=== PATIENT | female | born 1935 | race Caucasian/White ===

== ENCOUNTER 2017-02-08 11:48 | Emergency (ER) | payer OTHER ==
[~2017-02-08 11:48] MED LIST: ASCA500 PO; CLC150 PO; CMD/25 PO; LEVO100T48 PO; MAGNSUS5 PO; MAGNTAB4 PO; METO50TA16 PO; NTRGSL/4 SL; OXGN
[2017-02-08 11:56] VITALS: TEMP 36.5
[2017-02-08 13:44] LABS: BASO % 0.3 %; BASO ABS # 0.02 K/uL (0-0.2); COMPLETE YES; EOS % 3.2 %; HEMATOCRIT 39.8 % (37-47); IG% 0.4 %; LYMPH % 18.6 %; MEAN CELL VOLUME 96.6 fL (80-100); MEAN CORPUSCULAR HEMOGLOBIN 30.6 pg (25-34); MEAN CORPUSCULAR HGB CONC 31.7 g/dl (32-36); MEAN PLATELET VOLUME 9.5 fL (7.4-10.4); MONO % 10.7 %; NEUT % 66.8 %; PLATELET COUNT 237 K/uL (130-400); RED BLOOD COUNT 4.12 M/uL (4.2-5.4); WHITE BLOOD COUNT 6.98 K/uL (4.8-10.8)
[2017-02-08 13:54] LABS: INR 1.8 (0.9-1.1); PARTIAL THROMBOPLASTIN RATIO 1.2; PROTHROMBIN TIME (PATIENT) 20.1 SECONDS (9.0-12.0)
[2017-02-08 14:09] LABS: ALT/SGPT 29 U/L (12-78); AST/SGOT 36 U/L (15-37); BLOOD UREA NITROGEN 16 mg/dl (7-18); BUN/CREATININE RATIO 16.3 (10-20); CARBON DIOXIDE 33 mmol/L (21-32); CHLORIDE 105 mmol/L (98-107); GLUCOSE 157 mg/dl (70-99); POTASSIUM 4.5 mmol/L (3.5-5.1); SODIUM 142 mmol/L (136-145)
[2017-02-08 14:12] LABS: ALB/GLOB RATIO 0.8 (0.9-2); ALKALINE PHOSPHATASE 246 U/L (45-117)
--- NOTE | 2017-02-08 14:30 | EMERGENCY ROOM VISIT NOTE ---
History Report prepared by Ibis: Ncikolas Tomlin Under the Supervision of: Dr. Alma Moctezuma D.O. First contact with patient: 14:04 Chief Complaint: OTHER COMPLAINT Stated Complaint: INFECTION History of Present Illness The patient is an 81 year old female who presents to the Emergency Room with complaints of a persistent infection that was detected this morning. The patient states that she has not felt well and has been extremely tired for a while now and her doctors are aware of this. Around 3 weeks ago, she started having a severe headache around her left eyeball. Even when touching her left eyebrow, she has terrible pain. However, the severe headache went away around a week and a half ago, although her left eyeball has been persistently sensitive. After the headache subsided, she started getting a very bad sore throat, and she says that she felt like she was swallowing razor blades. Her sore throat subsided, but then she got bad diarrhea. However, currently she has been constipated. The patient's family also notes that the patient has been more short of breath on exertion than normal. She is on oxygen at home all the time. The patient saw Dr. Nugent of cardiovascular disease a few days ago, and was told to have a CT scan head because the patient has been on Coumadin for a long time and she is prone to a blood clot. The patient had the CT scan yesterday, and was then called this morning and told that she should come here to have some IV antibiotics because she had severe inflammation in her sinuses. The CT scan report revealed severe sinus disease, and there is concern that part of the posterior aspect of the sinus dehisced, so they want the patient to have a contrast head CT and orbital CT. The patient denies any abdominal pain, nausea , vomiting, fevers, or chills. She notes that she has a yeast infection under her right breast, and was being treated for this with medications, but she has not been taking the medications ever since she has not been feeling well. Her doctor agreed with holding off on the medication for now. Her last Coumadin was 1.7. She has a pacemaker, is diabetic, and has 3 stents placed. She says her sugars have been low a few mornings recently. The patient did take her insulin this morning, but did not eat anything this morning due to doctor's recommendation. Source of History: patient, family Onset: Detected this morning Position: other (global - infection) Timing: other (persistent) Associated Symptoms: + SOB (worsening), + diarrhea (but is now constipated) , + fatigue, + headache (has subsided), + sorethroat (has subsided), No abdominal pain, No chills, No fevers, No nausea, No vomiting Note: Associated symptoms: Persistent sensitivity around left eyeball. Review of Systems See HPI for pertinent positives & negatives. A total of 10 systems reviewed and were otherwise negative. 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 (14) Venous insufficiency Surgical Problems: (1) History of cholecystectomy (2) History of hysterectomy (3) S/P coronary artery stent placement (4) S/p dual chamber pacemaker insertion Family History Diabetes mellitus MOTHER FH: CHF (congestive heart failure) MOTHER FH: Crohn's disease DAUGHTER Hypertension SON Pacemaker BROTHER Social History Smoking Status: Never Smoker Alcohol Use: none Drug Use: none Marital Status: Housing Status: lives with family Occupation Status: retired Current/Historical Medications Scheduled Ascorbic Acid (Ascorbic Acid), 500 MG PO DAILY Aspirin (Aspirin Ec), 81 MG PO DAILY Atorvastatin (Lipitor), 10 MG PO DAILY Calcium Carbonate-Vitamin D (Calcium 600 + D), 2 TABLETS PO DAILY Cholecalciferol (Vitamin D3), 1 TAB PO DAILY Clindamycin Hcl (Cleocin), 300 MG PO TID Coenzyme Q10 (Ubidecarenone) (Co Q 10), 100 MG PO DAILY Fluticasone Propionate (Nasal) (Flonase Allergy Relief), 2 SPRAYS INTNAS BID Furosemide (Lasix), 20 MG PO DAILY Insulin Isophan/Regular (Novolin 70/30), 25 UNITS SC QAM Insulin Isophan/Regular (Novolin 70/30), 15 UNITS SC QPM Isosorbide Mononitrate Ext Rel (Imdur Ext Rel), 60 MG PO DAILY Levothyroxine Sodium (Levothyroxine Sodium), 1 TAB PO DAILY Magnesium Chloride (Slow-Mag Tab), 64 MG PO DAILY Metoprolol Tartrate (Lopressor) (Lopressor), 25 MG PO BID Multivitamin (Multivitamin), 1 TAB PO DAILY Nitroglycerin (Nitrostat), 0.4 MG UT PRN Oxygen (Oxygen), 2 LITERS NA HS Pantoprazole (Protonix), 40 MG PO Q2D Probiotic Product (Probiotic), 1 CAP PO DAILY Warfarin Sod (Coumadin), 1 TAB PO DAILY Scheduled PRN Acetaminophen (Tylenol), 500-1,000 MG PO TID PRN Lorazepam (Ativan), 0.25-0.5 MG PO BID PRN for Anxiety/Agitation Magnesium Hydroxide (Milk of Magnesia), 30 ML PO for Constipation Miscellaneous Medications Clindamycin Hcl (Clindamycin Hcl), 4 CAP PO Allergies Coded Allergies: MERRY Inhibitors (Verified Allergy, Unknown, Unknown, 02/08/17) Adhesives (Verified Allergy, Unknown, "TAPE", 02/08/17) Albuterol (Verified Allergy, Unknown, INTOLERANT OF ALBUTEROL, 02/08/17) Amiodarone (Verified Allergy, Unknown, 02/08/17) Amoxicillin (Verified Allergy, Unknown, ., 02/08/17) Ampicillin (Verified Allergy, Unknown, Unknown, 02/08/17) Bacitracin (Verified Allergy, Unknown, 02/08/17) Replaces BACITRACIN/PO Cephalosporins (Verified Allergy, Unknown, KEFLEX, 02/08/17) Morphine (Verified Allergy, Unknown, 02/08/17) Penicillins (Verified Allergy, Unknown, AMPICILLIN, 02/08/17) Polymyxin B (Verified Allergy, Unknown, 02/08/17) Replaces BACITRACIN/PO Physical Exam Vital Signs Date Time Temp Pulse Resp B/P Pulse Ox O2 Delivery O2 Flow Rate FiO2 02/08/17 19:04 75 19 146/75 94 Room Air 02/08/17 18:15 72 20 151/90 93 Nasal Cannula 2.0 02/08/17 15:10 88 20 129/90 97 Room Air 02/08/17 11:56 36.5 91 20 101/53 97 Room Air Physical Exam GENERAL: alert, well appearing, well nourished, no distress, non-toxic EYE EXAM: normal conjunctiva, PERRL and EOM's grossly intact OROPHARYNX: no exudate, no erythema, lips, buccal mucosa, and tongue normal and mucous membranes are moist. poor dentition. no periorbital edema, no sinus tenderness to percussion. No facial swelling NECK: supple, no nuchal rigidity, no adenopathy, non-tender LUNGS: Clear to auscultation. Normal chest wall mechanics HEART: no murmurs, S1 normal and S2 normal ABDOMEN: abdomen very obese, soft, non-tender, normo-active bowel sounds, no masses, no rebound or guarding. BACK: Back is symmetrical on inspection and there is no deformity, no midline tenderness, no CVA tenderness. SKIN: no rashes and no bruising UPPER EXTREMITIES: upper extremities are grossly normal. LOWER EXTREMITIES: chronic lymphedema bilaterally to lower extremities, chronic venous stasis changes bilaterally to lower extremities. NEURO EXAM: Normal sensorium, cranial nerves II-XII grossly intact, normal speech, no gross weakness of arms, no gross weakness of legs. No drift. Finger to nose intact. Gross sensation intact. Medical Decision & Procedures ER Provider Diagnostic Interpretation: Xray results per the radiologist and my interpretation. Other results have been interpreted by the radiologist and reviewed by me. CHEST 2 VIEWS ROUTINE CLINICAL HISTORY: Shortness of breath. COMPARISON STUDY: Chest radiograph December 18, 2015. FINDINGS: A dual the left subclavian pacemaker remains in place. Moderate cardiomegaly is unchanged. There is no pneumothorax or pleural effusion. There is no evidence of pulmonary edema. Right lung linear opacities suggest atelectasis or scarring. Elevation/eventration of the right hemidiaphragm is unchanged. IMPRESSION: 1. No acute findings. 2. Stable cardiomegaly without evidence of pulmonary edema. 3. Linear right lung opacities which suggest atelectasis or scarring. Electronically signed by: Ulises Hendrickson M.D. 02/08/2017 5:20 PM Dictated Date/Time: 02/08/2017 5:[address] ORBITS/SELLA/TEMP COMBO CT DOSE: CLINICAL HISTORY: Sinus disease. Possible abscess. TECHNIQUE: The patient was scanned following administration of 93 cc of Optiray 320. COMPARISON STUDY: None. FINDINGS: There is a small amount of debris within the inferior aspect of the right mastoid. Middle ear cavities appear symmetrically aerated. The sphenoid sinus appears clear. There is opacification of several right-sided ethmoid air cells with erosion of the right lamina papyracea. There is no evidence for intraconal or subperiosteal abscess. There is also erosion of the medial wall of the right ethmoid sinus near the level of the olfactory groove. There is opacification of the frontal sinus. There is erosion of the posterior wall the right frontal sinus. There is no evidence of intracranial abscess. The left ostiomeatal unit is patent. The infundibular portions the right ostiomeatal unit is occluded by soft tissue. IMPRESSION: 1. Inflammatory changes within the right ethmoid and frontal sinuses, with evidence for bony erosive change involving the right lamina papyracea, the medial wall the right ethmoid sinus, and the posterior wall the right frontal sinus. There is no CT evidence of intracranial abscess or intraorbital abscess. Electronically signed by: Jc Lacy M.D. 02/08/2017 5:04 PM Dictated Date/Time: 02/08/2017 4:[address] HEAD WITH CONTRAST (CT) CT DOSE: 2633.04 mGy.cm CLINICAL HISTORY: Infection. Abnormal outpatient noncontrast CT. Sinus disease. TECHNIQUE: Axial images of the head were obtained following intravenous injection of 93 cc of Optiray 320 IV. COMPARISON STUDY: None. FINDINGS: The sensitivity for detection of acute hemorrhage is diminished on this contrast enhanced exam but none is identified. Ventricular system is unremarkable. Basilar cisterns are patent. White matter hypodensity suggests small vessel disease. There are no findings to suggest acute dural sinus thrombosis or acute territorial infarct. There is trace fluid within the right mastoid air cells. The right frontal sinus and anterior right ethmoid sinuses are opacified. There is better depicted on the orbits CT. There is no intracranial mass. IMPRESSION: 1. No acute intracranial findings. 2. Opacified right frontal sinus and right anterior ethmoid air cells with bony erosion of the wall of the right orbit, medial wall the right ethmoid sinus and posterior wall the right frontal sinus. Differentiation between marked bony thinning and complete erosion through the bone is difficult by CT. No intracranial abscess identified. These findings are better depicted on the orbits CT. Please see that report for further description. Electronically signed by: Ulises Hendrickson M.D. 02/08/2017 5:09 PM Dictated Date/Time: 02/08/2017 4:49 PM Laboratory Results 02/08/17 13:30 Red Blood Count 4.12, Mean Corpuscular Volume 96.6, Mean Corpuscular Hemoglobin 30.6, Mean Corpuscular Hemoglobin Concent 31.7, Mean Platelet Volume 9.5, Neutrophils (%) (Auto) 66.8, Lymphocytes (%) (Auto) 18.6, Monocytes (%) (Auto) 10.7, Eosinophils (%) (Auto) 3.2, Basophils (%) (Auto) 0.3, Neutrophils # (Auto ) 4.66, Lymphocytes # (Auto) 1.30, Monocytes # (Auto) 0.75, Eosinophils # (Auto ) 0.22, Basophils # (Auto) 0.02 02/08/17 13:30 Test 02/08/17 13:30 02/08/17 16:20 White Blood Count 6.98 K/uL (4.8-10.8) Red Blood Count 4.12 M/uL (4.2-5.4) Hemoglobin 12.6 g/dL (12.0-16.0) Hematocrit 39.8 % (37-47) Mean Corpuscular Volume 96.6 fL (80-100) Mean Corpuscular Hemoglobin 30.6 pg (25-34) Mean Corpuscular Hemoglobin Concent 31.7 g/dl (32-36) Platelet Count 237 K/uL (130-400) Mean Platelet Volume 9.5 fL (7.4-10.4) Neutrophils (%) (Auto) 66.8 % Lymphocytes (%) (Auto) 18.6 % Monocytes (%) (Auto) 10.7 % Eosinophils (%) (Auto) 3.2 % Basophils (%) (Auto) 0.3 % Neutrophils # (Auto) 4.66 K/uL (1.4-6.5) Lymphocytes # (Auto) 1.30 K/uL (1.2-3.4) Monocytes # (Auto) 0.75 K/uL (0.11-0.59) Eosinophils # (Auto) 0.22 K/uL (0-0.5) Basophils # (Auto) 0.02 K/uL (0-0.2) RDW Standard Deviation 52.5 fL (36.4-46.3) RDW Coefficient of Variation 14.8 % (11.5-14.5) Immature Granulocyte % (Auto) 0.4 % Immature Granulocyte # (Auto) 0.03 K/uL (0.00-0.02) Prothrombin Time 20.1 SECONDS (9.0-12.0) Prothromb Time International Ratio 1.8 (0.9-1.1) Activated Partial Thromboplast Time 31.2 SECONDS (21.0-31.0) Partial Thromboplastin Ratio 1.2 Anion Gap 4.0 mmol/L (3-11) Estimated GFR () 60.3 Estimated GFR (Non- 52.1 BUN/Creatinine Ratio 16.3 (10-20) Calcium Level 9.0 mg/dl (8.5-10.1) Total Bilirubin 1.0 mg/dl (0.2-1) Aspartate Amino Transf (AST/SGOT) 36 U/L (15-37) Alanine Aminotransferase (ALT/SGPT) 29 U/L (12-78) Alkaline Phosphatase 246 U/L (45-117) Troponin I 0.029 ng/ml (0-0.045) Pro-B-Type Natriuretic Peptide 1280 pg/ml (0-1800) Total Protein 6.9 gm/dl (6.4-8.2) Albumin 3.1 gm/dl (3.4-5.0) Globulin 3.8 gm/dl (2.5-4.0) Albumin/Globulin Ratio 0.8 (0.9-2) Urine Color YELLOW Urine Appearance CLEAR (CLEAR) Urine pH 8.0 (4.5-7.5) Urine Specific [place] 1.011 (1.000-1.030) Urine Protein NEG (NEG) Urine Glucose (UA) NEG (NEG) Urine Ketones NEG (NEG) Urine Occult Blood NEG (NEG) Urine Nitrite NEG (NEG) Urine Bilirubin NEG (NEG) Urine Urobilinogen NEG (NEG) Urine Leukocyte Esterase SMALL (NEG) Urine WBC (Auto) 5-10 /hpf (0-5) Urine RBC (Auto) 0-4 /hpf (0-4) Urine Hyaline Casts (Auto) 0 /lpf (0-5) Urine Epithelial Cells (Auto) >30 /lpf (0-5) Urine Bacteria (Auto) 1+ (NEG) Laboratory results per my review. Medications Administered Medications (Trade) Dose Ordered Sig/Yesenia Route Start Time Stop Time Status Last Admin Dose Admin Lorazepam (Ativan Tab) 0.25 mg NOW STAT SL 02/08/17 15:05 02/08/17 15:06 DC 02/08/17 15:20 0.25 MG Clindamycin HCl (Cleocin Cap) 300 mg ONE ONCE PO 02/08/17 18:30 02/08/17 18:31 DC 02/08/17 18:31 300 MG ECG Indication: SOB/dyspnea Rate (beats per minute): 66 Rhythm: other (paced rhythm) Findings: no acute ischemic change, left axis deviation, prolonged QT ( consistent with pacing), other (prolonged QRS consistent with pacing) ED Course 1413: The patient was evaluated in room B5. A complete history and physical exam was performed. 1505: Ordered Ativan Tab 0.25 mg SL. 174: I reevaluated the patient and updated her about her CT scans. 1811: I discussed the patient with Dr. Sagar Wolfe ENT - he recommends to give the patient Clindamycin 300 TID for 10 days, nasal steroids, salt water , and he can see the patient on Saturday. 1820: Upon reevaluation, the patient is feeling better. I discussed the findings and the treatment plan with the patient. She verbalizes agreement and understanding. She will be discharged home. 1829: Ordered Cleocin Cap 300 mg PO. 1835: Ordered Flonase Nasal [place] 2 sprays NA. Medical Decision ddx - sinusitis, intracranial abscess, CVA, intercerebral hemorrhage, parable cellulitis, orbital cellulitis, atypical headache/migraine, mucormycosis Patient well-appearing here and per her report symptoms improved compared to a week ago. Patient here due to atypical renal outpatient noncontrast head CT and palpation doctor concern patient required additional imaging. Patient's labs reassuring despite multiple chronic medical conditions. Imaging with extensive sinus disease noted, and so discussed with ENT. No exam findings to suggest mucormycosis. Patient with no facial edema or periorbital edema, no proptosis. Patient was reported normal vision and no recurrent headaches. No sinus tenderness to percussion. Patient's only risk factor for more significant sinus disease as her diabetes, she is not otherwise immunocompromised. After discussion with ENT started on clindamycin and additional intranasal treatments. Patient advised close follow-up. Discussed at length with patient and family at bedside symptoms watch return for, use of continue medications, need for close follow-up they verbalized understanding were agreeable with plan. Patient with no other symptoms at this time including chest pain, shortness of breath, fevers or chills, no vomiting here. Patient appears in her usual state of health. Consults Time Called: 1800 Consulting Physician: Dr. Sagar Wolfe ENT Returned Call: 1811 I discussed the patient with Dr. Sagar Wolfe ENT - he recommends to give the patient Clindamycin 300 TID for 10 days, nasal steroids, salt water, and he can see the patient on Saturday. Impression Primary Impression: Sinusitis Additional Impression: Headache Scribe Attestation The scribe's documentation has been prepared under my direction and personally reviewed by me in its entirety. I confirm that the note above accurately reflects all work, treatment, procedures, and medical decision making performed by me. Departure Information Dispostion Home / Self-Care Prescriptions Fluticasone Propionate (Nasal) (Flonase Allergy Relief) 50 Mcg/Act Spr 2 SPRAYS INTNAS BID, #1 UNIT Prov: Alma Moctezuma, 02/08/17 Clindamycin Hcl (CLEOCIN) 150 Mg Cap 300 MG PO TID for 10 Days, #60 CAP Prov: Alma Moctezuma, 02/08/17 Referrals No Doctor, Assigned (PCP) Patient Instructions My [facility] Additional Instructions Please call and follow-up as directed by the ear nose and throat doctor. He may see Dr. Keith in the office on Saturday, or if you prefer urinary nose and throat doctor the use before. Please use a saline or saltwater rinses of the nose. Please use the nasal steroid as prescribed, take the antibiotics as prescribed daily. Please begin using an [id number] probiotic and eat yogurt daily to help prevent against any GI side effects of taking the antibiotic. Afrin may be used [id number], however please be cautious in taking this given her history of high blood pressure. Please continue your other medications as prescribed and checked her blood sugar daily. Problem Qualifiers Primary Impression: Sinusitis Sinusitis location: unspecified location Chronicity: acute Recurrence: non -recurrent Qualified Codes: J01.90 - Acute sinusitis, unspecified Additional Impression: Headache Headache type: unspecified Headache chronicity pattern: episodic headache Intractability: not intractable Qualified Codes: R51 - Headache
[2017-02-08] MEDS ORDERED: LORAZEPAM 0.5 MG TAB SL STA (15:05)
[2017-02-08] MEDS ORDERED: OPTIRAY 320 IV PRN (17:00)
--- NOTE | 2017-02-08 17:05 | DIAGNOSTIC IMAGING REPORT ---
CT ORBITS/SELLA/TEMP COMBO CT DOSE: CLINICAL HISTORY: Sinus disease. Possible abscess. TECHNIQUE: The patient was scanned following administration of 93 cc of Optiray 320. COMPARISON STUDY: None. FINDINGS: There is a small amount of debris within the inferior aspect of the right mastoid. Middle ear cavities appear symmetrically aerated. The sphenoid sinus appears clear. There is opacification of several right-sided ethmoid air cells with erosion of the right lamina papyracea. There is no evidence for intraconal or subperiosteal abscess. There is also erosion of the medial wall of the right ethmoid sinus near the level of the olfactory groove. There is opacification of the frontal sinus. There is erosion of the posterior wall the right frontal sinus. There is no evidence of intracranial abscess. The left ostiomeatal unit is patent. The infundibular portions the right ostiomeatal unit is occluded by soft tissue. IMPRESSION: 1. Inflammatory changes within the right ethmoid and frontal sinuses, with evidence for bony erosive change involving the right lamina papyracea, the medial wall the right ethmoid sinus, and the posterior wall the right frontal sinus. There is no CT evidence of intracranial abscess or intraorbital abscess. Electronically signed by: Jc Lacy M.D. 02/08/2017 5:04 PM Dictated Date/Time: 02/08/2017 4:59 PM
--- NOTE | 2017-02-08 17:10 | DIAGNOSTIC IMAGING REPORT ---
CT HEAD WITH CONTRAST (CT) CT DOSE: 2633.04 mGy.cm CLINICAL HISTORY: Infection. Abnormal outpatient noncontrast CT. Sinus disease. TECHNIQUE: Axial images of the head were obtained following intravenous injection of 93 cc of Optiray 320 IV. COMPARISON STUDY: None. FINDINGS: The sensitivity for detection of acute hemorrhage is diminished on this contrast enhanced exam but none is identified. Ventricular system is unremarkable. Basilar cisterns are patent. White matter hypodensity suggests small vessel disease. There are no findings to suggest acute dural sinus thrombosis or acute territorial infarct. There is trace fluid within the right mastoid air cells. The right frontal sinus and anterior right ethmoid sinuses are opacified. There is better depicted on the orbits CT. There is no intracranial mass. IMPRESSION: 1. No acute intracranial findings. 2. Opacified right frontal sinus and right anterior ethmoid air cells with bony erosion of the wall of the right orbit, medial wall the right ethmoid sinus and posterior wall the right frontal sinus. Differentiation between marked bony thinning and complete erosion through the bone is difficult by CT. No intracranial abscess identified. These findings are better depicted on the orbits CT. Please see that report for further description. Electronically signed by: Ulises Hendrickson M.D. 02/08/2017 5:09 PM Dictated Date/Time: 02/08/2017 4:49 PM
[2017-02-08 17:18] LABS: URINE APPEARANCE CLEAR (CLEAR); URINE BILIRUBIN NEG (NEG); URINE COLOR YELLOW; URINE EPITHELIAL CELL AUTO >30 /lpf (0-5); URINE NITRITE NEG (NEG); URINE SPECIFIC GRAVITY 1.011 (1.000-1.030); UROBILINOGEN NEG (NEG); ZZUR CULT IF INDIC CLEAN CATCH YES
[2017-02-08 17:22] LABS: MANUAL MICROSCOPIC REQUIRED? NO; REVIEW REQ? NO
--- NOTE | 2017-02-08 17:22 | DIAGNOSTIC IMAGING REPORT ---
CHEST 2 VIEWS ROUTINE CLINICAL HISTORY: Shortness of breath. COMPARISON STUDY: Chest radiograph December 18, 2015. FINDINGS: A dual the left subclavian pacemaker remains in place. Moderate cardiomegaly is unchanged. There is no pneumothorax or pleural effusion. There is no evidence of pulmonary edema. Right lung linear opacities suggest atelectasis or scarring. Elevation/eventration of the right hemidiaphragm is unchanged. IMPRESSION: 1. No acute findings. 2. Stable cardiomegaly without evidence of pulmonary edema. 3. Linear right lung opacities which suggest atelectasis or scarring. Electronically signed by: Ulises Hendrickson M.D. 02/08/2017 5:20 PM Dictated Date/Time: 02/08/2017 5:19 PM
[2017-02-08] MEDS ORDERED: CLINDAMYCIN HCL 150 MG CAP PO ONE (18:30)
[2017-02-08] MEDS ORDERED: FLUTICASONE PROPIONATE NA SPR 16 GM BTL STA (18:36)
[2017-02-08] MEDS ORDERED: FLUT0.15 INTNAS (18:41)
[2017-02-08] MEDS ORDERED: CLIN150C PO (18:41)
[2017-02-08 19:04] VITALS: BP 146/75; PULSE 75; O2SAT 94
[2017-03-10] MEDS ORDERED: INSU70IN2 SC ×2 (04:30→04:32)
[2017-03-10] MEDS ORDERED: ISOS60TA25 PO (04:31)
[2017-03-10] MEDS ORDERED: TYLOTC500 PO (04:33)
[2017-03-10] MEDS ORDERED: MULT-506 PO (04:33)
[2017-03-10] MEDS ORDERED: CALC-20 PO (04:36)
[2017-03-10] MEDS ORDERED: ATOR-22 PO (04:37)
[2017-03-10] MEDS ORDERED: COEN1CAP17 PO (04:54)
[2017-03-10] MEDS ORDERED: MISCCAP80 PO (13:42)
[2017-03-10] MEDS ORDERED: CHOL1000 PO (13:42)
[2017-03-10] MEDS ORDERED: LORA-741 PO (13:42)
[2017-03-10] MEDS ORDERED: ASPI81TA28 PO (13:42)
[2017-03-10] MEDS ORDERED: SLWMEC PO (15:58)
[2017-03-10] MEDS ORDERED: CLIN150C15 PO (15:58)
[2017-03-10] MEDS ORDERED: ASCO500T16 PO (15:58)
[2017-03-10] MEDS ORDERED: LEVO100T7 PO (15:58)
[2017-03-10] MEDS ORDERED: NTRGSL/4 UT (15:58)
[2017-03-10] MEDS ORDERED: FURO-85 PO (15:58)
[2017-03-10] MEDS ORDERED: MOMLX PO (15:58)
== END 2017-02-08 19:23 | disposition home or self-care (01) ==
LOC: C.EDB 11:49
DX: J01.90 Acute sinusitis, unspecified (principal); R51 Headache; R19.7 Diarrhea, unspecified; I12.9 Hypertensive chronic kidney disease with stage 1 through stage 4 chronic kidney disease, or unspecified chronic kidney disease; E78.5 Hyperlipidemia, unspecified; E03.9 Hypothyroidism, unspecified; E11.22 Type 2 diabetes mellitus with diabetic chronic kidney disease; N18.3 Chronic kidney disease, stage 3 (moderate); E11.40 Type 2 diabetes mellitus with diabetic neuropathy, unspecified; Z95.0 Presence of cardiac pacemaker; Z85.828 Personal history of other malignant neoplasm of skin; Z98.61 Coronary angioplasty status; Z90.710 Acquired absence of both cervix and uterus; Z90.49 Acquired absence of other specified parts of digestive tract; Z79.01 Long term (current) use of anticoagulants; Z79.4 Long term (current) use of insulin; Z79.82 Long term (current) use of aspirin; Z79.899 Other long term (current) drug therapy

== ENCOUNTER 2017-03-10 20:08 | Inpatient (IN) | payer OTHER ==
[~2017-03-10] VITALS: Ht 167.6 cm; Wt 133.6 kg
[~2017-03-10 20:08] MED LIST changes: -ASCA500 PO; +ASCO500T16 PO; +ASPI81TA28 PO; +ATOR-22 PO; +CALC-20 PO; +CHOL1000 PO; -CLC150 PO; +CLIN150C15 PO; +COEN1CAP17 PO; +FLUT0.15 INTNAS; +FURO-85 PO; +INSU70IN2 SC; +ISOS60TA25 PO; -LEVO100T48 PO; +LEVO100T7 PO; +LORA-741 PO; -MAGNSUS5 PO; -MAGNTAB4 PO; +MISCCAP80 PO; +MOMLX PO; +MULT-506 PO; -NTRGSL/4 SL; +NTRGSL/4 UT; +SLWMEC PO; +TYLOTC500 PO
[2017-03-10] MEDS ORDERED: LEVALBUTEROL 1.25MG/3ML NEB INH STA (20:18)
[2017-03-10 20:30] LABS: BASO % 0.2 %; BASO ABS # 0.01 K/uL (0-0.2); COMPLETE YES; EOS % 1.4 %; HEMATOCRIT 44.1 % (37-47); IG% 0.2 %; LYMPH % 22.7 %; LYMPH ABS # 1.28 K/uL (1.2-3.4); MEAN CELL VOLUME 97.8 fL (80-100); MEAN CORPUSCULAR HGB CONC 31.7 g/dl (32-36); MEAN PLATELET VOLUME 9.9 fL (7.4-10.4); MONO % 17.6 %; NEUT % 57.9 %; PLATELET COUNT 197 K/uL (130-400); RED BLOOD COUNT 4.51 M/uL (4.2-5.4); WHITE BLOOD COUNT 5.64 K/uL (4.8-10.8)
[2017-03-10] MEDS ORDERED: LORAZEPAM 2 MG/ML 1 ML VIAL IV STA (20:35)
[2017-03-10] MEDS ORDERED: LEVO1TAB33 PO (20:38)
[2017-03-10] MEDS ORDERED: METO50TA16 PO (20:38)
[2017-03-10 20:39] LABS: INR 2.3 (0.9-1.1); PROTHROMBIN TIME (PATIENT) 25.1 SECONDS (9.0-12.0)
--- NOTE | 2017-03-10 20:45 | EMERGENCY ROOM VISIT NOTE ---
History Report prepared by Ibis: Jolene Greene Under the Supervision of: Dr. Steven Vargas M.D. First contact with patient: 20:10 Stated Complaint: BREATHING DIFFICULTY History of Present Illness The patient is an 81 year old female who presents to the Emergency Room with complaints of worsening shortness of breath starting a few days ago. She reports that she also hasn't been feeling all that well altogether the past few days. She states that she has been experiencing chills, intermittent diaphoresis , and fever. Per EMS, she her stats were in the mid-80s on 2 L O2. She states she does not want to be given Albuterol or Duoneb because they speed up her heart rate. She denies any chest pain or ever being a smoker. She notes she is on Coumadin. Source of History: patient, EMS Onset: few days ago Position: other (global) Quality: other (global) Timing: worsening Associated Symptoms: + chills, + diaphoresis, + fevers, No chest pain Review of Systems See HPI for pertinent positives & negatives. A total of 10 systems reviewed and were otherwise negative. 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 (14) Venous insufficiency Surgical Problems: (1) History of cholecystectomy (2) History of hysterectomy (3) S/P coronary artery stent placement (4) S/p dual chamber pacemaker insertion Family History Diabetes mellitus MOTHER FH: CHF (congestive heart failure) MOTHER FH: Crohn's disease DAUGHTER Hypertension SON Pacemaker BROTHER Social History Smoking Status: Never Smoker Alcohol Use: none Drug Use: none Marital Status: Housing Status: lives with family Occupation Status: retired Current/Historical Medications Scheduled Ascorbic Acid (Ascorbic Acid), 500 MG PO DAILY Aspirin (Aspirin Ec), 81 MG PO DAILY Atorvastatin (Lipitor), 10 MG PO DAILY Calcium Carbonate-Vitamin D (Calcium 600 + D), 2 TABLETS PO DAILY Cholecalciferol (Vitamin D3), 1 TAB PO DAILY Coenzyme Q10 (Ubidecarenone) (Co Q 10), 100 MG PO DAILY Furosemide (Lasix), 20 MG PO DAILY Insulin Isophan/Regular (Novolin 70/30), 25 UNITS SC QAM Insulin Isophan/Regular (Novolin 70/30), 15 UNITS SC QPM Isosorbide Mononitrate Ext Rel (Imdur Ext Rel), 60 MG PO DAILY Levofloxacin (Levaquin), 500 MG PO DAILY Levothyroxine Sodium (Levothyroxine Sodium), 1 TAB PO DAILY Magnesium Chloride (Slow-Mag Tab), 64 MG PO DAILY Metoprolol Tartrate (Lopressor) (Lopressor), 25 MG PO DAILY Multivitamin (Multivitamin), 1 TAB PO DAILY Nitroglycerin (Nitrostat), 0.4 MG UT PRN Pantoprazole (Protonix), 40 MG PO Q2D Probiotic Product (Probiotic), 1 CAP PO DAILY Warfarin Sod (Coumadin), 2.5-5 MG PO DAILY UD Scheduled PRN Acetaminophen (Tylenol), 500-1,000 MG PO TID PRN Lorazepam (Ativan), 0.25-0.5 MG PO BID PRN for Anxiety/Agitation Magnesium Hydroxide (Milk of Magnesia), 30 ML PO for Constipation Miscellaneous Medications Clindamycin Hcl (Clindamycin Hcl), 4 CAP PO Allergies Coded Allergies: MERRY Inhibitors (Verified Allergy, Unknown, Unknown, 02/08/17) Adhesives (Verified Allergy, Unknown, "TAPE", 02/08/17) Albuterol (Verified Allergy, Unknown, INTOLERANT OF ALBUTEROL, 02/08/17) Amiodarone (Verified Allergy, Unknown, 02/08/17) Amoxicillin (Verified Allergy, Unknown, ., 02/08/17) Ampicillin (Verified Allergy, Unknown, Unknown, 02/08/17) Bacitracin (Verified Allergy, Unknown, 02/08/17) Replaces BACITRACIN/PO Cephalosporins (Verified Allergy, Unknown, KEFLEX, 02/08/17) Epinephrine (Verified Allergy, Unknown, UNKNOWN, 03/10/17) INFO FROM [facility] Morphine (Verified Allergy, Unknown, 02/08/17) Penicillins (Verified Allergy, Unknown, AMPICILLIN, 02/08/17) Polymyxin B (Verified Allergy, Unknown, 02/08/17) Replaces BACITRACIN/PO Physical Exam Vital Signs Date Time Temp Pulse Resp B/P Pulse Ox O2 Delivery O2 Flow Rate FiO2 03/10/17 23:20 83 28 122/68 93 Nasal Cannula 3.0 03/10/17 21:22 92 26 134/71 93 Nasal Cannula 4.0 03/10/17 20:49 88 24 95 Nasal Cannula 3.0 03/10/17 20:42 90 03/10/17 20:23 94 Nasal Cannula 6.0 03/10/17 20:23 93 Nasal Cannula 6.0 03/10/17 20:17 86 Room Air 03/10/17 20:17 36.7 86 30 158/94 86 Room Air Physical Exam GENERAL: Patient is a healthy-appearing well-nourished HEAD: Normocephalic atraumatic EYES: Ocular movements intact pupils equal and react to light OROPHARYNX mucous membranes are moist no exudates present no erythema or edema present NECK: Supple no nuchal rigidity CHEST: Good equal expansion LUNGS: Clear and equal to auscultation. Acute short of breath, wheezing throughout lung donaldson. CARDIAC: Normal S1 and S2 ABDOMEN: Soft nontender no guarding BACK: No CVA tenderness EXTREMITIES: No pain upon palpation normal muscle strength in all groups no clubbing cyanosis or edema NEURO: Patient is following commands is answering questions appropriately. Alert and oriented x3 Cranial Nerves 2-12 grossly intact Medical Decision & Procedures ER Provider Diagnostic Interpretation: Radiology results as stated below per my review and radiologist interpretation: CHEST ONE VIEW PORTABLE HISTORY: Short of breath. COMPARISON: Chest 02/08/2017. FINDINGS: The heart remains mildly enlarged. Left-sided dual-chamber pacemaker. No pleural effusions. No pneumothorax. Mild central pulmonary vascular congestion without overt edema. Stable linear densities within the right mid to lower lung zone. This may represent scarring or atelectasis. IMPRESSION: 1. Stable mild cardiomegaly. 2. Mild pulmonary vascular congestion without overt edema. 3. Stable linear scarlike densities within the right lung. Electronically signed by: Killian Perez M.D. 03/10/2017 9:06 PM Dictated Date/Time: 03/10/2017 9:05 PM Laboratory Results Test 03/10/17 19:50 03/10/17 21:20 Total Bilirubin 0.6 mg/dl (0.2-1) Aspartate Amino Transf (AST/SGOT) 30 U/L (15-37) Alanine Aminotransferase (ALT/SGPT) 20 U/L (12-78) Alkaline Phosphatase 173 U/L (45-117) Total Creatine Kinase 60 U/L (26-192) Creatine Kinase MB 1.8 ng/ml (0.5-3.6) Creatine Kinase MB Ratio 3.0 (0-3.0) Troponin I 0.025 ng/ml (0-0.045) Total Protein 7.1 gm/dl (6.4-8.2) Albumin 3.1 gm/dl (3.4-5.0) Globulin 4.0 gm/dl (2.5-4.0) Albumin/Globulin Ratio 0.8 (0.9-2) Influenza Type A (RT-PCR) Neg for Influ A (NEG) Influenza Type A Antigen Neg for Influ A (NEG) Influenza Type B Antigen Neg for Influ B (NEG) Influenza Type B (RT-PCR) Neg for Influ B (NEG) Labs reviewed by ED physician. Medications Administered Medications (Trade) Dose Ordered Sig/Yesenia Route Start Time Stop Time Status Last Admin Dose Admin Levalbuterol (Xopenex 1.25MG/ 3ML Neb) 1.25 mg NOW STAT INH 03/10/17 20:18 03/10/17 20:21 DC 03/10/17 20:18 1.25 MG Lorazepam (Ativan Inj) 0.5 mg NOW STAT IV 03/10/17 20:35 03/10/17 20:36 DC 03/10/17 20:40 0.5 MG Methylprednisolone Sodium Succinate (Solu-Medrol IV) 125 mg NOW STAT IV 03/10/17 21:24 03/10/17 21:25 DC 03/10/17 21:38 125 MG ECG Indication: SOB/dyspnea Rate (beats per minute): 99 Rhythm: atrial fibrillation Findings: PVC (potential), ST depression (Lateral), other (inferior infarct) Comparison ECG Date: Change: paced rhythm ED Course 2013: Past medical records reviewed. The patient was evaluated in room B5. A complete history and physical examination was performed. 2017: Ordered Levalbuterol 1.25 mg INH. 2034: Ordered Ativan Inj 0.5 mg IV. 2123: Ordered Solu-Medrol IV 125 mg IV. 2132: I discussed the patient's case with Dr. White, he has agreed to evaluate the patient for further management and care. 2140: I reevaluated the patient and she is doing much better. Medical Decision Medication Reconciliation: I attest that I have personally reviewed the patient' s current medication list Blood Pressure Screening: Patient was found to have an elevated blood pressure and was referred to their primary care doctor for recheck and further treatment Differential diagnosis: Etiologies such as infections, reactive airway disease, pneumonia, pneumothorax , COPD, CHF, cardiac ischemia, pulmonary embolism, musculoskeletal, gastrointestinal, as well as others were entertained. This is an 81-year-old female who presents emergency department hypoxic and short of breath. The patient was given Xopenex breathing treatments here in the emergency department. In addition she was started on Solu-Medrol area I did discuss the case with the hospitalist service who agreed to admit the patient. Patient family were in agreement with treatment plan. Consults Time Called: 2126 Consulting Physician: Dr. Jason Wolfe Returned Call: 2132 I discussed the patient's case with Dr. White, he has agreed to evaluate the patient for further management and care. Impression Primary Impression: Hypoxia Additional Impression: COPD exacerbation Critical Care I have personally spent greater than 30 minutes of critical care time in the direct management of this patient. This includes bedside care, interpretation of diagnostic studies, and testing, discussion with consultants, patient, and family members, and other required patient management activities. This 30 minutes is in excess of all separately billable procedures. Scribe Attestation The scribe's documentation has been prepared under my direction and personally reviewed by me in its entirety. I confirm that the note above accurately reflects all work, treatment, procedures, and medical decision making performed by me. Departure Information Dispostion Being Evaluated By Hospitalist Referrals Jose Antonio Donnelly D.O. (PCP) Problem Qualifiers
[2017-03-10 20:48] LABS: BUN/CREATININE RATIO 13.1 (10-20); CALCIUM 8.5 mg/dl (8.5-10.1); CREATININE 0.99 mg/dl (0.60-1.20); POTASSIUM 4.1 mmol/L (3.5-5.1)
[2017-03-10 20:49] VITALS: PULSE 88; O2SAT 95
[2017-03-10 20:53] LABS: ALB/GLOB RATIO 0.8 (0.9-2)
--- NOTE | 2017-03-10 21:08 | DIAGNOSTIC IMAGING REPORT ---
CHEST ONE VIEW PORTABLE HISTORY: Short of breath. COMPARISON: Chest 02/08/2017. FINDINGS: The heart remains mildly enlarged. Left-sided dual-chamber pacemaker. No pleural effusions. No pneumothorax. Mild central pulmonary vascular congestion without overt edema. Stable linear densities within the right mid to lower lung zone. This may represent scarring or atelectasis. IMPRESSION: 1. Stable mild cardiomegaly. 2. Mild pulmonary vascular congestion without overt edema. 3. Stable linear scarlike densities within the right lung. Electronically signed by: Killian Perez M.D. 03/10/2017 9:06 PM Dictated Date/Time: 03/10/2017 9:05 PM
[2017-03-10] MEDS ORDERED: PANT40TA PO (21:17)
[2017-03-10] MEDS ORDERED: METHYLPREDNISOLONE 125 MG VIAL IV STA (21:24)
[2017-03-10] MEDS ORDERED: ACETAMINOPHEN 325 MG TAB PO PRN (23:30)
[2017-03-10] MEDS ORDERED: ONDANSETRON INJ 2 MG/ML 2 ML VIAL IV PRN (23:30)
[2017-03-11] VITALS (12 sets, daily range): BP systolic 111–164; BP diastolic 53–86; PULSE 66–100; TEMP 36.3–36.8; O2SAT 90–95; BMI 48.8
[2017-03-11] MEDS ORDERED: LEVALBUTEROL/IPRATROPIUM NEB INH SCH
[2017-03-11 00:11] LABS: INFLUENZA A PCR Neg for Influ A (NEG); INFLUENZA B PCR Neg for Influ B (NEG)
[2017-03-11 00:12] LABS: ARTERIAL BLD GAS O2 SATURATION 92.6 % (90-95); ARTERIAL BLOOD GAS BASE EXCESS 5.7 mEq/L (-9-1.8); ARTERIAL BLOOD GAS HCO3 31 mmol/L (19-24); ARTERIAL BLOOD GAS PO2 65 mm/Hg (80-95); ARTERIAL BLOOD GAS pH 7.44 (7.35-7.45)
[2017-03-11 00:13] LABS: ALLEN TEST POS (POS); O2 ADMINISTRATION 3 L
[2017-03-11] MEDS ORDERED: DEXTROSE 50% 50 ML SYR IV PRN (00:15)
[2017-03-11] MEDS ORDERED: GLUCOSE 10 TABS/TUBE PO PRN (00:15)
[2017-03-11] MEDS ORDERED: GLUCOSE 40% GEL 15 GM TUBE PO PRN (00:15)
[2017-03-11] MEDS ORDERED: GLUCAGON FOR INJ 1 MG VIAL SQ PRN (00:15)
[2017-03-11] MEDS ORDERED: PHARMACY GLYCEMIC MGMT CONSULT PRN (00:48)
[2017-03-11] MEDS ORDERED: INSULIN GLARGINE SOLOSTAR 100 UNITS/ML 3 ML PEN SC SCH ×2 (01:00→09:00)
[2017-03-11] MEDS ORDERED: LEVOFLOXACIN CONSULT ACTIVE PRN (01:12)
[2017-03-11] MEDS: LORAZEPAM 0.5 MG TAB PO PRN ×2 (01:44→20:35)
[2017-03-11] MEDS: INSULIN ASPART 100 UNITS/ML 3 ML PEN SC SCH ×6 (02:09→23:44)
[2017-03-11] MEDS: LEVALBUTEROL 1.25MG/0.5ML NEB INH SCH ×4 (02:22→19:05)
[2017-03-11] MEDS: IPRATROPIUM BROMIDE NEB SOLN 0.02% 2.5 ML VIAL INH SCH ×4 (02:22→19:05)
[2017-03-11] MEDS: LEVOTHYROXINE 100 MCG TAB PO SCH (05:24)
[2017-03-11] MEDS: METHYLPREDNISOLONE IV 40 MG in SYRINGE 0 ML IV SCH ×3 (05:24→20:35)
[2017-03-11 05:38] LABS: URINE APPEARANCE CLOUDY (CLEAR); URINE BILIRUBIN NEG (NEG); URINE COLOR YELLOW; URINE EPITHELIAL CELL AUTO >30 /lpf (0-5); URINE NITRITE NEG (NEG); URINE SPECIFIC GRAVITY 1.014 (1.000-1.030); UROBILINOGEN NEG (NEG)
[2017-03-11 05:49] LABS: MANUAL MICROSCOPIC REQUIRED? NO; REVIEW REQ? NO
[2017-03-11 06:47] LABS: BASO % 0.8 %; BASO ABS # 0.03 K/uL (0-0.2); COMPLETE YES; IG% 0.5 %; LYMPH % 12.8 %; LYMPH ABS # 0.51 K/uL (1.2-3.4); MEAN CELL VOLUME 95.6 fL (80-100); MEAN CORPUSCULAR HEMOGLOBIN 30.4 pg (25-34); MEAN CORPUSCULAR HGB CONC 31.7 g/dl (32-36); MEAN PLATELET VOLUME 9.5 fL (7.4-10.4); NEUT % 83.9 %; PLATELET COUNT 183 K/uL (130-400); RED BLOOD COUNT 4.81 M/uL (4.2-5.4); WHITE BLOOD COUNT 3.99 K/uL (4.8-10.8)
[2017-03-11 06:54] LABS: PROTHROMBIN TIME (PATIENT) 22.4 SECONDS (9.0-12.0)
[2017-03-11 07:27] LABS: CALCIUM 8.8 mg/dl (8.5-10.1); CREATININE 1.1 mg/dl (0.60-1.20); POTASSIUM 4.8 mmol/L (3.5-5.1)
--- NOTE | 2017-03-11 07:30 | History and Physical ---
History & Physical Date & Time of Service: March 11, 2017 at 07:30 Chief Complaint: Hypoxia Primary Care Physician: Jose Antonio Donnelly D.O. History of Present Illness Source: patient, family, clinic records, hospital records delayed entry date of service 03/10/17 81 year old female with history of CAD, A fib on coumadin, s/p Pacemaker, BERTO, Morbid Obesity, DM, CKD 3 presenting with shortness of breath and fevers. Patient was doing fine until about 1 week ago when she started to have shortness of breath, fevers and flu like symptoms. PCP prescribed Levaquin which patient has taken for 1 day, but symptoms worsened. Patient then brought to the ED. O sats 86%. CXR no pneumonia. On exam, patient states she feels somewhat improved after having nebs. No chest pain, dyspnea, palpitations, dizziness, on my exam. Past Medical/Surgical History Medical Problems: (1) Benign hypertension Status: Chronic (2) CAD (coronary artery disease) Permanent Comment: s/p anterior apical [place] 1995, PCI LAD Repeat cath 03/2013- multivessel disease, BMS to LAD and left circumflex, chronic occlusion RCA Followed by Dr. Nugent. Status: Chronic (3) Chronic atrial fibrillation Status: Chronic (4) Chronic kidney disease stage 3 Permanent Comment: Followed by Dr. Forbes. 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 Permanent Comment: status post dual-chamber pacemaker insertion Status: Chronic (14) Venous insufficiency Status: Chronic Surgical Problems: (1) History of cholecystectomy Status: Chronic (2) History of hysterectomy Status: Chronic (3) S/P coronary artery stent placement Status: Chronic (4) S/p dual chamber pacemaker insertion Permanent Comment: s/p generator change 02/13/2011 Status: Chronic Family History Diabetes mellitus MOTHER FH: CHF (congestive heart failure) MOTHER FH: Crohn's disease DAUGHTER Hypertension SON Pacemaker BROTHER Social History Smoking Status: Never Smoker Drug Use: none Marital Status: Housing status: lives with significant other Occupational Status: retired Immunizations History of Influenza Vaccine: Yes Influenza Vaccine Date: March 12, 2012 History of Tetanus Vaccine?: Yes History of Pneumococcal: Yes Pneumococcal Date: Sep 08, 2004 History of Hepatitis B Vaccine: No Multi-Drug Resistant Organisms History of MDRO: No Allergies Coded Allergies: MERRY Inhibitors (Verified Allergy, Unknown, Unknown, 02/08/17) Adhesives (Verified Allergy, Unknown, "TAPE", 02/08/17) Albuterol (Verified Allergy, Unknown, INTOLERANT OF ALBUTEROL, 02/08/17) Amiodarone (Verified Allergy, Unknown, 02/08/17) Amoxicillin (Verified Allergy, Unknown, ., 02/08/17) Ampicillin (Verified Allergy, Unknown, Unknown, 02/08/17) Bacitracin (Verified Allergy, Unknown, 02/08/17) Replaces BACITRACIN/PO Cephalosporins (Verified Allergy, Unknown, KEFLEX, 02/08/17) Epinephrine (Verified Allergy, Unknown, UNKNOWN, 03/10/17) INFO FROM [facility] Morphine (Verified Allergy, Unknown, 02/08/17) Penicillins (Verified Allergy, Unknown, AMPICILLIN, 02/08/17) Polymyxin B (Verified Allergy, Unknown, 02/08/17) Replaces BACITRACIN/PO Home Medications Scheduled Ascorbic Acid (Ascorbic Acid), 500 MG PO DAILY Aspirin (Aspirin Ec), 81 MG PO DAILY Atorvastatin (Lipitor), 10 MG PO DAILY Calcium Carbonate-Vitamin D (Calcium 600 + D), 2 TABLETS PO DAILY Cholecalciferol (Vitamin D3), 1 TAB PO DAILY Coenzyme Q10 (Ubidecarenone) (Co Q 10), 100 MG PO DAILY Furosemide (Lasix), 20 MG PO DAILY Insulin Isophan/Regular (Novolin 70/30), 25 UNITS SC QAM Insulin Isophan/Regular (Novolin 70/30), 15 UNITS SC QPM Isosorbide Mononitrate Ext Rel (Imdur Ext Rel), 60 MG PO DAILY Levofloxacin (Levaquin), 500 MG PO DAILY Levothyroxine Sodium (Levothyroxine Sodium), 1 TAB PO DAILY Magnesium Chloride (Slow-Mag Tab), 64 MG PO DAILY Metoprolol Tartrate (Lopressor) (Lopressor), 25 MG PO DAILY Multivitamin (Multivitamin), 1 TAB PO DAILY Nitroglycerin (Nitrostat), 0.4 MG UT PRN Pantoprazole (Protonix), 40 MG PO Q2D Probiotic Product (Probiotic), 1 CAP PO DAILY Warfarin Sod (Coumadin), 2.5-5 MG PO DAILY UD Scheduled PRN Acetaminophen (Tylenol), 500-1,000 MG PO TID PRN Lorazepam (Ativan), 0.25-0.5 MG PO BID PRN for Anxiety/Agitation Magnesium Hydroxide (Milk of Magnesia), 30 ML PO for Constipation Miscellaneous Medications Clindamycin Hcl (Clindamycin Hcl), 4 CAP PO Review of Systems Constitutional- no fever; no weight loss Eyes- no acute visual changes ENT- (+) as noted above Pulmonary- (+) as noted above Cardiac- no chest pain, no palpitations, no orthopnea, no dependent edema GI- no nausea, no vomiting, no diarrhea, no melena, no hematochezia - no dysuria, no hematuria Musculoskeletal- no arthralgias, no myalgias Derm- no rashes, no new skin lesions, no changing skin lesions Hematologic- no unusual bruising, no unusual bleeding Lymphatics- no adenopathy Endocrine- no polyuria or polydipsia; no heat or cold intolerance Neuro- no headaches, no focal neurologic symptoms Psych- no anxiety, no depression Physical Exam Vital Signs Date Time Temp Pulse Resp B/P Pulse Ox O2 Delivery O2 Flow Rate FiO2 03/11/17 04:18 36.8 93 20 164/84 94 3.0 03/11/17 04:00 Nasal Cannula 3.0 03/11/17 02:23 66 18 95 Nasal Cannula 4.0 03/11/17 00:54 36.7 100 30 145/81 92 Nasal Cannula 3.5 03/11/17 00:23 83 28 122/68 93 03/10/17 23:20 83 28 122/68 93 Nasal Cannula 3.0 03/10/17 21:22 92 26 134/71 93 Nasal Cannula 4.0 03/10/17 20:49 88 24 95 Nasal Cannula 3.0 03/10/17 20:42 90 03/10/17 20:23 94 Nasal Cannula 6.0 03/10/17 20:23 93 Nasal Cannula 6.0 03/10/17 20:17 86 Room Air 03/10/17 20:17 36.7 86 30 158/94 86 Room Air General Appearance: WD/WN, no apparent distress Head: normocephalic, atraumatic Eyes: normal inspection, EOMI, sclerae normal ENT: normal ENT inspection, hearing grossly normal, pharynx normal Neck: supple, no adenopathy, thyroid normal, no JVD, trachea midline Respiratory/Chest: no respiratory distress, no accessory muscle use, + pertinent finding ((+) bilateral mild expiratory wheezing, no rales) Cardiovascular: regular rate, rhythm, no JVD, no murmur, + pertinent finding ( bilateral lower leg edema- chronic as per patient) Abdomen/GI: normal bowel sounds, non tender, soft Back: normal inspection, no CVA tenderness Extremities/Musculoskelatal: + pertinent finding (bilateral lower leg edema- chronic as per patient) Neurologic/Psych: warehouse lead II-XII nml as tested, no motor/sensory deficits, alert, normal reflexes, oriented x 3 Skin: normal color, warm/dry, no rash Lymphatic: no adenopathy Diagnostics Laboratory Results Results Past 24 Hours Test 03/10/17 19:50 03/10/17 21:20 03/10/17 23:48 03/11/17 01:17 Range/Units White Blood Count 5.64 4.8-10.8 K/uL Red Blood Count 4.51 4.2-5.4 M/uL Hemoglobin 14.0 12.0-16.0 g/dL Hematocrit 44.1 37-47 % Mean Corpuscular Volume 97.8 80-100 fL Mean Corpuscular Hemoglobin 31.0 25-34 pg Mean Corpuscular Hemoglobin Concent 31.7 32-36 g/dl Platelet Count 197 130-400 K/uL Mean Platelet Volume 9.9 7.4-10.4 fL Neutrophils (%) (Auto) 57.9 % Lymphocytes (%) (Auto) 22.7 % Monocytes (%) (Auto) 17.6 % Eosinophils (%) (Auto) 1.4 % Basophils (%) (Auto) 0.2 % Neutrophils # (Auto) 3.27 1.4-6.5 K/uL Lymphocytes # (Auto) 1.28 1.2-3.4 K/uL Monocytes # (Auto) 0.99 0.11-0.59 K/uL Eosinophils # (Auto) 0.08 0-0.5 K/uL Basophils # (Auto) 0.01 0-0.2 K/uL RDW Standard Deviation 50.9 36.4-46.3 fL RDW Coefficient of Variation 14.2 11.5-14.5 % Immature Granulocyte % (Auto) 0.2 % Immature Granulocyte # (Auto) 0.01 0.00-0.02 K/uL Prothrombin Time 25.1 9.0-12.0 SECONDS Prothromb Time International Ratio 2.3 0.9-1.1 Sodium Level 140 136-145 mmol/L Potassium Level 4.1 3.5-5.1 mmol/L Chloride Level 100 98-107 mmol/L Carbon Dioxide Level 37 21-32 mmol/L Anion Gap 3.0 3-11 mmol/L Blood Urea Nitrogen 13 7-18 mg/dl Creatinine 0.99 0.60-1.20 mg/dl Est Creatinine Clear Calc Drug Dose 63.7 ml/min Estimated GFR () 61.1 Estimated GFR (Non- 52.7 BUN/Creatinine Ratio 13.1 10-20 Random Glucose 179 70-99 mg/dl Calcium Level 8.5 8.5-10.1 mg/dl Total Bilirubin 0.6 0.2-1 mg/dl Aspartate Amino Transf (AST/SGOT) 30 15-37 U/L Alanine Aminotransferase (ALT/SGPT) 20 12-78 U/L Alkaline Phosphatase 173 45-117 U/L Total Creatine Kinase 60 26-192 U/L Creatine Kinase MB 1.8 0.5-3.6 ng/ml Creatine Kinase MB Ratio 3.0 0-3.0 Troponin I 0.025 0-0.045 ng/ml Total Protein 7.1 6.4-8.2 gm/dl Albumin 3.1 3.4-5.0 gm/dl Globulin 4.0 2.5-4.0 gm/dl Albumin/Globulin Ratio 0.8 0.9-2 Influenza Type A (RT-PCR) Neg for Influ A NEG Influenza Type A Antigen Neg for Influ A NEG Influenza Type B Antigen Neg for Influ B NEG Influenza Type B (RT-PCR) Neg for Influ B NEG Arterial Blood pH 7.44 7.35-7.45 Arterial Blood Partial Pressure CO2 47 35-46 mmHg Arterial Blood Partial Pressure O2 65 80-95 mm/Hg Arterial Blood HCO3 31 19-24 mmol/L Arterial Blood Oxygen Saturation 92.6 90-95 % Arterial Blood Base Excess 5.7 -9-1.8 mEq/L Arterial Blood Gas Delivery 3 L Freddy Test POS POS Bedside Glucose 250 70-90 mg/dl Test 03/11/17 02:00 03/11/17 06:22 03/11/17 06:33 Range/Units Urine Color YELLOW Urine Appearance CLOUDY CLEAR Urine pH 5.0 4.5-7.5 Urine Specific [place] 1.014 1.000-1.030 Urine Protein NEG NEG Urine Glucose (UA) 3+ NEG Urine Ketones TRACE NEG Urine Occult Blood 1+ NEG Urine Nitrite NEG NEG Urine Bilirubin NEG NEG Urine Urobilinogen NEG NEG Urine Leukocyte Esterase MODERATE NEG Urine WBC (Auto) >30 0-5 /hpf Urine RBC (Auto) 0-4 0-4 /hpf Urine Hyaline Casts (Auto) 1-5 0-5 /lpf Urine Epithelial Cells (Auto) >30 0-5 /lpf Urine Bacteria (Auto) 2+ NEG White Blood Count 3.99 4.8-10.8 K/uL Red Blood Count 4.81 4.2-5.4 M/uL Hemoglobin 14.6 12.0-16.0 g/dL Hematocrit 46.0 37-47 % Mean Corpuscular Volume 95.6 80-100 fL Mean Corpuscular Hemoglobin 30.4 25-34 pg Mean Corpuscular Hemoglobin Concent 31.7 32-36 g/dl Platelet Count 183 130-400 K/uL Mean Platelet Volume 9.5 7.4-10.4 fL Neutrophils (%) (Auto) 83.9 % Lymphocytes (%) (Auto) 12.8 % Monocytes (%) (Auto) 2.0 % Eosinophils (%) (Auto) 0.0 % Basophils (%) (Auto) 0.8 % Neutrophils # (Auto) 3.35 1.4-6.5 K/uL Lymphocytes # (Auto) 0.51 1.2-3.4 K/uL Monocytes # (Auto) 0.08 0.11-0.59 K/uL Eosinophils # (Auto) 0.00 0-0.5 K/uL Basophils # (Auto) 0.03 0-0.2 K/uL RDW Standard Deviation 49.8 36.4-46.3 fL RDW Coefficient of Variation 14.0 11.5-14.5 % Immature Granulocyte % (Auto) 0.5 % Immature Granulocyte # (Auto) 0.02 0.00-0.02 K/uL Prothrombin Time 22.4 9.0-12.0 SECONDS Prothromb Time International Ratio 2.0 0.9-1.1 Sodium Level 139 136-145 mmol/L Potassium Level 4.8 3.5-5.1 mmol/L Chloride Level 100 98-107 mmol/L Carbon Dioxide Level 30 21-32 mmol/L Anion Gap 9.0 3-11 mmol/L Blood Urea Nitrogen 14 7-18 mg/dl Creatinine 1.10 0.60-1.20 mg/dl Est Creatinine Clear Calc Drug Dose 55.1 ml/min Estimated GFR () 53.8 Estimated GFR (Non- 46.4 BUN/Creatinine Ratio 13.0 10-20 Random Glucose 318 70-99 mg/dl Calcium Level 8.8 8.5-10.1 mg/dl Bedside Glucose 320 70-90 mg/dl Microbiology Results 03/11/17 Gram Stain, Received Pending 03/11/17 Sputum Culture, Received Pending 03/11/17 Urine Culture, Received Pending Diagnostic Radiology [~ rep ct add3]] CHEST ONE VIEW PORTABLE HISTORY: Short of breath. COMPARISON: Chest 02/08/2017. FINDINGS: The heart remains mildly enlarged. Left-sided dual-chamber pacemaker. No pleural effusions. No pneumothorax. Mild central pulmonary vascular congestion without overt edema. Stable linear densities within the right mid to lower lung zone. This may represent scarring or atelectasis. IMPRESSION: 1. Stable mild cardiomegaly. 2. Mild pulmonary vascular congestion without overt edema. 3. Stable linear scarlike densities within the right lung. EKG HR 99, a fib Impression Assessment and Plan 81 year old female with history of CAD, A fib on coumadin, s/p Pacemaker, BERTO, Morbid Obesity, DM, CKD 3 presenting with shortness of breath and fevers. POSSIBLE ACUTE BRONCHITIS - (+) wheezing, hypoxia - sputum culture - Levaquin Solumedrol Nebs CAD/CABG stable continue Aspirin, Atorvastatin, Imdur, Lasix A FIB ON COUMADIN INR therapeutic continue coumadin BERTO MORBID OBESITY on nocturnal oxygen DM continue Novolin 70/30 ISS Pharmacy consulted CKD 3 stable DVT prophylaxis on coumadin Full Code per patient Dispo lives at home with family Advanced Directives Existing Living Will: No Existing Power of Wet Wash Assembler: No VTE Prophylaxis VTE Risk Assessment Done? Y/N: Yes Risk Level: Moderate Given or contraindicated: Warfarin (Coumadin)
[2017-03-11 07:52] LABS: ESTIMATED AVERAGE GLUCOSE 194 mg/dl; HA1C FLAG Normal (Normal)
[2017-03-11 07:54] LABS: BETA-HYDROXYBUTYRATE 6.94 mg/dL (0.2-2.81)
[2017-03-11] MEDS: FUROSEMIDE 20 MG TAB PO SCH (08:36)
[2017-03-11] MEDS: MULTIVITAMIN TAB PO SCH (08:37)
[2017-03-11] MEDS: ISOSORBIDE MONONITRATE 60 MG TABCR PO SCH (08:37)
[2017-03-11] MEDS: LACTOBACILLUS ACIDOPHILUS (FLORANEX) TAB PO SCH (08:37)
[2017-03-11] MEDS: METOPROLOL TARTRATE 25 MG TAB PO SCH (08:37)
[2017-03-11] MEDS ORDERED: ASPIRIN 81 MG ECTAB PO SCH (09:00)
[2017-03-11] MEDS ORDERED: PANTOprazole SOD 40 MG TAB PO SCH (09:00)
[2017-03-11] MEDS ORDERED: MAGNESIUM CHLORIDE 64MG DELAYED REL TAB PO SCH (09:00)
[2017-03-11] MEDS ORDERED: NON-FORMULARY MEDICATION (Coenzyme Q10 (Ubidecarenone) (Co Q 10) 100 MG) PO SCH (09:00)
[2017-03-11] MEDS ORDERED: INSULIN HUMAN 70% NPH/30% REGULAR SC SCH ×2 (09:00→21:00)
[2017-03-11] MEDS ORDERED: ATORVASTATIN 10 MG TAB PO SCH (09:00)
[2017-03-11] MEDS ORDERED: NURSING VERBAL MED ORDER ONE (10:30)
[2017-03-11] MEDS ORDERED: COUGH DROP (SUGAR FREE) LOZ 24 LOZ/1 BOX ONE (11:41)
[2017-03-11] MEDS: LEVOFLOXACIN 750 MG TAB PO SCH (11:47)
[2017-03-11] MEDS ORDERED: INSULIN GLARGINE SOLOSTAR 100 UNITS/ML 3 ML PEN SC ONE (12:30)
--- NOTE | 2017-03-11 12:31 | Pharmacy Progress Note ---
Glycemic Control Intl Consult Date of Service March 11, 2017. Scope Glycemic Pharmacist consulted by Dr White on 03/11/17 for glycemic control and to write orders per [facility] inpatient glycemic control protocol Objective Weight (Kilograms): 136.200 Accuchecks BSG (last 24hrs): Test 03/10/17 19:50 03/11/17 01:17 03/11/17 06:22 03/11/17 06:33 Random Glucose 179 mg/dl (70-99) 318 mg/dl (70-99) Bedside Glucose 250 mg/dl (70-90) 320 mg/dl (70-90) Test 03/11/17 11:00 Bedside Glucose 346 mg/dl (70-90) Laboratory Data (last 24hrs) HbA1c Test 03/11/17 06:22 Hemoglobin A1c 8.4 % (4.5-5.6) H Recent Pertinent Medications Outpatient Anti-diabetic Regimen: * Novolin 70/30 Premixed insulin 25 units in AM + 15 units in PM * This consists of: * Basal insulin 17.5 units in AM + 10.5 units in PM * Prandial insulin 7.5 units in AM + 4.5 units in PM The patient is currently receiving: * Basal insulin: Lantus 20 units every 12 hours * Correctional Insulin: Novolog Correction per scale ACHS Goal Range: Low 140 mg/dL - High 180 mg/dL Correction Factor: 20 mg/dL/unit * Prandial insulin: Per carb ratio of 1 unit per 7 grams CHO consumed Risk Factors for Insulin Resistance: * Steroids: SoluMedrol 125mg IV x 1 then 40mg IV Q8hrs * Infection: Bronchitis * Diet Assessment & Plan ASSESSMENT: * Outpatient regimen is premixed basal/prandial insulin of Novolin 70/30 mix insulin. * Pre-mixed insulin is difficult to titrate since it is already in a fixed distribution of basal:prandial insulin. Continuing pre-mixed insulin for admission typically lead to hypoglycemia d/t changing PO status but rapid acting insulin is unable to be held. * Pt with adequate control per age/comorbidities on current outpatient regimen per A1c * Home regimen will be held for admission per pharmacy consult. Will utilize recommended regimen of SQ basal bolus insulin regimen with Lantus + NovoLog (CF+ CR) * Will stress outpatient dosing for steroid induced hyperglycemia and titrate doses based on BSG trends. * ADA & AACE recommend a goal blood sugar range 140-180 mg/dl for the majority of critically ill & non-critically ill patients. However, more stringent targets may be selected in individual cases. PLAN FOR INPATIENT GLYCEMIC CONTROL: Outpatient total daily dose is 40 units, expecting that patient will require at least double this for the first 24hrs of admission secondary to large solumedrol dose given in ED and scheduled RTC dosing of steroids. Will start with weight based regimen and stress of ~ 2.5 and titrate based on BSG trends. Will decrease regimen with each step down in steroid dosing. * Hold Novolin 70/30 * Basal insulin * Lantus 30 units SQ BID * Bolus insulin * NovoLog per scale ACHS or Q6hrs while NPO. Additional checks + coverage at 0000 & 0400 for sustained severe hyperglycemia * Goal Range: Low 140 mg/dL - High 180 mg/dL * Correction Factor: 15 mg/dL/unit * Nutritional / Prandial insulin per carb ratio of 1 unit per 6 grams CHO consumed * Add A1c to discharge instructions to be communicated to PCP. Most likely, no changes to outpatient regimen needed * Please note that the plan above was derived based on current level of insulin resistance and hospital stress. These recommendations are appropriate for inpatient admission only. Plan of care upon discharge will need to be reassessed to avoid potential outpatient hypo/hyperglycemia. Thank you.
[2017-03-11] MEDS: WARFARIN SOD 2.5 MG TAB PO SCH (17:21)
--- NOTE | 2017-03-11 19:42 | Progress Note ---
Internal Med Progress Note Date of Service: March 11, 2017. Provider Documentation: SUBJECTIVE: sitting on the chair comfortably daughter in the room sob and cough improving says she can walk to bathroom and asks to remove bedside commode afebrile eating ok OBJECTIVE: Vital Signs-as noted below Exam: General-alert and awake and oriented x 3. ENT-normal hearing Neck-no neck masses Lungs-cta b/l mild b/l rhonchi no crackles Heart-s1 and s2 heard regular rate and rhythm no murmurs Abdomen-soft bowel sounds present non tender no distension Extremities- b/l pedal edema present no erythema Neuro-alert and awake oriented moves extremities Lab data as noted below. ASSESSMENT & PLAN: 81 year old female with history of CAD, A fib on Coumadin, s/p Pacemaker, BEROT, Morbid Obesity, DM, CKD 3 presenting with shortness of breath and fevers.Treating for acute bronchitis with iv steroids, Levaquin and nebs. improving POSSIBLE ACUTE BRONCHITIS presented with wheezing and hypoxia will f/u sputum culture on Levaquin and Solumedrol and Nebs improving continue same for now CAD/CABG stable on Aspirin, Atorvastatin, Imdur, Lasix A FIB ON COUMADIN INR therapeutic 2.0 continue Coumadin BERTO MORBID OBESITY on nocturnal oxygen DM continue Novolin 70/30 ISS hba1c 8.4 close monitor while on steroids Pharmacy consulted CKD 3 cr 1.1 stable DVT prophylaxis on Coumadin Full Code per h and p DISPOSITION to b determined pt/ot social service for d/c planning Vital Signs: Date Time Temp Pulse Resp B/P Pulse Ox O2 Delivery O2 Flow Rate FiO2 03/11/17 20:00 Nasal Cannula 3.0 03/11/17 19:09 75 16 92 Nasal Cannula 2.0 03/11/17 19:07 36.8 77 21 128/76 92 Nasal Cannula 2.0 03/11/17 16:00 Nasal Cannula 3.0 03/11/17 15:54 36.3 84 18 116/68 90 Room Air 03/11/17 14:15 76 16 92 Nasal Cannula 3.0 03/11/17 12:00 Nasal Cannula 3.0 03/11/17 12:00 36.5 73 18 111/59 94 Nasal Cannula 3.0 03/11/17 08:13 98 18 93 Nasal Cannula 3.0 03/11/17 08:00 Nasal Cannula 3.0 03/11/17 07:34 36.5 85 18 111/53 92 Nasal Cannula 3.0 03/11/17 04:18 36.8 93 20 164/84 94 3.0 03/11/17 04:00 Nasal Cannula 3.0 03/11/17 02:23 66 18 95 Nasal Cannula 4.0 03/11/17 00:54 36.7 100 30 145/81 92 Nasal Cannula 3.5 03/11/17 00:23 83 28 122/68 93 03/10/17 23:20 83 28 122/68 93 Nasal Cannula 3.0 03/10/17 21:22 92 26 134/71 93 Nasal Cannula 4.0 Lab Results: Results Past 24 Hours Test 03/10/17 21:20 03/10/17 23:48 03/11/17 01:17 03/11/17 02:00 Range/Units Influenza Type A (RT-PCR) Neg for Influ A NEG Influenza Type A Antigen Neg for Influ A NEG Influenza Type B Antigen Neg for Influ B NEG Influenza Type B (RT-PCR) Neg for Influ B NEG Arterial Blood pH 7.44 7.35-7.45 Arterial Blood Partial Pressure CO2 47 35-46 mmHg Arterial Blood Partial Pressure O2 65 80-95 mm/Hg Arterial Blood HCO3 31 19-24 mmol/L Arterial Blood Oxygen Saturation 92.6 90-95 % Arterial Blood Base Excess 5.7 -9-1.8 mEq/L Arterial Blood Gas Delivery 3 L Freddy Test POS POS Bedside Glucose 250 70-90 mg/dl Urine Color YELLOW Urine Appearance CLOUDY CLEAR Urine pH 5.0 4.5-7.5 Urine Specific [place] 1.014 1.000-1.030 Urine Protein NEG NEG Urine Glucose (UA) 3+ NEG Urine Ketones TRACE NEG Urine Occult Blood 1+ NEG Urine Nitrite NEG NEG Urine Bilirubin NEG NEG Urine Urobilinogen NEG NEG Urine Leukocyte Esterase MODERATE NEG Urine WBC (Auto) >30 0-5 /hpf Urine RBC (Auto) 0-4 0-4 /hpf Urine Hyaline Casts (Auto) 1-5 0-5 /lpf Urine Epithelial Cells (Auto) >30 0-5 /lpf Urine Bacteria (Auto) 2+ NEG Test 03/11/17 06:22 03/11/17 06:33 03/11/17 11:00 03/11/17 16:37 Range/Units White Blood Count 3.99 4.8-10.8 K/uL Red Blood Count 4.81 4.2-5.4 M/uL Hemoglobin 14.6 12.0-16.0 g/dL Hematocrit 46.0 37-47 % Mean Corpuscular Volume 95.6 80-100 fL Mean Corpuscular Hemoglobin 30.4 25-34 pg Mean Corpuscular Hemoglobin Concent 31.7 32-36 g/dl Platelet Count 183 130-400 K/uL Mean Platelet Volume 9.5 7.4-10.4 fL Neutrophils (%) (Auto) 83.9 % Lymphocytes (%) (Auto) 12.8 % Monocytes (%) (Auto) 2.0 % Eosinophils (%) (Auto) 0.0 % Basophils (%) (Auto) 0.8 % Neutrophils # (Auto) 3.35 1.4-6.5 K/uL Lymphocytes # (Auto) 0.51 1.2-3.4 K/uL Monocytes # (Auto) 0.08 0.11-0.59 K/uL Eosinophils # (Auto) 0.00 0-0.5 K/uL Basophils # (Auto) 0.03 0-0.2 K/uL RDW Standard Deviation 49.8 36.4-46.3 fL RDW Coefficient of Variation 14.0 11.5-14.5 % Immature Granulocyte % (Auto) 0.5 % Immature Granulocyte # (Auto) 0.02 0.00-0.02 K/uL Prothrombin Time 22.4 9.0-12.0 SECONDS Prothromb Time International Ratio 2.0 0.9-1.1 Sodium Level 139 136-145 mmol/L Potassium Level 4.8 3.5-5.1 mmol/L Chloride Level 100 98-107 mmol/L Carbon Dioxide Level 30 21-32 mmol/L Anion Gap 9.0 3-11 mmol/L Blood Urea Nitrogen 14 7-18 mg/dl Creatinine 1.10 0.60-1.20 mg/dl Est Creatinine Clear Calc Drug Dose 55.1 ml/min Estimated GFR () 53.8 Estimated GFR (Non- 46.4 BUN/Creatinine Ratio 13.0 10-20 Random Glucose 318 70-99 mg/dl Estimated Average Glucose 194 mg/dl Hemoglobin A1c 8.4 4.5-5.6 % Calcium Level 8.8 8.5-10.1 mg/dl Beta-Hydroxybutyric Acid 6.94 0.2-2.81 mg/dL Bedside Glucose 320 346 260 70-90 mg/dl Test 03/11/17 20:16 Range/Units Bedside Glucose 273 70-90 mg/dl Microbiology Results 03/11/17 Gram Stain - Final, Resulted 03/11/17 Sputum Culture, Resulted Pending 03/11/17 Urine Culture, Received Pending
[2017-03-11] MEDS: ATORVASTATIN 10 MG TAB PO SCH (20:36)
[2017-03-11] MEDS: MAGNESIUM CHLORIDE 64MG DELAYED REL TAB PO SCH (20:36)
[2017-03-11] MEDS: PANTOprazole SOD 40 MG TAB PO SCH (20:36)
[2017-03-11] MEDS: INSULIN GLARGINE SOLOSTAR 100 UNITS/ML 3 ML PEN SC SCH (20:47)
[2017-03-11] MEDS ORDERED: FUROSEMIDE INJ 20 MG in SYRINGE 0 ML IV SCH (21:15)
[2017-03-12] VITALS (11 sets, daily range): BP systolic 102–137; BP diastolic 63–78; PULSE 55–99; TEMP 36.4–36.8; O2SAT 91–95; Ht 167.6 cm; Wt 133.6 kg
[2017-03-12] MEDS: IPRATROPIUM BROMIDE NEB SOLN 0.02% 2.5 ML VIAL INH SCH ×2 (02:34→07:40)
[2017-03-12] MEDS: LEVALBUTEROL 1.25MG/0.5ML NEB INH SCH ×2 (02:34→07:40)
[2017-03-12] MEDS: METHYLPREDNISOLONE IV 40 MG in SYRINGE 0 ML IV SCH ×2 (03:57→12:11)
[2017-03-12] MEDS: INSULIN ASPART 100 UNITS/ML 3 ML PEN SC SCH ×6 (04:00→23:56)
[2017-03-12] MEDS: LEVOTHYROXINE 100 MCG TAB PO SCH (05:20)
[2017-03-12] MEDS ORDERED: LORAZEPAM 0.5 MG TAB PO STA (05:51)
[2017-03-12] MEDS: LORAZEPAM 0.5 MG TAB PO PRN (05:56)
[2017-03-12] MEDS ORDERED: NURSING VERBAL MED ORDER ONE (06:00)
[2017-03-12 07:59] LABS: INR 2.2 (0.9-1.1); PROTHROMBIN TIME (PATIENT) 24.9 SECONDS (9.0-12.0)
[2017-03-12 08:09] LABS: BASO % 0.1 %; BASO ABS # 0.01 K/uL (0-0.2); COMPLETE YES; HEMATOCRIT 44.8 % (37-47); IG% 0.2 %; LYMPH % 9.5 %; LYMPH ABS # 0.93 K/uL (1.2-3.4); MEAN CELL VOLUME 93.9 fL (80-100); MEAN CORPUSCULAR HEMOGLOBIN 30.6 pg (25-34); MEAN CORPUSCULAR HGB CONC 32.6 g/dl (32-36); NEUT % 84.2 %; PLATELET COUNT 208 K/uL (130-400); RED BLOOD COUNT 4.77 M/uL (4.2-5.4); WHITE BLOOD COUNT 9.79 K/uL (4.8-10.8)
[2017-03-12 08:20] LABS: BUN/CREATININE RATIO 18.2 (10-20); CREATININE 1.3 mg/dl (0.60-1.20); POTASSIUM 4.1 mmol/L (3.5-5.1)
[2017-03-12 08:29] LABS: BETA-HYDROXYBUTYRATE 2.47 mg/dL (0.2-2.81)
[2017-03-12] MEDS: LACTOBACILLUS ACIDOPHILUS (FLORANEX) TAB PO SCH (08:34)
[2017-03-12] MEDS: METOPROLOL TARTRATE 25 MG TAB PO SCH (08:35)
[2017-03-12] MEDS: ISOSORBIDE MONONITRATE 60 MG TABCR PO SCH (08:35)
[2017-03-12] MEDS: MULTIVITAMIN TAB PO SCH (08:35)
[2017-03-12] MEDS: FUROSEMIDE 20 MG TAB PO SCH (08:35)
[2017-03-12] MEDS: INSULIN GLARGINE SOLOSTAR 100 UNITS/ML 3 ML PEN SC SCH (08:39)
[2017-03-12] MEDS ORDERED: NURSING DECISION MEDICATION ORDER SCH (11:15)
[2017-03-12] MEDS ORDERED: MICONAZOLE NITRATE POWDER 43 GM EXT PRN (11:30)
[2017-03-12] MEDS: LEVOFLOXACIN 750 MG TAB PO SCH (12:10)
[2017-03-12] MEDS ORDERED: INSULIN ASPART 100 UNITS/ML 3 ML PEN SC ONE (14:30)
[2017-03-12] MEDS ORDERED: LEVALBUTEROL 0.63MG/3 ML NEB INH PRN (14:45)
--- NOTE | 2017-03-12 15:06 | Pharmacy Progress Note ---
Glycemic Control: Progress Nt Date of Service March 12, 2017. Scope Glycemic Pharmacist consulted by Dr White on 03/11/17 for glycemic control and to write orders per [facility] inpatient glycemic control protocol. Objective Accuchecks BSG (last 24hrs): Test 03/11/17 16:37 03/11/17 20:16 03/11/17 23:39 03/12/17 03:56 Bedside Glucose 260 mg/dl (70-90) 273 mg/dl (70-90) 244 mg/dl (70-90) 231 mg/dl (70-90) Test 03/12/17 05:42 03/12/17 06:35 03/12/17 07:15 03/12/17 11:42 Bedside Glucose 256 mg/dl (70-90) 270 mg/dl (70-90) 326 mg/dl (70-90) Random Glucose 304 mg/dl (70-99) Laboratory Data (last 24hrs) Test 03/12/17 07:15 Anion Gap 9.0 mmol/L BUN/Creatinine Ratio 18.2 Blood Urea Nitrogen 24 mg/dl Creatinine 1.30 mg/dl Potassium Level 4.1 mmol/L Sodium Level 140 mmol/L White Blood Count 9.79 K/uL Red Blood Count 4.77 M/uL Hemoglobin 14.6 g/dL Hematocrit 44.8 % Mean Corpuscular Volume 93.9 fL Mean Corpuscular Hemoglobin 30.6 pg Mean Corpuscular Hemoglobin Concent 32.6 g/dl Platelet Count 208 K/uL Mean Platelet Volume 10.0 fL Neutrophils (%) (Auto) 84.2 % Lymphocytes (%) (Auto) 9.5 % Monocytes (%) (Auto) 6.0 % Eosinophils (%) (Auto) 0.0 % Basophils (%) (Auto) 0.1 % Neutrophils # (Auto) 8.24 K/uL Lymphocytes # (Auto) 0.93 K/uL Monocytes # (Auto) 0.59 K/uL Eosinophils # (Auto) 0.00 K/uL Basophils # (Auto) 0.01 K/uL HbA1c: Test 03/11/17 06:22 Hemoglobin A1c 8.4 % (4.5-5.6) H Recent Pertinent Medications Outpatient Anti-diabetic Regimen: * Novolin 70/30 Premixed insulin 25 units in AM + 15 units in PM * This consists of: * Basal insulin 17.5 units in AM + 10.5 units in PM * Prandial insulin 7.5 units in AM + 4.5 units in PM The patient is currently receiving: * Basal insulin: Lantus 30 units every 12 hours * Correctional Insulin: Novolog Correction per scale ACHS Goal Range: Low 140 mg/dL - High 180 mg/dL Correction Factor: 15 mg/dL/unit * Prandial insulin: Per carb ratio of 1 unit per 6 grams CHO consumed Risk Factors for Insulin Resistance: * Steroids: SoluMedrol 40mg IV Q8hrs -> will be decreased to 20 mg x 1 tonight for a total of 100 mg today, then prednisone 40 mg daily starting tomorrow * Infection: Bronchitis * Diet: type 2 diabetes - ave of 25 gm CHO w/ each meal Assessment & Plan ASSESSMENT: From 03/11/17 note: * Outpatient regimen is premixed basal/prandial insulin of Novolin 70/30 mix insulin. * Pre-mixed insulin is difficult to titrate since it is already in a fixed distribution of basal:prandial insulin. Continuing pre-mixed insulin for admission typically lead to hypoglycemia d/t changing PO status but rapid acting insulin is unable to be held. * Pt with adequate control per age/comorbidities on current outpatient regimen per A1c * Home regimen will be held for admission per pharmacy consult. Will utilize recommended regimen of SQ basal bolus insulin regimen with Lantus + NovoLog (CF+ CR) * Will stress outpatient dosing for steroid induced hyperglycemia and titrate doses based on BSG trends. * ADA & AACE recommend a goal blood sugar range 140-180 mg/dl for the majority of critically ill & non-critically ill patients. However, more stringent targets may be selected in individual cases. 03/12/17 * Ms. Galan received 120 units of insulin yesterday w/ BSGs ranging from 244- 326 in the past 24 hours * She seems to have a very profound effect from the steroids, which will be reduced drastically starting tomorrow * To control BSGs now: * Will plan to tighten CF/CR further (this was tightened prior to lunch but AM CR used so will give additional one time dose for elevated BSG) * Will add overnight accuchecks * Will increase basal for later today only * Changes will then be made for tomorrow AM as steroids will be decreased. This will hopefully prevent hypoglycemia as the steroids are being weaned. PLAN FOR INPATIENT GLYCEMIC CONTROL: * Today: * Increase Lantus to 38 units w/ dinner today * Tighten goal 110-150 * Tighten CF 10 * Tighten CR 4 * Add overnight accuchecks at 00 at 04 * Give additional 6 units of Novolog now for a total of 21 units w/ lunch rather than 15 that she rec'd * Tomorrow: * Decrease Lantus back to 30 units BID - this will most likely need decreased further but will see what BSGs look like first * Loosen CF back to 15 * Loosen CR back to 6 * Please note that the plan above was derived based on current level of insulin resistance and hospital stress. These recommendations are appropriate for inpatient admission only. Plan of care upon discharge will need to be reassessed to avoid potential outpatient hypo/hyperglycemia. Thank you.
[2017-03-12] MEDS ORDERED: FUROSEMIDE INJ 40 MG in SYRINGE 0 ML IV ONE (16:00)
[2017-03-12] MEDS: WARFARIN SOD 2.5 MG TAB PO SCH (16:38)
[2017-03-12] MEDS ORDERED: INSULIN GLARGINE SOLOSTAR 100 UNITS/ML 3 ML PEN SC SCH (17:00)
[2017-03-12] MEDS ORDERED: METHYLPREDNISOLONE IV 20 MG in SYRINGE 0 ML IV ONE (21:00)
--- NOTE | 2017-03-12 21:06 | Progress Note ---
Medicine Progress Note Date & Time of Visit: March 12, 2017 at 14:00 . Subjective Episode of SOB and anxiety this morning around 5 a.m. Patient states that she woke up feeling SOB. Receiving lorazepam with improvement. No chest pain. Cough and wheezing improved. No nausea or vomiting. No BM today. Voiding without difficultly. Daughter visiting. . Objective Last 8 Hrs Date Time Temp Pulse Resp B/P Pulse Ox O2 Delivery O2 Flow Rate FiO2 03/12/17 19:41 36.4 82 22 123/69 93 Nasal Cannula 2.0 03/12/17 15:20 Nasal Cannula 2.0 03/12/17 15:17 36.6 77 20 120/71 93 Nasal Cannula 2.0 Physical Exam: General- sitting in chair, no distress Neck- + JVD Lungs- diffuse mild wheezing Heart- irregular, no gallop appreciated Abdomen- + BS, soft, nontender Extremities- 1-2+ pretibial edema; no calf tenderness Neuro- alert . Laboratory Results: Last 24 Hours Test 03/11/17 23:39 03/12/17 03:56 03/12/17 05:42 03/12/17 06:35 Bedside Glucose 244 mg/dl 231 mg/dl 256 mg/dl 270 mg/dl Test 03/12/17 07:15 03/12/17 11:42 03/12/17 16:51 03/12/17 20:06 White Blood Count 9.79 K/uL Red Blood Count 4.77 M/uL Hemoglobin 14.6 g/dL Hematocrit 44.8 % Mean Corpuscular Volume 93.9 fL Mean Corpuscular Hemoglobin 30.6 pg Mean Corpuscular Hemoglobin Concent 32.6 g/dl Platelet Count 208 K/uL Mean Platelet Volume 10.0 fL Neutrophils (%) (Auto) 84.2 % Lymphocytes (%) (Auto) 9.5 % Monocytes (%) (Auto) 6.0 % Eosinophils (%) (Auto) 0.0 % Basophils (%) (Auto) 0.1 % Neutrophils # (Auto) 8.24 K/uL Lymphocytes # (Auto) 0.93 K/uL Monocytes # (Auto) 0.59 K/uL Eosinophils # (Auto) 0.00 K/uL Basophils # (Auto) 0.01 K/uL RDW Standard Deviation 49.0 fL RDW Coefficient of Variation 14.2 % Immature Granulocyte % (Auto) 0.2 % Immature Granulocyte # (Auto) 0.02 K/uL Prothrombin Time 24.9 SECONDS Prothromb Time International Ratio 2.2 Sodium Level 140 mmol/L Potassium Level 4.1 mmol/L Chloride Level 99 mmol/L Carbon Dioxide Level 32 mmol/L Anion Gap 9.0 mmol/L Blood Urea Nitrogen 24 mg/dl Creatinine 1.30 mg/dl Est Creatinine Clear Calc Drug Dose 46.3 ml/min Estimated GFR () 43.9 Estimated GFR (Non- 37.9 BUN/Creatinine Ratio 18.2 Random Glucose 304 mg/dl Calcium Level 9.0 mg/dl Beta-Hydroxybutyric Acid 2.47 mg/dL Bedside Glucose 326 mg/dl 124 mg/dl 120 mg/dl Assessment & Plan BRONCHITIS Presented with cough, wheezing, shortness of breath. No infiltrates on chest x-ray. Received levofloxacin, IV methylprednisolone, nebulizer treatments. Symptoms improved. Transition to oral steroid therapy with prednisone. Continue levofloxacin. Change nebs to PRN. CORONARY ARTERY DISEASE No anginal symptoms. Continue aspirin, metoprolol, nitrates, atorvastatin. CHRONIC ATRIAL FIBRILLATION Rate controlled on metoprolol. INR today = 2.2. Continue warfarin. CHF Admission chest x-ray demonstrated cardiomegaly, pulmonary mass or congestion. Last echocardiogram this facility was performed on 12/18/15 and demonstrated LVEF of 55-60% with evidence of diastolic dysfunction. Probable acute on chronic left ventricular diastolic heart failure. Titrate diuretics. SLEEP APNEA Continue nocturnal O2. CKD 3 Serum creatinine 1.0 on admission. Creatinine today = 1.3. Follow. DIABETES MELLITUS TYPE 2 Fairly well controlled. Hemoglobin A1c 8.4. Pharmacy consulted for glycemic management. Receiving Lantus and NovoLog per protocol. VTE PROPHYLAXIS On warfarin with therapeutic INR. Ambulate. DISPOSITION Expected discharge to home. Internal Medicine follow-up with Dr. Donnelly. . Current Inpatient Medications: Current Inpatient Medications Medications (Trade) Dose Ordered Sig/Yesenia Route Start Time Stop Time Status Last Admin Dose Admin Levofloxacin (Consult) 1 ea UD PRN N/A 03/11/17 01:12 04/10/17 01:11 Furosemide (Lasix Tab) 20 mg DAILY PO 03/11/17 09:00 04/10/17 08:59 03/12/17 08:35 20 MG Isosorbide Mononitrate (Imdur Ext Rel Tab) 60 mg DAILY PO 03/11/17 09:00 04/10/17 08:59 03/12/17 08:35 60 MG Levothyroxine Sodium (Synthroid Tab) 100 mcg DAILYBB PO 03/11/17 06:00 04/10/17 05:59 03/12/17 05:20 100 MCG Metoprolol Tartrate (Lopressor Tab) 25 mg DAILY PO 03/11/17 09:00 04/10/17 08:59 03/12/17 08:35 25 MG Multivitamins (Multivitamin Tab) 1 tab DAILY PO 03/11/17 09:00 04/10/17 08:59 03/12/17 08:35 1 TAB Warfarin Sodium (Coumadin Tab) 2.5 mg SuMoTuWeThSa@1600 PO 03/11/17 16:00 04/10/17 15:59 03/12/17 16:38 2.5 MG Lactobacillus Acidophilus (Floranex Tab) 4 tab DAILY PO 03/11/17 09:00 04/10/17 08:59 03/12/17 08:34 4 TAB Acetaminophen (Tylenol Tab) 650 mg Q4H PRN PO 03/10/17 23:30 04/09/17 23:29 Ondansetron HCl (Zofran Inj) 4 mg Q6H PRN IV 03/10/17 23:30 04/09/17 23:29 Insulin Aspart (novoLOG ASPART) SLIDING SCALE If C... ACHS SC 03/11/17 01:00 03/12/17 23:59 03/12/17 17:32 8 UNITS Glucose (Glucose 40% Gel) 15-30 GRAMS 15 GRAMS... UD PRN PO 03/11/17 00:15 04/10/17 00:14 Glucose (Glucose Chew Tab) 4-8 Tablets 4 Tabl... UD PRN PO 03/11/17 00:15 04/10/17 00:14 Dextrose (Dextrose 50% 50ML Syringe) 25-50ML OF 50% DW IV FOR... UD PRN IV 03/11/17 00:15 04/10/17 00:14 Glucagon (Glucagon Inj) 1 mg UD PRN SQ 03/11/17 00:15 04/10/17 00:14 Miscellaneous Information (Consult Glycemic Management Pharmacy) 1 ea UD PRN N/A 03/11/17 00:48 04/10/17 00:47 Levofloxacin (Levaquin Tab) 750 mg DAILY@11 PO 03/11/17 11:00 03/18/17 10:59 03/12/17 12:10 750 MG Warfarin Sodium (Coumadin Tab) 5 mg Fr@1600 PO 03/15/17 16:00 04/14/17 15:59 Lorazepam (Ativan Tab) 0.5 mg Q12H PRN PO 03/11/17 01:30 04/10/17 01:29 03/12/17 05:56 0.5 MG Aspirin (Ecotrin Tab) 81 mg MoWeFr@0900 PO 03/13/17 09:00 04/12/17 08:59 Atorvastatin Calcium (Lipitor Tab) 10 mg HS PO 03/11/17 21:00 04/10/17 20:59 03/11/17 20:36 10 MG Magnesium Chloride (Slow-Mag Tab) 64 mg HS PO 03/11/17 21:00 04/10/17 20:59 03/11/17 20:36 64 MG Pantoprazole Sodium (Protonix Tab) 40 mg HS PO 03/11/17 21:00 04/10/17 20:59 03/11/17 20:36 40 MG Miconazole Nitrate (Desenex Powder) 1 appln BID PRN EXT 03/12/17 11:30 04/11/17 11:29 Insulin Aspart (novoLOG ASPART) SLIDING SCALE If C... 0000,0400 SC 03/13/17 00:00 03/13/17 04:01 Levalbuterol 0.63 mg 0.63 mg Q6R PRN INH 03/12/17 14:45 04/11/17 14:44 Methylprednisolone Sodium Succinate/ Syringe (Solu-Medrol IV/ Syringe) 0.32 ml @ 1.5 mls/min TODAY@2100 ONCE IV 03/12/17 21:00 03/12/17 21:01 Prednisone (PredniSONE TAB) 40 mg DAILY PO 03/13/17 09:00 04/12/17 08:59 Insulin Glargine (Lantus Solostar Pen) 30 unit BID SC 03/13/17 09:00 04/12/17 08:59 Insulin Aspart (novoLOG ASPART) SLIDING SCALE If C... DREW [place] 03/13/17 07:00 04/12/17 06:59
[2017-03-12] MEDS: MAGNESIUM CHLORIDE 64MG DELAYED REL TAB PO SCH (21:51)
[2017-03-12] MEDS: PANTOprazole SOD 40 MG TAB PO SCH (21:51)
[2017-03-12] MEDS: ATORVASTATIN 10 MG TAB PO SCH (21:51)
[2017-03-13] VITALS (10 sets, daily range): BP systolic 104–143; BP diastolic 61–91; PULSE 74–91; TEMP 36.5–37; O2SAT 93–99
[2017-03-13] MEDS: INSULIN ASPART 100 UNITS/ML 3 ML PEN SC SCH ×5 (04:00→20:26)
[2017-03-13] MEDS: LEVOTHYROXINE 100 MCG TAB PO SCH (05:47)
[2017-03-13 06:16] LABS: BASO % 0.2 %; BASO ABS # 0.02 K/uL (0-0.2); COMPLETE YES; HEMATOCRIT 45.3 % (37-47); IG% 0.3 %; LYMPH % 10.9 %; LYMPH ABS # 1.39 K/uL (1.2-3.4); MEAN CELL VOLUME 93.8 fL (80-100); MEAN CORPUSCULAR HEMOGLOBIN 30.4 pg (25-34); MEAN CORPUSCULAR HGB CONC 32.5 g/dl (32-36); MEAN PLATELET VOLUME 9.5 fL (7.4-10.4); MONO % 7.4 %; NEUT % 81.2 %; PLATELET COUNT 213 K/uL (130-400); RED BLOOD COUNT 4.83 M/uL (4.2-5.4); WHITE BLOOD COUNT 12.77 K/uL (4.8-10.8)
[2017-03-13 06:26] LABS: INR 3.1 (0.9-1.1); PROTHROMBIN TIME (PATIENT) 34.4 SECONDS (9.0-12.0)
[2017-03-13 06:43] LABS: BUN/CREATININE RATIO 25.1 (10-20); CALCIUM 8.8 mg/dl (8.5-10.1); CREATININE 1.1 mg/dl (0.60-1.20); POTASSIUM 4.1 mmol/L (3.5-5.1)
[2017-03-13] MEDS: LORAZEPAM 0.5 MG TAB PO PRN (07:42)
[2017-03-13] MEDS: MULTIVITAMIN TAB PO SCH (07:43)
[2017-03-13] MEDS: LACTOBACILLUS ACIDOPHILUS (FLORANEX) TAB PO SCH (07:43)
[2017-03-13] MEDS: METOPROLOL TARTRATE 25 MG TAB PO SCH (07:43)
[2017-03-13] MEDS: FUROSEMIDE 20 MG TAB PO SCH (07:44)
[2017-03-13] MEDS: ASPIRIN 81 MG ECTAB PO SCH (07:44)
[2017-03-13] MEDS: ISOSORBIDE MONONITRATE 60 MG TABCR PO SCH (07:44)
--- NOTE | 2017-03-13 07:48 | DIAGNOSTIC IMAGING REPORT ---
CHEST ONE VIEW PORTABLE CLINICAL HISTORY: Follow-up congestive heart failure. COMPARISON STUDY: Chest radiograph March 10, 2017. FINDINGS: A left subclavian pacemaker is in place. This exam is compromised by motion artifact. Moderate cardiomegaly is unchanged. No lobar consolidation is identified. No pneumothorax identified. There is suspected pleural vascular congestion. Right infrahilar opacity is unchanged. IMPRESSION: 1. Study compromised by motion artifact. 2. No significant change since prior exam of March 10, 2017. Pulmonary vascular congestion without overt pulmonary edema. Electronically signed by: Ulises Hendrickson M.D. 03/13/2017 7:47 AM Dictated Date/Time: 03/13/2017 7:46 AM
--- NOTE | 2017-03-13 08:53 | Pharmacy Progress Note ---
Glycemic Control: Progress Nt Date of Service March 13, 2017. Scope Glycemic Pharmacist consulted by Dr White on 03/13/17 for glycemic control and to write orders per [facility] inpatient glycemic control protocol. Objective Accuchecks BSG (last 24hrs): Test 03/12/17 11:42 03/12/17 16:51 03/12/17 20:06 03/12/17 23:35 Bedside Glucose 326 mg/dl (70-90) 124 mg/dl (70-90) 120 mg/dl (70-90) 147 mg/dl (70-90) Test 03/13/17 04:10 03/13/17 05:50 03/13/17 06:56 Bedside Glucose 127 mg/dl (70-90) 140 mg/dl (70-90) Random Glucose 165 mg/dl (70-99) Laboratory Data (last 24hrs) Test 03/13/17 05:50 Anion Gap 4.0 mmol/L BUN/Creatinine Ratio 25.1 Blood Urea Nitrogen 28 mg/dl Creatinine 1.10 mg/dl Potassium Level 4.1 mmol/L Sodium Level 142 mmol/L White Blood Count 12.77 K/uL Red Blood Count 4.83 M/uL Hemoglobin 14.7 g/dL Hematocrit 45.3 % Mean Corpuscular Volume 93.8 fL Mean Corpuscular Hemoglobin 30.4 pg Mean Corpuscular Hemoglobin Concent 32.5 g/dl Platelet Count 213 K/uL Mean Platelet Volume 9.5 fL Neutrophils (%) (Auto) 81.2 % Lymphocytes (%) (Auto) 10.9 % Monocytes (%) (Auto) 7.4 % Eosinophils (%) (Auto) 0.0 % Basophils (%) (Auto) 0.2 % Neutrophils # (Auto) 10.38 K/uL Lymphocytes # (Auto) 1.39 K/uL Monocytes # (Auto) 0.94 K/uL Eosinophils # (Auto) 0.00 K/uL Basophils # (Auto) 0.02 K/uL HbA1c: Test 03/11/17 06:22 Hemoglobin A1c 8.4 % (4.5-5.6) H Recent Pertinent Medications Outpatient Anti-diabetic Regimen: * Novolin 70/30 Premixed insulin 25 units in AM + 15 units in PM * This consists of: * Basal insulin 17.5 units in AM + 10.5 units in PM * Prandial insulin 7.5 units in AM + 4.5 units in PM The patient is currently receiving: * Basal insulin: Lantus 30 units every 12 hours (38 units given pm) * Correctional Insulin: Novolog Correction per scale ACHS Goal Range: Low 110 mg/dL - High 150 mg/dL Correction Factor: 10 mg/dL/unit * Prandial insulin: Per carb ratio of 1 unit per 4 grams CHO consumed Risk Factors for Insulin Resistance: * Steroids: SoluMedrol 40mg IV Q8hrs -> decreased to 20 mg x 1 03/12 for a total of 100 mg today, then prednisone 40 mg daily starting 03/13 * Infection: Bronchitis * Diet: type 2 diabetes Assessment & Plan ASSESSMENT: Initial: * Outpatient regimen is premixed basal/prandial insulin of Novolin 70/30 mix insulin. * Pre-mixed insulin is difficult to titrate since it is already in a fixed distribution of basal:prandial insulin. Continuing pre-mixed insulin for admission typically lead to hypoglycemia d/t changing PO status but rapid acting insulin is unable to be held. * Pt with adequate control per age/comorbidities on current outpatient regimen per A1c * Home regimen will be held for admission per pharmacy consult. Will utilize recommended regimen of SQ basal bolus insulin regimen with Lantus + NovoLog (CF+ CR) * Will stress outpatient dosing for steroid induced hyperglycemia and titrate doses based on BSG trends. * ADA & AACE recommend a goal blood sugar range 140-180 mg/dl for the majority of critically ill & non-critically ill patients. However, more stringent targets may be selected in individual cases. 03/13/17 * Dramatic improvement in BSGs since tightening coverage yesterday due to steroid induced hyperglycemia * BSGs have been within goal range since dinnertime on 03/12 * Patient required 110 units of insulin yesterday. I anticipate needs to decrease today due to transition from ATC IV steroids to Prednisone 40 mg daily. * Will empirically decrease regimen by ~20% * Anticipate 80-90 units over the next 24 hours. Will split 50% bolus and 50% basal. * This regimen is equivalent to stressing patient's home dose of 40 units with a stress of 3 * Will continue overnight checks incase empiric decrease is too aggressive PLAN FOR INPATIENT GLYCEMIC CONTROL: * Decrease basal insulin * Lantus 20 units SQ BID - starting 03/13 pm * Continue bolus insulin with Novolog per scale ACHS * Continue goal range: 110 - 150 mg/dL * Loosen CF to 20 * Loosen CR to 7 * Continue overnight checks with coverage at 00 and 04 * Please note that the plan above was derived based on current level of insulin resistance and hospital stress. These recommendations are appropriate for inpatient admission only. Plan of care upon discharge will need to be reassessed to avoid potential outpatient hypo/hyperglycemia. Thank you. RECOMMENDATIONS FOR DISCHARGE: * awaited
[2017-03-13] MEDS ORDERED: INSULIN GLARGINE SOLOSTAR 100 UNITS/ML 3 ML PEN SC SCH (09:00)
[2017-03-13] MEDS: LEVOFLOXACIN 750 MG TAB PO SCH (11:02)
[2017-03-13] MEDS ORDERED: LORAZEPAM 0.5 MG TAB PO PRN (15:00)
[2017-03-13] MEDS: LORAZEPAM 0.5 MG TAB PO SCH (19:43)
[2017-03-13] MEDS: PANTOprazole SOD 40 MG TAB PO SCH (19:45)
[2017-03-13] MEDS: MAGNESIUM CHLORIDE 64MG DELAYED REL TAB PO SCH (19:45)
[2017-03-13] MEDS: ATORVASTATIN 10 MG TAB PO SCH (19:45)
[2017-03-13] MEDS: INSULIN GLARGINE SOLOSTAR 100 UNITS/ML 3 ML PEN SC SCH (20:26)
--- NOTE | 2017-03-13 21:13 | Progress Note ---
Medicine Progress Note Date & Time of Visit: March 13, 2017 at 15:10 . Subjective No fever. Less short of breath. Occasional cough. No chest pain. No nausea or vomiting. No bowel movement since admission. . Objective Last 8 Hrs Date Time Temp Pulse Resp B/P Pulse Ox O2 Delivery O2 Flow Rate FiO2 03/13/17 20:00 Nasal Cannula 2.0 03/13/17 19:56 36.8 84 18 143/91 94 Nasal Cannula 2.0 03/13/17 16:00 Nasal Cannula 2.0 03/13/17 15:45 36.7 77 18 112/79 99 Physical Exam: General- sitting in chair, no distress Neck- + JVD Lungs- mild wheezing Heart- irregular Abdomen- + BS, soft, nontender Extremities- 2+ pretibial edema; no calf tenderness Neuro- alert . Laboratory Results: Last 24 Hours Test 03/12/17 23:35 03/13/17 04:10 03/13/17 05:50 03/13/17 06:56 Bedside Glucose 147 mg/dl 127 mg/dl 140 mg/dl White Blood Count 12.77 K/uL Red Blood Count 4.83 M/uL Hemoglobin 14.7 g/dL Hematocrit 45.3 % Mean Corpuscular Volume 93.8 fL Mean Corpuscular Hemoglobin 30.4 pg Mean Corpuscular Hemoglobin Concent 32.5 g/dl Platelet Count 213 K/uL Mean Platelet Volume 9.5 fL Neutrophils (%) (Auto) 81.2 % Lymphocytes (%) (Auto) 10.9 % Monocytes (%) (Auto) 7.4 % Eosinophils (%) (Auto) 0.0 % Basophils (%) (Auto) 0.2 % Neutrophils # (Auto) 10.38 K/uL Lymphocytes # (Auto) 1.39 K/uL Monocytes # (Auto) 0.94 K/uL Eosinophils # (Auto) 0.00 K/uL Basophils # (Auto) 0.02 K/uL RDW Standard Deviation 48.6 fL RDW Coefficient of Variation 14.3 % Immature Granulocyte % (Auto) 0.3 % Immature Granulocyte # (Auto) 0.04 K/uL Prothrombin Time 34.4 SECONDS Prothromb Time International Ratio 3.1 Sodium Level 142 mmol/L Potassium Level 4.1 mmol/L Chloride Level 101 mmol/L Carbon Dioxide Level 37 mmol/L Anion Gap 4.0 mmol/L Blood Urea Nitrogen 28 mg/dl Creatinine 1.10 mg/dl Est Creatinine Clear Calc Drug Dose 54.6 ml/min Estimated GFR () 53.8 Estimated GFR (Non- 46.4 BUN/Creatinine Ratio 25.1 Random Glucose 165 mg/dl Calcium Level 8.8 mg/dl Test 03/13/17 11:11 03/13/17 16:24 03/13/17 20:12 Bedside Glucose 195 mg/dl 125 mg/dl 229 mg/dl Assessment & Plan BRONCHITIS Presented with cough, wheezing, shortness of breath. No infiltrates on chest x-ray. Received levofloxacin, IV methylprednisolone, nebulizer treatments with improvement. Transitioned to oral steroid therapy with prednisone. Changed nebs to PRN. Continue levofloxacin. CORONARY ARTERY DISEASE No anginal symptoms. Continue aspirin, metoprolol, nitrates, atorvastatin. CHRONIC ATRIAL FIBRILLATION Rate controlled on metoprolol. INR today = 3.1. Hold warfarin today. Recheck INR tomorrow. CHF Admission chest x-ray demonstrated cardiomegaly, pulmonary mass or congestion. Last echocardiogram this facility was performed on 12/18/15 and demonstrated LVEF of 55-60% with evidence of diastolic dysfunction. Probable acute on chronic left ventricular diastolic heart failure. Received IV furosemide yesterday with good diuresis. SLEEP APNEA Continue nocturnal O2. CKD 3 Serum creatinine 1.0 on admission and jo as high as 1.3. Creatinine today = 1.1. Follow. DIABETES MELLITUS TYPE 2 Fairly well controlled. Hemoglobin A1c 8.4. Pharmacy consulted for glycemic management. Receiving Lantus and NovoLog per protocol. VTE PROPHYLAXIS On warfarin with therapeutic INR. Ambulate. DISPOSITION Expected discharge to home. Internal Medicine follow-up with Dr. Donnelly. Daughter and visiting and given update. ADDENDUM: Patient experienced rectal bleeding with fresh blood on sitting on the toilet and straining to have a bowel movement this evening. As noted above, INR earlier today was 3.1. Hematochezia most likely secondary to hemorrhoids or rectal fissure. Has not had a colonoscopy for several years, but reluctant to pursue given patient's multiple medical comorbidities. Best not to reverse warfarin unless absolutely necessary. Patient advised not to strain to move her bowels. Check repeat H&H and INR in the morning. . Current Inpatient Medications: Current Inpatient Medications Medications (Trade) Dose Ordered Sig/Yesenia Route Start Time Stop Time Status Last Admin Dose Admin Levofloxacin (Consult) 1 ea UD PRN N/A 03/11/17 01:12 04/10/17 01:11 Furosemide (Lasix Tab) 20 mg DAILY PO 03/11/17 09:00 04/10/17 08:59 03/13/17 07:44 20 MG Isosorbide Mononitrate (Imdur Ext Rel Tab) 60 mg DAILY PO 03/11/17 09:00 04/10/17 08:59 03/13/17 07:44 60 MG Levothyroxine Sodium (Synthroid Tab) 100 mcg DAILYBB PO 03/11/17 06:00 04/10/17 05:59 03/13/17 05:47 100 MCG Metoprolol Tartrate (Lopressor Tab) 25 mg DAILY PO 03/11/17 09:00 04/10/17 08:59 03/13/17 07:43 25 MG Multivitamins (Multivitamin Tab) 1 tab DAILY PO 03/11/17 09:00 04/10/17 08:59 03/13/17 07:43 1 TAB Warfarin Sodium (Coumadin Tab) 2.5 mg SuMoTuWeThSa@1600 PO 03/11/17 16:00 04/10/17 15:59 Future Hold 03/12/17 16:38 2.5 MG Lactobacillus Acidophilus (Floranex Tab) 4 tab DAILY PO 03/11/17 09:00 04/10/17 08:59 03/13/17 07:43 4 TAB Acetaminophen (Tylenol Tab) 650 mg Q4H PRN PO 03/10/17 23:30 04/09/17 23:29 Ondansetron HCl (Zofran Inj) 4 mg Q6H PRN IV 03/10/17 23:30 04/09/17 23:29 Glucose (Glucose 40% Gel) 15-30 GRAMS 15 GRAMS... UD PRN PO 03/11/17 00:15 04/10/17 00:14 Glucose (Glucose Chew Tab) 4-8 Tablets 4 Tabl... UD PRN PO 03/11/17 00:15 04/10/17 00:14 Dextrose (Dextrose 50% 50ML Syringe) 25-50ML OF 50% DW IV FOR... UD PRN IV 03/11/17 00:15 04/10/17 00:14 Glucagon (Glucagon Inj) 1 mg UD PRN SQ 03/11/17 00:15 04/10/17 00:14 Miscellaneous Information (Consult Glycemic Management Pharmacy) 1 ea UD PRN N/A 03/11/17 00:48 04/10/17 00:47 Levofloxacin (Levaquin Tab) 750 mg DAILY@11 PO 03/11/17 11:00 03/18/17 10:59 03/13/17 11:02 750 MG Warfarin Sodium (Coumadin Tab) 5 mg Fr@1600 PO 03/15/17 16:00 04/14/17 15:59 Aspirin (Ecotrin Tab) 81 mg MoWeFr@0900 PO 03/13/17 09:00 04/12/17 08:59 03/13/17 07:44 81 MG Atorvastatin Calcium (Lipitor Tab) 10 mg HS PO 03/11/17 21:00 04/10/17 20:59 03/13/17 19:45 10 MG Magnesium Chloride (Slow-Mag Tab) 64 mg HS PO 03/11/17 21:00 04/10/17 20:59 03/13/17 19:45 64 MG Pantoprazole Sodium (Protonix Tab) 40 mg HS PO 03/11/17 21:00 04/10/17 20:59 03/13/17 19:45 40 MG Miconazole Nitrate (Desenex Powder) 1 appln BID PRN EXT 03/12/17 11:30 04/11/17 11:29 Levalbuterol (Xopenex 0.63 Mg/ 3 Ml Neb) 0.63 mg Q6R PRN INH 03/12/17 14:45 04/11/17 14:44 Prednisone (PredniSONE TAB) 40 mg DAILY PO 03/13/17 09:00 04/12/17 08:59 03/13/17 07:43 40 MG Insulin Aspart (novoLOG ASPART) SLIDING SCALE If C... ACHS SC 03/13/17 07:00 04/12/17 06:59 03/13/17 20:26 4 UNITS Insulin Glargine (Lantus Solostar Pen) 20 unit BID SC 03/13/17 21:00 04/12/17 20:59 03/13/17 20:26 20 UNIT Lorazepam (Ativan Tab) 0.25 mg HS PO 03/13/17 21:00 04/12/17 20:59 03/13/17 19:43 0.25 MG Lorazepam (Ativan Tab) 0.25 mg Q6H PRN PO 03/13/17 15:00 04/12/17 14:59 Insulin Aspart (novoLOG ASPART) SLIDING SCALE If C... 0200 SC 03/14/17 02:00 03/14/17 14:00
[2017-03-14] VITALS (10 sets, daily range): BP systolic 105–156; BP diastolic 47–85; PULSE 80–93; TEMP 36.4–36.9; O2SAT 93–97
[2017-03-14] MEDS ORDERED: INSULIN ASPART 100 UNITS/ML 3 ML PEN SC SCH (02:00)
[2017-03-14] MEDS: LEVOTHYROXINE 100 MCG TAB PO SCH (05:35)
[2017-03-14 05:45] LABS: BASO % 0.2 %; BASO ABS # 0.02 K/uL (0-0.2); COMPLETE YES; HEMATOCRIT 45.3 % (37-47); IG% 0.4 %; LYMPH % 16.8 %; MEAN CELL VOLUME 93.8 fL (80-100); MEAN CORPUSCULAR HEMOGLOBIN 30.8 pg (25-34); MEAN CORPUSCULAR HGB CONC 32.9 g/dl (32-36); MEAN PLATELET VOLUME 9.5 fL (7.4-10.4); MONO % 12.8 %; NEUT % 69.8 %; PLATELET COUNT 232 K/uL (130-400); RED BLOOD COUNT 4.83 M/uL (4.2-5.4); WHITE BLOOD COUNT 11.92 K/uL (4.8-10.8)
[2017-03-14 05:57] LABS: INR 3.1 (0.9-1.1)
[2017-03-14 06:20] LABS: CALCIUM 8.7 mg/dl (8.5-10.1); CREATININE 1.2 mg/dl (0.60-1.20); POTASSIUM 3.8 mmol/L (3.5-5.1)
[2017-03-14] MEDS: INSULIN ASPART 100 UNITS/ML 3 ML PEN SC SCH ×4 (07:00→21:41)
[2017-03-14] MEDS: ISOSORBIDE MONONITRATE 60 MG TABCR PO SCH (07:37)
[2017-03-14] MEDS: METOPROLOL TARTRATE 25 MG TAB PO SCH (07:37)
[2017-03-14] MEDS: FUROSEMIDE 20 MG TAB PO SCH (07:38)
[2017-03-14] MEDS: LACTOBACILLUS ACIDOPHILUS (FLORANEX) TAB PO SCH (07:38)
[2017-03-14] MEDS: MULTIVITAMIN TAB PO SCH (07:38)
[2017-03-14] MEDS: INSULIN GLARGINE SOLOSTAR 100 UNITS/ML 3 ML PEN SC SCH ×2 (07:42→21:42)
[2017-03-14] MEDS: LORAZEPAM 0.5 MG TAB PO SCH ×2 (10:02→21:59)
--- NOTE | 2017-03-14 10:41 | Pharmacy Progress Note ---
Glycemic Control: Progress Nt Date of Service Mar 14, 2017. Scope Glycemic Pharmacist consulted by Dr White on 03/11/17 for glycemic control and to write orders per [facility] inpatient glycemic control protocol. Objective Accuchecks BSG (last 24hrs): Test 03/13/17 11:11 03/13/17 16:24 03/13/17 20:12 03/14/17 02:08 Bedside Glucose 195 mg/dl (70-90) 125 mg/dl (70-90) 229 mg/dl (70-90) 121 mg/dl (70-90) Test 03/14/17 05:25 Random Glucose 87 mg/dl (70-99) Laboratory Data (last 24hrs) Test 03/14/17 05:25 Anion Gap 5.0 mmol/L BUN/Creatinine Ratio 27.0 Blood Urea Nitrogen 32 mg/dl Creatinine 1.20 mg/dl Potassium Level 3.8 mmol/L Sodium Level 144 mmol/L White Blood Count 11.92 K/uL Red Blood Count 4.83 M/uL Hemoglobin 14.9 g/dL Hematocrit 45.3 % Mean Corpuscular Volume 93.8 fL Mean Corpuscular Hemoglobin 30.8 pg Mean Corpuscular Hemoglobin Concent 32.9 g/dl Platelet Count 232 K/uL Mean Platelet Volume 9.5 fL Neutrophils (%) (Auto) 69.8 % Lymphocytes (%) (Auto) 16.8 % Monocytes (%) (Auto) 12.8 % Eosinophils (%) (Auto) 0.0 % Basophils (%) (Auto) 0.2 % Neutrophils # (Auto) 8.32 K/uL Lymphocytes # (Auto) 2.00 K/uL Monocytes # (Auto) 1.53 K/uL Eosinophils # (Auto) 0.00 K/uL Basophils # (Auto) 0.02 K/uL HbA1c: Test 03/11/17 06:22 Hemoglobin A1c 8.4 % (4.5-5.6) H Recent Pertinent Medications Outpatient Anti-diabetic Regimen: * Novolin 70/30 Premixed insulin 25 units in AM + 15 units in PM Risk Factors for Insulin Resistance: * Steroids * Infection * Diet Assessment & Plan ASSESSMENT: * Patient is currently receiving an average of 74 units of insulin per day * 50 units of basal insulin * 24 units of prandial/correctional insulin * BSGs ranging 125 -229 over the past 24hrs * Risk factors for insulin resistance are decreasing over the past 24hrs * Steroid dosing tapering (currently PO prednisone 40 mg po daily) * Infection is being adequately treated/Pt status improving * Anticipating insulin regimen will need decreased for the next 24hrs d/t: * AM Fasting BSG = 78; regimen seems basal heavy * I estimate total needs to be around home regimen now that steroids are tapered to PO * If using total daily dose ~50 units/day, redistributing insulin 50/50 would make Lantus around 12 units BID * I plan to start with basal decrease today and continue current CF/CR; may loosen tomorrow PLAN FOR INPATIENT GLYCEMIC CONTROL: * Decrease Basal insulin with LANTUS 12 units SQ BID * Correctional Insulin with NOVOLOG per scale ACHS or Q6hrs while NPO * Goal Range: Low 110 mg/dL - High 150 mg/dL * Correction Factor: 20 mg/dL/unit * Nutritional / Prandial insulin per carb ratio of 1 unit per 7 grams CHO consumed RECOMMENDATIONS FOR DISCHARGE: * awaited * Please note that the plan above was derived based on current level of insulin resistance and hospital stress. These recommendations are appropriate for inpatient admission only. Plan of care upon discharge will need to be reassessed to avoid potential outpatient hypo/hyperglycemia. Thank you.
[2017-03-14] MEDS ORDERED: MAGNESIUM HYDROXIDE SUSP 30 ML UDC PO PRN (10:45)
[2017-03-14] MEDS: LEVOFLOXACIN 750 MG TAB PO SCH (11:42)
[2017-03-14] MEDS: ATORVASTATIN 10 MG TAB PO SCH (21:38)
[2017-03-14] MEDS: PANTOprazole SOD 40 MG TAB PO SCH (21:39)
[2017-03-14] MEDS: MAGNESIUM CHLORIDE 64MG DELAYED REL TAB PO SCH (21:39)
--- NOTE | 2017-03-14 21:43 | Progress Note ---
Medicine Progress Note Date & Time of Visit: Mar 14, 2017 at 10:30 . Subjective Episode of hematochezia last night when trying to move her bowels; none since. No fever or chills. Cough improved. Less short of breath. No chest pain. Dependent edema at baseline. No nausea or vomiting. Still hasn't had a bowel movement. . Objective Last 8 Hrs Date Time Temp Pulse Resp B/P (MAP) Pulse Ox O2 Delivery O2 Flow Rate FiO2 03/14/17 19:28 36.7 93 20 139/84 (102) 94 Nasal Cannula 2.0 03/14/17 16:00 95 Nasal Cannula 2.0 03/14/17 15:21 36.5 84 20 156/85 (108) 94 Nasal Cannula 2.0 Physical Exam: General- sitting in chair, no distress Neck- + JVD Lungs- diffuse minimal wheezing Heart- irregular; no gallop appreciated Abdomen- + BS, soft, nontender Extremities- 2+ pretibial edema; no calf tenderness Neuro- alert . Laboratory Results: Last 24 Hours Test 03/14/17 02:08 03/14/17 05:25 03/14/17 06:58 03/14/17 11:36 Bedside Glucose 121 mg/dl 78 mg/dl 139 mg/dl White Blood Count 11.92 K/uL Red Blood Count 4.83 M/uL Hemoglobin 14.9 g/dL Hematocrit 45.3 % Mean Corpuscular Volume 93.8 fL Mean Corpuscular Hemoglobin 30.8 pg Mean Corpuscular Hemoglobin Concent 32.9 g/dl Platelet Count 232 K/uL Mean Platelet Volume 9.5 fL Neutrophils (%) (Auto) 69.8 % Lymphocytes (%) (Auto) 16.8 % Monocytes (%) (Auto) 12.8 % Eosinophils (%) (Auto) 0.0 % Basophils (%) (Auto) 0.2 % Neutrophils # (Auto) 8.32 K/uL Lymphocytes # (Auto) 2.00 K/uL Monocytes # (Auto) 1.53 K/uL Eosinophils # (Auto) 0.00 K/uL Basophils # (Auto) 0.02 K/uL RDW Standard Deviation 48.4 fL RDW Coefficient of Variation 14.0 % Immature Granulocyte % (Auto) 0.4 % Immature Granulocyte # (Auto) 0.05 K/uL Prothrombin Time 35.0 SECONDS Prothromb Time International Ratio 3.1 Sodium Level 144 mmol/L Potassium Level 3.8 mmol/L Chloride Level 102 mmol/L Carbon Dioxide Level 37 mmol/L Anion Gap 5.0 mmol/L Blood Urea Nitrogen 32 mg/dl Creatinine 1.20 mg/dl Est Creatinine Clear Calc Drug Dose 50.0 ml/min Estimated GFR () 48.4 Estimated GFR (Non- 41.8 BUN/Creatinine Ratio 27.0 Random Glucose 87 mg/dl Calcium Level 8.7 mg/dl Test 03/14/17 16:35 03/14/17 20:18 Bedside Glucose 201 mg/dl 198 mg/dl Assessment & Plan BRONCHITIS Presented with cough, wheezing, shortness of breath. No infiltrates on chest x-ray. Received levofloxacin, IV methylprednisolone, nebulizer treatments with improvement. Transitioned to oral steroid therapy with prednisone. Changed nebs to PRN. Continue levofloxacin. CORONARY ARTERY DISEASE No anginal symptoms. Continue aspirin, metoprolol, nitrates, atorvastatin. CHRONIC ATRIAL FIBRILLATION Rate controlled on metoprolol. INR today = 3.1. Hold warfarin again today. Recheck INR tomorrow. CHF Admission chest x-ray demonstrated cardiomegaly, pulmonary mass or congestion. Last echocardiogram this facility was performed on 12/18/15 and demonstrated LVEF of 55-60% with evidence of diastolic dysfunction. Probable acute on chronic left ventricular diastolic heart failure. Received IV furosemide with good diuresis. SLEEP APNEA Continue nocturnal O2. CKD 3 Serum creatinine 1.0 on admission and jo as high as 1.3. Creatinine today = 1.2. Follow. DIABETES MELLITUS TYPE 2 Fairly well controlled. Hemoglobin A1c 8.4. Pharmacy consulted for glycemic management. Receiving Lantus and NovoLog per protocol. Fasting blood sugar this morning = 78. HEMATOCHEZIA One episode of rectal bleeding which occurred while straining to move her bowels. H/H stable. Hematochezia most likely secondary to hemorrhoids or anal fissure. Colonoscopy should be considered, but may be difficult given patient's cardiopulmonary status. VTE PROPHYLAXIS On warfarin with therapeutic INR. Ambulate. DISPOSITION Expected discharge to home. Internal Medicine follow-up with Dr. Donnelly. . Current Inpatient Medications: Current Inpatient Medications Medications (Trade) Dose Ordered Sig/Yesenia Route Start Time Stop Time Status Last Admin Dose Admin Levofloxacin (Consult) 1 ea UD PRN N/A 03/11/17 01:12 04/10/17 01:11 Furosemide (Lasix Tab) 20 mg DAILY PO 03/11/17 09:00 04/10/17 08:59 03/14/17 07:38 20 MG Isosorbide Mononitrate (Imdur Ext Rel Tab) 60 mg DAILY PO 03/11/17 09:00 04/10/17 08:59 03/14/17 07:37 60 MG Levothyroxine Sodium (Synthroid Tab) 100 mcg DAILYBB PO 03/11/17 06:00 04/10/17 05:59 03/14/17 05:35 100 MCG Metoprolol Tartrate (Lopressor Tab) 25 mg DAILY PO 03/11/17 09:00 04/10/17 08:59 03/14/17 07:37 25 MG Multivitamins (Multivitamin Tab) 1 tab DAILY PO 03/11/17 09:00 04/10/17 08:59 03/14/17 07:38 1 TAB Warfarin Sodium (Coumadin Tab) 2.5 mg SuMoTuWeThSa@1600 PO 03/11/17 16:00 04/10/17 15:59 Future Hold 03/12/17 16:38 2.5 MG Lactobacillus Acidophilus (Floranex Tab) 4 tab DAILY PO 03/11/17 09:00 04/10/17 08:59 03/14/17 07:38 4 TAB Acetaminophen (Tylenol Tab) 650 mg Q4H PRN PO 03/10/17 23:30 04/09/17 23:29 Ondansetron HCl (Zofran Inj) 4 mg Q6H PRN IV 03/10/17 23:30 04/09/17 23:29 Glucose (Glucose 40% Gel) 15-30 GRAMS 15 GRAMS... UD PRN PO 03/11/17 00:15 04/10/17 00:14 Glucose (Glucose Chew Tab) 4-8 Tablets 4 Tabl... UD PRN PO 03/11/17 00:15 04/10/17 00:14 Dextrose (Dextrose 50% 50ML Syringe) 25-50ML OF 50% DW IV FOR... UD PRN IV 03/11/17 00:15 04/10/17 00:14 Glucagon (Glucagon Inj) 1 mg UD PRN SQ 03/11/17 00:15 04/10/17 00:14 Miscellaneous Information (Consult Glycemic Management Pharmacy) 1 ea UD PRN N/A 03/11/17 00:48 04/10/17 00:47 Levofloxacin (Levaquin Tab) 750 mg DAILY@11 PO 03/11/17 11:00 03/18/17 10:59 03/14/17 11:42 750 MG Warfarin Sodium (Coumadin Tab) 5 mg Fr@1600 PO 03/15/17 16:00 04/14/17 15:59 Aspirin (Ecotrin Tab) 81 mg MoWeFr@0900 PO 03/13/17 09:00 04/12/17 08:59 03/13/17 07:44 81 MG Atorvastatin Calcium (Lipitor Tab) 10 mg HS PO 03/11/17 21:00 04/10/17 20:59 03/13/17 19:45 10 MG Magnesium Chloride (Slow-Mag Tab) 64 mg HS PO 03/11/17 21:00 04/10/17 20:59 03/13/17 19:45 64 MG Pantoprazole Sodium (Protonix Tab) 40 mg HS PO 03/11/17 21:00 04/10/17 20:59 03/13/17 19:45 40 MG Miconazole Nitrate (Desenex Powder) 1 appln BID PRN EXT 03/12/17 11:30 04/11/17 11:29 Levalbuterol (Xopenex 0.63 Mg/ 3 Ml Neb) 0.63 mg Q6R PRN INH 03/12/17 14:45 04/11/17 14:44 Prednisone (PredniSONE TAB) 40 mg DAILY PO 03/13/17 09:00 04/12/17 08:59 03/14/17 07:37 40 MG Insulin Aspart (novoLOG ASPART) SLIDING SCALE If C... ACHS SC 03/13/17 07:00 04/12/17 06:59 03/14/17 16:48 9 UNITS Lorazepam (Ativan Tab) 0.25 mg HS PO 03/13/17 21:00 04/12/17 20:59 03/14/17 10:02 0.25 MG Lorazepam (Ativan Tab) 0.25 mg Q6H PRN PO 03/13/17 15:00 04/12/17 14:59 Insulin Glargine (Lantus Solostar Pen) 12 unit BID SC 03/14/17 21:00 04/13/17 20:59 Magnesium Hydroxide (Milk Of Magnesia Susp) 30 ml DAILY PRN PO 03/14/17 10:45 04/13/17 10:44
[2017-03-15] VITALS (9 sets, daily range): BP systolic 104–146; BP diastolic 64–91; PULSE 75–83; TEMP 36.5–36.6; O2SAT 90–97
[2017-03-15] MEDS: LEVOTHYROXINE 100 MCG TAB PO SCH (05:35)
[2017-03-15 05:55] LABS: BASO % 0.1 %; BASO ABS # 0.01 K/uL (0-0.2); COMPLETE YES; EOS % 0.1 %; HEMATOCRIT 44.6 % (37-47); IG% 0.4 %; LYMPH % 18.1 %; LYMPH ABS # 1.83 K/uL (1.2-3.4); MEAN CELL VOLUME 94.9 fL (80-100); MEAN CORPUSCULAR HEMOGLOBIN 29.8 pg (25-34); MEAN CORPUSCULAR HGB CONC 31.4 g/dl (32-36); MEAN PLATELET VOLUME 9.5 fL (7.4-10.4); MONO % 14.9 %; NEUT % 66.4 %; PLATELET COUNT 221 K/uL (130-400); WHITE BLOOD COUNT 10.09 K/uL (4.8-10.8)
[2017-03-15 06:06] LABS: INR 2.5 (0.9-1.1); PROTHROMBIN TIME (PATIENT) 27.3 SECONDS (9.0-12.0)
[2017-03-15 06:29] LABS: BUN/CREATININE RATIO 28.5 (10-20); CALCIUM 8.5 mg/dl (8.5-10.1); CREATININE 1.1 mg/dl (0.60-1.20); POTASSIUM 3.8 mmol/L (3.5-5.1)
[2017-03-15] MEDS: LACTOBACILLUS ACIDOPHILUS (FLORANEX) TAB PO SCH (07:58)
[2017-03-15] MEDS: ISOSORBIDE MONONITRATE 60 MG TABCR PO SCH (07:58)
[2017-03-15] MEDS: MULTIVITAMIN TAB PO SCH (07:58)
[2017-03-15] MEDS: METOPROLOL TARTRATE 25 MG TAB PO SCH (07:59)
[2017-03-15] MEDS: ASPIRIN 81 MG ECTAB PO SCH (07:59)
[2017-03-15] MEDS: FUROSEMIDE 20 MG TAB PO SCH (07:59)
[2017-03-15] MEDS: INSULIN ASPART 100 UNITS/ML 3 ML PEN SC SCH ×2 (08:01→17:13)
[2017-03-15] MEDS: INSULIN GLARGINE SOLOSTAR 100 UNITS/ML 3 ML PEN SC SCH (08:02)
--- NOTE | 2017-03-15 09:41 | Pharmacy Progress Note ---
Glycemic Control: Progress Nt Date of Service Mar 15, 2017. Scope Glycemic Pharmacist consulted by Dr White on 03/11/17 for glycemic control and to write orders per [facility] inpatient glycemic control protocol. Objective Accuchecks BSG (last 24hrs): Test 03/14/17 11:36 03/14/17 16:35 03/14/17 20:18 03/15/17 02:46 Bedside Glucose 139 mg/dl (70-90) 201 mg/dl (70-90) 198 mg/dl (70-90) 79 mg/dl (70-90) Test 03/15/17 05:20 03/15/17 06:51 Random Glucose 94 mg/dl (70-99) Bedside Glucose 75 mg/dl (70-90) Laboratory Data (last 24hrs) Test 03/15/17 05:20 Anion Gap 4.0 mmol/L BUN/Creatinine Ratio 28.5 Blood Urea Nitrogen 31 mg/dl Creatinine 1.10 mg/dl Potassium Level 3.8 mmol/L Sodium Level 144 mmol/L White Blood Count 10.09 K/uL Red Blood Count 4.70 M/uL Hemoglobin 14.0 g/dL Hematocrit 44.6 % Mean Corpuscular Volume 94.9 fL Mean Corpuscular Hemoglobin 29.8 pg Mean Corpuscular Hemoglobin Concent 31.4 g/dl Platelet Count 221 K/uL Mean Platelet Volume 9.5 fL Neutrophils (%) (Auto) 66.4 % Lymphocytes (%) (Auto) 18.1 % Monocytes (%) (Auto) 14.9 % Eosinophils (%) (Auto) 0.1 % Basophils (%) (Auto) 0.1 % Neutrophils # (Auto) 6.70 K/uL Lymphocytes # (Auto) 1.83 K/uL Monocytes # (Auto) 1.50 K/uL Eosinophils # (Auto) 0.01 K/uL Basophils # (Auto) 0.01 K/uL HbA1c: Test 03/11/17 06:22 Hemoglobin A1c 8.4 % (4.5-5.6) H Recent Pertinent Medications Outpatient Anti-diabetic Regimen: * Novolin 70/30 Premixed insulin 25 units in AM + 15 units in PM Risk Factors for Insulin Resistance: * Steroids * Infection * Diet Assessment & Plan ASSESSMENT: * Due to fasting BSG <100 yesterday morning, I started to decrease Lantus with last night's dose * Total basal yesterday = 32 units and moving forward today will be 18 units at the most * If BSG <140 tonight, HOLD Lantus * Lunch BSG <100, loosen Novolog and change goal range to 140-180 mg/dL; reassess in the AM PLAN FOR INPATIENT GLYCEMIC CONTROL: * Lantus 12 units given this AM * Continue to reduce basal insulin with Lantus 6 units tonight ONLY if BSG >140 * Correctional Insulin with NOVOLOG per scale ACHS or Q6hrs while NPO * Goal Range: Low 140 mg/dL - High 180 mg/dL * Correction Factor: 25 mg/dL/unit * Nutritional / Prandial insulin per carb ratio of 1 unit per 9 grams CHO consumed RECOMMENDATIONS FOR DISCHARGE: * awaited * Please note that the plan above was derived based on current level of insulin resistance and hospital stress. These recommendations are appropriate for inpatient admission only. Plan of care upon discharge will need to be reassessed to avoid potential outpatient hypo/hyperglycemia. Thank you.
[2017-03-15] MEDS ORDERED: WARFARIN SOD 2.5 MG TAB PO SCH (16:00)
[2017-03-15] MEDS ORDERED: WARFARIN SOD 5 MG TAB PO SCH (16:00)
--- NOTE | 2017-03-15 17:07 | Progress Note ---
Medicine Progress Note Date & Time of Visit: Mar 15, 2017 at 17:06 . Subjective Doing well. No fever. Ambulated in hallways on RA- O2 sats never fell below 89%. Patient states that she ambulated more comfortably, further with less SOB, than she does at home. Occasional cough. No chest pain. No nausea or vomiting. Had 2 bowel movements after several cups of prune juice. . Objective Last 8 Hrs Date Time Temp Pulse Resp B/P (MAP) Pulse Ox O2 Delivery O2 Flow Rate FiO2 03/15/17 16:00 Nasal Cannula 2.0 03/15/17 14:57 36.6 83 20 126/66 (86) 90 Room Air 03/15/17 12:00 95 Nasal Cannula 2.0 03/15/17 11:41 36.6 76 20 146/91 (109) 95 Room Air Physical Exam: General- sitting in chair, no distress Neck- + JVD Lungs- diffuse minimal wheezing Heart- irregular; no gallop appreciated Abdomen- + BS, soft, nontender Extremities- 2+ pretibial edema; no calf tenderness Neuro- alert . Laboratory Results: Last 24 Hours Test 03/14/17 20:18 03/15/17 02:46 03/15/17 05:20 03/15/17 06:51 Bedside Glucose 198 mg/dl 79 mg/dl 75 mg/dl White Blood Count 10.09 K/uL Red Blood Count 4.70 M/uL Hemoglobin 14.0 g/dL Hematocrit 44.6 % Mean Corpuscular Volume 94.9 fL Mean Corpuscular Hemoglobin 29.8 pg Mean Corpuscular Hemoglobin Concent 31.4 g/dl Platelet Count 221 K/uL Mean Platelet Volume 9.5 fL Neutrophils (%) (Auto) 66.4 % Lymphocytes (%) (Auto) 18.1 % Monocytes (%) (Auto) 14.9 % Eosinophils (%) (Auto) 0.1 % Basophils (%) (Auto) 0.1 % Neutrophils # (Auto) 6.70 K/uL Lymphocytes # (Auto) 1.83 K/uL Monocytes # (Auto) 1.50 K/uL Eosinophils # (Auto) 0.01 K/uL Basophils # (Auto) 0.01 K/uL RDW Standard Deviation 49.1 fL RDW Coefficient of Variation 14.1 % Immature Granulocyte % (Auto) 0.4 % Immature Granulocyte # (Auto) 0.04 K/uL Prothrombin Time 27.3 SECONDS Prothromb Time International Ratio 2.5 Sodium Level 144 mmol/L Potassium Level 3.8 mmol/L Chloride Level 103 mmol/L Carbon Dioxide Level 37 mmol/L Anion Gap 4.0 mmol/L Blood Urea Nitrogen 31 mg/dl Creatinine 1.10 mg/dl Est Creatinine Clear Calc Drug Dose 54.4 ml/min Estimated GFR () 53.8 Estimated GFR (Non- 46.4 BUN/Creatinine Ratio 28.5 Random Glucose 94 mg/dl Calcium Level 8.5 mg/dl Test 03/15/17 10:45 03/15/17 16:24 Bedside Glucose 75 mg/dl 194 mg/dl Assessment & Plan BRONCHITIS Presented with cough, wheezing, shortness of breath. No infiltrates on chest x-ray. Received levofloxacin, IV methylprednisolone, nebulizer treatments with improvement. Transitioned to oral steroid therapy with prednisone. Changed nebs to PRN. Continue levofloxacin to complete 7 day course. CORONARY ARTERY DISEASE No anginal symptoms. Continue aspirin, metoprolol, nitrates, atorvastatin. CHRONIC ATRIAL FIBRILLATION Rate controlled on metoprolol. INR as high as 3.1- probably due to antibiotic therapy. Warfarin held 2 days. INR today = 2.5. Resume warfarin at 2.5 mg daily. Follow-up with [facility] next week. CHF Admission chest x-ray demonstrated cardiomegaly, pulmonary mass or congestion. Last echocardiogram this facility was performed on 12/18/15 and demonstrated LVEF of 55-60% with evidence of diastolic dysfunction. Probable acute on chronic left ventricular diastolic heart failure as well as right-sided heart failure. Received IV furosemide with good diuresis. Sound like patient does not take furosemide regularly at home. Encourage to take 20 mg daily on regular basis. SLEEP APNEA Continue nocturnal O2. CKD 3 Serum creatinine 1.0 on admission and jo as high as 1.3. Creatinine today = 1.1. Follow. DIABETES MELLITUS TYPE 2 Fairly well controlled. Hemoglobin A1c 8.4. Pharmacy consulted for glycemic management. Receiving Lantus and NovoLog per protocol. Fasting blood sugar this morning = 75. Discharge on usual regimen. HEMATOCHEZIA One episode of rectal bleeding which occurred while straining to move her bowels. H/H stable. Hematochezia most likely secondary to hemorrhoids or anal fissure. Colonoscopy should ideally be considered, but would be relatively high risk given patient's cardiopulmonary status. VTE PROPHYLAXIS On warfarin with therapeutic INR. Ambulating. DISPOSITION Discharge to home. Internal Medicine follow-up with Dr. Donnelly. Cardiology follow-up with Dr. Nugent. . Current Inpatient Medications: Current Inpatient Medications Medications (Trade) Dose Ordered Sig/Yesenia Route Start Time Stop Time Status Last Admin Dose Admin Levofloxacin (Consult) 1 ea UD PRN N/A 03/11/17 01:12 04/10/17 01:11 Furosemide (Lasix Tab) 20 mg DAILY PO 03/11/17 09:00 04/10/17 08:59 03/15/17 07:59 20 MG Isosorbide Mononitrate (Imdur Ext Rel Tab) 60 mg DAILY PO 03/11/17 09:00 04/10/17 08:59 03/15/17 07:58 60 MG Levothyroxine Sodium (Synthroid Tab) 100 mcg DAILYBB PO 03/11/17 06:00 04/10/17 05:59 03/15/17 05:35 100 MCG Metoprolol Tartrate (Lopressor Tab) 25 mg DAILY PO 03/11/17 09:00 04/10/17 08:59 03/15/17 07:59 25 MG Multivitamins (Multivitamin Tab) 1 tab DAILY PO 03/11/17 09:00 04/10/17 08:59 03/15/17 07:58 1 TAB Lactobacillus Acidophilus (Floranex Tab) 4 tab DAILY PO 03/11/17 09:00 04/10/17 08:59 03/15/17 07:58 4 TAB Acetaminophen (Tylenol Tab) 650 mg Q4H PRN PO 03/10/17 23:30 04/09/17 23:29 Ondansetron HCl (Zofran Inj) 4 mg Q6H PRN IV 03/10/17 23:30 04/09/17 23:29 Glucose (Glucose 40% Gel) 15-30 GRAMS 15 GRAMS... UD PRN PO 03/11/17 00:15 04/10/17 00:14 Glucose (Glucose Chew Tab) 4-8 Tablets 4 Tabl... UD PRN PO 03/11/17 00:15 04/10/17 00:14 Dextrose (Dextrose 50% 50ML Syringe) 25-50ML OF 50% DW IV FOR... UD PRN IV 03/11/17 00:15 04/10/17 00:14 Glucagon (Glucagon Inj) 1 mg UD PRN SQ 03/11/17 00:15 04/10/17 00:14 Miscellaneous Information (Consult Glycemic Management Pharmacy) 1 ea UD PRN N/A 03/11/17 00:48 04/10/17 00:47 Levofloxacin (Levaquin Tab) 750 mg DAILY@11 PO 03/11/17 11:00 03/18/17 10:59 03/14/17 11:42 750 MG Aspirin (Ecotrin Tab) 81 mg MoWeFr@0900 PO 03/13/17 09:00 04/12/17 08:59 03/15/17 07:59 81 MG Atorvastatin Calcium (Lipitor Tab) 10 mg HS PO 03/11/17 21:00 04/10/17 20:59 03/14/17 21:38 10 MG Magnesium Chloride (Slow-Mag Tab) 64 mg HS PO 03/11/17 21:00 04/10/17 20:59 03/14/17 21:39 64 MG Pantoprazole Sodium (Protonix Tab) 40 mg HS PO 03/11/17 21:00 04/10/17 20:59 03/14/17 21:39 40 MG Miconazole Nitrate (Desenex Powder) 1 appln BID PRN EXT 03/12/17 11:30 04/11/17 11:29 Levalbuterol (Xopenex 0.63 Mg/ 3 Ml Neb) 0.63 mg Q6R PRN INH 03/12/17 14:45 04/11/17 14:44 Prednisone (PredniSONE TAB) 40 mg DAILY PO 03/13/17 09:00 04/12/17 08:59 03/15/17 07:59 40 MG Insulin Aspart (novoLOG ASPART) SLIDING SCALE If C... ACHS SC 03/13/17 07:00 04/12/17 06:59 03/15/17 08:01 4 UNITS Lorazepam (Ativan Tab) 0.25 mg HS PO 03/13/17 21:00 04/12/17 20:59 03/14/17 21:59 0.25 MG Lorazepam (Ativan Tab) 0.25 mg Q6H PRN PO 03/13/17 15:00 04/12/17 14:59 03/15/17 15:56 0.25 MG Magnesium Hydroxide (Milk Of Magnesia Susp) 30 ml DAILY PRN PO 03/14/17 10:45 04/13/17 10:44 Insulin Glargine (Lantus Solostar Pen) SEE PROTOCOL TEXT BID SC 03/15/17 21:00 04/14/17 20:59 Warfarin Sodium (Coumadin Tab) 2.5 mg DAILY@16 PO 03/15/17 16:00 04/14/17 15:59
--- NOTE | 2017-03-15 17:16 | Discharge Instructions ---
Discharge Instructions Date of Service Mar 15, 2017. Admission Reason for Admission: bronchitis . Discharge Discharge Diagnosis / Problem: bronchitis Discharge Goals Goal(s): Improve function, Increase independence, Improve disease control Activity Recommendations Activity Limitations: resume your previous activity . Instructions / Follow-Up Instructions / Follow-Up APPOINTMENTS: INTERNAL MEDICINE 03/19/2017 1:00 PM Roland Contreras MD WARFARIN MANAGEMENT [facility] next week. CARDIOLOGY Dr. Nugent. EAR / NOSE / THROAT Dr. Vega. INSTRUCTIONS: medication changes- Take levofloxacin (Levaquin) for 1 more dose on 03/16/17, then stop. Take furosemide (Lasix) 20 mg every morning. Continue oxygen 2 liters / minute during the night. Seek medical attention if you have: * temperature above 101 * chest pain or trouble breathing * abdominal pain, nausea, vomiting * diarrhea, dark stools or bloody stools * any unanswered questions or concerns Call 911 if symptoms are severe. Call if you have any questions or problems. My cell # is [phone]. You can also reach a [facility] hospitalist on duty at [facility] 24 hours a day by calling [phone]. Please take good care of yourself. Leoncio Horton . Current Hospital Diet Patient's current hospital diet: Diabetes Type 2 Diet, AHA Diet (Heart Healthy) Discharge Diet Recommended Diet: AHA Diet (Heart Healthy), Diabetes Type 2 Diet Pending Studies Studies pending at discharge: no Laboratory Results Hemoglobin A1c Test 03/11/17 06:22 Range/Units Estimated Average Glucose 194 mg/dl Hemoglobin A1c 8.4 H 4.5-5.6 % Medical Emergencies . Who to Call and When: Medical Emergencies: If at any time you feel your situation is an emergency, please call 911 immediately. . Non-Emergent Contact Non-Emergency issues call your: Primary Care Provider, Dietary Supervisor, Hospital Doctor . . "Provider Documentation" section prepared by Leoncio Horton. . VTE Core Measure Inpt VTE Proph given/why not?: Warfarin (Coumadin)
[2017-03-15] MEDS ORDERED: INSULIN GLARGINE SOLOSTAR 100 UNITS/ML 3 ML PEN SC SCH (21:00)
--- NOTE | 2017-03-16 20:31 | Discharge Summary ---
Discharge Summary Date of Service Mar 16, 2017. Discharge Summary Admission Date: March 10, 2017 at 23:22 Discharge Date: Mar 15, 2017 Discharge Disposition: Home Principal Diagnosis: hypoxia bronchitis . Secondary Diagnoses/Problems: Chronic and Resolved Medical Problems: (1) Benign hypertension Status: Chronic (2) CAD (coronary artery disease) Permanent Comment: s/p anterior apical MA 1995, PCI LAD Repeat cath 03/2013- multivessel disease, BMS to LAD and left circumflex, chronic occlusion RCA Followed by Dr. Nugent. Status: Chronic (3) Chronic atrial fibrillation Status: Chronic (4) Chronic kidney disease stage 3 Permanent Comment: Followed by Dr. Forbes. 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 Procedures: cardiac monitoring IV meds . Medication Reconciliation Continued Medications: Acetaminophen (Tylenol) 500 Mg Tab 500-1000 MG PO TID PRN, TAB PRN PAIN Ascorbic Acid (Ascorbic Acid) 500 Mg Tab 500 MG PO DAILY, TAB Aspirin (Aspirin Ec) 81 Mg Tab 81 MG PO DAILY 3X A WEEK Atorvastatin (Lipitor) 20 Mg Tab 10 MG PO DAILY, TAB TAKE 1/2 TABLET DAILY. Calcium Carbonate-Vitamin D (Calcium 600 + D) 1 Tab Tab 2 TABLETS PO DAILY CALCIUM 600-200 Cholecalciferol (Vitamin D3) 1,000 Unit Tab 1 TAB PO DAILY for 90 Days, #90 TAB 3 Refills Clindamycin Hcl (Clindamycin Hcl) 150 Mg Cap 4 CAP PO PRIOR TO DENTAL PROCEDURE Coenzyme Q10 (Ubidecarenone) (Co Q 10) 100 Mg Cap 100 MG PO DAILY Furosemide (Lasix) 20 Mg Tab 20 MG PO DAILY, TAB Change to 20 mg daily every day. Insulin Isophan/Regular (Novolin 70/30) Susp 25 UNITS SC QAM, BTL Insulin Isophan/Regular (Novolin 70/30) Susp 15 UNITS SC QPM, BTL Isosorbide Mononitrate Ext Rel (Imdur Ext Rel) 60 Mg Ertab 60 MG PO DAILY, TAB Levofloxacin (Levaquin) 500 Mg Tab 500 MG PO DAILY Take 1 more dose on 03/16/17, then stop. Levothyroxine Sodium (Levothyroxine Sodium) 100 Mcg Tab 1 TAB PO DAILY, TAB Lorazepam (Ativan) 0.5 Mg Tab 0.25-0.5 MG PO BID PRN for Anxiety/Agitation, TAB MAY TAKE 1/2 OR 1 TABLET. Magnesium Chloride (Slow-Mag Tab) 64 Mg Tabcr 64 MG PO DAILY, TAB Magnesium Hydroxide (Milk of Magnesia) 30 Ml Susp 30 ML PO PRN for Constipation Metoprolol Tartrate (Lopressor) (Lopressor) 50 Mg Tab 25 MG PO DAILY, TAB Multivitamin (Multivitamin) Tab 1 TAB PO DAILY, TAB Nitroglycerin (Nitrostat) 0.4 Mg Tab 0.4 MG UT PRN, BTL Pantoprazole (Protonix) 40 Mg Tab 40 MG PO Q2D, 0 Refills Probiotic Product (Probiotic) 1 Cap Cap 1 CAP PO DAILY Warfarin Sod (Coumadin) 2.5 Mg Tab 0 PO UD, TAB PER ANTI-COAGULATION CLINIC Admission Information HPI (per Admitting provider): 81 year old female with history of CAD, A fib on coumadin, s/p Pacemaker, BERTO, Morbid Obesity, DM, CKD 3 presenting with shortness of breath and fevers. Patient was doing fine until about 1 week ago when she started to have shortness of breath, fevers and flu like symptoms. PCP prescribed Levaquin which patient has taken for 1 day, but symptoms worsened. Patient then brought to the ED. O sats 86%. CXR no pneumonia. On exam, patient states she feels somewhat improved after having nebs. No chest pain, dyspnea, palpitations, dizziness, on my exam. . Physical Exam (per Admitting): General Appearance: WD/WN, no apparent distress Head: normocephalic, atraumatic Eyes: normal inspection, EOMI, sclerae normal ENT: normal ENT inspection, hearing grossly normal, pharynx normal Neck: supple, no adenopathy, thyroid normal, no JVD, trachea midline Respiratory/Chest: no respiratory distress, no accessory muscle use, + pertinent finding ((+) bilateral mild expiratory wheezing, no rales) Cardiovascular: regular rate, rhythm, no JVD, no murmur, + pertinent finding (bilateral lower leg edema- chronic as per patient) Abdomen/GI: normal bowel sounds, non tender, soft Back: normal inspection, no CVA tenderness Extremities/Musculoskelatal: + pertinent finding (bilateral lower leg edema - chronic as per patient) Neurologic/Psych: 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 No infiltrates on chest x-ray. Received levofloxacin, IV methylprednisolone, nebulizer treatments with improvement. Transitioned to oral steroid therapy with prednisone. Changed nebs to PRN. Continue levofloxacin to complete 7 day course. HYPOXIA / ACUTE HYPOXIC RESPIRATORY FAILURE Appeared to be acutely dyspneic in ED. RR was 30. O2 sats as low as 86% in ED. Acute hypoxic respiratory failure due to bronchitis. Received supplemental O2. O2 sat 91 % on RA by DC. CORONARY ARTERY DISEASE No anginal symptoms. Continue aspirin, metoprolol, nitrates, atorvastatin. CHRONIC ATRIAL FIBRILLATION Rate controlled on metoprolol. INR as high as 3.1- probably due to antibiotic therapy. Warfarin held 2 days. INR day of discharge = 2.5. Resume warfarin at 2.5 mg daily. Follow-up with [facility] next week. CHF Admission chest x-ray demonstrated cardiomegaly, pulmonary mass or congestion. Last echocardiogram this facility was performed on 12/18/15 and demonstrated LVEF of 55-60% with evidence of diastolic dysfunction. Probable acute on chronic left ventricular diastolic heart failure as well as right-sided heart failure. Received IV furosemide with good diuresis. Sound like patient does not take furosemide regularly at home. Encourage to take 20 mg daily on regular basis. SLEEP APNEA Continue nocturnal O2. CKD 3 Serum creatinine 1.0 on admission and jo as high as 1.3. Creatinine day of discharge = 1.1. Follow. DIABETES MELLITUS TYPE 2 Fairly well controlled. Hemoglobin A1c 8.4. Pharmacy consulted for glycemic management. Receiving Lantus and NovoLog per protocol. Fasting blood sugar day of discharge = 75. Discharge on usual regimen. HEMATOCHEZIA One episode of rectal bleeding which occurred while straining to move her bowels. H/H stable. Hematochezia most likely secondary to hemorrhoids or anal fissure. Colonoscopy should ideally be considered, but would be relatively high risk given patient's cardiopulmonary status. VTE PROPHYLAXIS On warfarin with therapeutic INR. Ambulating. DISPOSITION Discharge to home. Internal Medicine follow-up with Dr. Donnelly. Cardiology follow-up with Dr. Nugent. . Total time spent on discharge = 40 min. This includes examination of the patient, discharge planning, medication reconciliation, and communication with other providers. . Discharge Instructions Date of Service Mar 15, 2017. Admission Reason for Admission: bronchitis . Discharge Discharge Diagnosis / Problem: bronchitis Discharge Goals Goal(s): Improve function, Increase independence, Improve disease control Activity Recommendations Activity Limitations: resume your previous activity . Instructions / Follow-Up Instructions / Follow-Up APPOINTMENTS: INTERNAL MEDICINE 03/19/2017 1:00 PM Roland Contreras MD WARFARIN MANAGEMENT [facility] next week. CARDIOLOGY Dr. Nugent. EAR / NOSE / THROAT Dr. Vega. INSTRUCTIONS: medication changes- Take levofloxacin (Levaquin) for 1 more dose on 03/16/17, then stop. Take furosemide (Lasix) 20 mg every morning. Continue oxygen 2 liters / minute during the night. Seek medical attention if you have: * temperature above 101 * chest pain or trouble breathing * abdominal pain, nausea, vomiting * diarrhea, dark stools or bloody stools * any unanswered questions or concerns Call 911 if symptoms are severe. Call if you have any questions or problems. My cell # is [phone]. You can also reach a [facility] hospitalist on duty at [facility] 24 hours a day by calling [phone]. Please take good care of yourself. Leoncio Horton . Current Hospital Diet Patient's current hospital diet: Diabetes Type 2 Diet, AHA Diet (Heart Healthy) Discharge Diet Recommended Diet: AHA Diet (Heart Healthy), Diabetes Type 2 Diet Pending Studies Studies pending at discharge: no Laboratory Results Hemoglobin A1c Test 03/11/17 06:22 Range/Units Estimated Average Glucose 194 mg/dl Hemoglobin A1c 8.4 H 4.5-5.6 % Medical Emergencies . Who to Call and When: Medical Emergencies: If at any time you feel your situation is an emergency, please call 911 immediately. . Non-Emergent Contact Non-Emergency issues call your: Primary Care Provider, Entry Specialists, Hospital Doctor . . "Provider Documentation" section prepared by Leoncio Horton. . VTE Core Measure Inpt VTE Proph given/why not?: Warfarin (Coumadin) . Additional Copies To Shar Nugent M.D.; Jose Antonio Donnelly D.O.
== END 2017-03-15 18:25 | disposition home health service (06) | DRG 202 ==
LOC: ENRESERVDT → ENRESERVTM → EDBD 20:08 → C.EDB 20:08 → C.2T 23:22
PROVIDERS: ADMIT Internal Medicine; ATTEND Hospitalist
DX: J40 Bronchitis, not specified as acute or chronic (principal); I50.33 Acute on chronic diastolic (congestive) heart failure; J96.01 Acute respiratory failure with hypoxia; Z68.42 Body mass index [BMI] 45.0-49.9, adult; I13.0 Hypertensive heart and chronic kidney disease with heart failure and stage 1 through stage 4 chronic kidney disease, or unspecified chronic kidney disease; K92.1 Melena; I25.10 Atherosclerotic heart disease of native coronary artery without angina pectoris; N18.3 Chronic kidney disease, stage 3 (moderate); F32.9 Major depressive disorder, single episode, unspecified; E78.5 Hyperlipidemia, unspecified; E03.9 Hypothyroidism, unspecified; G47.33 Obstructive sleep apnea (adult) (pediatric); E66.01 Morbid (severe) obesity due to excess calories; I25.2 Old myocardial infarction; I48.2 Chronic atrial fibrillation; E11.22 Type 2 diabetes mellitus with diabetic chronic kidney disease; E11.42 Type 2 diabetes mellitus with diabetic polyneuropathy; N28.9 Disorder of kidney and ureter, unspecified; K64.9 Unspecified hemorrhoids; K60.2 Anal fissure, unspecified; Z79.82 Long term (current) use of aspirin; Z95.0 Presence of cardiac pacemaker; Z79.4 Long term (current) use of insulin; Z95.1 Presence of aortocoronary bypass graft; Z95.5 Presence of coronary angioplasty implant and graft; Z91.19 Patient's noncompliance with other medical treatment and regimen; Z79.899 Other long term (current) drug therapy; Z79.01 Long term (current) use of anticoagulants

== ENCOUNTER 2018-01-18 16:11 | Inpatient (IN) | payer OTHER ==
[~2018-01-18] VITALS: Ht 167.6 cm; Wt 144.9 kg
[~2018-01-18 16:11] MED LIST changes: -FLUT0.15 INTNAS; +LEVO1TAB33 PO; -OXGN; +PANT40TA PO
--- NOTE | 2018-01-18 16:52 | EMERGENCY ROOM VISIT NOTE ---
History Report prepared by Ibis: Burton Beatty Under the Supervision of: Dr. Alistair Harley M.D. First contact with patient: 16:17 Chief Complaint: RESPIRATORY PROBLEMS Stated Complaint: HEART FAILURE History of Present Illness The patient is a 82 year old female who presents to the Emergency Room with complaints of worsening shortness of breath that began a week ago. The patient states that she has a history of CHF, which she normally experiences shortness of breath for. She states that she takes a water pill and uses 2 L of oxygen at night for her shortness of breath, but states that her symptoms worsened in the last week. The patient states that she was experiencing a productive cough last week as well. She reports that her cough resolved, but states that her shortness of breath worsened three days ago. The patient states that she also has been experiencing generalized chest pain upon exertion. She reports she went to [facility] today where she had an X-ray done. The patient states the x -ray showed that there was fluid in her lungs, which caused the physician to send her here. She denies a current cough, congestion, nebulizer use due to palpitations, and lower extremity edema. The patient reports a history of atrial fibrillation, which she uses Coumadin for, a pacemaker, and three stents in her heart. Source of History: patient Onset: a week ago Position: other (global) Timing: worsening Associated Symptoms: + cough (resolved), + chest pain Note: Denies current cough, congestion, lower extremity edema. Review of Systems See HPI for pertinent positives and negatives. A total of ten systems were reviewed and were otherwise negative. 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 (14) Venous insufficiency Surgical Problems: (1) History of cholecystectomy (2) History of hysterectomy (3) S/P coronary artery stent placement (4) S/p dual chamber pacemaker insertion Family History Diabetes mellitus MOTHER FH: CHF (congestive heart failure) MOTHER FH: Crohn's disease DAUGHTER Hypertension SON Pacemaker BROTHER Social History Smoking Status: Never Smoker Alcohol Use: none Drug Use: none Marital Status: Housing Status: lives with family Occupation Status: retired Current/Historical Medications Scheduled Ascorbic Acid (Ascorbic Acid), 500 MG PO DAILY Aspirin (Aspirin Ec), 81 MG PO DAILY Atorvastatin (Lipitor), 10 MG PO DAILY Calcium Carbonate-Vitamin D (Calcium 600 + D), 2 TABLETS PO DAILY Cholecalciferol (Vitamin D3), 1 TAB PO DAILY Coenzyme Q10 (Ubidecarenone) (Co Q 10), 100 MG PO DAILY Furosemide (Furosemide), 20 MG PO DAILY Insulin Isophan/Regular (Novolin 70/30), 23 UNITS SC QAM Insulin Isophan/Regular (Novolin 70/30), 9 UNITS SC QPM Isosorbide Mononitrate Ext Rel (Imdur Ext Rel), 60 MG PO DAILY Levothyroxine Sodium (Levothyroxine Sodium), 100 MCG PO DAILY Magnesium Chloride (Slow-Mag Tab), 64 MG PO DAILY Metoprolol Tartrate (Lopressor) (Lopressor), 25 MG PO DAILY Multivitamin (Multivitamin), 1 TAB PO DAILY Nitroglycerin (Nitrostat), 0.4 MG UT PRN Pantoprazole (Protonix), 40 MG PO Q2D Probiotic Product (Probiotic), 1 CAP PO DAILY Warfarin Sod (Coumadin), 0 PO UD Scheduled PRN Acetaminophen (Tylenol), 500-1,000 MG PO TID PRN Magnesium Hydroxide (Milk of Magnesia), 30 ML PO for Constipation Miscellaneous Medications Clindamycin Hcl (Clindamycin Hcl), 4 CAP PO Allergies Coded Allergies: MERRY Inhibitors (Verified Allergy, Unknown, Unknown, 01/18/18) Adhesives (Verified Allergy, Unknown, "TAPE", 01/18/18) Albuterol (Verified Allergy, Unknown, INTOLERANT OF ALBUTEROL, 01/18/18) Amiodarone (Verified Allergy, Unknown, 01/18/18) Amoxicillin (Verified Allergy, Unknown, ., 01/18/18) Ampicillin (Verified Allergy, Unknown, Unknown, 01/18/18) Bacitracin (Verified Allergy, Unknown, 01/18/18) Replaces BACITRACIN/PO Cephalosporins (Verified Allergy, Unknown, KEFLEX, 01/18/18) Epinephrine (Verified Allergy, Unknown, UNKNOWN, 01/18/18) INFO FROM [facility] – [place], [place] Morphine (Verified Allergy, Unknown, 01/18/18) Penicillins (Verified Allergy, Unknown, AMPICILLIN, 01/18/18) Polymyxin B (Verified Allergy, Unknown, 01/18/18) Replaces BACITRACIN/PO Physical Exam Vital Signs Date Time Temp Pulse Resp B/P (MAP) Pulse Ox O2 Delivery O2 Flow Rate FiO2 01/18/18 22:27 74 01/18/18 21:02 67 20 153/73 93 Nasal Cannula 3.0 01/18/18 19:26 70 20 127/80 93 Nasal Cannula 3.0 01/18/18 17:45 71 21 134/78 93 Nasal Cannula 3.0 Humidified Oxygen 01/18/18 16:54 94 Nasal Cannula 3.0 01/18/18 16:45 93 Nasal Cannula 3.0 01/18/18 16:43 70 20 141/69 93 Nasal Cannula 3.0 01/18/18 16:13 36.3 86 22 161/88 90 Nasal Cannula 3.0 Physical Exam GENERAL: Fatigued, uncomfortable appearing, in no distress HENT: Normocephalic, atraumatic. Dry mucous membranes. EYES: Normal conjunctiva. Sclera non-icteric. NECK: Supple. No nuchal rigidity. FROM. Mild JVD. RESPIRATORY: Diminished breath sounds throughout with scan intermittent wheeze. CARDIAC: Regular rate, normal rhythm. Extremities warm and well perfused. Pulses equal. ABDOMEN: Soft, non-distended. No tenderness to palpation. No rebound or guarding. No masses. RECTAL: Deferred. MUSCULOSKELETAL: Chest examination reveals no tenderness. The back is symmetrical on inspection without obvious abnormality. There is no CVA tenderness to palpation. No joint edema. LOWER EXTREMITIES: Calves are equal size bilaterally and non-tender. 3+ edema. No discoloration. NEURO: Normal sensorium. No sensory or motor deficits noted. SKIN: No rash or jaundice noted. Medical Decision & Procedures ER Provider Diagnostic Interpretation: X-ray: Per my interpretation, radiologist review. CHEST ONE VIEW PORTABLE CLINICAL HISTORY: 82 years-old Female presenting with CHEST PAIN. TECHNIQUE: Portable upright AP view of the chest was obtained. COMPARISON: 03/13/2017. FINDINGS: The patient is YOUNG rotated. Left subclavian pacer with leads to the right atrium and right ventricular apex. An additional lead is coiled in the region of the pacer. Atherosclerosis of aortic arch. Cardiac silhouette moderately enlarged, unchanged. Pulmonary vascular prominence suggested. Reticular opacities along the paramediastinal right lung. Interval development of basilar opacities greater on the right. Small to moderate right pleural effusion. Small pleural effusion on the left cannot be excluded. No large pneumothorax. Osseous structures normal. Upper abdomen normal. IMPRESSION: 1. Cardiomegaly with suggestion of volume overload. 2. Right greater than left pleural effusions. 3. Bibasilar atelectasis suspected. No rafael pulmonary edema. 4. Paramediastinal reticular opacities may be artifactual related to patient rotation or indicate underlying chronic lung disease. Electronically signed by: Matthias Biggs M.D. 01/18/2018 5:40 PM Dictated Date/Time: 01/18/2018 5:38 PM Laboratory Results Test 01/18/18 16:57 01/18/18 17:25 Immature Granulocyte % (Auto) 0.2 % White Blood Count 6.50 K/uL (4.8-10.8) Red Blood Count 3.57 M/uL (4.2-5.4) Hemoglobin 11.1 g/dL (12.0-16.0) Hematocrit 35.6 % (37-47) Mean Corpuscular Volume 99.7 fL (80-100) Mean Corpuscular Hemoglobin 31.1 pg (25-34) Mean Corpuscular Hemoglobin Concent 31.2 g/dl (32-36) Platelet Count 209 K/uL (130-400) Mean Platelet Volume 9.9 fL (7.4-10.4) Neutrophils (%) (Auto) 63.3 % Lymphocytes (%) (Auto) 15.5 % Monocytes (%) (Auto) 12.5 % Eosinophils (%) (Auto) 8.0 % Basophils (%) (Auto) 0.5 % Neutrophils # (Auto) 4.12 K/uL (1.4-6.5) Lymphocytes # (Auto) 1.01 K/uL (1.2-3.4) Monocytes # (Auto) 0.81 K/uL (0.11-0.59) Eosinophils # (Auto) 0.52 K/uL (0-0.5) Basophils # (Auto) 0.03 K/uL (0-0.2) Immature Granulocyte # (Auto) 0.01 K/uL (0.00-0.02) Venous Blood pH 7.35 (7.36-7.41) Venous Blood Partial Pressure CO2 66 mmHg (38.0-50.0) Venous Blood Partial Pressure O2 36 mmHg Venous Blood HCO3 36 mmol/L Venous Blood Oxygen Saturation 61.1 % Venous Blood Base Excess 8.7 mEq/L Total Bilirubin 1.3 mg/dl (0.2-1) Direct Bilirubin 0.4 mg/dl (0-0.2) Aspartate Amino Transf (AST/SGOT) 43 U/L (15-37) Alanine Aminotransferase (ALT/SGPT) 29 U/L (12-78) Alkaline Phosphatase 263 U/L (45-117) Pro-B-Type Natriuretic Peptide 2289 pg/ml (0-1800) Total Protein 7.2 gm/dl (6.4-8.2) Albumin 3.1 gm/dl (3.4-5.0) Lipase 112 U/L (73-393) Influenza Type A (RT-PCR) Neg for Influ A (NEG) Influenza Type B (RT-PCR) Neg for Influ B (NEG) Laboratory results reviewed by me Medications Administered Medications (Trade) Dose Ordered Sig/Yesenia Route Start Time Stop Time Status Last Admin Dose Admin Furosemide (Lasix Inj) 20 mg NOW STAT IV 01/18/18 16:53 01/18/18 16:56 DC 01/18/18 17:22 20 MG Methylprednisolone Sodium Succinate (Solu-Medrol IV) 125 mg NOW STAT IV 01/18/18 18:24 01/18/18 18:25 DC 01/18/18 18:41 125 MG Insulin Human Isoph/Insulin Regular (novoLIN 70/30 REGULAR) 9 units QDD SC 01/18/18 21:00 02/17/18 20:59 01/19/18 01:35 9 UNITS Pantoprazole Sodium (Protonix Tab) 40 mg Q2D PO 01/18/18 21:00 02/17/18 20:59 01/19/18 01:32 40 MG Lorazepam (Ativan Tab) 0.5 mg BID PRN PO 01/18/18 21:00 02/17/18 20:59 01/18/18 22:56 0.5 MG ECG Per My Interpretation Indication: SOB/dyspnea Rate (beats per minute): 72 Rhythm: atrial fibrillation Findings: PVC (frequent), no acute ischemic change, left axis deviation ED Course 1643: The patient was evaluated in room C03. A complete history and physical exam was performed. 1825: I reevaluated the patient and updated her on her results. I discussed the treatment plan, which she agrees to. I will call the hospitalist. 1924: I discussed the patients case with Aiden Childers. He understands the patients condition and agrees to accept the patient. The patient will be further evaluated. Medical Decision I reviewed the patient's past medical history, medications, and the nursing notes as described above. The patient's presentation and history were concerning for etiologies such as infections, reactive airway disease, pneumonia, pneumothorax, COPD, CHF, cardiac ischemia, pulmonary embolism, musculoskeletal, gastrointestinal, as well as others were entertained. The patient is a 82 y/o woman with a pmhx of CHF on 2L home O2, afib on coumadin who presents to the emergency department with worsening SOB per HPI. On arrival the patient appears dyspneic and uncomfortable but in NAD. on 3L NC. AFVSS. On exam appears overloaded with mild JVD and 3+BLE edema. EKG shows afib without acute ischemia. CXR c/w volume overload. BNP 2000s up from 1000s on last admission. Patient given IV lasix on arrival with good effect although patient still dyspneic from baseline. VBG demonstrates mild hypercapnia with CO2 60s. Patient ordered for steroids. Ordered for Xopenex however the patient reports that she has palpitations/arrythmias when she uses this and so she refused. Case d/w Aiden Childers hospitalist, who will admit the patient for further management. Medication Reconcilliation Current Medication List: was personally reviewed by me Blood Pressure Screening Patient's blood pressure: Elevated blood pressure Referred to Hospitalist Consults Time Called: 1829 Consulting Physician: Aiden Childers Returned Call: [phone] I discussed the patients case with Aiden Childers. He understands the patients condition and agrees to accept the patient. The patient will be further evaluated. Impression Primary Impression: CHF exacerbation Scribe Attestation The scribe's documentation has been prepared under my direction and personally reviewed by me in its entirety. I confirm that the note above accurately reflects all work, treatment, procedures, and medical decision making performed by me. Departure Information Dispostion Being Evaluated By Hospitalist Referrals Jose Antonio Donnelly D.O. (PCP) Patient Instructions [facility]
[2018-01-18] MEDS ORDERED: FUROSEMIDE 40 MG/4 ML VIAL IV STA (16:53)
[2018-01-18 17:10] LABS: BASO % 0.5 %; BASO ABS # 0.03 K/uL (0-0.2); EOS ABS # 0.52 K/uL (0-0.5); HEMATOCRIT 35.6 % (37-47); HEMOGLOBIN 11.1 g/dL (12.0-16.0); IG# 0.01 K/uL (0.00-0.02); LYMPH % 15.5 %; LYMPH ABS # 1.01 K/uL (1.2-3.4); MEAN CELL VOLUME 99.7 fL (80-100); MEAN CORPUSCULAR HEMOGLOBIN 31.1 pg (25-34); MEAN CORPUSCULAR HGB CONC 31.2 g/dl (32-36); MEAN PLATELET VOLUME 9.9 fL (7.4-10.4); MONO % 12.5 %; MONO ABS # 0.81 K/uL (0.11-0.59); NEUT % 63.3 %; NEUT ABS # 4.12 K/uL (1.4-6.5); PLATELET COUNT 209 K/uL (130-400); RED CELL DISTRIBUTION WIDTH SD 58.4 fL (36.4-46.3)
[2018-01-18 17:18] LABS: INR 3.3 (0.9-1.1)
[2018-01-18 17:32] LABS: ALBUMIN 3.1 gm/dl (3.4-5.0); CALCIUM 9.2 mg/dl (8.5-10.1); CREATININE 1.25 mg/dl (0.60-1.20); POTASSIUM 4.1 mmol/L (3.5-5.1)
[2018-01-18] MEDS ORDERED: LSX20 PO (17:33)
[2018-01-18 17:37] LABS: TOTAL PROTEIN 7.2 gm/dl (6.4-8.2)
--- NOTE | 2018-01-18 17:42 | DIAGNOSTIC IMAGING REPORT ---
CHEST ONE VIEW PORTABLE CLINICAL HISTORY: 82 years-old Female presenting with CHEST PAIN. TECHNIQUE: Portable upright AP view of the chest was obtained. COMPARISON: 03/13/2017. FINDINGS: The patient is YOUNG rotated. Left subclavian pacer with leads to the right atrium and right ventricular apex. An additional lead is coiled in the region of the pacer. Atherosclerosis of aortic arch. Cardiac silhouette moderately enlarged, unchanged. Pulmonary vascular prominence suggested. Reticular opacities along the paramediastinal right lung. Interval development of basilar opacities greater on the right. Small to moderate right pleural effusion. Small pleural effusion on the left cannot be excluded. No large pneumothorax. Osseous structures normal. Upper abdomen normal. IMPRESSION: 1. Cardiomegaly with suggestion of volume overload. 2. Right greater than left pleural effusions. 3. Bibasilar atelectasis suspected. No rafael pulmonary edema. 4. Paramediastinal reticular opacities may be artifactual related to patient rotation or indicate underlying chronic lung disease. Electronically signed by: Matthias Biggs M.D. 01/18/2018 5:40 PM Dictated Date/Time: 01/18/2018 5:38 PM
[2018-01-18 18:19] LABS: INFLUENZA A PCR Neg for Influ A (NEG); INFLUENZA B PCR Neg for Influ B (NEG)
[2018-01-18] MEDS ORDERED: LEVALBUTEROL 0.63MG/3 ML NEB INH STA (18:24)
[2018-01-18] MEDS ORDERED: METHYLPREDNISOLONE 125 MG VIAL IV STA (18:24)
[2018-01-18] MEDS ORDERED: NITROGLYCERIN 0.4 MG SL PER TAB CHARGE UT SCH (20:45)
[2018-01-18] MEDS ORDERED: MAGNESIUM HYDROXIDE SUSP 30 ML UDC PO PRN (20:45)
[2018-01-18] MEDS ORDERED: INSULIN HUMAN 70% NPH/30% REGULAR SC SCH (21:00)
[2018-01-18] MEDS ORDERED: LORAZEPAM 0.5 MG TAB PO PRN (21:00)
[2018-01-18] MEDS ORDERED: ONDANSETRON INJ 2 MG/ML 2 ML VIAL IV PRN (23:00)
[2018-01-18] MEDS ORDERED: GLUCOSE 40% GEL 15 GM TUBE PO PRN (23:45)
[2018-01-18] MEDS ORDERED: GLUCAGON FOR INJ 1 MG VIAL SQ PRN (23:45)
[2018-01-18] MEDS ORDERED: DEXTROSE 50% 50 ML SYR IV PRN (23:45)
[2018-01-18] MEDS ORDERED: GLUCOSE 10 TABS/TUBE PO PRN (23:45)
[2018-01-19] VITALS (10 sets, daily range): BP systolic 89–153; BP diastolic 53–84; PULSE 67–79; TEMP 36.4–36.6; O2SAT 92–96; Ht 167.6 cm; Wt 144.9 kg
[2018-01-19] MEDS: PANTOprazole SOD 40 MG TAB PO SCH (01:32)
[2018-01-19 03:13] LABS: HEMATOCRIT 37.7 % (37-47); HEMOGLOBIN 11.5 g/dL (12.0-16.0); MEAN CORPUSCULAR HEMOGLOBIN 30.5 pg (25-34); MEAN CORPUSCULAR HGB CONC 30.5 g/dl (32-36); MEAN PLATELET VOLUME 10.2 fL (7.4-10.4); PLATELET COUNT 170 K/uL (130-400); WHITE BLOOD COUNT 6.33 K/uL (4.8-10.8)
[2018-01-19 03:20] LABS: INR 3.5 (0.9-1.1)
[2018-01-19 03:31] LABS: CALCIUM 8.9 mg/dl (8.5-10.1); CREATININE 1.22 mg/dl (0.60-1.20); POTASSIUM 4.6 mmol/L (3.5-5.1)
[2018-01-19] MEDS: LEVOTHYROXINE 100 MCG TAB PO SCH (06:38)
--- NOTE | 2018-01-19 07:32 | HISTORY & PHYSICAL EXAMINATION ---
DATE OF ADMISSION: 01/18/2018 PRIMARY CARE PHYSICIAN: Dr. Donnelly. CHIEF COMPLAINT: Increasing shortness of breath since Saturday last. HISTORY OF PRESENT COMPLAINT: She is an 82-year-old obese female with significant complicated past medical history including atrial fibrillation, CAD, status post pacemaker, chronic kidney disease stage III, diabetes and also diastolic heart failure, apparently has been complaining of more shortness of breath since Saturday last. She ambulates with the help of walker and/or a wheelchair at home. She could hardly walk without any of the devices. She can go a few steps before she gets short of breath and that has been getting worse recently with occasional wheezing. She denies history of any gain in weight. She denies history of any increasing swelling of the legs. In the ER, she required more oxygen and her investigations showed she has fluid overloaded with CHF. X-ray confirmed that and also with bilateral pleural effusion and BNP was more than 2000. From that point, she got intravenous Lasix 40 mg and was advised for admission. PAST MEDICAL HISTORY: Significant for atrial fibrillation, on long-term anticoagulation, status post pacemaker, CAD, chronic kidney disease stage III, diabetes with diabetic neuropathy, diastolic heart failure, hypertension, hyperlipidemia, hypothyroidism, sleep apnea and also history of moderate aortic valve stenosis. PAST SURGICAL HISTORY: Significant for balloon angioplasty in 1995, percutaneous angioplasty again in 2012, gallbladder surgery 1951, hysterectomy 1962 and removal of tubes. FAMILY HISTORY: Brother has heart disorder, status post pacemaker. Mother had CHF and diabetes. SOCIAL HISTORY: She is . She has 5 children. She does not smoke and does not drink, and her activities of daily living limited due to CHF and overweight. She uses walker and/or wheelchair to move around. ALLERGIES: SHE IS ALLERGIC TO MERRY INHIBITOR, ADHESIVES, ALBUTEROL, AMIODARONE, AMOXICILLIN, BACITRACIN, CEPHALOSPORIN, EPINEPHRINE, MORPHINE AND POLYMYXIN B. MEDICATIONS: As an outpatient, she has been taking Tylenol as directed, ascorbic acid 500 mg daily, aspirin 81 mg daily, Lipitor 20 mg daily, vitamin D3 1000 units daily, clindamycin as directed, furosemide 20 mg daily, insulin 9 units subcu q.p.m., insulin 70/30 23 units in the morning, Imdur 60 mg daily, Levoxyl 100 mcg daily, magnesium chloride 64 mg daily, milk of magnesia as directed, Lopressor 25 mg daily, multivitamin 1 tablet daily, nitroglycerin 0.4 mg as directed, Protonix 40 mg every 2 days, warfarin sodium 2.5 mg as directed, calcium carbonate, vitamin D 2 tablets daily, coenzyme Q10 100 mg daily, probiotic 1 capsule daily. REVIEW OF SYSTEMS: Other systemic review unremarkable except those mentioned in history of present complaint. PHYSICAL EXAMINATION: GENERAL: On examination in the Emergency Room, she was having minimal shortness of breath at rest. VITAL SIGNS: Temperature 36.3, pulse of 70, blood pressure 127/80, saturation 93% on 3 liters nasal cannula. HEENT: Unremarkable. NECK: Supple, no JVD, no bruit. CHEST: Decreased breath sounds both sides with scattered rhonchi, minimal bibasilar atelectasis, decreased breath sounds. HEART: S1, S2 regular, no murmur appreciated. ABDOMEN: Soft and benign. Difficult to feel organs. Distended. Bowel sounds present. EXTREMITIES: 1+ edema bilaterally, more on the left than the right. CENTRAL NERVOUS SYSTEM: She was alert, awake, oriented x3. LABORATORY DATA: Noted today white count was 6.50, H&H 11.1/35.6, platelet was 209. Venous blood gas: pH 7.35, pCO2 of 66 and pO2 of 36. Chemistry: Sodium 141, potassium 2.1, carbon dioxide 35, chloride 103, BUN 29, creatinine 1.25, random glucose 185. Total bilirubin 1.3, AST 43, ALT 29, alkaline phosphatase 263. BNP was 2289. INR was 3.3. Influenza A and B negative. Chest x-ray reported as cardiomegaly with suggestion of volume overload, right greater than left pleural effusion, bibasilar atelectasis suspected, no rafael pulmonary edema, paramediastinal and reticular opacities, maybe artifactual related to the patient's rotation or indicate underlying chronic disease. EKG was in atrial fibrillation with frequent ventricular paced complexes, left axis deviation, significance of ST-T wave changes cannot be determined. ASSESSMENT AND PLAN: 1. Acute diastolic heart failure. The patient has a history of diastolic heart failure. She will be admitted to telemetry unit. Her chest x-ray did show congestive heart failure with bilateral pleural effusion, more on the right than the left. She was started with intravenous Lasix. Continue with 40 mg Lasix daily and monitor intake and output. She will have an echocardiogram to evaluate the cardiac function. Cardiology consultation may be undertaken. 2. Diabetes, on insulin. Continue with her current dose of insulin and we will put her on sliding scale coverage while in the hospital. 3. Atrial fibrillation, status post pacemaker. Rate seems to be controlled at this time. Again, we will continue with her Coumadin and maintain INR 2-3. Continue beta leonardo. 4. Coronary artery disease with history of old myocardial infarction. At this time, she is free of any acute symptoms. We will cycle troponins while in the hospital and continue with her medications. 5. Hyperlipidemia. Continue with statins. 6. Hypothyroidism. Continue replacement. 7. Gastrointestinal prophylaxis with Protonix. 8. Deep venous thrombosis prophylaxis, on Coumadin. 9. Chronic kidney disease stage III. We will monitor her kidney function while in the hospital, especially while she is on Lasix. Code status: She will be full code. In my clinical assessment, the beneficiary meets criteria as per CMS for 2-midnight stay in the hospital. MERYL
[2018-01-19] MEDS ORDERED: INSULIN HUMAN 70% NPH/30% REGULAR SC SCH (08:00)
[2018-01-19] MEDS: FUROSEMIDE INJ 40 MG in SYRINGE 0 ML IV SCH (08:15)
[2018-01-19] MEDS ORDERED: NURSING VERBAL MED ORDER ONE ×2 (08:45→11:15)
[2018-01-19] MEDS ORDERED: GLUCAGON FOR INJ 1 MG VIAL SQ PRN (09:00)
[2018-01-19] MEDS ORDERED: GLUCOSE 10 TABS/TUBE PO PRN (09:00)
[2018-01-19] MEDS ORDERED: GLUCOSE 40% GEL 15 GM TUBE PO PRN (09:00)
[2018-01-19] MEDS ORDERED: DEXTROSE 50% 50 ML SYR IV PRN (09:00)
[2018-01-19] MEDS ORDERED: LANTUS PER UNIT CHARGE SQ ONE (09:00)
[2018-01-19] MEDS ORDERED: ISOSORBIDE MONONITRATE 60 MG TABCR PO SCH (09:00)
[2018-01-19] MEDS ORDERED: PHARMACY GLYCEMIC MGMT CONSULT PRN (09:08)
[2018-01-19] MEDS: ATORVASTATIN 20 MG TAB PO SCH (10:00)
[2018-01-19] MEDS: MULTIVITAMIN TAB PO SCH (10:00)
[2018-01-19] MEDS: ASCORBIC ACID 500 MG TAB PO SCH (10:00)
[2018-01-19] MEDS: MAGNESIUM CHLORIDE 64MG DELAYED REL TAB PO SCH (10:01)
[2018-01-19] MEDS: CHOLECALCIFEROL 1000 INTER.UNIT TAB PO SCH (10:01)
[2018-01-19] MEDS: ASPIRIN 81 MG ECTAB PO SCH (10:02)
[2018-01-19] MEDS: METOPROLOL TARTRATE 25 MG TAB PO SCH (10:02)
[2018-01-19] MEDS: LACTOBACILLUS ACIDOPHILUS (FLORANEX) TAB PO SCH (10:02)
[2018-01-19] MEDS: INSULIN ASPART 100 UNITS/ML 3 ML PEN SC SCH ×4 (10:09→21:00)
--- NOTE | 2018-01-19 10:23 | Progress Note ---
Internal Med Progress Note Date of Service: Jan 19, 2018. Provider Documentation: SUBJECTIVE: Shortness of breath has improved markedly Denies of any orthopnea Blood pressure borderline low systolic 90s Patient denies of any dizziness spell, no lightheadedness No complaint of shortness of breath, no chest pain, no cough No fever chills OBJECTIVE: Vital Signs-as noted below Exam: General-elderly female, no apparent distress Eyes- sclera nonicteric ENT-moist oral mucosa Neck-no JVD Lungs-positive rales at base Heart-irregular Abdomen-soft nontender Extremities-no lower extremity edema Neuro- alert awake oriented 3, no focal neurological deficit Lab data as noted below. ASSESSMENT & PLAN: ACUTE CHF WITH DIASTOLIC DYSFUNCTION Presented with volume overload, shortness of breath, dyspnea on exertion Chest x-ray shows bilateral pulmonary congestion Elevated proBNP Symptom improved after IV diuresis Patient will be continued with IV Lasix 40 mg twice daily Lynn catheter placed acute measurement of intake and output Cardiology consulted-appreciate input ACUTE ON CHRONIC HYPOXEMIC RESPIRATORY FAILURE Due to acute diastolic CHF with volume overload At baseline patient is on 2 L oxygen via nasal cannula continuous Continue supplemental oxygen IV diuretics to improve pulmonary congestion CHRONIC A. FIB ON ANTICOAGULATION Continue beta-leonardo On Coumadin: INR 2-3 HISTORY OF CORONARY ARTERY DISEASE No anginal symptoms Continue outpatient cardiac meds-aspirin/ beta leonardo/statin Imdur TYPE 2 DIABETES ON INSULIN: Well-controlled Hemoglobin A1c 7.2 on 10/2017 Patient is resumed her outpatient regimen of NPH 70/30 Repeat A1c ordered ACUTE RENAL FAILURE ON CKD stage III: Possible due to decompensated congestive heart failure leading to poor perfusion continue to monitor renal function as patient is being diuresed with IV Lasix 40 twice daily Avoid nephrotoxins HYPERTENSION: Blood pressure borderline low Patient is asymptomatic Possibility secondary to Lasix/diuresis Continue outpatient antihypertensives with holding parameter for systolic blood pressure less than 100 CODE STATUS: Full code DVT PROPHYLAXIS On Coumadin INR therapeutic DISPOSITION Patient lives at home with her elderly Has significantly chronic ambulatory dysfunction Uses a wheelchair at baseline, is able to do transfer prior to admission PT OT evaluation requested expected to be discharged home when medically stable Will benefit from home health visiting nurse social service consulted for discharge planning Medicine follow-up with Dr. Jose Antonio Donnelly Plan of care updated to daughters present at bedside Vital Signs: Date Time Temp Pulse Resp B/P (MAP) Pulse Ox O2 Delivery O2 Flow Rate FiO2 01/20/18 11:21 36.6 63 20 111/65 (80) 97 2.0 01/20/18 08:00 97 Nasal Cannula 2.0 01/20/18 07:51 98 3.0 01/20/18 07:24 36.4 67 19 105/57 (73) 91 Nasal Cannula 3.0 01/20/18 04:26 36.4 71 18 109/61 (77) 93 Nasal Cannula 3.0 01/20/18 04:00 Nasal Cannula 3.0 01/20/18 00:22 36.5 73 19 113/68 (83) 96 Nasal Cannula 3.0 01/20/18 00:10 Nasal Cannula 3.0 01/19/18 20:10 Nasal Cannula 3.0 01/19/18 17:56 36.4 76 19 153/84 (107) 94 Nasal Cannula 2.0 01/19/18 16:00 Nasal Cannula 2.0 01/19/18 15:59 36.4 73 20 89/57 (68) 96 89/53 (65) 01/19/18 15:37 67 90/56 (67) Lab Results: Results Past 24 Hours Test 01/19/18 16:34 01/19/18 19:58 01/20/18 02:37 01/20/18 05:17 Range/Units Bedside Glucose 157 150 118 70-90 mg/dl White Blood Count 7.43 4.8-10.8 K/uL Red Blood Count 3.42 4.2-5.4 M/uL Hemoglobin 10.7 12.0-16.0 g/dL Hematocrit 34.1 37-47 % Mean Corpuscular Volume 99.7 80-100 fL Mean Corpuscular Hemoglobin 31.3 25-34 pg Mean Corpuscular Hemoglobin Concent 31.4 32-36 g/dl RDW Standard Deviation 57.9 36.4-46.3 fL RDW Coefficient of Variation 16.2 11.5-14.5 % Platelet Count 176 130-400 K/uL Mean Platelet Volume 9.8 7.4-10.4 fL Prothrombin Time 27.5 9.0-12.0 SECONDS Prothromb Time International Ratio 2.7 0.9-1.1 Sodium Level 142 136-145 mmol/L Potassium Level 4.1 3.5-5.1 mmol/L Chloride Level 102 98-107 mmol/L Carbon Dioxide Level 37 21-32 mmol/L Anion Gap 3.0 3-11 mmol/L Blood Urea Nitrogen 36 7-18 mg/dl Creatinine 1.35 0.60-1.20 mg/dl Est Creatinine Clear Calc Drug Dose 45.8 ml/min Estimated GFR () 41.7 Estimated GFR (Non- 36.0 BUN/Creatinine Ratio 26.4 10-20 Random Glucose 113 70-99 mg/dl Calcium Level 9.0 8.5-10.1 mg/dl Magnesium Level 2.1 1.8-2.4 mg/dl Test 01/20/18 07:27 01/20/18 11:32 Range/Units Bedside Glucose 126 179 70-90 mg/dl
[2018-01-19] MEDS ORDERED: INSULIN HUMAN NPH SC ONE (10:30)
[2018-01-19] MEDS ORDERED: INSULIN ASPART 100 UNITS/ML 3 ML PEN SC SCH (11:00)
--- NOTE | 2018-01-19 13:45 | Cardiology Consultation ---
Cardiology Consultation Date of Service Jan 19, 2018. Cardiology Consultation Indication: Consultation for heart failure History: This is an 82-year-old morbidly obese diabetic female with a history of chronic atrial fibrillation, ischemic heart disease and permanent pacemaker who presents with progressive shortness of breath due to diastolic heart failure. She has been admitted and given IV diuretics. She now feels she is doing better. She has no complaints of chest pain. She denies dizziness or lightheadedness. Allergies: The patient has numerous allergies and never for you to the medical record Reported Home Medications Medications Dose Route/Sig Max Daily Dose Days Date Category Dose Instructions Furosemide 20 Mg Tab 20 Mg PO DAILY 01/18/18 Reported Lopressor (Metoprolol Tartrate) 50 Mg Tab 25 Mg PO DAILY 03/10/17 Reported Milk of Magnesia (Magnesium Hydroxide) 30 Ml Susp 30 Ml PO PRN 02/08/17 Reported Clindamycin Hcl 150 Mg Cap 4 Cap PO 02/08/17 Reported PRIOR TO DENTAL PROCEDURE Levothyroxine Sodium 100 Mcg Tab 100 Mcg PO DAILY 02/08/17 Reported Nitrostat (Nitroglycerin) 0.4 Mg Tab 0.4 Mg UT PRN 02/08/17 Reported Slow-Mag Tab (Magnesium Chloride) 64 Mg Tabcr 64 Mg PO DAILY 02/08/17 Reported Ascorbic Acid 500 Mg Tab 500 Mg PO DAILY 02/08/17 Reported Vitamin D3 (Cholecalciferol) 1,000 Unit Tab 1 Tab PO DAILY 90 12/18/15 Reported Aspirin Ec (Aspirin) 81 Mg Tab 81 Mg PO DAILY 12/18/15 Reported Probiotic (Probiotic Product) 1 Cap Cap 1 Cap PO DAILY 12/18/15 Reported Calcium 600 + D (Calcium Carbonate-Vitamin D) 1 Tab Tab 2 Tablets PO DAILY 03/12/13 Reported CALCIUM 600-200 Coumadin (Warfarin Sod) 2.5 Mg Tab 0 PO UD 03/12/13 Reported PER ANTI-COAGULATION CLINIC Tylenol (Acetaminophen) 500 Mg Tab 500-1,000 Mg PO TID PRN 03/12/13 Reported PRN PAIN Multivitamin (Multivitamins) Tab 1 Tab PO DAILY 03/12/13 Reported Imdur Ext Rel (Isosorbide Mononitrate) 60 Mg Ertab 60 Mg PO DAILY 03/12/13 Reported Co Q 10 (Coenzyme Q10 (Ubidecarenone)) 100 Mg Cap 100 Mg PO DAILY 4/12/13 Reported Lipitor (Atorvastatin Calcium) 20 Mg Tab 10 Mg PO DAILY 01/23/13 Reported TAKE 1/2 TABLET DAILY. Novolin 70/30 (Insulin Human Isoph/Insulin Regular) Susp 9 Units SC QPM 01/23/13 Reported Novolin 70/30 (Insulin Human Isoph/Insulin Regular) Susp 23 Units SC QAM 01/23/13 Reported Protonix (Pantoprazole Sodium) 40 Mg Tab 40 Mg PO Q2D 12/25/09 Reported Past Medical and Surgical History: Atherosclerotic coronary disease with prior extensive anterior apical myocardial infarction in 1995 treated with acute coronary intervention to left anterior descending diagonal February 2013 NSTEMI. 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 Chronic Class II angina pectoris. 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 Aortic valve stenosis. Morbid obesity. Right heart failure Chronic venous insufficiency Type II diabetes mellitus with neuropathy ACEI intolerance. Stage III chronic kidney disease Obstructive sleep apnea. Intolerance of CPAP. Hypoxemia, prescribed supplemental oxygen therapy 06/05. Hypertension Dyslipidemia Hypothyroidism Severe epistaxis requiring surgical control January 2013. Basal cell carcinoma of the skin Depression Cholecystectomy Total hysterectomy Social history: Patient lives independently. She is a non-smoker Family medical history noncontributory General: The patient denies weight change, night sweats, fever, chills. Head: The patient denies headache and prior head trauma. Cardiovascular: The patient denies chest pain or chest discomfort, dyspnea on exertion, palpitations, PND, orthopnea, edema, spontaneous shortness of breath, syncope and near syncope. Pulmonary: The patient denies cough, wheeze, pleurisy, hemoptysis, sputum, and excessive snoring. Gastrointestinal: The patient denies nausea, vomiting, diarrhea, constipation, bloating, hematemesis, hematochezia, and abdominal pain. Skin: The patient denies diaphoresis and rash. Musculoskeletal: The patient denies joint pain, joint swelling, myalgia, back pain, neck pain and prior injuries. Neurological: The patient denies prior stroke and seizures Vital Signs Past 12 Hours Date Time Temp Pulse Resp B/P (MAP) Pulse Ox O2 Delivery O2 Flow Rate FiO2 01/19/18 12:00 Nasal Cannula 2.0 01/19/18 11:26 36.5 74 18 119/72 (88) 92 3.0 01/19/18 09:50 79 122/78 (93) 01/19/18 08:15 76 113/62 (79) 01/19/18 08:00 Nasal Cannula 2.0 01/19/18 07:14 36.5 75 18 117/66 (83) 96 2.0 01/19/18 04:24 36.6 79 18 111/66 (81) 95 01/19/18 04:05 93 Nasal Cannula 3.0 General Appearance: Alert and Oriented x3. NAD. Head: Normocephalic Atraumatic. Eyes: PERRLA, EOMI, conjunctiva and sclera clear Neck: Supple. No carotid bruits noted. No JVD. No HJD. Respiratory: Breath sounds clear to auscultation bilaterally. No w/r/r. Cardiovascular: Reg rate and rhythm. S1 and S2 noted. No murmurs, rubs, gallops. PMI non displace. Abdomen: Normal bowel sounds, soft nontender. no abdominal bruits. Extremities: No edema, no clubbing or cyanosis. distal pulses 2/4 bilaterally. Neuro: No focal deficits. Psychiatric: Normal affect. Last 24 Hours Test 01/18/18 16:57 01/18/18 17:25 01/18/18 21:27 01/19/18 01:30 White Blood Count 6.50 K/uL Red Blood Count 3.57 M/uL Hemoglobin 11.1 g/dL Hematocrit 35.6 % Mean Corpuscular Volume 99.7 fL Mean Corpuscular Hemoglobin 31.1 pg Mean Corpuscular Hemoglobin Concent 31.2 g/dl Platelet Count 209 K/uL Mean Platelet Volume 9.9 fL Neutrophils (%) (Auto) 63.3 % Lymphocytes (%) (Auto) 15.5 % Monocytes (%) (Auto) 12.5 % Eosinophils (%) (Auto) 8.0 % Basophils (%) (Auto) 0.5 % Neutrophils # (Auto) 4.12 K/uL Lymphocytes # (Auto) 1.01 K/uL Monocytes # (Auto) 0.81 K/uL Eosinophils # (Auto) 0.52 K/uL Basophils # (Auto) 0.03 K/uL RDW Standard Deviation 58.4 fL RDW Coefficient of Variation 16.0 % Immature Granulocyte % (Auto) 0.2 % Immature Granulocyte # (Auto) 0.01 K/uL Prothrombin Time 33.8 SECONDS Prothromb Time International Ratio 3.3 Venous Blood pH 7.35 Venous Blood Partial Pressure CO2 66 mmHg Venous Blood Partial Pressure O2 36 mmHg Venous Blood HCO3 36 mmol/L Venous Blood Oxygen Saturation 61.1 % Venous Blood Base Excess 8.7 mEq/L Sodium Level 141 mmol/L Potassium Level 4.1 mmol/L Chloride Level 103 mmol/L Carbon Dioxide Level 35 mmol/L Anion Gap 3.0 mmol/L Blood Urea Nitrogen 29 mg/dl Creatinine 1.25 mg/dl Est Creatinine Clear Calc Drug Dose 46.5 ml/min Estimated GFR () 45.7 Estimated GFR (Non- 39.5 BUN/Creatinine Ratio 23.4 Random Glucose 185 mg/dl Calcium Level 9.2 mg/dl Magnesium Level 2.1 mg/dl Total Bilirubin 1.3 mg/dl Direct Bilirubin 0.4 mg/dl Aspartate Amino Transf (AST/SGOT) 43 U/L Alanine Aminotransferase (ALT/SGPT) 29 U/L Alkaline Phosphatase 263 U/L Troponin I 0.016 ng/ml 0.018 ng/ml Pro-B-Type Natriuretic Peptide 2289 pg/ml Total Protein 7.2 gm/dl Albumin 3.1 gm/dl Lipase 112 U/L Influenza Type A (RT-PCR) Neg for Influ A Influenza Type B (RT-PCR) Neg for Influ B Bedside Glucose 210 mg/dl Test 01/19/18 02:49 01/19/18 04:08 01/19/18 07:18 01/19/18 08:50 White Blood Count 6.33 K/uL Red Blood Count 3.77 M/uL Hemoglobin 11.5 g/dL Hematocrit 37.7 % Mean Corpuscular Volume 100.0 fL Mean Corpuscular Hemoglobin 30.5 pg Mean Corpuscular Hemoglobin Concent 30.5 g/dl RDW Standard Deviation 58.0 fL RDW Coefficient of Variation 16.0 % Platelet Count 170 K/uL Mean Platelet Volume 10.2 fL Prothrombin Time 35.5 SECONDS Prothromb Time International Ratio 3.5 Sodium Level 139 mmol/L Potassium Level 4.6 mmol/L Chloride Level 102 mmol/L Carbon Dioxide Level 33 mmol/L Anion Gap 4.0 mmol/L Blood Urea Nitrogen 32 mg/dl Creatinine 1.22 mg/dl Est Creatinine Clear Calc Drug Dose 47.7 ml/min Estimated GFR () 47.1 Estimated GFR (Non- 40.6 BUN/Creatinine Ratio 26.3 Random Glucose 283 mg/dl Calcium Level 8.9 mg/dl Magnesium Level 2.0 mg/dl Troponin I 0.017 ng/ml 0.016 ng/ml Bedside Glucose 249 mg/dl 243 mg/dl Test 01/19/18 11:36 Bedside Glucose 288 mg/dl Impression: 1. Acute diastolic heart failure 2. Chronic atrial fibrillation 3. Ischemic heart disease with multiple prior coronary interventions 4. Permanent pacemaker 5. Morbid obesity 6. Sleep apnea 7. Diabetes Recommendations: The patient is currently clinically stable and I agree with the current management. She will need diuretics to improve her heart failure and management of her comorbidities.
--- NOTE | 2018-01-19 14:29 | Pharmacy Progress Note ---
Glycemic Control Intl Consult Date of Service Jan 19, 2018. Scope Glycemic Pharmacist consulted by Dr Richmond on 01/19/18 for glycemic control and to write orders per [facility] inpatient glycemic control protocol Objective Weight (Kilograms): 131.000 Accuchecks BSG (last 24hrs): Test 01/18/18 16:57 01/19/18 01:30 01/19/18 02:49 01/19/18 04:08 Random Glucose 185 mg/dl (70-99) 283 mg/dl (70-99) Bedside Glucose 210 mg/dl (70-90) 249 mg/dl (70-90) Test 01/19/18 07:18 01/19/18 11:36 Bedside Glucose 243 mg/dl (70-90) 288 mg/dl (70-90) Laboratory Data (last 24hrs) Test 01/18/18 16:57 01/19/18 02:49 Anion Gap 3.0 mmol/L 4.0 mmol/L BUN/Creatinine Ratio 23.4 26.3 Blood Urea Nitrogen 29 mg/dl 32 mg/dl Creatinine 1.25 mg/dl 1.22 mg/dl Potassium Level 4.1 mmol/L 4.6 mmol/L Sodium Level 141 mmol/L 139 mmol/L White Blood Count 6.50 K/uL 6.33 K/uL Red Blood Count 3.57 M/uL Hemoglobin 11.1 g/dL Hematocrit 35.6 % Mean Corpuscular Volume 99.7 fL Mean Corpuscular Hemoglobin 31.1 pg Mean Corpuscular Hemoglobin Concent 31.2 g/dl Platelet Count 209 K/uL Mean Platelet Volume 9.9 fL Neutrophils (%) (Auto) 63.3 % Lymphocytes (%) (Auto) 15.5 % Monocytes (%) (Auto) 12.5 % Eosinophils (%) (Auto) 8.0 % Basophils (%) (Auto) 0.5 % Neutrophils # (Auto) 4.12 K/uL Lymphocytes # (Auto) 1.01 K/uL Monocytes # (Auto) 0.81 K/uL Eosinophils # (Auto) 0.52 K/uL Basophils # (Auto) 0.03 K/uL HbA1c Test 01/19/18 02:49 Recent Pertinent Medications Outpatient Anti-diabetic Regimen: * Novolin 70/30 - 23 units in the AM and 9 units in the PM * A1c = 7.9 % Risk Factors for Insulin Resistance: * Steroids: Solu-Medrol 125 mg IV x 1 at 1800 * Diet: type 2 diabetic diet Assessment & Plan ASSESSMENT: * Ms Alesia Galan is an 82 y/o F with a PMH of CAD with pacer, Afib, CHF, CKD stage 3, and reasonably well controlled type 2 diabetes who presents with a CHF exacerbation. The patient is typically controlled on a mixed insulin at home. Her blood sugar on admission was 185 mg/dL. She received 9 units of 70/30 at 0135 and Solu-Medrol 125 mg IV x 1 at 1800. Patient's blood sugar at 0200 was 210 and fasting 243. Lunch blood sugar was 288 mg/dL (1.5 hours after Novolog given so not long enough after Novolog given to have a true effect). NPH was also given late. * During a previous hospitalization, the patient was maintained on Lantus (she was also on IV steroids). Since patient may leave soon, continued home NPH with Novolog. Give reduced doses of NPH (80% of home dose) for right now as patient' s diet may change. Use aggressive Novolog currently for Solu-Medrol dose. Plan to loosen Novolog tomorrow. PLAN FOR INPATIENT GLYCEMIC CONTROL: * Basal insulin with NPH 15 units this morning (12 units starting tomorrow) plus 4 units in the evening * Correctional Insulin with NOVOLOG / REGULAR per scale ACHS or Q6hrs while NPO * Goal Range: Low 110 mg/dL - High 140 mg/dL * Correction Factor: 15 mg/dL/unit * Nutritional / Prandial insulin per carb ratio of 1 unit per 5 grams CHO consumed * Please note that the plan above was derived based on current level of insulin resistance and hospital stress. These recommendations are appropriate for inpatient admission only. Plan of care upon discharge will need to be reassessed to avoid potential outpatient hypo/hyperglycemia. Thank you.
[2018-01-19] MEDS: LORAZEPAM 0.5 MG TAB PO PRN (14:54)
[2018-01-19] MEDS: INSULIN HUMAN NPH SC SCH (17:40)
[2018-01-19] MEDS: ACETAMINOPHEN 500 MG TAB PO PRN (22:58)
[2018-01-20] VITALS (9 sets, daily range): BP systolic 100–121; BP diastolic 57–68; PULSE 63–73; TEMP 36.3–36.6; O2SAT 91–98
[2018-01-20] MEDS ORDERED: KETOROLAC TROMETHAMINE 15 MG/ML VIAL IV ONE (00:48)
[2018-01-20] MEDS ORDERED: KETOROLAC TROMETHAMINE 15 MG/ML VIAL IV PRN (01:00)
[2018-01-20 05:46] LABS: HEMATOCRIT 34.1 % (37-47); HEMOGLOBIN 10.7 g/dL (12.0-16.0); MEAN CELL VOLUME 99.7 fL (80-100); MEAN CORPUSCULAR HEMOGLOBIN 31.3 pg (25-34); MEAN CORPUSCULAR HGB CONC 31.4 g/dl (32-36); MEAN PLATELET VOLUME 9.8 fL (7.4-10.4); PLATELET COUNT 176 K/uL (130-400); RED CELL DISTRIBUTION WIDTH CV 16.2 % (11.5-14.5); RED CELL DISTRIBUTION WIDTH SD 57.9 fL (36.4-46.3); WHITE BLOOD COUNT 7.43 K/uL (4.8-10.8)
[2018-01-20 06:04] LABS: INR 2.7 (0.9-1.1)
[2018-01-20 06:22] LABS: CREATININE 1.35 mg/dl (0.60-1.20); POTASSIUM 4.1 mmol/L (3.5-5.1)
[2018-01-20] MEDS: LEVOTHYROXINE 100 MCG TAB PO SCH (06:24)
--- NOTE | 2018-01-20 07:30 | DIAGNOSTIC IMAGING REPORT ---
CHEST ONE VIEW PORTABLE HISTORY: Short of breath. Congestive heart failure. COMPARISON: Chest 01/18/2018. FINDINGS: There are low lung volumes. Small to moderate right pleural effusion persists. The heart remains enlarged. Left-sided dual-chamber pacemaker. Mild interstitial pulmonary edema persists. Right basilar linear densities are nonspecific but favor subsegmental atelectasis. IMPRESSION: No change in the mild pulmonary edema and right pleural effusion. Electronically signed by: Killian Perez M.D. 01/20/2018 7:29 AM Dictated Date/Time: 01/20/2018 7:28 AM
[2018-01-20] MEDS: METOPROLOL TARTRATE 25 MG TAB PO SCH (07:53)
[2018-01-20] MEDS: LACTOBACILLUS ACIDOPHILUS (FLORANEX) TAB PO SCH (07:54)
[2018-01-20] MEDS: MULTIVITAMIN TAB PO SCH (07:54)
[2018-01-20] MEDS: ISOSORBIDE MONONITRATE 60 MG TABCR PO SCH (07:54)
[2018-01-20] MEDS: CHOLECALCIFEROL 1000 INTER.UNIT TAB PO SCH (07:54)
[2018-01-20] MEDS: MAGNESIUM CHLORIDE 64MG DELAYED REL TAB PO SCH (07:55)
[2018-01-20] MEDS: ASCORBIC ACID 500 MG TAB PO SCH (07:55)
[2018-01-20] MEDS: FUROSEMIDE INJ 40 MG in SYRINGE 0 ML IV SCH (07:56)
[2018-01-20] MEDS: ATORVASTATIN 20 MG TAB PO SCH (07:57)
[2018-01-20] MEDS: ASPIRIN 81 MG ECTAB PO SCH (07:57)
[2018-01-20] MEDS: INSULIN ASPART 100 UNITS/ML 3 ML PEN SC SCH ×4 (08:05→21:08)
[2018-01-20] MEDS: INSULIN HUMAN NPH SC SCH ×2 (08:06→17:14)
--- NOTE | 2018-01-20 13:01 | Cardiology Follow-Up ---
Subjective Subjective Date of Service: Jan 20, 2018. Pt evaluation today including: conversation w/ patient, conversation w/ family , physical exam, chart review, lab review, review of studies, review of inpatient medication list Additional Details: The patient had an uneventful night. She is anxious to return home. Her shortness of breath is markedly improved. Problem List Medical Problems: (1) Anxiety Status: Acute (2) CHF exacerbation Status: Acute (3) COPD exacerbation Status: Acute (4) Headache Status: Acute (5) Hypoxia Status: Acute (6) Precordial chest pain Status: Acute (7) Sinusitis Status: Acute Objective Vital Signs Last Vital Signs Documentation Date Time Temp Pulse Resp B/P (MAP) Pulse Ox O2 Delivery O2 Flow Rate FiO2 01/20/18 11:21 36.6 63 20 111/65 (80) 97 2.0 01/20/18 08:00 Nasal Cannula Physical Exam: General Appearance: no apparent distress ENT: normal ENT inspection Neck: thyroid normal, no JVD, no carotid bruits Respiratory/Chest: lungs clear, normal breath sounds Cardiovascular: no JVD, no murmur, + irregularly irregular Abdomen: normal bowel sounds, non tender, soft, no organomegaly Extremities: normal range of motion, + pedal edema (There is minimal lower extremity edema which is hard in nature most likely chronic) Neurologic/Psychiatric: no motor/sensory deficits, alert, oriented x 3 Skin: normal color, warm/dry, no rash Lymphatic: no adenopathy Assessment and Plan Impression: 1. Acute diastolic heart failure now resolving 2. Chronic atrial fibrillation 3. Permanent pacemaker 4. Obesity 5. Diabetes 6. Ischemic heart disease 7. Sleep apnea Recommendations: The patient has been in negative numbers for the past 24 hours. She has found improvement in her shortness of breath. I would recommend that we switch her to oral Lasix. I am going to discontinue her Lynn catheter as she is at risk for infection. Discharge planning should be started. Medications: Current Inpatient Medications Medications (Trade) Dose Ordered Sig/Yesenia Route Start Time Stop Time Status Last Admin Dose Admin Acetaminophen (Tylenol Tab) 1,000 mg TID PRN PO 01/18/18 20:45 02/17/18 20:44 01/19/18 22:58 1,000 MG Ascorbic Acid (Vitamin C Tab) 500 mg DAILY PO 01/19/18 09:00 02/18/18 08:59 4/9/18 07:55 500 MG Aspirin (Ecotrin Tab) 81 mg DAILY PO 01/19/18 09:00 02/18/18 08:59 01/20/18 07:57 81 MG Atorvastatin Calcium (Lipitor Tab) 10 mg DAILY PO 01/19/18 09:00 02/18/18 08:59 01/20/18 07:57 10 MG Cholecalciferol (Vitamin D Tab) 1,000 inter.unit DAILY PO 01/19/18 09:00 02/18/18 08:59 01/20/18 07:54 1,000 INTER.UNIT Levothyroxine Sodium (Synthroid Tab) 100 mcg DAILYBB PO 01/19/18 06:30 02/18/18 06:59 01/20/18 06:24 100 MCG Magnesium Chloride (Slow-Mag Tab) 64 mg DAILY PO 01/19/18 09:00 02/18/18 08:59 01/20/18 07:55 64 MG Magnesium Hydroxide (Milk Of Magnesia Susp) 30 ml DAILY PRN PO 01/18/18 20:45 02/17/18 20:44 Metoprolol Tartrate (Lopressor Tab) 25 mg DAILY PO 01/19/18 09:00 02/18/18 08:59 01/20/18 07:53 25 MG Multivitamins (Multivitamin Tab) 1 tab DAILY PO 01/19/18 09:00 02/18/18 08:59 01/20/18 07:54 1 TAB Nitroglycerin (Nitrostat Tab) 0.4 mg PRN UT 01/18/18 20:45 02/17/18 20:44 Pantoprazole Sodium (Protonix Tab) 40 mg Q2D PO 01/18/18 21:00 02/17/18 20:59 01/19/18 01:32 40 MG Warfarin Sodium (Coumadin Tab) 2.5 mg DAILY@1600 PO 01/19/18 16:00 02/18/18 15:59 Future hold Lactobacillus Acidophilus (Floranex Tab) 1 tab DAILY PO 01/19/18 09:00 02/18/18 08:59 01/20/18 07:54 1 TAB Ondansetron HCl (Zofran Inj) 4 mg Q6H PRN IV 01/18/18 23:00 02/17/18 22:59 Glucose (Glucose 40% Gel) 15-30 GRAMS 15 GRAMS... UD PRN PO 01/18/18 23:45 02/17/18 23:44 Glucose (Glucose Chew Tab) 4-8 Tablets 4 Tabl... UD PRN PO 01/18/18 23:45 02/17/18 23:44 Dextrose (Dextrose 50% 50ML Syringe) 25-50ML OF 50% DW IV FOR... UD PRN IV 01/18/18 23:45 02/17/18 23:44 Glucagon (Glucagon Inj) 1 mg UD PRN SQ 01/18/18 23:45 02/17/18 23:44 Miscellaneous Information (Consult Glycemic Management Pharmacy) 1 ea UD PRN N/A 01/19/18 09:08 02/18/18 09:07 Insulin Aspart (novoLOG ASPART) SLIDING SCALE ACHS SC 01/19/18 09:00 02/18/18 08:59 01/20/18 12:23 14 UNITS Lorazepam (Ativan Tab) 0.5 mg Q8 PRN PO 01/19/18 10:15 02/17/18 20:59 01/19/18 14:54 0.5 MG Insulin Human NPH (novoLIN-N NPH) 12 units QDB SC 01/20/18 08:00 02/19/18 07:59 01/20/18 08:06 12 UNITS Insulin Human NPH (novoLIN-N NPH) 4 units QDD SC 01/19/18 17:00 02/18/18 16:59 01/19/18 17:40 4 UNITS Isosorbide Mononitrate (Imdur Ext Rel Tab) 60 mg DAILY PO 01/20/18 09:00 02/18/18 08:59 01/20/18 07:54 60 MG Lab Results: Last 24 Hours Test 01/19/18 16:34 01/19/18 19:58 01/20/18 02:37 01/20/18 05:17 Bedside Glucose 157 mg/dl 150 mg/dl 118 mg/dl White Blood Count 7.43 K/uL Red Blood Count 3.42 M/uL Hemoglobin 10.7 g/dL Hematocrit 34.1 % Mean Corpuscular Volume 99.7 fL Mean Corpuscular Hemoglobin 31.3 pg Mean Corpuscular Hemoglobin Concent 31.4 g/dl RDW Standard Deviation 57.9 fL RDW Coefficient of Variation 16.2 % Platelet Count 176 K/uL Mean Platelet Volume 9.8 fL Prothrombin Time 27.5 SECONDS Prothromb Time International Ratio 2.7 Sodium Level 142 mmol/L Potassium Level 4.1 mmol/L Chloride Level 102 mmol/L Carbon Dioxide Level 37 mmol/L Anion Gap 3.0 mmol/L Blood Urea Nitrogen 36 mg/dl Creatinine 1.35 mg/dl Est Creatinine Clear Calc Drug Dose 45.8 ml/min Estimated GFR () 41.7 Estimated GFR (Non- 36.0 BUN/Creatinine Ratio 26.4 Random Glucose 113 mg/dl Calcium Level 9.0 mg/dl Magnesium Level 2.1 mg/dl Test 01/20/18 07:27 01/20/18 11:32 Bedside Glucose 126 mg/dl 179 mg/dl
[2018-01-20] MEDS: FUROSEMIDE 40 MG TAB PO SCH (16:59)
[2018-01-20] MEDS: WARFARIN SOD 2.5 MG TAB PO SCH (17:01)
--- NOTE | 2018-01-20 17:35 | ECHOCARDIOGRAM REPORT ---
*NOTICE TO RECEIVING DEMOCRAT AGENCY This information is strictly Confidential and protected under [place] law. [place] law prohibits you from making any further disclosure of this information unless further disclosure is expressly permitted by the written consent of the person to whom it pertains or is authorized by law. A general authorization for the release of medical or other information is not sufficient for this purpose. Hospital accepts no responsibility if the information is made available to any other person, INCLUDING THE PATIENT. Interpretation Summary * Name: CHUCKIE KING Study Date: 01/20/2018 08:49 AM BP: 109/61 mmHg * Patient Location: [facility]- HR: 71 * : 1935 (M/d/yyyy) Gender: Female Height: 66 in * Age: 82 yrs Ethnicity: [place] Weight: 288 lb * Ordering Physician: Malik Medina * Referring Physician: Self, Referred * Performed By: Francisca Romo RDCS * * Reason For Study: CHF * BSA: 2.3 m2 * The study was technically limited. * -- Conclusions -- * The study was technically limited. * The left ventricle is grossly normal size. * The left ventricular ejection fraction is grossly normal. * Ejection Fraction = 55-60%. * The right ventricular systolic function is normal. * The left atrium is mildly dilated. * The right atrium is mildly dilated. * Moderate valvular aortic stenosis. Procedure Details * A complete two-dimensional transthoracic echocardiogram was performed (2D, M-mode, Doppler and color flow Doppler). * The study was technically limited. * The study was technically difficult. * Patient refused utilization of Definity. Left Ventricle * The left ventricle is grossly normal size. * The left ventricular ejection fraction is grossly normal. * Ejection Fraction = 55-60%. Right Ventricle * The right ventricle is normal size. * There is a pacemaker lead in the right ventricle. * The right ventricular systolic function is normal. Atria * The left atrium is mildly dilated. * The right atrium is mildly dilated. Mitral Valve * The mitral valve is grossly normal. * Significant mitral regurgitation is absent. Tricuspid Valve * The tricuspid valve is not well visualized. * Significant tricuspid regurgitation is absent. Aortic Valve * Moderate valvular aortic stenosis. * There is no significant aortic regurgitation. Pulmonic Valve * The pulmonic valve is not well visualized. Great Vessels * The aortic root and proximal ascending aorta are normal sized. Pericardium/Pleural * There is no pericardial effusion. MMode 2D Measurements and Calculations IVSd 1.0 cm LVIDd 4.9 cm LVIDs 3.0 cm LVPWd 0.94 cm IVS/LVPW 1.1 FS 38.6 % EDV(Teich) 111.9 ml ESV(Teich) 34.9 ml EF(Teich) 68.8 % EDV(cubed) 116.4 ml ESV(cubed) 26.9 ml EF(cubed) 76.9 % LV mass(C)d 173.2 grams LV mass(C)dI 74.1 grams/m\S\2 SV(Teich) 77.0 ml SI(Teich) 33.0 ml/m\S\2 SV(cubed) 89.5 ml SI(cubed) 38.3 ml/m\S\2 Ao root diam 3.3 cm Ao root area 8.7 cm\S\2 ACS 1.7 cm LA dimension 4.0 cm asc Aorta Diam 3.1 cm LA/Ao 1.2 LVOT diam 2.1 cm LVOT area 3.5 cm\S\2 Doppler Measurements and Calculations MV E max krystal 114.3 cm/sec MV A max krystal 36.1 cm/sec MV E/A 3.2 MV dec time 0.19 sec Ao V2 max 178.5 cm/sec Ao max PG 12.7 mmHg Ao max PG (full) 11.6 mmHg MELISA(V,A) 1.1 cm\S\2 MELISA(V,D) 1.1 cm\S\2 LV V1 max PG 1.2 mmHg LV V1 max 54.1 cm/sec PA V2 max 62.1 cm/sec PA max PG 1.5 mmHg PA acc slope 487.1 cm/sec\S\2 PA acc time 0.10 sec PI max krystal 152.7 cm/sec PI max PG 9.3 mmHg PI dec slope 133.1 cm/sec\S\2 PI P1/2t 336.0 msec TR max krystal 268.6 cm/sec PA pr(Accel) 33.2 mmHg
--- NOTE | 2018-01-20 18:45 | Progress Note ---
Internal Med Progress Note Date of Service: Jan 20, 2018. Provider Documentation: SUBJECTIVE: Patient sitting up on chair Breathing much improved, denies of orthopnea, dyspnea on exertion 2 L oxygen via nasal cannula (baseline) Wants to keep her Lynn until tomorrow As she is still getting Lasix Hoping to be discharged home tomorrow OBJECTIVE: Vital Signs-as noted below Exam: General-elderly female, no apparent distress Eyes- sclera nonicteric ENT-moist oral mucosa Neck-no JVD Lungs-minimum rales Heart-irregular Abdomen-soft nontender Extremities-no lower extremity edema Neuro- alert awake oriented 3, no focal neurological deficit Lab data as noted below. ASSESSMENT & PLAN: ACUTE CHF WITH DIASTOLIC DYSFUNCTION Volume status improved after diuresis Presented with volume overload, shortness of breath, dyspnea on exertion Chest x-ray shows bilateral pulmonary congestion Elevated proBNP Symptom improved after IV diuresis Lasix 40 mg twice daily Change to 40 mg p.o. twice daily (was 20 mg daily) Remains in negative balance Improvement of respiratory status ECHO : * The left ventricle is grossly normal size. * The left ventricular ejection fraction is grossly normal. * Ejection Fraction = 55-60%. * The right ventricular systolic function is normal. * The left atrium is mildly dilated. * The right atrium is mildly dilated. * Moderate valvular aortic stenosis. Cardiology consulted-appreciate input ACUTE ON CHRONIC HYPOXEMIC RESPIRATORY FAILURE Respiratory status stable improved to baseline Presented with hypoxia due to acute diastolic CHF with volume overload CHRONIC A. FIB ON ANTICOAGULATION Continue beta-leonardo On Coumadin: INR 2-3 HISTORY OF CORONARY ARTERY DISEASE No anginal symptoms Continue outpatient cardiac meds-aspirin/ beta leonardo/statin Imdur TYPE 2 DIABETES ON INSULIN: Well-controlled Hemoglobin A1c 7.2 on 10/2017 Patient is resumed her outpatient regimen of NPH 70/30 ACUTE RENAL FAILURE ON CKD stage III: Possible due to decompensated congestive heart failure leading to poor perfusion continue to monitor renal function Repeat PRP in a.m. Avoid nephrotoxins/no NSAID HYPERTENSION: Blood pressure stable now Episode of hypertension possibility secondary to Lasix/diuresis Continue outpatient antihypertensives with holding parameter for systolic blood pressure less than 100 CODE STATUS: Full code DVT PROPHYLAXIS On Coumadin INR therapeutic DISPOSITION Patient lives at home with her elderly Has significantly chronic ambulatory dysfunction Uses a wheelchair at baseline, is able to do transfer prior to admission PT OT evaluation requested-recommend return home with family support Will benefit from home health visiting nurse social service consulted for discharge planning Possible discharge home tomorrow Lynn catheter needs to be discontinued prior to discharge Medicine follow-up with Dr. Jose Antonio Donnelly Vital Signs: Date Time Temp Pulse Resp B/P (MAP) Pulse Ox O2 Delivery O2 Flow Rate FiO2 01/20/18 20:00 Nasal Cannula 2.0 01/20/18 19:31 36.3 68 18 116/60 (78) 96 Nasal Cannula 2.0 01/20/18 16:00 Nasal Cannula 2.0 01/20/18 15:05 36.6 67 20 121/62 (81) 98 2.0 01/20/18 12:00 Nasal Cannula 2.0 01/20/18 11:21 36.6 63 20 111/65 (80) 97 2.0 01/20/18 08:00 97 Nasal Cannula 2.0 01/20/18 07:51 98 3.0 01/20/18 07:24 36.4 67 19 105/57 (73) 91 Nasal Cannula 3.0 01/20/18 04:26 36.4 71 18 109/61 (77) 93 Nasal Cannula 3.0 01/20/18 04:00 Nasal Cannula 3.0 01/20/18 00:22 36.5 73 19 113/68 (83) 96 Nasal Cannula 3.0 01/20/18 00:10 Nasal Cannula 3.0 Lab Results: Results Past 24 Hours Test 01/20/18 02:37 01/20/18 05:17 01/20/18 07:27 01/20/18 11:32 Range/Units Bedside Glucose 118 126 179 70-90 mg/dl White Blood Count 7.43 4.8-10.8 K/uL Red Blood Count 3.42 4.2-5.4 M/uL Hemoglobin 10.7 12.0-16.0 g/dL Hematocrit 34.1 37-47 % Mean Corpuscular Volume 99.7 80-100 fL Mean Corpuscular Hemoglobin 31.3 25-34 pg Mean Corpuscular Hemoglobin Concent 31.4 32-36 g/dl RDW Standard Deviation 57.9 36.4-46.3 fL RDW Coefficient of Variation 16.2 11.5-14.5 % Platelet Count 176 130-400 K/uL Mean Platelet Volume 9.8 7.4-10.4 fL Prothrombin Time 27.5 9.0-12.0 SECONDS Prothromb Time International Ratio 2.7 0.9-1.1 Sodium Level 142 136-145 mmol/L Potassium Level 4.1 3.5-5.1 mmol/L Chloride Level 102 98-107 mmol/L Carbon Dioxide Level 37 21-32 mmol/L Anion Gap 3.0 3-11 mmol/L Blood Urea Nitrogen 36 7-18 mg/dl Creatinine 1.35 0.60-1.20 mg/dl Est Creatinine Clear Calc Drug Dose 45.8 ml/min Estimated GFR () 41.7 Estimated GFR (Non- 36.0 BUN/Creatinine Ratio 26.4 10-20 Random Glucose 113 70-99 mg/dl Calcium Level 9.0 8.5-10.1 mg/dl Magnesium Level 2.1 1.8-2.4 mg/dl Test 01/20/18 16:01 01/20/18 20:01 Range/Units Bedside Glucose 169 173 70-90 mg/dl
[2018-01-20] MEDS ORDERED: LSX40 PO (19:01)
[2018-01-20] MEDS: LORAZEPAM 0.5 MG TAB PO PRN (21:06)
[2018-01-20] MEDS: ACETAMINOPHEN 500 MG TAB PO PRN (21:07)
[2018-01-20] MEDS: PANTOprazole SOD 40 MG TAB PO SCH (21:09)
[2018-01-20] MEDS ORDERED: KETOROLAC TROMETHAMINE 15 MG/ML VIAL ONE (23:58)
[2018-01-21] MEDS ORDERED: KETOROLAC TROMETHAMINE 15 MG/ML VIAL IV. PRN (00:15)
[2018-01-21] MEDS ORDERED: NURSING VERBAL MED ORDER ONE ×2 (02:15)
[2018-01-21] MEDS: LORAZEPAM 0.5 MG TAB PO PRN (02:19)
[2018-01-21] MEDS ORDERED: LORAZEPAM 0.5 MG TAB PO ONE (03:00)
[2018-01-21 04:41] VITALS: BP 100/66; PULSE 87; TEMP 36.5; O2SAT 95
[2018-01-21 05:54] LABS: HEMATOCRIT 34.1 % (37-47); HEMOGLOBIN 10.7 g/dL (12.0-16.0); MEAN CELL VOLUME 99.4 fL (80-100); MEAN CORPUSCULAR HEMOGLOBIN 31.2 pg (25-34); MEAN CORPUSCULAR HGB CONC 31.4 g/dl (32-36); MEAN PLATELET VOLUME 9.2 fL (7.4-10.4); PLATELET COUNT 168 K/uL (130-400); RED CELL DISTRIBUTION WIDTH CV 16.2 % (11.5-14.5); RED CELL DISTRIBUTION WIDTH SD 58.2 fL (36.4-46.3); WHITE BLOOD COUNT 6.07 K/uL (4.8-10.8)
[2018-01-21 06:04] LABS: INR 2.6 (0.9-1.1)
[2018-01-21] MEDS: LEVOTHYROXINE 100 MCG TAB PO SCH (06:25)
[2018-01-21 06:30] LABS: CALCIUM 8.8 mg/dl (8.5-10.1); CREATININE 1.39 mg/dl (0.60-1.20)
[2018-01-21 07:09] VITALS: BP 112/61; PULSE 67; TEMP 36.6; O2SAT 92
[2018-01-21 08:36] VITALS: BP 119/75; PULSE 80
[2018-01-21] MEDS: CHOLECALCIFEROL 1000 INTER.UNIT TAB PO SCH (08:37)
[2018-01-21] MEDS: ATORVASTATIN 20 MG TAB PO SCH (08:37)
[2018-01-21] MEDS: METOPROLOL TARTRATE 25 MG TAB PO SCH (08:37)
[2018-01-21] MEDS: LACTOBACILLUS ACIDOPHILUS (FLORANEX) TAB PO SCH (08:38)
[2018-01-21] MEDS: ISOSORBIDE MONONITRATE 60 MG TABCR PO SCH (08:38)
[2018-01-21] MEDS: MULTIVITAMIN TAB PO SCH (08:39)
[2018-01-21] MEDS: MAGNESIUM CHLORIDE 64MG DELAYED REL TAB PO SCH (08:39)
[2018-01-21] MEDS: ASCORBIC ACID 500 MG TAB PO SCH (08:39)
[2018-01-21] MEDS: FUROSEMIDE 40 MG TAB PO SCH ×2 (08:39→16:11)
[2018-01-21] MEDS: ASPIRIN 81 MG ECTAB PO SCH (08:40)
[2018-01-21] MEDS: INSULIN HUMAN NPH SC SCH (08:43)
[2018-01-21] MEDS: INSULIN ASPART 100 UNITS/ML 3 ML PEN SC SCH ×2 (08:43→12:25)
--- NOTE | 2018-01-21 12:55 | Pharmacy Progress Note ---
Glycemic: Assessment & Plan Date of Service Jan 21, 2018. Assessment & Plan Item Value Date Time Bedside Glucose 126 mg/dl H 01/20/18 0727 Bedside Glucose 179 mg/dl H 01/20/18 1132 Bedside Glucose 169 mg/dl H 01/20/18 1601 Bedside Glucose 173 mg/dl H 01/20/182000 Bedside Glucose 81 mg/dl 01/21/18 0424 Bedside Glucose 109 mg/dl H 01/21/18 0742 Bedside Glucose 132 mg/dl H 01/21/18 1150 The patient is currently receiving ~50 units of insulin per day. BSGs ranging 81 - 179 mg/dl over the past 24hrs. * Basal insulin: NPH 12 units in AM with breakfast + NPH 4 units in PM with dinner * Correctional Insulin: Novolog Correction per scale AC ONLY (no correctional coverage at HS) Goal Range: Low 120 mg/dL - High 160 mg/dL Correction Factor: 15 mg/dL/unit * Prandial insulin: Per carb ratio of 1 unit per 6 grams CHO consumed BSGs continue to improve, no changes needed to inpatient regimen at this time. Pharmacy will continue to monitor patient daily and write orders per [facility] inpatient glycemic control protocol. Thanks. * Please note that the plan above was derived based on current level of insulin resistance and hospital stress. These recommendations are appropriate for inpatient admission only. Plan of care upon discharge will need to be reassessed to avoid potential outpatient hypo/hyperglycemia.
[2018-01-21 12:58] VITALS: BP 91/61; PULSE 67
[2018-01-21 13:25] VITALS: TEMP 36.6
--- NOTE | 2018-01-21 15:00 | Progress Note ---
Medicine Progress Note Date & Time of Visit: Jan 21, 2018 at 14:36. Subjective Pt was seen and examined Sitting in bed with no distress Pt said that she feels much better She said that her breathing feels better Denies any chest pain, palpitation, dizziness and fever Objective Last 8 Hrs Date Time Temp Pulse Resp B/P (MAP) Pulse Ox O2 Delivery O2 Flow Rate FiO2 01/21/18 13:25 36.6 67 16 92 Nasal Cannula 01/21/18 12:58 67 91/61 (71) 01/21/18 12:00 Nasal Cannula 2.0 01/21/18 08:36 80 119/75 (90) 01/21/18 08:00 Nasal Cannula 2.0 01/21/18 07:09 36.6 67 16 112/61 (78) 92 Nasal Cannula 2.0 Physical Exam: General- No acute distress Head- atraumatic Eyes- PERRL, EOMI ENT- oropharynx clear Neck- supple, no JVD Lungs- clear to auscultation Heart- regular rhythm Abdomen- normal bowel sounds, soft Extremities-no calf tenderness Neuro- alert, oriented x 3; PERRL, EOMI Skin- warm & dry Laboratory Results: Last 24 Hours Test 01/20/18 16:01 01/20/18 20:01 01/21/18 04:24 01/21/18 05:35 Bedside Glucose 169 mg/dl 173 mg/dl 81 mg/dl White Blood Count 6.07 K/uL Red Blood Count 3.43 M/uL Hemoglobin 10.7 g/dL Hematocrit 34.1 % Mean Corpuscular Volume 99.4 fL Mean Corpuscular Hemoglobin 31.2 pg Mean Corpuscular Hemoglobin Concent 31.4 g/dl RDW Standard Deviation 58.2 fL RDW Coefficient of Variation 16.2 % Platelet Count 168 K/uL Mean Platelet Volume 9.2 fL Prothrombin Time 26.4 SECONDS Prothromb Time International Ratio 2.6 Sodium Level 141 mmol/L Potassium Level 4.0 mmol/L Chloride Level 100 mmol/L Carbon Dioxide Level 37 mmol/L Anion Gap 4.0 mmol/L Blood Urea Nitrogen 41 mg/dl Creatinine 1.39 mg/dl Est Creatinine Clear Calc Drug Dose 44.5 ml/min Estimated GFR () 40.2 Estimated GFR (Non- 34.7 BUN/Creatinine Ratio 29.8 Random Glucose 118 mg/dl Calcium Level 8.8 mg/dl Magnesium Level 2.2 mg/dl Test 01/21/18 07:42 01/21/18 11:50 Bedside Glucose 109 mg/dl 132 mg/dl Assessment & Plan ACUTE CHF WITH DIASTOLIC DYSFUNCTION Presented with shortness of breath due to volume overload CXR showed cardiomegaly with suggestion of volume overload and right greater than left pleural effusions. Elevated proBNP on admission Received IV lasix 40mg BID Lasix was changed to 40 mg p.o. twice daily Cardiology on board case discussed with cardiology Dr. Tere Barbour from cardiac standpoint to discharge on Lasix 40mg BID Cardiology will arrange for follow up with the heart failure clinic within 1 week Monitor BMP I/O -2.3 L clinically improved ECHO * The left ventricle is grossly normal size. * The left ventricular ejection fraction is grossly normal. * Ejection Fraction = 55-60%. * The right ventricular systolic function is normal. * The left atrium is mildly dilated. * The right atrium is mildly dilated. * Moderate valvular aortic stenosis. ACUTE ON CHRONIC HYPOXEMIC RESPIRATORY FAILURE Presented with hypoxia due to acute diastolic CHF with volume overload Continue supplement oxygen Stable CHRONIC A. FIB ON ANTICOAGULATION Rate control Continue beta-leonardo On Coumadin INR 2.6 HISTORY OF CORONARY ARTERY DISEASE No anginal symptoms Continue aspirin/ beta leonardo/statin Imdur TYPE 2 DIABETES ON INSULIN: Hemoglobin A1c 7.2 on 10/2017 Patient is resumed her outpatient regimen of NPH 70/30 stable ACUTE RENAL FAILURE ON CKD stage III: Possible due to decompensated congestive heart failure leading to poor perfusion Creatine 1.3 Avoid nephrotoxins/no NSAID Check BMP HYPERTENSION BP in the low side Stable CODE STATUS: Full code DVT PROPHYLAXIS On Coumadin INR therapeutic DISPOSITION Will discharge home with home health services Medicine follow-up with Dr. Jose Antonio Donnelly Current Inpatient Medications: Current Inpatient Medications Medications (Trade) Dose Ordered Sig/[facility] Route Start Time Stop Time Status Last Admin Dose Admin Acetaminophen (Tylenol Tab) 1,000 mg TID PRN PO 01/18/18 20:45 02/17/18 20:44 01/20/18 21:07 1,000 MG Ascorbic Acid (Vitamin C Tab) 500 mg DAILY PO 01/19/18 09:00 02/18/18 08:59 01/21/18 08:39 500 MG Aspirin (Ecotrin Tab) 81 mg DAILY PO 01/19/18 09:00 02/18/18 08:59 01/21/18 08:40 81 MG Atorvastatin Calcium (Lipitor Tab) 10 mg DAILY PO 01/19/18 09:00 02/18/18 08:59 01/21/18 08:37 10 MG Cholecalciferol (Vitamin D Tab) 1,000 inter.unit DAILY PO 01/19/18 09:00 02/18/18 08:59 01/21/18 08:37 1,000 INTER.UNIT Levothyroxine Sodium (Synthroid Tab) 100 mcg DAILYBB PO 01/19/18 06:30 02/18/18 06:59 01/21/18 06:25 100 MCG Magnesium Chloride (Slow-Mag Tab) 64 mg DAILY PO 01/19/18 09:00 02/18/18 08:59 01/21/18 08:39 64 MG Magnesium Hydroxide (Milk Of Magnesia Susp) 30 ml DAILY PRN PO 01/18/18 20:45 02/17/18 20:44 01/20/18 18:54 30 ML Metoprolol Tartrate (Lopressor Tab) 25 mg DAILY PO 01/19/18 09:00 02/18/18 08:59 01/21/18 08:37 25 MG Multivitamins (Multivitamin Tab) 1 tab DAILY PO 01/19/18 09:00 02/18/18 08:59 01/21/18 08:39 1 TAB Nitroglycerin (Nitrostat Tab) 0.4 mg PRN UT 01/18/18 20:45 02/17/18 20:44 Pantoprazole Sodium (Protonix Tab) 40 mg Q2D PO 01/18/18 21:00 02/17/18 20:59 01/20/18 21:09 40 MG Warfarin Sodium (Coumadin Tab) 2.5 mg DAILY@1600 PO 01/19/18 16:00 02/18/18 15:59 Future hold 01/20/18 17:01 2.5 MG Lactobacillus Acidophilus (Floranex Tab) 1 tab DAILY PO 01/19/18 09:00 02/18/18 08:59 01/21/18 08:38 1 TAB Ondansetron HCl (Zofran Inj) 4 mg Q6H PRN IV 01/18/18 23:00 02/17/18 22:59 Glucose (Glucose 40% Gel) 15-30 GRAMS 15 GRAMS... UD PRN PO 01/18/18 23:45 02/17/18 23:44 Glucose (Glucose Chew Tab) 4-8 Tablets 4 Tabl... UD PRN PO 01/18/18 23:45 02/17/18 23:44 Dextrose (Dextrose 50% 50ML Syringe) 25-50ML OF 50% DW IV FOR... UD PRN IV 01/18/18 23:45 02/17/18 23:44 Glucagon (Glucagon Inj) 1 mg UD PRN SQ 01/18/18 23:45 02/17/18 23:44 Miscellaneous Information (Consult Glycemic Management Pharmacy) 1 ea UD PRN N/A 01/19/18 09:08 02/18/18 09:07 Lorazepam (Ativan Tab) 0.5 mg Q8 PRN PO 01/19/18 10:15 02/17/18 20:59 01/21/18 02:19 0.5 MG Insulin Human NPH (novoLIN-N NPH) 12 units QDB SC 01/20/18 08:00 02/19/18 07:59 01/21/18 08:43 12 UNITS Insulin Human NPH (novoLIN-N NPH) 4 units QDD SC 01/19/18 17:00 02/18/18 16:59 01/20/18 17:14 4 UNITS Isosorbide Mononitrate (Imdur Ext Rel Tab) 60 mg DAILY PO 01/20/18 09:00 02/18/18 08:59 01/21/18 08:38 60 MG Furosemide (Lasix Tab) 40 mg BID17 PO 01/20/18 17:00 02/19/18 16:59 01/21/18 08:39 40 MG Ketorolac Tromethamine (Toradol Inj) 15 mg Q6H PRN IV. 01/21/18 00:15 01/26/18 00:14 Insulin Aspart (novoLOG ASPART) SLIDING SCALE AC SC 01/21/18 16:30 02/20/18 16:29
--- NOTE | 2018-01-21 15:10 | Cardiology Follow-Up ---
Subjective Subjective Date of Service: Jan 21, 2018. Pt evaluation today including: conversation w/ patient, conversation w/ family , physical exam, chart review, lab review, review of studies, review of inpatient medication list Additional Details: The patient has had an uneventful night. She is anxious to be discharged home. I will arrange for follow-up as an outpatient. She should be maintained on diuretics after discharge. Problem List Medical Problems: (1) Anxiety Status: Acute (2) CHF exacerbation Status: Acute (3) COPD exacerbation Status: Acute (4) Headache Status: Acute (5) Hypoxia Status: Acute (6) Precordial chest pain Status: Acute (7) Sinusitis Status: Acute Objective Vital Signs Last Vital Signs Documentation Date Time Temp Pulse Resp B/P (MAP) Pulse Ox O2 Delivery O2 Flow Rate FiO2 01/21/18 13:25 36.6 67 16 92 Nasal Cannula 01/21/18 12:58 91/61 (71) 01/21/18 12:00 2.0 Physical Exam: General Appearance: no apparent distress ENT: normal ENT inspection Neck: thyroid normal, no JVD, no carotid bruits Respiratory/Chest: lungs clear, normal breath sounds Cardiovascular: no JVD, no murmur, + irregularly irregular Abdomen: normal bowel sounds, non tender, soft, no organomegaly Extremities: normal range of motion, + pedal edema (There is minimal lower extremity edema which is hard in nature most likely chronic) Neurologic/Psychiatric: no motor/sensory deficits, alert, oriented x 3 Skin: normal color, warm/dry, no rash Lymphatic: no adenopathy Assessment and Plan Impression: 1. Acute diastolic heart failure now resolving 2. Chronic atrial fibrillation 3. Permanent pacemaker 4. Obesity 5. Diabetes 6. Ischemic heart disease 7. Sleep apnea Recommendations: The patient should have a early follow-up and I will arrange that through our office. Medications: Current Inpatient Medications Medications (Trade) Dose Ordered Sig/[facility] Route Start Time Stop Time Status Last Admin Dose Admin Acetaminophen (Tylenol Tab) 1,000 mg TID PRN PO 01/18/18 20:45 02/17/18 20:44 01/20/18 21:07 1,000 MG Ascorbic Acid (Vitamin C Tab) 500 mg DAILY PO 01/19/18 09:00 02/18/18 08:59 01/21/18 08:39 500 MG Aspirin (Ecotrin Tab) 81 mg DAILY PO 01/19/18 09:00 02/18/18 08:59 01/21/18 08:40 81 MG Atorvastatin Calcium (Lipitor Tab) 10 mg DAILY PO 01/19/18 09:00 02/18/18 08:59 01/21/18 08:37 10 MG Cholecalciferol (Vitamin D Tab) 1,000 inter.unit DAILY PO 01/19/18 09:00 02/18/18 08:59 01/21/18 08:37 1,000 INTER.UNIT Levothyroxine Sodium (Synthroid Tab) 100 mcg DAILYBB PO 01/19/18 06:30 02/18/18 06:59 01/21/18 06:25 100 MCG Magnesium Chloride (Slow-Mag Tab) 64 mg DAILY PO 01/19/18 09:00 02/18/18 08:59 01/21/18 08:39 64 MG Magnesium Hydroxide (Milk Of Magnesia Susp) 30 ml DAILY PRN PO 01/18/18 20:45 02/17/18 20:44 01/20/18 18:54 30 ML Metoprolol Tartrate (Lopressor Tab) 25 mg DAILY PO 01/19/18 09:00 02/18/18 08:59 01/21/18 08:37 25 MG Multivitamins (Multivitamin Tab) 1 tab DAILY PO 01/19/18 09:00 02/18/18 08:59 01/21/18 08:39 1 TAB Nitroglycerin (Nitrostat Tab) 0.4 mg PRN UT 01/18/18 20:45 02/17/18 20:44 Pantoprazole Sodium (Protonix Tab) 40 mg Q2D PO 01/18/18 21:00 02/17/18 20:59 01/20/18 21:09 40 MG Warfarin Sodium (Coumadin Tab) 2.5 mg DAILY@1600 PO 01/19/18 16:00 02/18/18 15:59 Future hold 01/20/18 17:01 2.5 MG Lactobacillus Acidophilus (Floranex Tab) 1 tab DAILY PO 01/19/18 09:00 02/18/18 08:59 01/21/18 08:38 1 TAB Ondansetron HCl (Zofran Inj) 4 mg Q6H PRN IV 01/18/18 23:00 02/17/18 22:59 Glucose (Glucose 40% Gel) 15-30 GRAMS 15 GRAMS... UD PRN PO 01/18/18 23:45 02/17/18 23:44 Glucose (Glucose Chew Tab) 4-8 Tablets 4 Tabl... UD PRN PO 01/18/18 23:45 02/17/18 23:44 Dextrose (Dextrose 50% 50ML Syringe) 25-50ML OF 50% DW IV FOR... UD PRN IV 01/18/18 23:45 02/17/18 23:44 Glucagon (Glucagon Inj) 1 mg UD PRN SQ 01/18/18 23:45 02/17/18 23:44 Miscellaneous Information (Consult Glycemic Management Pharmacy) 1 ea UD PRN N/A 01/19/18 09:08 02/18/18 09:07 Lorazepam (Ativan Tab) 0.5 mg Q8 PRN PO 01/19/18 10:15 02/17/18 20:59 01/21/18 02:19 0.5 MG Insulin Human NPH (novoLIN-N NPH) 12 units QDB SC 01/20/18 08:00 02/19/18 07:59 01/21/18 08:43 12 UNITS Insulin Human NPH (novoLIN-N NPH) 4 units QDD SC 01/19/18 17:00 02/18/18 16:59 01/20/18 17:14 4 UNITS Isosorbide Mononitrate (Imdur Ext Rel Tab) 60 mg DAILY PO 01/20/18 09:00 02/18/18 08:59 01/21/18 08:38 60 MG Furosemide (Lasix Tab) 40 mg BID17 PO 01/20/18 17:00 02/19/18 16:59 01/21/18 08:39 40 MG Ketorolac Tromethamine (Toradol Inj) 15 mg Q6H PRN IV. 01/21/18 00:15 01/26/18 00:14 Insulin Aspart (novoLOG ASPART) SLIDING SCALE AC SC 01/21/18 16:30 02/20/18 16:29 Lab Results: Last 24 Hours Test 01/20/18 16:01 01/20/18 20:01 01/21/18 04:24 01/21/18 05:35 Bedside Glucose 169 mg/dl 173 mg/dl 81 mg/dl White Blood Count 6.07 K/uL Red Blood Count 3.43 M/uL Hemoglobin 10.7 g/dL Hematocrit 34.1 % Mean Corpuscular Volume 99.4 fL Mean Corpuscular Hemoglobin 31.2 pg Mean Corpuscular Hemoglobin Concent 31.4 g/dl RDW Standard Deviation 58.2 fL RDW Coefficient of Variation 16.2 % Platelet Count 168 K/uL Mean Platelet Volume 9.2 fL Prothrombin Time 26.4 SECONDS Prothromb Time International Ratio 2.6 Sodium Level 141 mmol/L Potassium Level 4.0 mmol/L Chloride Level 100 mmol/L Carbon Dioxide Level 37 mmol/L Anion Gap 4.0 mmol/L Blood Urea Nitrogen 41 mg/dl Creatinine 1.39 mg/dl Est Creatinine Clear Calc Drug Dose 44.5 ml/min Estimated GFR () 40.2 Estimated GFR (Non- 34.7 BUN/Creatinine Ratio 29.8 Random Glucose 118 mg/dl Calcium Level 8.8 mg/dl Magnesium Level 2.2 mg/dl Test 01/21/18 07:42 01/21/18 11:50 Bedside Glucose 109 mg/dl 132 mg/dl
[2018-01-21 15:33] VITALS: BP 139/79; PULSE 60; O2SAT 97
--- NOTE | 2018-01-21 15:34 | Discharge Instructions ---
Discharge Instructions Date of Service Jan 21, 2018. Admission Reason for Admission: Chf Exacerbation Discharge Discharge Diagnosis / Problem: ACUTE CHF WITH DIASTOLIC DYSFUNCTION Discharge Goals Goal(s): Decrease discomfort, Improve function, Improve disease control Activity Recommendations Activity Limitations: resume your previous activity (as tolerated) . Instructions / Follow-Up Instructions / Follow-Up Discharge home with health health services Follow up with your primary care provider Dr. Rai ( dr. Donnelly's patner) on 01/24 @ 12:45 PM Follow up with the heart failure clinic (cardiology office will call you for the appointment) Follow up with the coumadin clinic (INR 2.6 today) Follow up a low salt diet Check BMP in 3 days to monitor kidney function and electrolytes. Continue oxygen supplement Continue physical therapy Monitor blood sugar Fall precaution Call your Primary Care doctor if any of the following symptoms or problems start or get worse: * Shortness of breath or difficulty breathing * Wake up at night short of breath * Chest pain * Cough * Swelling of your hands, feet, or legs * More fatigued or tired with your normal activity * Palpitations - sudden fast heart beats WEIGHT * Weigh yourself every morning after using the bathroom. * Use the same scale. * Wear the same amount of clothing. * Write your weight down on a chart. * Call your Primary Care doctor if you gain more than 2-3 pounds in 1-2 days. MEDICATIONS * Use this discharge instruction sheet for medication instructions. * Take your medications at the time your doctor ordered. * Do not skip a dose of your medicines. * If you miss a dose of medicine, take it as soon as possible, but DO NOT DOUBLE A DOSE. * Read your medicine information when you get home. * Know all of the side effects of your medicine. If in doubt, ask your pharmacist * Call your Primary Care doctor's office if you have any side effects. * Be sure all of your doctors know what medicine and herbs you take (including cold, flu, and herbal medicine). Take the following with you to your follow-up doctor appointments: * Weight Chart * Medication List * List of questions Do not drink excessive alcohol, beer or wine. Current Hospital Diet Patient's current hospital diet: Low Sodium Diet (2gm Na), AHA Diet (Heart Healthy) Discharge Diet Recommended Diet: AHA Diet (Heart Healthy), Low Sodium Diet (2gm Na) Pending Studies Studies pending at discharge: no Laboratory Results Hemoglobin A1c Test 01/19/18 02:49 Range/Units Estimated Average Glucose 154 mg/dl Hemoglobin A1c 7.0 H 4.5-5.6 % Medical Emergencies . Who to Call and When: Call 911 or go to the Emergency Room if: * If at any time you feel your situation is an emergency * You have tightness or pain in your chest that does not go away with rest or Nitroglycerin * You are very short of breath even with rest . Non-Emergent Contact Non-Emergency issues call your: Primary Care Provider, Senior Systems Analyst Call Non-Emergent contact if: you have any medication questions . . "Provider Documentation" section prepared by Matt Santiago. .
[2018-01-21] MEDS: WARFARIN SOD 2.5 MG TAB PO SCH (16:14)
[2018-01-21] MEDS ORDERED: INSULIN ASPART 100 UNITS/ML 3 ML PEN SC SCH (16:30)
== END 2018-01-21 16:34 | disposition home health service (06) | DRG 291 ==
LOC: C.EDB 16:12 → C.MED 22:49 → ENRESERV 23:00 → C.MED 23:58
PROVIDERS: ADMIT Internal Medicine; ATTEND Internal Medicine
DX: I13.0 Hypertensive heart and chronic kidney disease with heart failure and stage 1 through stage 4 chronic kidney disease, or unspecified chronic kidney disease (principal); I50.33 Acute on chronic diastolic (congestive) heart failure; J96.21 Acute and chronic respiratory failure with hypoxia; N17.9 Acute kidney failure, unspecified; Z68.43 Body mass index [BMI] 50.0-59.9, adult; I25.10 Atherosclerotic heart disease of native coronary artery without angina pectoris; I48.2 Chronic atrial fibrillation; E11.22 Type 2 diabetes mellitus with diabetic chronic kidney disease; N18.3 Chronic kidney disease, stage 3 (moderate); F32.9 Major depressive disorder, single episode, unspecified; E11.40 Type 2 diabetes mellitus with diabetic neuropathy, unspecified; E78.5 Hyperlipidemia, unspecified; E03.9 Hypothyroidism, unspecified; I25.2 Old myocardial infarction; E66.01 Morbid (severe) obesity due to excess calories; G47.33 Obstructive sleep apnea (adult) (pediatric); Z83.3 Family history of diabetes mellitus; Z79.01 Long term (current) use of anticoagulants; Z79.4 Long term (current) use of insulin; Z79.82 Long term (current) use of aspirin; Z79.899 Other long term (current) drug therapy; Z88.0 Allergy status to penicillin; Z88.1 Allergy status to other antibiotic agents; Z88.8 Allergy status to other drugs, medicaments and biological substances; Z95.0 Presence of cardiac pacemaker; Z99.81 Dependence on supplemental oxygen

== ENCOUNTER → 2018-01-27 | Outpatient (CLI) | payer OTHER ==
[~2018-01-27] MED LIST changes: -FURO-85 PO; -LEVO1TAB33 PO; -LORA-741 PO; +LSX40 PO
[2018-01-27 15:59] LABS: BLOOD UREA NITROGEN 28 mg/dl (7-18); CALCIUM 9.2 mg/dl (8.5-10.1); CARBON DIOXIDE 40 mmol/L (21-32); CREATININE 1.22 mg/dl (0.60-1.20); GLUCOSE 145 mg/dl (70-99); POTASSIUM 4.2 mmol/L (3.5-5.1); SODIUM 143 mmol/L (136-145)
[2018-01-27 16:00] LABS: INR 2.2 (0.9-1.1)
== END | disposition home or self-care (01) ==
LOC: C.LABSPEC 15:29
PROVIDERS: ATTEND Internal Medicine
DX: E87.0 Hyperosmolality and hypernatremia (principal); N18.9 Chronic kidney disease, unspecified; Z79.01 Long term (current) use of anticoagulants

== ENCOUNTER 2018-02-10 14:11 | Inpatient (IN) | payer OTHER ==
[~2018-02-10] VITALS: Ht 167.6 cm; Wt 146.6 kg
[2018-02-10] MEDS ORDERED: LORAZEPAM 0.5 MG TAB SL STA (15:03)
[2018-02-10 15:18] LABS: BASO % 0.4 %; BASO ABS # 0.03 K/uL (0-0.2); EOS ABS # 0.47 K/uL (0-0.5); HEMATOCRIT 33.3 % (37-47); HEMOGLOBIN 10.6 g/dL (12.0-16.0); IG# 0.03 K/uL (0.00-0.02); LYMPH % 17.9 %; LYMPH ABS # 1.21 K/uL (1.2-3.4); MEAN CELL VOLUME 98.8 fL (80-100); MEAN CORPUSCULAR HEMOGLOBIN 31.5 pg (25-34); MEAN CORPUSCULAR HGB CONC 31.8 g/dl (32-36); MEAN PLATELET VOLUME 10.3 fL (7.4-10.4); MONO % 15.1 %; MONO ABS # 1.02 K/uL (0.11-0.59); NEUT % 59.2 %; PLATELET COUNT 203 K/uL (130-400); RED CELL DISTRIBUTION WIDTH CV 15.8 % (11.5-14.5); RED CELL DISTRIBUTION WIDTH SD 57.5 fL (36.4-46.3); WHITE BLOOD COUNT 6.76 K/uL (4.8-10.8)
--- NOTE | 2018-02-10 15:38 | DIAGNOSTIC IMAGING REPORT ---
SINGLE VIEW CHEST CLINICAL HISTORY: Weakness. Change in mental status. FINDINGS: An AP, portable, upright chest radiograph is compared to study dated 01/20/2018 and correlated with chest CT dated 12/25/2009. The examination is degraded by portable technique, apical lordotic positioning, large body habitus, and patient rotation. A 2-lead cardiac pacemaker is unchanged in position. The heart is enlarged and there is atherosclerotic calcification of the thoracic aorta. There is pulmonary vascular congestion with mild interstitial edema. There is chronic elevation of right hemidiaphragm. A right pleural effusion is observed. No large pleural effusion is seen on the left. No pneumothorax is seen. The skeletal structures are osteopenic. The bony thorax is grossly intact. IMPRESSION: 1. Cardiomegaly and cardiac pacemaker with evidence of congestive failure and mild interstitial edema. 2. There is a small right pleural effusion. Electronically signed by: Irving Abdi M.D. 02/10/2018 3:37 PM Dictated Date/Time: 02/10/2018 3:35 PM
--- NOTE | 2018-02-10 15:47 | DIAGNOSTIC IMAGING REPORT ---
R HUMERUS MIN 2 VIEWS ROUTINE CLINICAL HISTORY: 82 years-old Female presenting with fall. TECHNIQUE: Frontal and lateral views of the right humerus were obtained. COMPARISON: Chest x-ray from 01/20/2018. FINDINGS: Cystic change at the greater tuberosity could suggest chronic impingement or degenerative change. No acute fracture or malalignment. Hypertrophic degenerative changes of the acromioclavicular joint. No radiographic soft tissue abnormality. IMPRESSION: No acute osseous injury. Electronically signed by: Matthias Biggs M.D. 02/10/2018 3:45 PM Dictated Date/Time: 02/10/2018 3:44 PM
[2018-02-10 16:15] LABS: INR 2.3 (0.9-1.1); PTT PATIENT 30.7 SECONDS (21.0-31.0)
[2018-02-10 16:16] LABS: CALCIUM 9.1 mg/dl (8.5-10.1); CREATININE 1.15 mg/dl (0.60-1.20); POTASSIUM 5.5 mmol/L (3.5-5.1)
[2018-02-10 16:21] LABS: CKMB 1.9 ng/ml (0.5-3.6)
[2018-02-10] MEDS ORDERED: ACETAMINOPHEN 500 MG TAB PO STA (17:18)
--- NOTE | 2018-02-10 17:22 | DIAGNOSTIC IMAGING REPORT ---
CT SCAN OF THE CERVICAL SPINE CLINICAL HISTORY: Fall. Neck pain. COMPARISON STUDY: No priors. TECHNIQUE: CT scan of the cervical spine is performed from the skull base to the upper thoracic spine. Images are reviewed in the axial, sagittal, and coronal planes. IV contrast was not administered for this examination. A dose lowering technique was utilized adhering to the principles of ALARA. FINDINGS: Skeletal structures: The skeletal structures are osteopenic. There is no evidence of fracture or subluxation involving the cervical spine. Vertebral body height is maintained. There is minimal anterolisthesis at C3-C4 and C4-C5. Alignment is otherwise preserved. The odontoid process and lateral masses are intact. The atlantoaxial articulation is preserved noting advanced productive degenerative change. The spinous processes appear intact. There is moderate multilevel cervical spondylosis. Uncovertebral and facet arthropathy contribute to neural foraminal stenosis at several levels. Intervertebral discs: The disc spaces appear maintained. Central canal: A small posterior discussed by complex at C5-C6 may contribute to minimal acquired compromise of the central canal. Soft tissues: The prevertebral and paraspinous soft tissues are within normal limits. There is atherosclerotic calcification of the carotid bulbs. Right periorbital soft tissue contusion is partially visualized. The thyroid gland appears atrophic. Calvarium: The visualized calvarium at the skull base appears intact. Brain parenchyma: Partially visualized brain parenchyma the skull base is within normal limits noting age-related involutional change. Sinuses and mastoids: Trace mucosal thickening is seen within the right maxillary antrum. The remaining visualized paranasal sinuses are clear. There are trace mastoid effusions. Lung apices: Pleural effusion is seen tracking to the right apex. Pacemaker leads are noted in the left axilla. IMPRESSION: 1. There is no evidence of fracture or subluxation involving the cervical spine. 2. Osteopenia and spondylotic change as above. 3. A pleural effusion is seen tracking to the right lung apex. Electronically signed by: Irving Abdi M.D. 02/10/2018 5:21 PM Dictated Date/Time: 02/10/2018 5:17 PM
--- NOTE | 2018-02-10 17:27 | DIAGNOSTIC IMAGING REPORT ---
CT SCAN OF THE BRAIN WITHOUT IV CONTRAST CLINICAL HISTORY: Change in mental status. Weakness. COMPARISON STUDY: CT of the brain dated 02/08/2017. TECHNIQUE: Unenhanced axial CT scan of the brain is performed from the vertex to the skull base. A dose lowering technique was utilized adhering to the principles of ALARA. CT DOSE: 1216.95 mGy.cm FINDINGS: Brain parenchyma: There are age-related involutional changes noting mild subcortical and periventricular microangiopathic change. There is no hemorrhage, mass effect, or evidence of acute territorial ischemia by CT criteria. Rodriguez-white matter is preserved. No extra-axial fluid collection is seen. Ventricles, sulci, cisterns: Prominent secondary to involutional change. Intracranial vasculature: There is atherosclerotic calcification of the cavernous carotid and vertebral arteries. Calvarium: The skeletal structures are osteopenic. No depressed calvarial fracture is seen. Soft tissues: There is right periorbital and supraorbital scalp contusion. Sinuses and mastoids: Mild mucosal thickening seen within the frontal sinuses. The remaining visualized paranasal sinuses are clear. The mastoid air cells are well pneumatized. Orbits: The bony orbits are grossly intact. There are bilateral ocular lens implants. IMPRESSION: 1. There is no hemorrhage, mass effect, or evidence of acute territorial ischemia by CT criteria. 2. There is right periorbital and supraorbital scalp contusion. 3. No depressed calvarial fracture is identified. Electronically signed by: Irving Abdi M.D. 02/10/2018 5:26 PM Dictated Date/Time: 02/10/2018 5:13 PM
--- NOTE | 2018-02-10 17:39 | DIAGNOSTIC IMAGING REPORT ---
ADDENDUM ADDENDUM: In addition to the above findings, there is questionable cortical irregularity involving the region of the right femoral neck. This is not well assessed due to streak artifact and a subtle impacted fracture would be impossible to exclude. Radiographic correlation is recommended. If pain localizes to the right hip a short-term CT follow-up could be considered. Alternatively, MRI or nuclear bone scan would also be sensitive for acute fracture. Electronically signed by: Irving Abdi M.D. 02/10/2018 5:48 PM Dictated Date/Time: 02/10/2018 5:[address] SCAN OF THE RIGHT THIGH WITHOUT IV CONTRAST CLINICAL HISTORY: Right thigh hematoma. Fall. COMPARISON STUDY: No priors. TECHNIQUE: CT scan of the right thigh is performed from the bony pelvis to below the knee. Images are reviewed in the axial, sagittal, and coronal planes. IV contrast was not administered for this examination. A dose lowering technique was utilized adhering to the principles of ALARA. CT DOSE: 1195.55 mGy.cm FINDINGS: The skeletal structures are osteopenic. There is no evidence of right femoral fracture. A subtle tibial plateau fracture is suspected. Lipohemarthrosis is noted in the knee. The hip and knee joints appear maintained noting arthritic change. The visualized right hemipelvis appears intact. No lytic or blastic lesion is identified. There is generalized atrophy of the regional musculature. No intramuscular hematoma is identified. There is a large hyperdense collection identified within the medial aspect of the distal thigh at the level of the distal femoral metadiaphysis. This measures approximately 8 x 6.5 x 8 cm and is consistent with a hematoma. There is surrounding soft tissue edema. Advanced atherosclerotic calcification is noted in the right femoral artery. There is no right pelvic sidewall or inguinal lymphadenopathy. IMPRESSION: 1. There is a large hematoma identified within the soft tissues of the medial distal thigh as above. 2. There is no evidence of right femoral fracture. 3. A subtle tibial plateau fracture is suspected. There is associated lipohemarthrosis of the knee. Radiographic assessment of the knee is recommended. Electronically signed by: Irving Abdi M.D. 02/10/2018 5:38 PM Dictated Date/Time: 02/10/2018 5:26 PM
[2018-02-10] MEDS ORDERED: FENTANYL CITRATE INJ 50 MCG/1 ML 2 ML VIAL IV STA (17:59)
--- NOTE | 2018-02-10 18:36 | DIAGNOSTIC IMAGING REPORT ---
R KNEE 1 OR 2 VIEWS ROUTINE CLINICAL HISTORY: fall trauma COMPARISON: None. DISCUSSION: Considerable degenerative change all major joint compartments. Very small joint effusion. No fat fluid level. Soft tissue pretibial vascular calcifications. There is no evidence for soft tissue swelling. IMPRESSION: Considerable degenerative change. Small joint effusion. The above report was generated using voice recognition software. It may contain grammatical, syntax or spelling errors. Electronically signed by: River Rogel M.D. 02/10/2018 6:34 PM Dictated Date/Time: 02/10/2018 6:34 PM
--- NOTE | 2018-02-10 18:37 | DIAGNOSTIC IMAGING REPORT ---
R HIP UNILATERAL 2 VIEWS CLINICAL HISTORY: fall pain COMPARISON: CT same date DISCUSSION: Moderate degenerative narrowing right hip joint space. No evidence for acetabular protrusion. No evidence for fracture based on the routine film criteria. Cortical margins appear intact. There is no evidence for soft tissue swelling. IMPRESSION: Degenerative change. No fracture by routine image criteria. The above report was generated using voice recognition software. It may contain grammatical, syntax or spelling errors. Electronically signed by: River Rogel M.D. 02/10/2018 6:35 PM Dictated Date/Time: 02/10/2018 6:35 PM
--- NOTE | 2018-02-10 18:58 | EMERGENCY ROOM VISIT NOTE ---
History Report prepared by Ibis: Keven Locke Under the Supervision of: Dr. Steven Cordon D.O. First contact with patient: 14:24 Chief Complaint: FALL Stated Complaint: FALL History of Present Illness The patient is an 82 year old female who presents to the Emergency Room following a falling episode that occurred around 1200 today, about 3 hours ago. The patient states that she was standing on the edge of her bed, while leaning on her walker. The walked slipped out from under her and she fell to the floor. She did hit her head on the hardwood floor. She now complains of pain in the right side of her head, neck, her right arm, and right hip. The patient is on Coumadin. She notes that most of her pain is in her neck. She uses a walker and wheel chair to get around at baseline. Source of History: patient Onset: 3 hours ago Position: head, neck, arm (right), leg (right hip) Quality: other (traumatic injuries from fall) Timing: other (falling episode) Associated Symptoms: No LOC Review of Systems See HPI for pertinent positives & negatives. A total of 10 systems reviewed and were otherwise negative. 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 (14) Venous insufficiency Surgical Problems: (1) History of cholecystectomy (2) History of hysterectomy (3) S/P coronary artery stent placement (4) S/p dual chamber pacemaker insertion Family History Diabetes mellitus MOTHER FH: CHF (congestive heart failure) MOTHER FH: Crohn's disease DAUGHTER Hypertension SON Pacemaker BROTHER Social History Smoking Status: Never Smoker Alcohol Use: none Drug Use: none Marital Status: Housing Status: lives with family Occupation Status: retired Current/Historical Medications Scheduled Ascorbic Acid (Ascorbic Acid), 500 MG PO DAILY Aspirin (Aspirin Ec), 81 MG PO DAILY Atorvastatin (Lipitor), 10 MG PO DAILY Calcium Carbonate-Vitamin D (Calcium 600 + D), 2 TABLETS PO DAILY Cholecalciferol (Vitamin D3), 1 TAB PO DAILY Coenzyme Q10 (Ubidecarenone) (Co Q 10), 100 MG PO DAILY Furosemide (Furosemide), 40 MG PO BID17 Insulin Isophan/Regular (Novolin 70/30), 23 UNITS SC QAM Insulin Isophan/Regular (Novolin 70/30), 9 UNITS SC QPM Isosorbide Mononitrate Ext Rel (Imdur Ext Rel), 60 MG PO DAILY Levothyroxine Sodium (Levothyroxine Sodium), 100 MCG PO DAILY Magnesium Chloride (Slow-Mag Tab), 64 MG PO DAILY Metoprolol Tartrate (Lopressor) (Lopressor), 25 MG PO DAILY Multivitamin (Multivitamin), 1 TAB PO DAILY Nitroglycerin (Nitrostat), 0.4 MG UT PRN Pantoprazole (Protonix), 40 MG PO Q2D Probiotic Product (Probiotic), 1 CAP PO DAILY Warfarin Sod (Coumadin), 0 PO UD Scheduled PRN Acetaminophen (Tylenol), 500-1,000 MG PO TID PRN Magnesium Hydroxide (Milk of Magnesia), 30 ML PO for Constipation Miscellaneous Medications Clindamycin Hcl (Clindamycin Hcl), 4 CAP PO Allergies Coded Allergies: MERRY Inhibitors (Verified Allergy, Unknown, Unknown, 01/18/18) Adhesives (Verified Allergy, Unknown, "TAPE", 01/18/18) Albuterol (Verified Allergy, Unknown, INTOLERANT OF ALBUTEROL, 01/18/18) Amiodarone (Verified Allergy, Unknown, 01/18/18) Amoxicillin (Verified Allergy, Unknown, ., 01/18/18) Ampicillin (Verified Allergy, Unknown, Unknown, 01/18/18) Bacitracin (Verified Allergy, Unknown, 01/18/18) Replaces BACITRACIN/PO Cephalosporins (Verified Allergy, Unknown, KEFLEX, 01/18/18) Epinephrine (Verified Allergy, Unknown, UNKNOWN, 01/18/18) INFO FROM G Morphine (Verified Allergy, Unknown, 01/18/18) Penicillins (Verified Allergy, Unknown, AMPICILLIN, 01/18/18) Polymyxin B (Verified Allergy, Unknown, 01/18/18) Replaces BACITRACIN/PO Physical Exam Vital Signs Date Time Temp Pulse Resp B/P (MAP) Pulse Ox O2 Delivery O2 Flow Rate FiO2 02/10/18 18:41 79 02/10/18 17:25 74 24 121/60 94 Nasal Cannula 5.0 02/10/18 14:29 76 02/10/18 14:25 36.7 90 18 117/82 82 Room Air Physical Exam CONSTITUTIONAL/VITAL SIGNS: Reviewed / noted above. GENERAL: Non-toxic in appearance. INTEGUMENTARY: Warm, dry, and Joshua. HEAD: There is right sided facial ecchymosis, mainly in the right periorbital region. EYES: without scleral icterus or trauma. ENT/OROPHARYNX: clear and moist. LYMPHADENOPATHY/NECK: Is supple without lymphadenopathy or meningismus. RESPIRATORY: Lungs clear and equal. CARDIOVASCULAR: Regular rate and rhythm. GI/ABDOMEN: Soft and nontender. No organomegaly or pulsatile mass. No rebound or guarding. Normal bowel sounds. EXTREMITIES: Warm and well perfused. There is no discomfort with axial loading of the lower extremities. There is full range of motion of the upper extremities without significant discomfort. BACK: There is tenderness to palpation of the cervical spine. SKIN: There is a moderate hematoma to the right inner thigh. There is a skin tear in the right elbow area. NEUROLOGICAL: Intact without focal deficits. PSYCHIATRIC: normal affect. MUSCULOSKELETAL: Normally developed with good muscle tone. Medical Decision & Procedures ER Provider Diagnostic Interpretation: Radiology results as stated below per my review and radiologist interpretation: SINGLE VIEW CHEST CLINICAL HISTORY: Weakness. Change in mental status. FINDINGS: An AP, portable, upright chest radiograph is compared to study dated 01/20/2018 and correlated with chest CT dated 12/25/2009. The examination is degraded by portable technique, apical lordotic positioning, large body habitus, and patient rotation. A 2-lead cardiac pacemaker is unchanged in position. The heart is enlarged and there is atherosclerotic calcification of the thoracic aorta. There is pulmonary vascular congestion with mild interstitial edema. There is chronic elevation of right hemidiaphragm. A right pleural effusion is observed. No large pleural effusion is seen on the left. No pneumothorax is seen. The skeletal structures are osteopenic. The bony thorax is grossly intact. IMPRESSION: 1. Cardiomegaly and cardiac pacemaker with evidence of congestive failure and mild interstitial edema. 2. There is a small right pleural effusion. Electronically signed by: Irving Abdi M.D. 02/10/2018 3:37 PM Dictated Date/Time: 02/10/2018 3:35 PM R HUMERUS MIN 2 VIEWS ROUTINE CLINICAL HISTORY: 82 years-old Female presenting with fall. TECHNIQUE: Frontal and lateral views of the right humerus were obtained. COMPARISON: Chest x-ray from 01/20/2018. FINDINGS: Cystic change at the greater tuberosity could suggest chronic impingement or degenerative change. No acute fracture or malalignment. Hypertrophic degenerative changes of the acromioclavicular joint. No radiographic soft tissue abnormality. IMPRESSION: No acute osseous injury. Electronically signed by: Matthias Biggs M.D. 02/10/2018 3:45 PM Dictated Date/Time: 02/10/2018 3:44 PM Laboratory Results 02/10/18 14:25 Red Blood Count 3.37, Mean Corpuscular Volume 98.8, Mean Corpuscular Hemoglobin 31.5, Mean Corpuscular Hemoglobin Concent 31.8, Mean Platelet Volume 10.3, Neutrophils (%) (Auto) 59.2, Lymphocytes (%) (Auto) 17.9, Monocytes (%) (Auto) 15.1, Eosinophils (%) (Auto) 7.0, Basophils (%) (Auto) 0.4, Neutrophils # (Auto ) 4.00, Lymphocytes # (Auto) 1.21, Monocytes # (Auto) 1.02, Eosinophils # (Auto ) 0.47, Basophils # (Auto) 0.03 02/10/18 15:48 Test 02/10/18 14:25 02/10/18 15:48 White Blood Count 6.76 K/uL (4.8-10.8) Red Blood Count 3.37 M/uL (4.2-5.4) Hemoglobin 10.6 g/dL (12.0-16.0) Hematocrit 33.3 % (37-47) Mean Corpuscular Volume 98.8 fL (80-100) Mean Corpuscular Hemoglobin 31.5 pg (25-34) Mean Corpuscular Hemoglobin Concent 31.8 g/dl (32-36) Platelet Count 203 K/uL (130-400) Mean Platelet Volume 10.3 fL (7.4-10.4) Neutrophils (%) (Auto) 59.2 % Lymphocytes (%) (Auto) 17.9 % Monocytes (%) (Auto) 15.1 % Eosinophils (%) (Auto) 7.0 % Basophils (%) (Auto) 0.4 % Neutrophils # (Auto) 4.00 K/uL (1.4-6.5) Lymphocytes # (Auto) 1.21 K/uL (1.2-3.4) Monocytes # (Auto) 1.02 K/uL (0.11-0.59) Eosinophils # (Auto) 0.47 K/uL (0-0.5) Basophils # (Auto) 0.03 K/uL (0-0.2) RDW Standard Deviation 57.5 fL (36.4-46.3) RDW Coefficient of Variation 15.8 % (11.5-14.5) Immature Granulocyte % (Auto) 0.4 % Immature Granulocyte # (Auto) 0.03 K/uL (0.00-0.02) Prothrombin Time 23.7 SECONDS (9.0-12.0) Prothromb Time International Ratio 2.3 (0.9-1.1) Activated Partial Thromboplast Time 30.7 SECONDS (21.0-31.0) Partial Thromboplastin Ratio 1.2 Anion Gap 1.0 mmol/L (3-11) Est Creatinine Clear Calc Drug Dose 53.3 ml/min Estimated GFR () 50.6 Estimated GFR (Non- 43.7 BUN/Creatinine Ratio 24.3 (10-20) Calcium Level 9.1 mg/dl (8.5-10.1) Total Creatine Kinase 40 U/L (26-192) Creatine Kinase MB 1.9 ng/ml (0.5-3.6) Creatine Kinase MB Ratio 4.8 (0-3.0) Laboratory results as stated above per my review. Medications Administered Medications (Trade) Dose Ordered Sig/Yesenia Route Start Time Stop Time Status Last Admin Dose Admin Lorazepam (Ativan Tab) 0.25 mg NOW STAT SL 02/10/18 15:03 02/10/18 15:09 DC 02/10/18 15:21 0.25 MG Acetaminophen (Tylenol Tab) 500 mg NOW STAT PO 02/10/18 17:18 02/10/18 17:19 DC 02/10/18 17:18 500 MG Fentanyl Citrate (Fentanyl Inj) 50 mcg NOW STAT IV 02/10/18 17:59 02/10/18 18:00 DC 02/10/18 18:17 50 MCG ECG Per My Interpretation Indication: other (Trauma) Rate (beats per minute): 88 Rhythm: atrial fibrillation Findings: other (No MARIS, No PVCs) ED Course 1451: Previous medical records were reviewed. The patient was evaluated in room A11B. A complete history and physical examination was performed. 1503: Ordered Lorazepam 0.25 mg SL. 1718: Ordered Tylenol 500 mg PO. 175: Ordered Fentanyl 50 mcg IV. 1821: [facility] the [facility]. She would like me to discuss with orthopedics first, then admit if necessary. 1823: I discussed the case with Dr. Hardy - Orthopedics. He will see the patient in the hospital tomorrow. Medical Decision Differentials include: Close head injury, intracranial bleed, facial trauma, cervical spine trauma, chest and thoracic trauma, abdominal and intra-abdominal trauma, spine neurologic trauma, and extremity trauma. This is a 82-year-old female who presents to the ED with a chief complaint of a fall. The patient is chronically on Coumadin. She reportedly fell while getting out of bed. She fell onto her right side onto a wooden floor. She strike struck the right side of her head, right arm and right leg. She complains of some head pain. She also complains of some right inner thigh pain. Exam reveals a right periorbital hematoma or the globe and eye as well as gross vision was normal. No additional facial injuries. She does report some mild tenderness to palpation the right neck. The patient has range of motion of the upper extremities without discomfort. She does have some discomfort in the right elbow area where there is noted to be a skin tear. This was approximated and Steri-Stripped. There is a left upper extremity bruise from an IV attempt. The patient has a moderate sized right inner thigh hematoma. She has no pain with axial loading of the lower extremities. The patient CBC today is unremarkable with a hemoglobin of 10.6. INR is 2.3 on Coumadin. Potassium is 5.5, BUN is 28, glucose is 200. Chest x-ray reveals cardiomegaly with mild congestive heart failure findings. Clinically she is not in acute pulmonary edema. X-ray of the right humerus did not show any fractures. CT scan of the right lower extremity reveals a subtle tibial plateau fracture with lipohemarthrosis of the knee. There is also a large right thigh hematoma. There is a CT scan of the head and neck that were negative for acute traumatic injury. The patient was told the results. She was treated with lorazepam orally as well as Tylenol orally. She was also given IV fentanyl. She initially did not want anything too strong. Because of her symptoms and discomfort, she will be seen by the I spoke with the hospitalist, who will see the patient for admission/observation and further evaluation and consultation and orthopedics. I did speak with Dr. Hardy about the patient. At this time he does not feel the patient needs emergent surgery. I also spoke with the [facility] hospitalist. Medication Reconcilliation Current Medication List: was personally reviewed by me Blood Pressure Screening Patient's blood pressure: Normal blood pressure Consults Time Called: 1817 Consulting Physician: Mine Preciado PA-C Returned Call: 1821 I discussed the case with Mine Preciado PA-C. She would like me to discuss with orthopedics first, then admit if necessary. Additional Consults: Time Called: 1823 Consulted Physician: Dr. Antony [facility] Returned Call: 1823 Additional Comments: I discussed the case with Dr. Antony [facility]. He will see the patient in the hospital tomorrow. Impression Primary Impression: Fall Additional Impressions: Tibial plateau fracture Hemarthrosis of right thigh Scribe Attestation The scribe's documentation has been prepared under my direction and personally reviewed by me in its entirety. I confirm that the note above accurately reflects all work, treatment, procedures, and medical decision making performed by me. Departure Information Dispostion Being Evaluated By Hospitalist Referrals Jose Antonio Donnelly D.O. (PCP) Patient Instructions My [facility] Problem Qualifiers
[2018-02-10] MEDS ORDERED: FRS/40 PO ×2 (19:01→19:02)
[2018-02-10] MEDS ORDERED: LORA-741 PO (19:21)
[2018-02-10] MEDS ORDERED: NTRGSL/4 UT (19:23)
[2018-02-10] MEDS ORDERED: XPNINS125 INH (19:25)
[2018-02-10] MEDS ORDERED: DEXTROSE 50% 50 ML SYR IV PRN (19:45)
[2018-02-10] MEDS ORDERED: GLUCOSE 40% GEL 15 GM TUBE PO PRN (19:45)
[2018-02-10] MEDS ORDERED: GLUCAGON FOR INJ 1 MG VIAL SQ PRN (19:45)
[2018-02-10] MEDS ORDERED: GLUCOSE 10 TABS/TUBE PO PRN (19:45)
[2018-02-10] MEDS ORDERED: FUROSEMIDE 40 MG TAB PO ONE (19:59)
[2018-02-10] MEDS ORDERED: COEN10CA5 PO (19:59)
[2018-02-10] MEDS ORDERED: OXGN (19:59)
[2018-02-10] MEDS ORDERED: MAGNESIUM HYDROXIDE SUSP 30 ML UDC PO PRN (20:00)
[2018-02-10] MEDS ORDERED: NITROGLYCERIN 0.4 MG SL PER TAB CHARGE UT SCH (20:00)
[2018-02-10] MEDS ORDERED: LEVALBUTEROL 1.25MG/3ML NEB INH PRN (20:00)
--- NOTE | 2018-02-10 20:04 | History and Physical ---
History & Physical Date & Time of Service: Feb 10, 2018 at 20:04 Chief Complaint: FALL Primary Care Physician: Jose Antonio Donnelly D.O. History of Present Illness Source: patient, clinic records, hospital records Patient is an 82-year-old female with a PMH of chronic atrial fibrillation (on Coumadin), tachybradycardia syndrome (s/p pacemaker), CAD (s/p stents in 2012), DM I, chronic diastolic CHF, HTN, chronic hypoxic respiratory failure (2L home O2), ambulatory dysfunction and other medical problems listed below who presents after a fall today around noon. Patient was getting out of bed and leaned forward towards walker, losing her balance and falling onto her right side. Endorses hitting right side of head on hardwood floor. No LOC. Was unable to get up from floor but called for and EMS was called. States that she is experiencing pain on her right side of head, neck, right arm and right leg. Patient lives at home with 89-year-old . Is able to ambulate short distances with walker or wheelchair. Was recently admitted January 18 for CHF exacerbation and was discharged home with home health and outpatient PT. In the ED, CT head ruled out any acute bleeding but right periorbital and supraorbital scalp contusion present. Lower extremity CT with presence of large right thigh hematoma and subtle tibial plateau fracture. An addendum was added by radiologist that mentioned a questionable cortical irregularity involving the region of the right femoral neck. If pain localizes to the right hip a short -term CT follow-up could be considered. R humerus x-ray, R knee x-ray, R hip x- ray without acute fracture. Cervical spine CT without acute findings. Past Medical/Surgical History Medical Problems: (1) Anxiety (2) Benign hypertension (3) CAD (coronary artery disease) (4) CHF exacerbation (5) Chronic atrial fibrillation (6) Chronic kidney disease stage 3 (7) COPD exacerbation (8) Depression (9) Diabetes (10) Diabetic neuropathy (11) Dyslipidemia (12) Epistaxis (13) Headache (14) History of basal cell carcinoma (15) Hypothyroidism (16) Hypoxia (17) Obstructive sleep apnea syndrome (18) Precordial chest pain (19) Sinusitis (20) Tachy-bibi syndrome (21) Venous insufficiency Surgical Problems: (1) History of cholecystectomy (2) History of hysterectomy (3) S/P coronary artery stent placement (4) S/p dual chamber pacemaker insertion Family History Diabetes mellitus MOTHER FH: CHF (congestive heart failure) MOTHER FH: Crohn's disease DAUGHTER Hypertension SON Pacemaker BROTHER Social History Smoking Status: Never Smoker Drug Use: none Marital Status: Housing status: lives with significant other Occupational Status: retired Immunizations History of Influenza Vaccine: Yes Influenza Vaccine Date: March 12, 2012 History of Tetanus Vaccine?: Yes History of Pneumococcal: Yes Pneumococcal Date: Sep 08, 2004 History of Hepatitis B Vaccine: No Allergies Coded Allergies: MERRY Inhibitors (Verified Allergy, Unknown, Unknown, 01/18/18) Adhesives (Verified Allergy, Unknown, "TAPE", 01/18/18) Albuterol (Verified Allergy, Unknown, INTOLERANT OF ALBUTEROL, 01/18/18) Amiodarone (Verified Allergy, Unknown, 01/18/18) Amoxicillin (Verified Allergy, Unknown, ., 01/18/18) Ampicillin (Verified Allergy, Unknown, Unknown, 01/18/18) Bacitracin (Verified Allergy, Unknown, 01/18/18) Replaces BACITRACIN/PO Cephalosporins (Verified Allergy, Unknown, KEFLEX, 01/18/18) Epinephrine (Verified Allergy, Unknown, UNKNOWN, 01/18/18) INFO FROM [facility] Morphine (Verified Allergy, Unknown, 01/18/18) Penicillins (Verified Allergy, Unknown, AMPICILLIN, 01/18/18) Polymyxin B (Verified Allergy, Unknown, 01/18/18) Replaces BACITRACIN/PO Home Medications Scheduled Ascorbic Acid (Ascorbic Acid), 500 MG PO DAILY Aspirin (Aspirin Ec), 81 MG PO 3XWK Atorvastatin (Lipitor), 10 MG PO DAILY Calcium Carbonate-Vitamin D (Calcium 600 + D), 2 TABLETS PO DAILY Cholecalciferol (Vitamin D3), 1,000 UNITS PO DAILY Coenzyme Q10 (Ubidecarenone) (Co Q 10), 1 TAB PO DAILY Furosemide (Lasix), 40 MG PO DAILY Home O2 Therapy (Oxygen), 2 LITERS NA CONTINOUS Insulin Isophan/Regular (Novolin 70/30), 23 UNITS SC QAM Insulin Isophan/Regular (Novolin 70/30), 9 UNITS SC QPM Isosorbide Mononitrate Ext Rel (Imdur Ext Rel), 60 MG PO DAILY Levothyroxine Sodium (Levothyroxine Sodium), 100 MCG PO DAILY Magnesium Chloride (Slow-Mag Tab), 64 MG PO DAILY Metoprolol Tartrate (Lopressor) (Lopressor), 25 MG PO DAILY Multivitamin (Multivitamin), 1 TAB PO DAILY Nitroglycerin (Nitrostat), 0.4 MG UT PRN Probiotic Product (Probiotic), 1 CAP PO DAILY Warfarin Sod (Coumadin), 0.5 TAB PO DAILY Scheduled PRN Acetaminophen (Tylenol), 500-1,000 MG PO TID PRN for Pain Levalbuterol (Levalbuterol HCl), 3 ML INH Q8 PRN for Shortness of Breath Lorazepam (Ativan), 0.5-1 TAB PO BID PRN for Anxiety Magnesium Hydroxide (Milk of Magnesia), 30 ML PO for Constipation Miscellaneous Medications Clindamycin Hcl (Clindamycin Hcl), 4 CAP PO Review of Systems Constitutional: No fever, No chills, No weakness, No fatigue Eyes: No worsening of vision, No eye pain ENT: No nasal symptoms, No sore throat Respiratory: + dyspnea on exertion (chronic ), + dyspnea at rest (chronic ), No cough, No sputum, No wheezing Cardiovascular: No chest pain, No edema, No palpitations Abdomen: + constipation (chronic), No pain, No nausea, No vomiting, No diarrhea Musculoskeletal: + joint pain (R knee and R elbow ) Genitourinary - Female: No dysuria, No urinary frequency, No urinary incontinence Neurologic: No weakness, No numbness/tingling Hematologic / Lymphatic: + abnormal bleeding/bruising (R facial, hand, forearm , thigh with new bruising s/p fall ) Physical Exam Vital Signs Date Time Temp Pulse Resp B/P (MAP) Pulse Ox O2 Delivery O2 Flow Rate FiO2 02/10/18 19:24 80 02/10/18 18:41 79 02/10/18 17:25 74 24 121/60 94 Nasal Cannula 5.0 02/10/18 14:29 76 02/10/18 14:25 36.7 90 18 117/82 82 Room Air General Appearance: + mild distress, + obese (morbid) Head: normocephalic, + evidence of trama (Periorbital and supraorbital contusion, non-tender ) Eyes: normal inspection, PERRL, EOMI, sclerae normal ENT: normal ENT inspection, hearing grossly normal, pharynx normal Neck: supple, thyroid normal, trachea midline Respiratory/Chest: chest non-tender, no respiratory distress, no accessory muscle use, + crackles (bibasilar), + pertinent finding (Normal O2 saturation with 2L NC ) Cardiovascular: no murmur, normal peripheral pulses, + irregularly irregular, + pertinent finding (Trace BLE edema ) Abdomen/GI: non tender, soft, no organomegaly Back: normal inspection Extremities/Musculoskelatal: normal inspection, no calf tenderness, + pertinent finding (R knee and R thigh TTP. Large hematoma present on medial aspect of thigh. 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, no motor/sensory deficits (chronic ambulatory dysfunction ), alert, normal mood/affect, oriented x 3 Skin: warm/dry, + pertinent finding (R elbow with skin tear with steristrips, bilateral forearms with bruising) Diagnostics Laboratory Results Results Past 24 Hours Test 02/10/18 14:25 02/10/18 15:48 Range/Units White Blood Count 6.76 4.8-10.8 K/uL Red Blood Count 3.37 4.2-5.4 M/uL Hemoglobin 10.6 12.0-16.0 g/dL Hematocrit 33.3 37-47 % Mean Corpuscular Volume 98.8 80-100 fL Mean Corpuscular Hemoglobin 31.5 25-34 pg Mean Corpuscular Hemoglobin Concent 31.8 32-36 g/dl Platelet Count 203 130-400 K/uL Mean Platelet Volume 10.3 7.4-10.4 fL Neutrophils (%) (Auto) 59.2 % Lymphocytes (%) (Auto) 17.9 % Monocytes (%) (Auto) 15.1 % Eosinophils (%) (Auto) 7.0 % Basophils (%) (Auto) 0.4 % Neutrophils # (Auto) 4.00 1.4-6.5 K/uL Lymphocytes # (Auto) 1.21 1.2-3.4 K/uL Monocytes # (Auto) 1.02 0.11-0.59 K/uL Eosinophils # (Auto) 0.47 0-0.5 K/uL Basophils # (Auto) 0.03 0-0.2 K/uL RDW Standard Deviation 57.5 36.4-46.3 fL RDW Coefficient of Variation 15.8 11.5-14.5 % Immature Granulocyte % (Auto) 0.4 % Immature Granulocyte # (Auto) 0.03 0.00-0.02 K/uL Prothrombin Time 23.7 9.0-12.0 SECONDS Prothromb Time International Ratio 2.3 0.9-1.1 Activated Partial Thromboplast Time 30.7 21.0-31.0 SECONDS Partial Thromboplastin Ratio 1.2 Sodium Level 142 136-145 mmol/L Potassium Level 5.5 3.5-5.1 mmol/L Chloride Level 102 98-107 mmol/L Carbon Dioxide Level 40 21-32 mmol/L Anion Gap 1.0 3-11 mmol/L Blood Urea Nitrogen 28 7-18 mg/dl Creatinine 1.15 0.60-1.20 mg/dl Est Creatinine Clear Calc Drug Dose 53.3 ml/min Estimated GFR () 50.6 Estimated GFR (Non- 43.7 BUN/Creatinine Ratio 24.3 10-20 Random Glucose 200 70-99 mg/dl Calcium Level 9.1 8.5-10.1 mg/dl Total Creatine Kinase 40 26-192 U/L Creatine Kinase MB 1.9 0.5-3.6 ng/ml Creatine Kinase MB Ratio 4.8 0-3.[address]: IMPRESSION: 1. There is no hemorrhage, mass effect, or evidence of acute territorial ischemia by CT criteria. 2. There is right periorbital and supraorbital scalp contusion. 3. No depressed calvarial fracture is identified. Cervical spine CT: IMPRESSION: 1. There is no evidence of fracture or subluxation involving the cervical spine. 2. Osteopenia and spondylotic change as above. 3. A pleural effusion is seen tracking to the right lung apex. R humerus XR: IMPRESSION: No acute osseous injury. CXR: IMPRESSION: 1. Cardiomegaly and cardiac pacemaker with evidence of congestive failure and mild interstitial edema. 2. There is a small right pleural effusion. R hip XR: IMPRESSION: Degenerative change. No fracture by routine image criteria. R knee XR: IMPRESSION: Considerable degenerative change. Small joint effusion. Lower Ext CT: IMPRESSION: 1. There is a large hematoma identified within the soft tissues of the medial distal thigh as above. 2. There is no evidence of right femoral fracture. 3. A subtle tibial plateau fracture is suspected. There is associated lipohemarthrosis of the knee. Radiographic assessment of the knee is recommended. *Addendum* In addition to the above findings, there is questionable cortical irregularity involving the region of the right femoral neck. This is not well assessed due to streak artifact and a subtle impacted fracture would be impossible to exclude. Radiographic correlation is recommended. If pain localizes to the right hip a short-term CT follow-up could be considered. Alternatively, MRI or nuclear bone scan would also be sensitive for acute fracture. EKG Atrial fibrillation at 88 bpm. Low voltage QRS Anterolateral infarct , age undetermined. Marked ST abnormality, possible inferior subendocardial injury When compared with ECG of 18-JAN-2018 16:51, Electronic ventricular pacemaker no longer present Confirmed by GULSHAN XIONG ([id number]) on 02/10/2018 3:34:12 PM Impression Assessment and Plan Patient is an 82-year-old female with a PMH of chronic atrial fibrillation (on Coumadin), tachybradycardia syndrome (s/p pacemaker), CAD (s/p stents in 2012), DM I, chronic diastolic CHF, HTN, chronic hypoxic respiratory failure (2L home O2), ambulatory dysfunction and other medical problems listed below who presents after a fall today around noon. 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 Currently complaining of R knee pain only -Hold coumadin for now -Ortho consulted -Will evaluate tomorrow -No need to make NPO at midnight -Pain control -Eventual PT/OT Chronic diastolic CHF: -Compensated -Recent admission January 18 for exacerbation -Follows with Dr. Nugent in clinic -SOB, BLE edema has improved significantly -Gave today's PO lasix dose -Re-evaluate in AM but plan to continue home lasix dose -CXR with evidence of some congestive failure -Echo from 01/20/18 with EF of 55-60%, moderate AV stenosis -Cont imdur, beta leonardo Chronic hypoxic respiratory failure 2/2 CHF, BERTO: -O2 saturation at baseline of 2L NC -Continue supplemental use Chronic A Fib: -On coumadin -INR of 2.3 -Hold coumadin in setting of multiple contusions 2/2 fall -Cont beta leonardo CAD (s/p stents in 2012): -No chest pain -Continue metoprolol, imdur, statin -Aspirin held for now DM Type 1: -A1c of 7 earlier this month -Hold Novolin 70/30 while in-patient -Lantus, sliding scale novolog per protocol -BSG AC HS CKD III: -Cr ~1, GFR ~40 -At baseline -Monitor, avoid nephrotoxic agents when able Hypothyroidism: -Cont levothyroxine Anxiety: -Home dose ativan PRN DVT Ppx: Coumadin held currently 2/2 fall. SCDs Code status: FULL PCP: Andrzej Dispo: Observation med/surg. Discharge planning for possible rehab placement vs. home health. Patient seen in collaboration with Dr. Santiago. Please see addendum. Attending Addendum Pt was seen and examined. Agreed with Mine CASTRO exam, assessment and plan. 82- year-old female with a PMH of chronic atrial fibrillation (on Coumadin), tachybradycardia syndrome (s/p pacemaker), CAD (s/p stents in 2012), DM I, chronic diastolic CHF, HTN, chronic hypoxic respiratory failure (2L home O2), ambulatory dysfunction present after a mechanical fall. Pt said that she lost her balance and fell on her right side. she denies any loss of consciousness. she had a CT done showed a large hematoma identified within the soft tissues of the medial distal thigh and a subtle tibial plateau fracture is suspected. Currently pt is very anxious and complaint of pain. received fentanyl in the ER that helped. Pt said that she cannot take tramadol or morphine. Will give dilaudidx1, then change to oral percocet if able to tolerate. Will hold coumadin for the large hematoma. ortho consulted for eval of the subtle tibia plateau fracture and large hematoma. PT/OT and fall precaution. MD Pamela Resuscitation Status VTE Prophylaxis Will order VTE Prophylaxis: Yes
[2018-02-10] MEDS ORDERED: IV FLUIDS COMPLETED PRN (20:30)
[2018-02-10 20:45] VITALS: BP 102/47; PULSE 95; TEMP 36.6; O2SAT 94; O2SAT 95; BMI 50.9
[2018-02-10] MEDS ORDERED: INSULIN GLARGINE SOLOSTAR 100 UNITS/ML 3 ML PEN SC ONE (21:00)
[2018-02-10] MEDS: LORAZEPAM 0.5 MG TAB PO PRN (21:39)
[2018-02-10] MEDS: INSULIN ASPART 100 UNITS/ML 3 ML PEN SC SCH (22:38)
[2018-02-10] MEDS: ACETAMINOPHEN 500 MG TAB PO SCH (22:39)
[2018-02-10 23:00] VITALS: BP 96/58; PULSE 95; TEMP 36.7; O2SAT 97
[2018-02-10] MEDS ORDERED: HYDROmorphone INJ 0.5 MG/0.5 ML SYR IV PRN (23:30)
[2018-02-11] VITALS (7 sets, daily range): BP systolic 85–129; BP diastolic 51–86; PULSE 67–77; TEMP 36.5–36.8; O2SAT 94–96; Ht 167.6 cm; Wt 146.6 kg
[2018-02-11] MEDS ORDERED: INSULIN ASPART 100 UNITS/ML 3 ML PEN SC ONE (01:00)
[2018-02-11] MEDS ORDERED: TRAMADOL HCL 50 MG TAB PO PRN (01:45)
[2018-02-11] MEDS: LEVOTHYROXINE 100 MCG TAB PO SCH (05:44)
[2018-02-11] MEDS: ACETAMINOPHEN 500 MG TAB PO SCH ×3 (05:44→21:16)
[2018-02-11] MEDS: LORAZEPAM 0.5 MG TAB PO PRN (05:44)
[2018-02-11 06:46] LABS: HEMATOCRIT 27.3 % (37-47); HEMOGLOBIN 8.5 g/dL (12.0-16.0); MEAN CELL VOLUME 98.6 fL (80-100); MEAN CORPUSCULAR HEMOGLOBIN 30.7 pg (25-34); MEAN CORPUSCULAR HGB CONC 31.1 g/dl (32-36); MEAN PLATELET VOLUME 9.4 fL (7.4-10.4); NUCLEATED RED BLOOD CELL ABS 0.03 K/uL (0-0); PLATELET COUNT 173 K/uL (130-400); RED CELL DISTRIBUTION WIDTH CV 15.9 % (11.5-14.5); RED CELL DISTRIBUTION WIDTH SD 57.1 fL (36.4-46.3); WHITE BLOOD COUNT 5.88 K/uL (4.8-10.8)
[2018-02-11 06:51] LABS: INR 2.4 (0.9-1.1)
[2018-02-11 06:58] LABS: HEMOGLOBIN A1C 6.8 % (4.5-5.6)
[2018-02-11 07:31] LABS: CALCIUM 8.6 mg/dl (8.5-10.1); CREATININE 1.11 mg/dl (0.60-1.20); POTASSIUM 4.3 mmol/L (3.5-5.1)
[2018-02-11] MEDS: INSULIN ASPART 100 UNITS/ML 3 ML PEN SC SCH ×4 (08:55→21:09)
[2018-02-11] MEDS: INSULIN GLARGINE SOLOSTAR 100 UNITS/ML 3 ML PEN SC SCH ×2 (08:56→21:08)
[2018-02-11] MEDS: ASCORBIC ACID 500 MG TAB PO SCH (08:57)
[2018-02-11] MEDS: LACTOBACILLUS ACIDOPHILUS (FLORANEX) TAB PO SCH (08:57)
[2018-02-11] MEDS: ATORVASTATIN 10 MG TAB PO SCH (08:57)
[2018-02-11] MEDS: MAGNESIUM CHLORIDE 64MG DELAYED REL TAB PO SCH (08:58)
[2018-02-11] MEDS: CHOLECALCIFEROL 1000 INTER.UNIT TAB PO SCH (08:58)
[2018-02-11] MEDS ORDERED: METOPROLOL TARTRATE 25 MG TAB PO SCH (09:00)
[2018-02-11] MEDS ORDERED: FUROSEMIDE 40 MG TAB PO SCH (09:00)
[2018-02-11] MEDS: ISOSORBIDE MONONITRATE 60 MG TABCR PO SCH (09:03)
--- NOTE | 2018-02-11 10:18 | Orthopedic Consultation ---
Orthopedic Consultation Date of Consultation: February 11, 2018. Attending Physician: Savanna Preston, DO Reason for Consultation: RLE Hematoma. ? Subtle R Tibial Plateau Fx (Darryl Bray,P.A.) History of Present Illness 82-year-old white female with multiple comorbidities including morbid obesity, chronic atrial fibrillation on chronic Coumadin, tachybradycardia syndrome, status post pacemaker pacemaker, CAD status post stenting in 2012, diabetes mellitus type 1, chronic diastolic CHF, hypertension, chronic hypoxic respiratory failure on home O2, and ambulatory dysfunction. Pt was getting out of bed and reaching for her walker when she lost her balance and fell to the floor onto her right side. Denies LOC. She was unable to get up on her own and the ambulance was called. Brought to [facility]. Multiple radiologic studies were done and she was found to have a hematoma over the medial thigh and question of a subtle Tibial plateau fx. Pt was admitted for further care. We have been asked to see her for her hematom and question of subtle tibial fx. Currently the patient is sitting at the bedside. Nursing staff is wrapping a dressing on her right elbow. Pt was placed back into bed with the help of 3 people including myself. She complains of pain "all over" since the fall yesterday. Mostly on the right side around her face and in her thigh. She denies knee and hip pain on the RLE. She states that she has some discomfort in the LLE from a strap that was placed around her thigh (burkett strap?) which has since been removed. (Darryl Bray,P.A.) Past Medical/Surgical History Medical Problems: (1) Anxiety Status: Acute (2) CHF exacerbation Status: Acute (3) COPD exacerbation Status: Acute (4) Fall Status: Acute (5) Headache Status: Acute (6) Hemarthrosis of right thigh Status: Acute (7) Hypoxia Status: Acute (8) Precordial chest pain Status: Acute (9) Sinusitis Status: Acute (10) Tibial plateau fracture Status: Acute (Darryl Bray,P.A.) Family History Diabetes mellitus MOTHER FH: CHF (congestive heart failure) MOTHER FH: Crohn's disease DAUGHTER Hypertension SON Pacemaker BROTHER (Darryl Bray,P.A.) Diabetes mellitus MOTHER FH: CHF (congestive heart failure) MOTHER FH: Crohn's disease DAUGHTER Hypertension SON Pacemaker BROTHER (Win Lacy D.OAviva) Social History Smoking Status: Never Smoker Drug Use: none Marital Status: Housing Status: lives with family Occupation Status: retired (Darryl Bray,P.A.) Allergies Coded Allergies: MERRY Inhibitors (Verified Allergy, Unknown, Unknown, 01/18/18) Adhesives (Verified Allergy, Unknown, "TAPE", 01/18/18) Albuterol (Verified Allergy, Unknown, INTOLERANT OF ALBUTEROL, 01/18/18) Amiodarone (Verified Allergy, Unknown, 01/18/18) Amoxicillin (Verified Allergy, Unknown, ., 01/18/18) Ampicillin (Verified Allergy, Unknown, Unknown, 01/18/18) Bacitracin (Verified Allergy, Unknown, 01/18/18) Replaces BACITRACIN/PO Cephalosporins (Verified Allergy, Unknown, KEFLEX, 01/18/18) Epinephrine (Verified Allergy, Unknown, UNKNOWN, 01/18/18) INFO FROM [facility] Morphine (Verified Allergy, Unknown, hallucination, 02/11/18) Penicillins (Verified Allergy, Unknown, AMPICILLIN, 01/18/18) Polymyxin B (Verified Allergy, Unknown, 01/18/18) Replaces BACITRACIN/PO Home Medications Scheduled Ascorbic Acid (Ascorbic Acid), 500 MG PO DAILY Aspirin (Aspirin Ec), 81 MG PO 3XWK Atorvastatin (Lipitor), 10 MG PO DAILY Calcium Carbonate-Vitamin D (Calcium 600 + D), 2 TABLETS PO DAILY Cholecalciferol (Vitamin D3), 1,000 UNITS PO DAILY Coenzyme Q10 (Ubidecarenone) (Co Q 10), 1 TAB PO DAILY Furosemide (Lasix), 40 MG PO DAILY Home O2 Therapy (Oxygen), 2 LITERS NA CONTINOUS Insulin Isophan/Regular (Novolin 70/30), 23 UNITS SC QAM Insulin Isophan/Regular (Novolin 70/30), 9 UNITS SC QPM Isosorbide Mononitrate Ext Rel (Imdur Ext Rel), 60 MG PO DAILY Levothyroxine Sodium (Levothyroxine Sodium), 100 MCG PO DAILY Magnesium Chloride (Slow-Mag Tab), 64 MG PO DAILY Metoprolol Tartrate (Lopressor) (Lopressor), 25 MG PO DAILY Multivitamin (Multivitamin), 1 TAB PO DAILY Nitroglycerin (Nitrostat), 0.4 MG UT PRN Probiotic Product (Probiotic), 1 CAP PO DAILY Warfarin Sod (Coumadin), 0.5 TAB PO DAILY Scheduled PRN Acetaminophen (Tylenol), 500-1,000 MG PO TID PRN for Pain Levalbuterol (Levalbuterol HCl), 3 ML INH Q8 PRN for Shortness of Breath Lorazepam (Ativan), 0.5-1 TAB PO BID PRN for Anxiety Magnesium Hydroxide (Milk of Magnesia), 30 ML PO for Constipation Miscellaneous Medications Clindamycin Hcl (Clindamycin Hcl), 4 CAP PO Current Inpatient Medications Current Inpatient Medications Medications (Trade) Dose Ordered Sig/Yesenia Route Start Time Stop Time Status Last Admin Dose Admin Insulin Aspart (novoLOG ASPART) SLIDING SCALE If C... ACHS SC 02/10/18 21:00 03/12/18 20:59 02/11/18 08:55 3 UNITS Glucose (Glucose 40% Gel) 15-30 GRAMS 15 GRAMS... UD PRN PO 02/10/18 19:45 03/12/18 19:44 Glucose (Glucose Chew Tab) 4-8 Tablets 4 Tabl... UD PRN PO 02/10/18 19:45 03/12/18 19:44 Dextrose (Dextrose 50% 50ML Syringe) 25-50ML OF 50% DW IV FOR... UD PRN IV 02/10/18 19:45 03/12/18 19:44 Glucagon (Glucagon Inj) 1 mg UD PRN SQ 02/10/18 19:45 03/12/18 19:44 Insulin Glargine (Lantus Solostar Pen) 10 units Q12 SC 02/11/18 09:00 03/13/18 08:59 02/11/18 08:56 10 UNITS Acetaminophen (Tylenol Tab) 1,000 mg Q8 PO 02/10/18 22:00 03/12/18 21:59 02/11/18 05:44 1,000 MG Ascorbic Acid (Vitamin C Tab) 500 mg DAILY PO 02/11/18 09:00 03/13/18 08:59 02/11/18 08:57 500 MG Atorvastatin Calcium (Lipitor Tab) 10 mg DAILY PO 02/11/18 09:00 03/13/18 08:59 02/11/18 08:57 10 MG Cholecalciferol (Vitamin D Tab) 1,000 inter.unit DAILY PO 02/11/18 09:00 03/13/18 08:59 02/11/18 08:58 1,000 INTER.UNIT Furosemide (Lasix Tab) 40 mg DAILY PO 02/11/18 09:00 03/13/18 08:59 02/11/18 09:03 40 MG Isosorbide Mononitrate (Imdur Ext Rel Tab) 60 mg DAILY PO 02/11/18 09:00 03/13/18 08:59 02/11/18 09:03 60 MG Levalbuterol (Xopenex 1.25MG/ 3ML Neb) 1.25 mg Q8 PRN INH 02/10/18 20:00 03/12/18 19:59 Levothyroxine Sodium (Synthroid Tab) 100 mcg DAILYBB PO 02/11/18 06:00 03/13/18 06:59 02/11/18 05:44 100 MCG Lorazepam (Ativan Tab) 0.5 mg BID PRN PO 02/10/18 20:00 03/12/18 19:59 02/11/18 05:44 0.5 MG Magnesium Chloride (Slow-Mag Tab) 64 mg DAILY PO 02/11/18 09:00 03/13/18 08:59 02/11/18 08:58 64 MG Magnesium Hydroxide (Milk Of Magnesia Susp) 30 ml UD PRN PO 02/10/18 20:00 03/12/18 19:59 Metoprolol Tartrate (Lopressor Tab) 25 mg DAILY PO 02/11/18 09:00 03/13/18 08:59 02/11/18 09:11 25 MG Nitroglycerin (Nitrostat Tab) 0.4 mg PRN UT 02/10/18 20:00 03/12/18 19:59 Lactobacillus Acidophilus (Floranex Tab) 1 tab DAILY PO 02/11/18 09:00 03/13/18 08:59 02/11/18 08:57 1 TAB Miscellaneous (Iv Fluids Completed) 1 ea PRN PRN N/A 02/10/18 20:30 02/10/19 20:29 Tramadol HCl (Ultram Tab) 50 mg Q4H PRN PO 02/11/18 01:45 03/13/18 01:44 02/11/18 02:22 50 MG (Darryl Bray,P.A.) Review of Systems As per admitting H&P (Darryl Bray,P.A.) Physical Exam Date Time Temp Pulse Resp B/P (MAP) Pulse Ox O2 Delivery O2 Flow Rate FiO2 02/11/18 09:00 129/86 (100) 74 02/11/18 08:51 94 Nasal Cannula 3.0 Humidified Oxygen 02/11/18 07:44 36.8 72 19 109/68 (82) 95 Humidified Oxygen 5.0 02/10/18 23:30 Nasal Cannula 5.0 Humidified Oxygen 02/10/18 23:00 36.7 95 18 96/58 (71) 97 Nasal Cannula 5.0 Humidified Oxygen 02/10/18 20:45 94 Nasal Cannula 5.0 02/10/18 20:45 36.6 95 20 102/47 (65) 95 Nasal Cannula 5.0 02/10/18 20:36 36.7 80 24 121/60 94 02/10/18 19:24 80 02/10/18 18:41 79 02/10/18 17:25 74 24 121/60 94 Nasal Cannula 5.0 02/10/18 14:29 76 02/10/18 14:25 36.7 90 18 117/82 82 Room Air On examination of the patient, she is a morbidly obese white female who appears somewhat younger than her stated age. She is in a mild amount of distress due to pain in her right thigh and also pain in her left lower extremity from a Burkett strep that was placed last night which has now been removed. She complains of discomfort over the right periorbital area which has moderate ecchymosis and swelling. On examination of her right lower extremity, she has no pain in the right hip with internal and external rotation, or with flexion and extension. She has no pain in the right knee with gentle flexion and extension. No pain on palpation of the right knee at this time. Ligaments appear to be stable. She has a large area of ecchymosis over the medial aspect of her thigh above the knee that is somewhat tense on palpation and is tender on palpation. There are no open wounds anywhere that I can appreciate. She is able to actively flex the hip and also flex the knee on her own and is able to do a straight leg raise of the RLE on her own as well without discomfort. She has noted swelling of both lower extremities at the ankles and feet. She states that this is normal for her. She has some slight decrease in sensation in both feet which she has had over time but has not worsened. No obvious gross motor or sensory loss at this time. (Darryl BrayP.A.) Laboratory Results Last 24 Hours Test 02/10/18 14:25 02/10/18 15:48 02/10/18 18:48 02/10/18 20:54 White Blood Count 6.76 K/uL Red Blood Count 3.37 M/uL Hemoglobin 10.6 g/dL Hematocrit 33.3 % Mean Corpuscular Volume 98.8 fL Mean Corpuscular Hemoglobin 31.5 pg Mean Corpuscular Hemoglobin Concent 31.8 g/dl Platelet Count 203 K/uL Mean Platelet Volume 10.3 fL Neutrophils (%) (Auto) 59.2 % Lymphocytes (%) (Auto) 17.9 % Monocytes (%) (Auto) 15.1 % Eosinophils (%) (Auto) 7.0 % Basophils (%) (Auto) 0.4 % Neutrophils # (Auto) 4.00 K/uL Lymphocytes # (Auto) 1.21 K/uL Monocytes # (Auto) 1.02 K/uL Eosinophils # (Auto) 0.47 K/uL Basophils # (Auto) 0.03 K/uL RDW Standard Deviation 57.5 fL RDW Coefficient of Variation 15.8 % Immature Granulocyte % (Auto) 0.4 % Immature Granulocyte # (Auto) 0.03 K/uL Prothrombin Time 23.7 SECONDS Prothromb Time International Ratio 2.3 Activated Partial Thromboplast Time 30.7 SECONDS Partial Thromboplastin Ratio 1.2 Sodium Level 142 mmol/L Potassium Level 5.5 mmol/L Chloride Level 102 mmol/L Carbon Dioxide Level 40 mmol/L Anion Gap 1.0 mmol/L Blood Urea Nitrogen 28 mg/dl Creatinine 1.15 mg/dl Est Creatinine Clear Calc Drug Dose 53.3 ml/min Estimated GFR () 50.6 Estimated GFR (Non- 43.7 BUN/Creatinine Ratio 24.3 Random Glucose 200 mg/dl Calcium Level 9.1 mg/dl Total Creatine Kinase 40 U/L Creatine Kinase MB 1.9 ng/ml Creatine Kinase MB Ratio 4.8 Bedside Glucose 205 mg/dl 220 mg/dl Test 02/11/18 00:56 02/11/18 06:27 02/11/18 08:09 Bedside Glucose 227 mg/dl 194 mg/dl White Blood Count 5.88 K/uL Red Blood Count 2.77 M/uL Hemoglobin 8.5 g/dL Hematocrit 27.3 % Mean Corpuscular Volume 98.6 fL Mean Corpuscular Hemoglobin 30.7 pg Mean Corpuscular Hemoglobin Concent 31.1 g/dl RDW Standard Deviation 57.1 fL RDW Coefficient of Variation 15.9 % Platelet Count 173 K/uL Mean Platelet Volume 9.4 fL Nucleated RBC Absolute Count (auto) 0.03 K/uL Nucleated Red Blood Cells % 0.5 % Prothrombin Time 24.3 SECONDS Prothromb Time International Ratio 2.4 Sodium Level 140 mmol/L Potassium Level 4.3 mmol/L Chloride Level 100 mmol/L Carbon Dioxide Level 38 mmol/L Anion Gap 3.0 mmol/L Blood Urea Nitrogen 29 mg/dl Creatinine 1.11 mg/dl Est Creatinine Clear Calc Drug Dose 55.2 ml/min Estimated GFR () 52.8 Estimated GFR (Non- 45.6 BUN/Creatinine Ratio 26.2 Random Glucose 194 mg/dl Estimated Average Glucose 148 mg/dl Hemoglobin A1c 6.8 % Calcium Level 8.6 mg/dl (Darryl Bray,P.A.) Assessment & Plan 82-year-old white female on chronic Coumadin with an INR of 2.3 on admission with an 8 x 6 x 8 cm hematoma in the right medial thigh. Currently she does not have any pain in the area when she is doing straight leg raises and flexing the hip and knee but does have mild pain in the area of the hematoma. She has not been up on the extremity since the fall but is not sure if she is having pain with ambulation. Multiple radiologic studies been done including right humerus, right hip ,and right knee x-rays which showed no obvious fractures and a small right knee joint effusion; head CT showed right periorbital and so supraorbital scalp contusion right lower extremity; CT showed hematoma as noted above and question of a subtle tibial plateau fracture and addendum also states that that there may be an irregularity to the cortices involving the region the right femoral neck. Currently the patient does not examine his if she has a hip fracture. She also has minimal to no pain in the right knee during range of motion. Straight leg raise does not cause her any discomfort at this time. Plan to continue to hold Coumadin at this time. I will have Dr. Lacy examine her films and see her at the bedside to plan definitive care. Currently the hematoma is not causing her extreme pain. If this worsens or starts to give her moderate pain at rest or with ambulation, attempts to to remove the hematoma could be done through radiological needle guidance versus open evacuation of hematoma. (Darryl Bray,P.A.) Patient seen and examined, agree with assessment above. Monitor hematoma, ICE and elevate RLE, rec NWB RLE, tight control of INR, if decompression needed would rec IR aspiration. Thank you for the consultation. (Win Lacy, D.O.)
--- NOTE | 2018-02-11 11:19 | Progress Note ---
Medicine Progress Note Date & Time of Visit: February 11, 2018 at 10:52. Subjective 82-year-old female with chronic atrial fibrillation on Coumadin, status post pacemaker for sick sinus syndrome, presents with a mechanical fall at home and subsequent trauma. She hit her head, right arm, right leg after her walker buckled yesterday. She has a therapeutic INR between 2 and 3 that remains therapeutic this morning and has significant bruising around the right periorbital area and in her medial upper right thigh region. Her family at the bedside the hematoma on her thigh looks worse, however, this is not causing the patient significant pain. The patient reports most of her pain is in her tailbone and in her inability to find a comfortable position to lie in. She has not ambulated as she is unsure if she is allowed to do so. She denies any chest pain, shortness of breath, or recent weight gain. She was recently hospitalized for heart failure and appears to be compensated at this time. However, the patient is morbidly obese and this is somewhat difficult to determine as she is requiring max assistance to make transitions. Objective Last 8 Hrs Date Time Temp Pulse Resp B/P (MAP) Pulse Ox O2 Delivery O2 Flow Rate FiO2 02/11/18 09:00 129/86 (100) 74 02/11/18 08:51 94 Nasal Cannula 3.0 Humidified Oxygen 02/11/18 07:44 36.8 72 19 109/68 (82) 95 Humidified Oxygen 5.0 Physical Exam: GEN: Morbid obesity, in mild distress, alert and appropriate, lying on left side in bed. HEENT: Right periorbital ecchymosis, normal sclerae CARDIO: reg rate, irregular rhythm, no m/g/r LUNGS: Crackles at left base, right lung clear to auscultation, poor effort ABD: Very large pannus with multiple skin folds, soft, non-tender, non-distended , no rebound or guarding, bowel sounds were heard EXTREMITY: Right elbow dressed and wrapped with dressing that is clean dry and intact. Right upper medial thigh hematoma extending from inguinal fold to just proximal of right knee, purplish in color, 1+ pitting edema to distal right lower extremity. Extremities are warm and well perfused, no paresthesias, no pallor, pulses are 2+ bilaterally NEURO: CN 2-12 grossly intact, sensation intact throughout, no gross focal deficits MUSC: Generalized weakness, patient cannot roll in bed onto her side without maximum assistance SKIN: warm and dry and ecchymotic areas as above Laboratory Results: 02/11/18 06:27 02/11/18 06:27 Test 02/10/18 14:25 02/10/18 15:48 02/11/18 06:27 02/11/18 08:09 Immature Granulocyte % (Auto) 0.4 % White Blood Count 6.76 K/uL (4.8-10.8) Red Blood Count 3.37 M/uL (4.2-5.4) 2.77 M/uL (4.2-5.4) Hemoglobin 10.6 g/dL (12.0-16.0) Hematocrit 33.3 % (37-47) Mean Corpuscular Volume 98.8 fL (80-100) 98.6 fL (80-100) Mean Corpuscular Hemoglobin 31.5 pg (25-34) 30.7 pg (25-34) Mean Corpuscular Hemoglobin Concent 31.8 g/dl (32-36) 31.1 g/dl (32-36) Platelet Count 203 K/uL (130-400) Mean Platelet Volume 10.3 fL (7.4-10.4) 9.4 fL (7.4-10.4) Neutrophils (%) (Auto) 59.2 % Lymphocytes (%) (Auto) 17.9 % Monocytes (%) (Auto) 15.1 % Eosinophils (%) (Auto) 7.0 % Basophils (%) (Auto) 0.4 % Neutrophils # (Auto) 4.00 K/uL (1.4-6.5) Lymphocytes # (Auto) 1.21 K/uL (1.2-3.4) Monocytes # (Auto) 1.02 K/uL (0.11-0.59) Eosinophils # (Auto) 0.47 K/uL (0-0.5) Basophils # (Auto) 0.03 K/uL (0-0.2) Immature Granulocyte # (Auto) 0.03 K/uL (0.00-0.02) Activated Partial Thromboplast Time 30.7 SECONDS (21.0-31.0) Partial Thromboplastin Ratio 1.2 Total Creatine Kinase 40 U/L (26-192) Creatine Kinase MB 1.9 ng/ml (0.5-3.6) Creatine Kinase MB Ratio 4.8 (0-3.0) RDW Standard Deviation 57.1 fL (36.4-46.3) RDW Coefficient of Variation 15.9 % (11.5-14.5) Nucleated RBC Absolute Count (auto) 0.03 K/uL (0-0) Nucleated Red Blood Cells % 0.5 % Prothrombin Time 24.3 SECONDS (9.0-12.0) Prothromb Time International Ratio 2.4 (0.9-1.1) Anion Gap 3.0 mmol/L (3-11) Est Creatinine Clear Calc Drug Dose 55.2 ml/min Estimated GFR () 52.8 Estimated GFR (Non- 45.6 BUN/Creatinine Ratio 26.2 (10-20) Estimated Average Glucose 148 mg/dl Hemoglobin A1c 6.8 % (4.5-5.6) Calcium Level 8.6 mg/dl (8.5-10.1) Bedside Glucose 194 mg/dl (70-90) Last 24 Hours Test 02/10/18 14:25 02/10/18 15:48 02/10/18 18:48 02/10/18 20:54 White Blood Count 6.76 K/uL Red Blood Count 3.37 M/uL Hemoglobin 10.6 g/dL Hematocrit 33.3 % Mean Corpuscular Volume 98.8 fL Mean Corpuscular Hemoglobin 31.5 pg Mean Corpuscular Hemoglobin Concent 31.8 g/dl Platelet Count 203 K/uL Mean Platelet Volume 10.3 fL Neutrophils (%) (Auto) 59.2 % Lymphocytes (%) (Auto) 17.9 % Monocytes (%) (Auto) 15.1 % Eosinophils (%) (Auto) 7.0 % Basophils (%) (Auto) 0.4 % Neutrophils # (Auto) 4.00 K/uL Lymphocytes # (Auto) 1.21 K/uL Monocytes # (Auto) 1.02 K/uL Eosinophils # (Auto) 0.47 K/uL Basophils # (Auto) 0.03 K/uL RDW Standard Deviation 57.5 fL RDW Coefficient of Variation 15.8 % Immature Granulocyte % (Auto) 0.4 % Immature Granulocyte # (Auto) 0.03 K/uL Prothrombin Time 23.7 SECONDS Prothromb Time International Ratio 2.3 Activated Partial Thromboplast Time 30.7 SECONDS Partial Thromboplastin Ratio 1.2 Sodium Level 142 mmol/L Potassium Level 5.5 mmol/L Chloride Level 102 mmol/L Carbon Dioxide Level 40 mmol/L Anion Gap 1.0 mmol/L Blood Urea Nitrogen 28 mg/dl Creatinine 1.15 mg/dl Est Creatinine Clear Calc Drug Dose 53.3 ml/min Estimated GFR () 50.6 Estimated GFR (Non- 43.7 BUN/Creatinine Ratio 24.3 Random Glucose 200 mg/dl Calcium Level 9.1 mg/dl Total Creatine Kinase 40 U/L Creatine Kinase MB 1.9 ng/ml Creatine Kinase MB Ratio 4.8 Bedside Glucose 205 mg/dl 220 mg/dl Test 02/11/18 00:56 02/11/18 06:27 02/11/18 08:09 Bedside Glucose 227 mg/dl 194 mg/dl White Blood Count 5.88 K/uL Red Blood Count 2.77 M/uL Hemoglobin 8.5 g/dL Hematocrit 27.3 % Mean Corpuscular Volume 98.6 fL Mean Corpuscular Hemoglobin 30.7 pg Mean Corpuscular Hemoglobin Concent 31.1 g/dl RDW Standard Deviation 57.1 fL RDW Coefficient of Variation 15.9 % Platelet Count 173 K/uL Mean Platelet Volume 9.4 fL Nucleated RBC Absolute Count (auto) 0.03 K/uL Nucleated Red Blood Cells % 0.5 % Prothrombin Time 24.3 SECONDS Prothromb Time International Ratio 2.4 Sodium Level 140 mmol/L Potassium Level 4.3 mmol/L Chloride Level 100 mmol/L Carbon Dioxide Level 38 mmol/L Anion Gap 3.0 mmol/L Blood Urea Nitrogen 29 mg/dl Creatinine 1.11 mg/dl Est Creatinine Clear Calc Drug Dose 55.2 ml/min Estimated GFR () 52.8 Estimated GFR (Non- 45.6 BUN/Creatinine Ratio 26.2 Random Glucose 194 mg/dl Estimated Average Glucose 148 mg/dl Hemoglobin A1c 6.8 % Calcium Level 8.6 mg/dl Assessment & Plan 82-year-old female with chronic atrial fibrillation on Coumadin, status post pacemaker for sick sinus syndrome, presents with a mechanical fall at home and subsequent trauma. She hit her head, right arm, right leg after her walker buckled yesterday. She has a therapeutic INR between 2 and 3 that remains therapeutic this morning and has significant bruising around the right periorbital area and in her medial upper right thigh region. Her family at the bedside the hematoma on her thigh looks worse, however, this is not causing the patient significant pain. The patient reports most of her pain is in her tailbone and in her inability to find a comfortable position to lie in. She has not ambulated as she is unsure if she is allowed to do so. She denies any chest pain, shortness of breath, or recent weight gain. She was recently hospitalized for heart failure and appears to be compensated at this time. However, the patient is morbidly obese and this is somewhat difficult to determine as she is requiring max assistance to make transitions. 1. Status post mechanical fall-multiple areas of ecchymosis along with a right elbow abrasion which is wrapped and dressed. Right thigh hematoma as above. Will discuss the appropriateness of Coumadin reversal at this point with Dr. Davis. This would also depend on the desire of orthopedics to perform a surgical intervention. For now will continue to hold Coumadin. There is questionable right cortical irregularity on the humeral x-ray. No acute fracture is seen, will await orthopedics final assessment of this. There is a right tibial fracture plateau fracture that is present. Defer to orthopedics for the ability to weight-bear and assessment by PT and OT which have been ordered. Pain control was unsuccessful with tramadol. Will order oxycodone as needed and continue with scheduled Tylenol. The patient was made aware of constipation as a side effect of this medication and requested prune juice and milk of magnesia as needed. 2. Chronic diastolic heart failure-compensated, recent admission January 18 for heart failure exacerbation. Follows with Dr. Nugent and cardiology clinic. Reports that her Bluetooth scale since daily weights to her matcher and she has not gained weight recently since discharge. She denies any shortness of breath and reports lower extremity edema is stable from her baseline. Continue daily p.o. Lasix per home regimen. 3. Chronic hypoxic respiratory failure-patient is on 2 L nasal cannula at home. Currently saturating around baseline. Continue supplemental oxygen as needed. 4. Chronic atrial fibrillation-on Coumadin which has been held in setting of multiple areas of ecchymosis status post fall. Continue Lopressor daily. 5. CAD status post PCI in 2013-stable, no chest pain. Continue metoprolol, Imdur, Lipitor. Aspirin has been held in setting of ecchymosis. 6. Diabetes mellitus-A1c reflects outpatient control. Holding Novolin 70/30 while patient is in the hospital. Continue with Lantus and sliding scale NovoLog with carbohydrate coverage per protocol. 7. CKD stage III-at baseline. Avoid nephrotoxic agents when able and renally dose meds as appropriate. 8. Hypothyroidism-continue levothyroxine per home regimen 9. Anxiety-stable, continue home dose Ativan as needed 10. Anemia-secondary to hematoma with therapeutic INR. Plan as per #1 above. CBC in a.m. DVT prophylaxis-Coumadin currently held secondary to fall, SCDs CODE STATUS-full Disposition-we will changed to full admission. Will await PT/OT assessment however, with max assistance required will likely require some rehab placement versus home health. Savanna Preston DO [facility] hospitalist Current Inpatient Medications: Current Inpatient Medications Medications (Trade) Dose Ordered Sig/Yesenia Route Start Time Stop Time Status Last Admin Dose Admin Insulin Aspart (novoLOG ASPART) SLIDING SCALE If C... ACHS SC 02/10/18 21:00 03/12/18 20:59 02/11/18 08:55 3 UNITS Glucose (Glucose 40% Gel) 15-30 GRAMS 15 GRAMS... UD PRN PO 02/10/18 19:45 03/12/18 19:44 Glucose (Glucose Chew Tab) 4-8 Tablets 4 Tabl... UD PRN PO 02/10/18 19:45 03/12/18 19:44 Dextrose (Dextrose 50% 50ML Syringe) 25-50ML OF 50% DW IV FOR... UD PRN IV 02/10/18 19:45 03/12/18 19:44 Glucagon (Glucagon Inj) 1 mg UD PRN SQ 02/10/18 19:45 03/12/18 19:44 Insulin Glargine (Lantus Solostar Pen) 10 units Q12 SC 02/11/18 09:00 03/13/18 08:59 02/11/18 08:56 10 UNITS Acetaminophen (Tylenol Tab) 1,000 mg Q8 PO 02/10/18 22:00 03/12/18 21:59 02/11/18 05:44 1,000 MG Ascorbic Acid (Vitamin C Tab) 500 mg DAILY PO 02/11/18 09:00 03/13/18 08:59 02/11/18 08:57 500 MG Atorvastatin Calcium (Lipitor Tab) 10 mg DAILY PO 02/11/18 09:00 03/13/18 08:59 02/11/18 08:57 10 MG Cholecalciferol (Vitamin D Tab) 1,000 inter.unit DAILY PO 02/11/18 09:00 03/13/18 08:59 02/11/18 08:58 1,000 INTER.UNIT Furosemide (Lasix Tab) 40 mg DAILY PO 02/11/18 09:00 03/13/18 08:59 02/11/18 09:03 40 MG Isosorbide Mononitrate (Imdur Ext Rel Tab) 60 mg DAILY PO 02/11/18 09:00 03/13/18 08:59 02/11/18 09:03 60 MG Levalbuterol (Xopenex 1.25MG/ 3ML Neb) 1.25 mg Q8 PRN INH 02/10/18 20:00 03/12/18 19:59 Levothyroxine Sodium (Synthroid Tab) 100 mcg DAILYBB PO 02/11/18 06:00 03/13/18 06:59 02/11/18 05:44 100 MCG Lorazepam (Ativan Tab) 0.5 mg BID PRN PO 02/10/18 20:00 03/12/18 19:59 02/11/18 05:44 0.5 MG Magnesium Chloride (Slow-Mag Tab) 64 mg DAILY PO 02/11/18 09:00 03/13/18 08:59 02/11/18 08:58 64 MG Magnesium Hydroxide (Milk Of Magnesia Susp) 30 ml UD PRN PO 02/10/18 20:00 03/12/18 19:59 Metoprolol Tartrate (Lopressor Tab) 25 mg DAILY PO 02/11/18 09:00 03/13/18 08:59 02/11/18 09:11 25 MG Nitroglycerin (Nitrostat Tab) 0.4 mg PRN UT 02/10/18 20:00 03/12/18 19:59 Lactobacillus Acidophilus (Floranex Tab) 1 tab DAILY PO 02/11/18 09:00 03/13/18 08:59 02/11/18 08:57 1 TAB Miscellaneous (Iv Fluids Completed) 1 ea PRN PRN N/A 02/10/18 20:30 02/10/19 20:29 Tramadol HCl (Ultram Tab) 50 mg Q4H PRN PO 02/11/18 01:45 03/13/18 01:44 02/11/18 02:22 50 MG
[2018-02-11] MEDS ORDERED: PHYTONADIONE 5 MG TAB PO STA (11:30)
[2018-02-11] MEDS ORDERED: OXYCODONE HCL IR 5 MG TAB (IMMEDIATE RELEASE) ONE (12:30)
[2018-02-11 19:28] LABS: HEMATOCRIT 25.1 % (37-47)
[2018-02-11] MEDS ORDERED: SODIUM CHLORIDE 0.9% 500ML 500 ML IV SCH (19:30)
[2018-02-11 19:39] LABS: INR 2.1 (0.9-1.1)
[2018-02-11] MEDS: OXYCODONE HCL IR 5 MG TAB (IMMEDIATE RELEASE) PO PRN (19:47)
[2018-02-11] MEDS: LORAZEPAM 0.5 MG TAB PO SCH (21:07)
[2018-02-11 21:58] LABS: HEMATOCRIT 25.6 % (37-47)
[2018-02-12] VITALS (17 sets, daily range): BP systolic 87–130; BP diastolic 36–91; PULSE 71–83; TEMP 36.2–36.6; O2SAT 95–100
[2018-02-12] MEDS: OXYCODONE HCL IR 5 MG TAB (IMMEDIATE RELEASE) PO PRN ×5 (00:34→23:26)
[2018-02-12] MEDS: LEVOTHYROXINE 100 MCG TAB PO SCH (05:16)
[2018-02-12] MEDS: ACETAMINOPHEN 500 MG TAB PO SCH ×3 (05:17→20:26)
[2018-02-12] MEDS ORDERED: ALBUMIN HUMAN 25% 12.5 GM/50 ML VIAL IV ONE (05:30)
[2018-02-12 07:42] LABS: HEMATOCRIT 24.7 % (37-47); HEMOGLOBIN 7.7 g/dL (12.0-16.0); MEAN CORPUSCULAR HEMOGLOBIN 30.6 pg (25-34); MEAN CORPUSCULAR HGB CONC 31.2 g/dl (32-36); MEAN PLATELET VOLUME 9.7 fL (7.4-10.4); PLATELET COUNT 171 K/uL (130-400); RED CELL DISTRIBUTION WIDTH CV 15.8 % (11.5-14.5); RED CELL DISTRIBUTION WIDTH SD 56.8 fL (36.4-46.3); WHITE BLOOD COUNT 8.39 K/uL (4.8-10.8)
[2018-02-12 07:49] LABS: INR 1.9 (0.9-1.1)
[2018-02-12 08:16] LABS: CALCIUM 8.8 mg/dl (8.5-10.1); CREATININE 1.36 mg/dl (0.60-1.20); POTASSIUM 4.2 mmol/L (3.5-5.1)
[2018-02-12] MEDS: LACTOBACILLUS ACIDOPHILUS (FLORANEX) TAB PO SCH (08:35)
[2018-02-12] MEDS: CHOLECALCIFEROL 1000 INTER.UNIT TAB PO SCH (08:35)
[2018-02-12] MEDS: ATORVASTATIN 10 MG TAB PO SCH (08:35)
[2018-02-12] MEDS: ISOSORBIDE MONONITRATE 60 MG TABCR PO SCH (08:36)
[2018-02-12] MEDS: ASCORBIC ACID 500 MG TAB PO SCH (08:36)
[2018-02-12] MEDS: MAGNESIUM CHLORIDE 64MG DELAYED REL TAB PO SCH (08:36)
[2018-02-12] MEDS: INSULIN GLARGINE SOLOSTAR 100 UNITS/ML 3 ML PEN SC SCH ×2 (08:41→20:28)
[2018-02-12] MEDS: INSULIN ASPART 100 UNITS/ML 3 ML PEN SC SCH ×4 (08:43→20:28)
--- NOTE | 2018-02-12 10:56 | Clinical Documentation Query ---
Query 1 of [address] DUNAWAY, In your clinical opinion is this patient being managed for: ( ) Osteoporotic related R humeral right humerus in the setting of a fall ( ) Not Agree ( ) Other explanation of clinical findings (Please Explain. If no explanation given, this would be considered a no response.) ( x ) Unable to determine ( ) Need to Discuss (Please call CDS via extension or qliq. If no interaction occurs this is considered a no response.) The medical record reflects the following clinical findings, treatment, and risk factors. Clinical Indicators: Radiologic reports indicate osteopenic skeletal structures. Pt had a ground level fall Treatment:chronic calcium +D, vitamin D3 Risk Factors: age, postmenopausal female, chronic respiratory failure Query 2 of 2 In your clinical opinion is this patient being managed for: (x ) Acute blood loss anemia ( ) Not Agree ( ) Other explanation of clinical findings (Please Explain. If no explanation given, this would be considered a no response.) ( ) Unable to determine ( ) Need to Discuss (Please call CDS via extension or qliq. If no interaction occurs this is considered a no response.) The medical record reflects the following clinical findings, treatment, and risk factors. Clinical Indicators: 82 yo female who sustained a fall and subsequently developed a R thigh hematoma. Baseline Hgb 10.6/Hct 33.3 dropping to 7.7/24.7. Pt became hypotensive with BP dropping as low as 85/51 Treatment:IV fluids, IV albumin, monitor CBC, po vitamin K, O2 support Risk Factors: hematoma, chronic anticoagulation Please clarify and document your clinical opinion in the progress notes and discharge summary. Terms such as "probable", "suspected", "likely", "questionable", "possible", or "still to be ruled out" are acceptable. IF IN AGREEMENT, YOU MUST DOCUMENT ABOVE DIAGNOSTIC STATEMENT IN DAILY PROGRESS NOTES AND DISCHARGE SUMMARY. This document is not part of the patient's record. Thank You, Bridget Chan RN [phone]
[2018-02-12] MEDS: LORAZEPAM 0.5 MG TAB PO PRN (12:40)
[2018-02-12] MEDS ORDERED: FUROSEMIDE INJ 40 MG in SYRINGE 0 ML IV SCH (15:00)
[2018-02-12] MEDS ORDERED: ACETAMINOPHEN 325 MG TAB PO SCH (15:00)
--- NOTE | 2018-02-12 17:13 | Orthopedic Progress Note ---
Orthopedic Progress Note Date of Service February 12, 2018. Subjective Additional Notes: Pt sleeping presently. Family present and states that her "whole right side of her body hurts from the fall". Pt arouses some with movement of her RLE. Objective Pt examined with Dr. Lacy. Dr Lacy feels the hematoma is not significantly bigger than previously seen. The ecchymosis has obviously spread , not only on her leg but also on her face etc. Compartments are still soft. Gentle hip/knee flexion causes the patient to have some pain. Dorsiflexion of the right foot without any noticeable increase in pain. Small optifoam covering a skin blister. Date Time Temp Pulse Resp B/P (MAP) Pulse Ox O2 Delivery O2 Flow Rate FiO2 02/12/18 16:32 36.4 76 18 121/91 98 02/12/18 15:46 119/72 (88) 02/12/18 14:43 36.4 81 20 87/60 (69) 96 Nasal Cannula 2.0 02/12/18 13:50 78 16 93/54 (67) 96 Nasal Cannula 2.0 Humidified Oxygen 02/12/18 13:36 36.6 76 16 97 3.0 02/12/18 07:40 Nasal Cannula 3.0 Humidified Oxygen 02/12/18 06:58 36.6 76 16 94/61 (72) 97 Nasal Cannula 3.0 Humidified Oxygen 02/12/18 06:30 36.6 75 18 93/63 (73) 95 Nasal Cannula 3.0 02/12/18 00:48 Nasal Cannula 3.0 Humidified Oxygen 02/11/18 23:19 36.5 77 16 91/52 (65) 96 Nasal Cannula 3.0 Humidified Oxygen 02/11/18 21:25 94/63 (73) Laboratory Results 24 Hours: Test 02/11/18 19:18 02/11/18 21:49 02/12/18 07:30 Hematocrit 25.1 % 25.6 % 24.7 % Hemoglobin 8.0 g/dL 8.0 g/dL 7.7 g/dL Prothromb Time International Ratio 2.1 1.9 Prothrombin Time 22.1 SECONDS 19.4 SECONDS Assessment & Plan Assessment: Hematoma right medial thigh. Questionable Tibial plateau fracture on CT, not seen on XR images Plan: If this continues to enlarge, would plan for radiological guided aspiration if possible before surgical consideration. Continue to follow for now. Ice to medial thigh Discussed TTWB status with family. Pt may need to be bed to chair initially if she can't maintain WB status. In light of questionable tibial plateau fracture, can treat conservatively with NWB and repeat imaging when medically stable. Would consider MRI Right knee to r/o.
--- NOTE | 2018-02-12 18:44 | Progress Note ---
Medicine Progress Note Date & Time of Visit: February 12, 2018 at 11:21. Subjective 82-year-old female with chronic atrial fibrillation on Coumadin, status post pacemaker for sick sinus syndrome, presents with a mechanical fall at home and subsequent trauma. She hit her head, right arm, right leg after her walker buckled-there was no LOC reported. She remains very fatigued this morning and in pain. She reports specifically the pain worsening in her upper right thigh. Ecchymosis appears to have extended but is still soft to touch. She was encouraged to utilize her pain medications as needed. She is tolerating p.o. and per family ate 50% of her dinner last night and some breakfast. She continues to have low urine output. Lasix was held. She was consented for blood. She otherwise denies any shortness of breath from her baseline or chest pain. Objective Last 8 Hrs Date Time Temp Pulse Resp B/P (MAP) Pulse Ox O2 Delivery O2 Flow Rate FiO2 02/12/18 07:40 Nasal Cannula 3.0 Humidified Oxygen 02/12/18 06:58 36.6 76 16 94/61 (72) 97 Nasal Cannula 3.0 Humidified Oxygen 02/12/18 06:30 36.6 75 18 93/63 (73) 95 Nasal Cannula 3.0 Physical Exam: GEN: Morbid obesity, fatigued but responding appropriately to questions, lying supine in recliner at bedside. HEENT: Right periorbital ecchymosis-starting to notice drainage of this with increased bluish hue to inferior cheek area, normal sclerae CARDIO: reg rate, irregular rhythm, no m/g/r LUNGS: CTAB, good airflow bilaterally ABD: Very large pannus with multiple skin folds, soft, non-tender, non-distended , no rebound or guarding, bowel sounds were heard EXTREMITY: Right elbow dressed and wrapped with dressing that is clean dry and intact. Right upper medial thigh hematoma extending from inguinal fold to just proximal of right knee, purplish in color. No pitting edema noted in lower extremities. Extremities are warm and well perfused, no paresthesias, no pallor , pulses are 2+ bilaterally NEURO: CN 2-12 grossly intact, sensation intact throughout, no gross focal deficits MUSC: Generalized weakness, patient cannot roll in bed onto her side without maximum assistance SKIN: warm and dry and ecchymotic areas as above Laboratory Results: 02/12/18 07:30 02/12/18 07:30 Test 02/10/18 14:25 02/10/18 15:48 02/11/18 06:27 02/11/18 21:49 Immature Granulocyte % (Auto) 0.4 % White Blood Count 6.76 K/uL (4.8-10.8) Red Blood Count 3.37 M/uL (4.2-5.4) Hemoglobin 10.6 g/dL (12.0-16.0) Hematocrit 33.3 % (37-47) Mean Corpuscular Volume 98.8 fL (80-100) Mean Corpuscular Hemoglobin 31.5 pg (25-34) Mean Corpuscular Hemoglobin Concent 31.8 g/dl (32-36) Platelet Count 203 K/uL (130-400) Mean Platelet Volume 10.3 fL (7.4-10.4) Neutrophils (%) (Auto) 59.2 % Lymphocytes (%) (Auto) 17.9 % Monocytes (%) (Auto) 15.1 % Eosinophils (%) (Auto) 7.0 % Basophils (%) (Auto) 0.4 % Neutrophils # (Auto) 4.00 K/uL (1.4-6.5) Lymphocytes # (Auto) 1.21 K/uL (1.2-3.4) Monocytes # (Auto) 1.02 K/uL (0.11-0.59) Eosinophils # (Auto) 0.47 K/uL (0-0.5) Basophils # (Auto) 0.03 K/uL (0-0.2) Immature Granulocyte # (Auto) 0.03 K/uL (0.00-0.02) Activated Partial Thromboplast Time 30.7 SECONDS (21.0-31.0) Partial Thromboplastin Ratio 1.2 Total Creatine Kinase 40 U/L (26-192) Creatine Kinase MB 1.9 ng/ml (0.5-3.6) Creatine Kinase MB Ratio 4.8 (0-3.0) Nucleated RBC Absolute Count (auto) 0.03 K/uL (0-0) Nucleated Red Blood Cells % 0.5 % Estimated Average Glucose 148 mg/dl Hemoglobin A1c 6.8 % (4.5-5.6) Lactic Acid Level 1.8 mmol/L (0.4-2.0) Test 02/12/18 07:30 02/12/18 16:29 Red Blood Count 2.52 M/uL (4.2-5.4) Mean Corpuscular Volume 98.0 fL (80-100) Mean Corpuscular Hemoglobin 30.6 pg (25-34) Mean Corpuscular Hemoglobin Concent 31.2 g/dl (32-36) RDW Standard Deviation 56.8 fL (36.4-46.3) RDW Coefficient of Variation 15.8 % (11.5-14.5) Mean Platelet Volume 9.7 fL (7.4-10.4) Prothrombin Time 19.4 SECONDS (9.0-12.0) Prothromb Time International Ratio 1.9 (0.9-1.1) Anion Gap 3.0 mmol/L (3-11) Est Creatinine Clear Calc Drug Dose 45.1 ml/min Estimated GFR () 41.3 Estimated GFR (Non- 35.6 BUN/Creatinine Ratio 26.0 (10-20) Calcium Level 8.8 mg/dl (8.5-10.1) Bedside Glucose 242 mg/dl (70-90) Last 24 Hours Test 02/11/18 12:03 02/11/18 16:56 02/11/18 19:18 02/11/18 20:55 Bedside Glucose 212 mg/dl 202 mg/dl 238 mg/dl Hemoglobin 8.0 g/dL Hematocrit 25.1 % Prothrombin Time 22.1 SECONDS Prothromb Time International Ratio 2.1 Test 02/11/18 21:49 02/12/18 07:30 Hemoglobin 8.0 g/dL 7.7 g/dL Hematocrit 25.6 % 24.7 % Lactic Acid Level 1.8 mmol/L White Blood Count 8.39 K/uL Red Blood Count 2.52 M/uL Mean Corpuscular Volume 98.0 fL Mean Corpuscular Hemoglobin 30.6 pg Mean Corpuscular Hemoglobin Concent 31.2 g/dl RDW Standard Deviation 56.8 fL RDW Coefficient of Variation 15.8 % Platelet Count 171 K/uL Mean Platelet Volume 9.7 fL Prothrombin Time 19.4 SECONDS Prothromb Time International Ratio 1.9 Sodium Level 139 mmol/L Potassium Level 4.2 mmol/L Chloride Level 99 mmol/L Carbon Dioxide Level 37 mmol/L Anion Gap 3.0 mmol/L Blood Urea Nitrogen 35 mg/dl Creatinine 1.36 mg/dl Est Creatinine Clear Calc Drug Dose 45.1 ml/min Estimated GFR () 41.3 Estimated GFR (Non- 35.6 BUN/Creatinine Ratio 26.0 Random Glucose 164 mg/dl Calcium Level 8.8 mg/dl Assessment & Plan 82-year-old female with chronic atrial fibrillation on Coumadin, status post pacemaker for sick sinus syndrome, presents with a mechanical fall at home and subsequent trauma. She hit her head, right arm, right leg after her walker buckled-there was no LOC reported. She remains very fatigued this morning and in pain. She reports specifically the pain worsening in her upper right thigh. Ecchymosis appears to have extended but is still soft to touch. She was encouraged to utilize her pain medications as needed. She is tolerating p.o. and per family ate 50% of her dinner last night and some breakfast. She continues to have low urine output. Lasix was held. She was consented for blood. She otherwise denies any shortness of breath from her baseline or chest pain. 1. Status post mechanical fall-multiple areas of ecchymosis along with a right elbow abrasion which is wrapped and dressed. Right thigh hematoma with some extension. Orthopedics will evaluate for consideration of aspiration of hematoma. Will transfuse 2 units of blood for anemia secondary to bleeding. 2. Anemia secondary to acute blood loss-vitamin K was given as a reversal agent for Coumadin yesterday. INR remains 1.9 this morning. As blood is very agitating and the patient is starting to drain and heal she has increased amount of pain in her thigh. Will transfuse 2 units of blood with Lasix in between in setting of chronic heart failure. Of note lungs are clear to auscultation on exam prior to blood administration. Will trend CBC in a.m. 3. Chronic diastolic heart failure-compensated, recent admission January 18- for heart failure exacerbation. Follows with Dr. Nugent and cardiology clinic. 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 She denies any shortness of breath and reports lower extremity edema is stable from her baseline. Holding daily p.o. Lasix in setting of acute blood loss anemia and hypotension 4. Hypotension-possibly secondary to acute blood loss however do not suspect shock at this point. Heart rate has not increased. Will transfer to telemetry to monitor closer especially while giving blood. 5. Chronic hypoxic respiratory failure-patient is on 2 L nasal cannula at home. Currently saturating around baseline. Continue supplemental oxygen as needed. 6. Chronic atrial fibrillation-on Coumadin which has been held in setting of multiple areas of ecchymosis status post fall. Continue Lopressor daily. 7. CAD status post PCI in 2013-stable, no chest pain. Continue metoprolol, Imdur, Lipitor. Aspirin has been held in setting of ecchymosis. 8. Diabetes mellitus-A1c reflects outpatient control. Holding Novolin 70/30 while patient is in the hospital. Continue with Lantus and sliding scale NovoLog with carbohydrate coverage per protocol. 9. CKD stage III-at baseline. Avoid nephrotoxic agents when able and renally dose meds as appropriate. 10. Hypothyroidism-continue levothyroxine per home regimen 11. Anxiety-stable, continue home dose Ativan as needed DVT prophylaxis-Coumadin currently held secondary to fall, SCDs CODE STATUS-full Disposition-transfer to telemetry for closer monitoring. Uncertain dispo but will likely need rehab. Pt is NWB for next 2-3 weeks per Ortho. Savanna Preston DO [facility] hospitalist Consultants: [facility]-Dr. Win Rodgers. Current Inpatient Medications: Current Inpatient Medications Medications (Trade) Dose Ordered Sig/Yesenia Route Start Time Stop Time Status Last Admin Dose Admin Insulin Aspart (novoLOG ASPART) SLIDING SCALE If C... ACHS SC 02/10/18 21:00 03/12/18 20:59 02/12/18 08:43 3 UNITS Glucose (Glucose 40% Gel) 15-30 GRAMS 15 GRAMS... UD PRN PO 02/10/18 19:45 03/12/18 19:44 Glucose (Glucose Chew Tab) 4-8 Tablets 4 Tabl... UD PRN PO 02/10/18 19:45 03/12/18 19:44 Dextrose (Dextrose 50% 50ML Syringe) 25-50ML OF 50% DW IV FOR... UD PRN IV 02/10/18 19:45 03/12/18 19:44 Glucagon (Glucagon Inj) 1 mg UD PRN SQ 02/10/18 19:45 5/30/18 19:44 Insulin Glargine (Lantus Solostar Pen) 10 units Q12 SC 02/11/18 09:00 03/13/18 08:59 02/12/18 08:41 10 UNITS Acetaminophen (Tylenol Tab) 1,000 mg Q8 PO 02/10/18 22:00 03/12/18 21:59 02/12/18 05:17 1,000 MG Ascorbic Acid (Vitamin C Tab) 500 mg DAILY PO 02/11/18 09:00 03/13/18 08:59 02/12/18 08:36 500 MG Atorvastatin Calcium (Lipitor Tab) 10 mg DAILY PO 02/11/18 09:00 03/13/18 08:59 02/12/18 08:35 10 MG Cholecalciferol (Vitamin D Tab) 1,000 inter.unit DAILY PO 02/11/18 09:00 03/13/18 08:59 02/12/18 08:35 1,000 INTER.UNIT Furosemide (Lasix Tab) 40 mg DAILY PO 02/11/18 09:00 03/13/18 08:59 Future Hold 02/11/18 09:03 40 MG Isosorbide Mononitrate (Imdur Ext Rel Tab) 60 mg DAILY PO 02/11/18 09:00 03/13/18 08:59 02/11/18 09:03 60 MG Levalbuterol (Xopenex 1.25MG/ 3ML Neb) 1.25 mg Q8 PRN INH 02/10/18 20:00 03/12/18 19:59 Levothyroxine Sodium (Synthroid Tab) 100 mcg DAILYBB PO 02/11/18 06:00 03/13/18 06:59 02/12/18 05:16 100 MCG Magnesium Chloride (Slow-Mag Tab) 64 mg DAILY PO 02/11/18 09:00 03/13/18 08:59 02/12/18 08:36 64 MG Magnesium Hydroxide (Milk Of Magnesia Susp) 30 ml UD PRN PO 02/10/18 20:00 03/12/18 19:59 Metoprolol Tartrate (Lopressor Tab) 25 mg DAILY PO 02/11/18 09:00 03/13/18 08:59 Future Hold 02/11/18 09:11 25 MG Nitroglycerin (Nitrostat Tab) 0.4 mg PRN UT 02/10/18 20:00 03/12/18 19:59 Lactobacillus Acidophilus (Floranex Tab) 1 tab DAILY PO 02/11/18 09:00 03/13/18 08:59 02/12/18 08:35 1 TAB Miscellaneous (Iv Fluids Completed) 1 ea PRN PRN N/A 02/10/18 20:30 02/10/19 20:29 Oxycodone HCl (Roxicodone Immediate Rel Tab) 5 mg Q4H PRN PO 02/11/18 11:00 02/25/18 10:59 02/12/18 04:10 5 MG Lorazepam (Ativan Tab) 0.5 mg HS PO 02/11/18 21:00 03/13/18 20:59 02/11/18 21:07 0.5 MG Lorazepam (Ativan Tab) 0.5 mg DAILY PRN PO 02/11/18 19:00 03/13/18 18:59
[2018-02-12] MEDS: LORAZEPAM 0.5 MG TAB PO SCH (20:23)
[2018-02-13] VITALS (9 sets, daily range): BP systolic 88–124; BP diastolic 50–67; PULSE 70–116; TEMP 36.5–37; O2SAT 94–100
[2018-02-13] MEDS: OXYCODONE HCL IR 5 MG TAB (IMMEDIATE RELEASE) PO PRN ×5 (03:31→23:54)
[2018-02-13 06:19] LABS: HEMATOCRIT 29.8 % (37-47); HEMOGLOBIN 9.5 g/dL (12.0-16.0); MEAN CELL VOLUME 94.9 fL (80-100); MEAN CORPUSCULAR HEMOGLOBIN 30.3 pg (25-34); MEAN CORPUSCULAR HGB CONC 31.9 g/dl (32-36); MEAN PLATELET VOLUME 9.8 fL (7.4-10.4); NUCLEATED RED BLOOD CELL ABS 0.07 K/uL (0-0); PLATELET COUNT 159 K/uL (130-400); RED CELL DISTRIBUTION WIDTH CV 18.1 % (11.5-14.5); RED CELL DISTRIBUTION WIDTH SD 61.7 fL (36.4-46.3); WHITE BLOOD COUNT 8.59 K/uL (4.8-10.8)
[2018-02-13 06:26] LABS: INR 1.3 (0.9-1.1)
[2018-02-13] MEDS: LEVOTHYROXINE 100 MCG TAB PO SCH (06:27)
[2018-02-13] MEDS: ACETAMINOPHEN 500 MG TAB PO SCH ×3 (06:28→22:00)
[2018-02-13 06:49] LABS: CALCIUM 8.9 mg/dl (8.5-10.1); CREATININE 1.43 mg/dl (0.60-1.20); POTASSIUM 4.1 mmol/L (3.5-5.1)
[2018-02-13] MEDS: MAGNESIUM CHLORIDE 64MG DELAYED REL TAB PO SCH (07:24)
[2018-02-13] MEDS: CHOLECALCIFEROL 1000 INTER.UNIT TAB PO SCH (07:24)
[2018-02-13] MEDS: ATORVASTATIN 10 MG TAB PO SCH (07:24)
[2018-02-13] MEDS: ASCORBIC ACID 500 MG TAB PO SCH (07:24)
[2018-02-13] MEDS: ISOSORBIDE MONONITRATE 60 MG TABCR PO SCH (07:25)
[2018-02-13] MEDS: LACTOBACILLUS ACIDOPHILUS (FLORANEX) TAB PO SCH (07:25)
[2018-02-13] MEDS: INSULIN ASPART 100 UNITS/ML 3 ML PEN SC SCH ×4 (07:32→20:50)
[2018-02-13] MEDS: INSULIN GLARGINE SOLOSTAR 100 UNITS/ML 3 ML PEN SC SCH ×2 (07:33→20:52)
[2018-02-13] MEDS ORDERED: SODIUM CHLORIDE 0.9% 500ML 500 ML IV ONE (07:45)
[2018-02-13] MEDS: LORAZEPAM 0.5 MG TAB PO SCH (14:10)
--- NOTE | 2018-02-13 14:25 | Orthopedic Progress Note ---
Orthopedic Progress Note Date of Service February 13, 2018. Subjective Additional Notes: Pt more awake today. Family present. Continues with pain but does not seem to be worse. No new complaints. Objective Medial thigh hematoma feels about the same to me today. The one general area intially noted does not seem to have gotten bigger. She's had more ecchymosis down the leg which was noted yesterday. Her compartments feel soft still. Actively flexing/extending the ankle without difficulty. Calves NT. Date Time Temp Pulse Resp B/P (MAP) Pulse Ox O2 Delivery O2 Flow Rate FiO2 02/13/18 12:00 Nasal Cannula 2.0 Humidified Oxygen 02/13/18 10:34 36.5 72 20 120/58 (78) 98 Nasal Cannula 2.0 02/13/18 08:00 Nasal Cannula 2.0 Humidified Oxygen 02/13/18 07:04 36.7 75 18 107/55 (72) 97 Nasal Cannula 2.0 02/13/18 03:30 Nasal Cannula 2.0 02/13/18 03:30 36.5 70 15 114/67 (83) 99 Nasal Cannula 2.0 02/12/18 23:59 36.6 71 17 111/55 98 2.0 02/12/18 23:30 Nasal Cannula 2.0 02/12/18 23:00 36.5 83 16 117/70 98 2.0 02/12/18 21:59 36.5 71 16 96/67 100 2.0 02/12/18 21:15 36.5 75 20 130/64 98 2.0 02/12/18 20:45 36.3 80 19 129/36 96 2.0 02/12/18 20:00 Nasal Cannula 2.0 02/12/18 19:00 36.4 80 18 116/62 98 2.0 02/12/18 18:00 36.2 78 20 115/75 99 2.0 02/12/18 17:30 36.3 82 21 96/52 98 2.0 02/12/18 17:00 36.4 72 20 99 2.0 02/12/18 16:45 36.2 79 21 114/55 99 2.0 02/12/18 16:32 36.4 76 18 121/91 98 02/12/18 16:00 Nasal Cannula 2.0 02/12/18 15:46 119/72 (88) 02/12/18 14:43 36.4 81 20 87/60 (69) 96 Nasal Cannula 2.0 Laboratory Results 24 Hours: Test 02/13/18 05:30 Hematocrit 29.8 % Hemoglobin 9.5 g/dL Prothromb Time International Ratio 1.3 Prothrombin Time 14.0 SECONDS Assessment & Plan Assessment: Hematoma right medial thigh. Questionable Tibial plateau fracture on CT, not seen on XR images Plan: INR 1.3 If this continues to enlarge, would plan for radiological guided aspiration if possible before surgical consideration. Continue to follow for now. Ice to medial thigh In light of questionable tibial plateau fracture, can treat conservatively with NWB and repeat imaging when medically stable. Would consider MRI Right knee to r/o.
--- NOTE | 2018-02-13 18:24 | Progress Note ---
Medicine Progress Note Date & Time of Visit: February 13, 2018 at 0900 Subjective 82-year-old female with chronic atrial fibrillation on Coumadin, status post pacemaker for sick sinus syndrome, presents with a mechanical fall at home and subsequent trauma. She hit her head, right arm, right leg after her walker buckled-there was no LOC reported. She remains fatigued this morning and in pain. She reports no increase of pain in her right upper thigh because she has not moved overnight. She is utilizing pain medication with success. She is tolerating p.o. but with limited mobility is likely not taking in enough liquids. She continues to have a low urine output. Blood counts responded appropriately to blood transfusion yesterday. INR is 1.3 today. She continues to have a depressed affect. Objective Last 8 Hrs Date Time Temp Pulse Resp B/P (MAP) Pulse Ox O2 Delivery O2 Flow Rate FiO2 02/13/18 15:00 36.5 103 20 107/50 (69) 94 Nasal Cannula 2.0 02/13/18 12:00 Nasal Cannula 2.0 Humidified Oxygen 02/13/18 10:34 36.5 72 20 120/58 (78) 98 Nasal Cannula 2.0 Physical Exam: GEN: Morbid obesity, fatigued but responding appropriately to questions, lying supine in recliner at bedside. HEENT: Right periorbital ecchymosis-starting to notice drainage of this with increased bluish hue to inferior cheek area, normal sclerae CARDIO: reg rate, irregular rhythm, no m/g/r LUNGS: CTAB, good airflow bilaterally, slight crackles at the bases ABD: Very large pannus with multiple skin folds, soft, non-tender, non-distended , no rebound or guarding, bowel sounds were heard EXTREMITY: Right elbow dressed and wrapped with dressing that is clean dry and intact. Right upper medial thigh hematoma extending from inguinal fold to just proximal of right knee, purplish in color. Optifoam is in place. No pitting edema noted in lower extremities. Extremities are warm and well perfused, no paresthesias, no pallor, pulses are 2+ bilaterally NEURO: CN 2-12 grossly intact, sensation intact throughout, no gross focal deficits MUSC: Generalized weakness, patient cannot roll in bed onto her side without maximum assistance SKIN: warm and dry and ecchymotic areas as above Laboratory Results: 5/3/18 05:30 02/13/18 05:30 Test 02/10/18 14:25 02/10/18 15:48 02/11/18 06:27 02/11/18 21:49 Immature Granulocyte % (Auto) 0.4 % White Blood Count 6.76 K/uL (4.8-10.8) Red Blood Count 3.37 M/uL (4.2-5.4) Hemoglobin 10.6 g/dL (12.0-16.0) Hematocrit 33.3 % (37-47) Mean Corpuscular Volume 98.8 fL (80-100) Mean Corpuscular Hemoglobin 31.5 pg (25-34) Mean Corpuscular Hemoglobin Concent 31.8 g/dl (32-36) Platelet Count 203 K/uL (130-400) Mean Platelet Volume 10.3 fL (7.4-10.4) Neutrophils (%) (Auto) 59.2 % Lymphocytes (%) (Auto) 17.9 % Monocytes (%) (Auto) 15.1 % Eosinophils (%) (Auto) 7.0 % Basophils (%) (Auto) 0.4 % Neutrophils # (Auto) 4.00 K/uL (1.4-6.5) Lymphocytes # (Auto) 1.21 K/uL (1.2-3.4) Monocytes # (Auto) 1.02 K/uL (0.11-0.59) Eosinophils # (Auto) 0.47 K/uL (0-0.5) Basophils # (Auto) 0.03 K/uL (0-0.2) Immature Granulocyte # (Auto) 0.03 K/uL (0.00-0.02) Activated Partial Thromboplast Time 30.7 SECONDS (21.0-31.0) Partial Thromboplastin Ratio 1.2 Total Creatine Kinase 40 U/L (26-192) Creatine Kinase MB 1.9 ng/ml (0.5-3.6) Creatine Kinase MB Ratio 4.8 (0-3.0) Estimated Average Glucose 148 mg/dl Hemoglobin A1c 6.8 % (4.5-5.6) Lactic Acid Level 1.8 mmol/L (0.4-2.0) Test 02/13/18 05:30 02/13/18 16:18 Red Blood Count 3.14 M/uL (4.2-5.4) Mean Corpuscular Volume 94.9 fL (80-100) Mean Corpuscular Hemoglobin 30.3 pg (25-34) Mean Corpuscular Hemoglobin Concent 31.9 g/dl (32-36) RDW Standard Deviation 61.7 fL (36.4-46.3) RDW Coefficient of Variation 18.1 % (11.5-14.5) Mean Platelet Volume 9.8 fL (7.4-10.4) Nucleated RBC Absolute Count (auto) 0.07 K/uL (0-0) Nucleated Red Blood Cells % 0.8 % Prothrombin Time 14.0 SECONDS (9.0-12.0) Prothromb Time International Ratio 1.3 (0.9-1.1) Anion Gap 4.0 mmol/L (3-11) Est Creatinine Clear Calc Drug Dose 42.9 ml/min Estimated GFR () 38.9 Estimated GFR (Non- 33.5 BUN/Creatinine Ratio 24.4 (10-20) Calcium Level 8.9 mg/dl (8.5-10.1) Bedside Glucose 142 mg/dl (70-90) Last 24 Hours Test 02/12/18 20:08 02/13/18 05:30 02/13/18 07:21 02/13/18 11:37 Bedside Glucose 215 mg/dl 160 mg/dl 143 mg/dl White Blood Count 8.59 K/uL Red Blood Count 3.14 M/uL Hemoglobin 9.5 g/dL Hematocrit 29.8 % Mean Corpuscular Volume 94.9 fL Mean Corpuscular Hemoglobin 30.3 pg Mean Corpuscular Hemoglobin Concent 31.9 g/dl RDW Standard Deviation 61.7 fL RDW Coefficient of Variation 18.1 % Platelet Count 159 K/uL Mean Platelet Volume 9.8 fL Nucleated RBC Absolute Count (auto) 0.07 K/uL Nucleated Red Blood Cells % 0.8 % Prothrombin Time 14.0 SECONDS Prothromb Time International Ratio 1.3 Sodium Level 136 mmol/L Potassium Level 4.1 mmol/L Chloride Level 95 mmol/L Carbon Dioxide Level 37 mmol/L Anion Gap 4.0 mmol/L Blood Urea Nitrogen 35 mg/dl Creatinine 1.43 mg/dl Est Creatinine Clear Calc Drug Dose 42.9 ml/min Estimated GFR () 38.9 Estimated GFR (Non- 33.5 BUN/Creatinine Ratio 24.4 Random Glucose 144 mg/dl Calcium Level 8.9 mg/dl Test 02/13/18 16:18 Bedside Glucose 142 mg/dl Assessment & Plan 82-year-old female with chronic atrial fibrillation on Coumadin, status post pacemaker for sick sinus syndrome, presents with a mechanical fall at home and subsequent trauma. She hit her head, right arm, right leg after her walker buckled-there was no LOC reported. She remains fatigued this morning and in pain. She reports no increase of pain in her right upper thigh because she has not moved overnight. She is utilizing pain medication with success. She is tolerating p.o. but with limited mobility is likely not taking in enough liquids. She continues to have a low urine output. Blood counts responded appropriately to blood transfusion yesterday. INR is 1.3 today. She continues to have a depressed affect. 1. Status post mechanical fall with R tibial plateau fracture-multiple areas of ecchymosis along with a right elbow abrasion which is wrapped and dressed. Right thigh hematoma appears to be improving. Orthopedics following. Pain medication as needed. 2. Anemia secondary to acute blood loss-vitamin K was given as a reversal agent for Coumadin. INR is 1.3 this morning down from 1.9 yesterday. Blood counts responded appropriately to 2 units of blood transfused yesterday. 3. Chronic diastolic heart failure-compensated, recent admission January 18 for heart failure exacerbation. Follows with Dr. Nugent and cardiology clinic. 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 She denies any shortness of breath and reports lower extremity edema is stable from her baseline. Holding daily p.o. Lasix in setting of acute blood loss anemia and hypotension. Consulting nephrology as below 4. AK I/oliguria-continued low urine output with concentrated urine. Will consult nephrology for recommendations. Volume status is very difficult to assess secondary to body habitus. Crackles were heard at bases but otherwise clear to auscultation. Patient still appears compensated from a heart failure standpoint. Appreciate nephrology recommendations. 5. Hypotension-resolved 6. Chronic hypoxic respiratory failure-patient is on 2 L nasal cannula at home. Currently saturating around baseline. Continue supplemental oxygen as needed. 7. Chronic atrial fibrillation-on Coumadin which has been held in setting of multiple areas of ecchymosis status post fall. Continue Lopressor daily. 8. CAD status post PCI in 2013-stable, no chest pain. Continue metoprolol, Imdur, Lipitor. Aspirin has been held in setting of ecchymosis. 9. Diabetes mellitus-currently controlled. A1c reflects outpatient control. Holding Novolin 70/30 while patient is in the hospital. Continue with Lantus and sliding scale NovoLog with carbohydrate coverage per protocol. 9. CKD stage III-appears to be slightly worse. Avoid nephrotoxic agents when able and renally dose meds as appropriate. Consult nephrology in setting of worsening renal function and low urine output. 10. Hypothyroidism-continue levothyroxine per home regimen 11. Anxiety-stable, continue home dose Ativan as needed DVT prophylaxis-Coumadin currently held secondary to fall, SCDs CODE STATUS-full Disposition-continue telemetry monitoring for now. Savanna Preston DO [facility] hospitalist Consultants: Amarilis Rodgers. Current Inpatient Medications: Current Inpatient Medications Medications (Trade) Dose Ordered Sig/Yesenia Route Start Time Stop Time Status Last Admin Dose Admin Insulin Aspart (novoLOG ASPART) SLIDING SCALE If C... ACHS SC 02/10/18 21:00 03/12/18 20:59 02/13/18 12:06 2 UNITS Glucose (Glucose 40% Gel) 15-30 GRAMS 15 GRAMS... UD PRN PO 02/10/18 19:45 03/12/18 19:44 Glucose (Glucose Chew Tab) 4-8 Tablets 4 Tabl... UD PRN PO 02/10/18 19:45 03/12/18 19:44 Dextrose (Dextrose 50% 50ML Syringe) 25-50ML OF 50% DW IV FOR... UD PRN IV 02/10/18 19:45 03/12/18 19:44 Glucagon (Glucagon Inj) 1 mg UD PRN SQ 02/10/18 19:45 03/12/18 19:44 Insulin Glargine (Lantus Solostar Pen) 10 units Q12 SC 02/11/18 09:00 03/13/18 08:59 02/13/18 07:33 10 UNITS Acetaminophen (Tylenol Tab) 1,000 mg Q8 PO 02/10/18 22:00 03/12/18 21:59 02/13/18 13:38 1,000 MG Ascorbic Acid (Vitamin C Tab) 500 mg DAILY PO 02/11/18 09:00 03/13/18 08:59 02/13/18 07:24 500 MG Atorvastatin Calcium (Lipitor Tab) 10 mg DAILY PO 02/11/18 09:00 03/13/18 08:59 02/13/18 07:24 10 MG Cholecalciferol (Vitamin D Tab) 1,000 inter.unit DAILY PO 02/11/18 09:00 03/13/18 08:59 02/13/18 07:24 1,000 INTER.UNIT Isosorbide Mononitrate (Imdur Ext Rel Tab) 60 mg DAILY PO 02/11/18 09:00 03/13/18 08:59 02/13/18 07:25 60 MG Levalbuterol (Xopenex 1.25MG/ 3ML Neb) 1.25 mg Q8 PRN INH 02/10/18 20:00 03/12/18 19:59 Levothyroxine Sodium (Synthroid Tab) 100 mcg DAILYBB PO 02/11/18 06:00 03/13/18 06:59 02/13/18 06:27 100 MCG Magnesium Chloride (Slow-Mag Tab) 64 mg DAILY PO 02/11/18 09:00 03/13/18 08:59 02/13/18 07:24 64 MG Magnesium Hydroxide (Milk Of Magnesia Susp) 30 ml UD PRN PO 02/10/18 20:00 03/12/18 19:59 02/13/18 10:35 30 ML Metoprolol Tartrate (Lopressor Tab) 25 mg DAILY PO 02/11/18 09:00 03/13/18 08:59 Future Hold 02/11/18 09:11 25 MG Nitroglycerin (Nitrostat Tab) 0.4 mg PRN UT 02/10/18 20:00 03/12/18 19:59 Lactobacillus Acidophilus (Floranex Tab) 1 tab DAILY PO 02/11/18 09:00 03/13/18 08:59 02/13/18 07:25 1 TAB Miscellaneous (Iv Fluids Completed) 1 ea PRN PRN N/A 02/10/18 20:30 4/30/19 20:29 Oxycodone HCl (Roxicodone Immediate Rel Tab) 5 mg Q4H PRN PO 02/11/18 11:00 02/25/18 10:59 02/13/18 15:48 5 MG Lorazepam (Ativan Tab) 0.5 mg HS PO 02/11/18 21:00 03/13/18 20:59 02/13/18 14:10 0.5 MG Lorazepam (Ativan Tab) 0.5 mg DAILY PRN PO 02/11/18 19:00 03/13/18 18:59 02/12/18 12:40 0.5 MG
[2018-02-14] VITALS (14 sets, daily range): BP systolic 96–141; BP diastolic 44–82; PULSE 76–121; TEMP 36.4–36.8; O2SAT 90–100
[2018-02-14] MEDS: ACETAMINOPHEN 500 MG TAB PO SCH ×2 (06:11→15:04)
[2018-02-14] MEDS: LEVOTHYROXINE 100 MCG TAB PO SCH (06:11)
[2018-02-14 07:24] LABS: MEAN CELL VOLUME 95.6 fL (80-100); MEAN CORPUSCULAR HEMOGLOBIN 30.7 pg (25-34); MEAN CORPUSCULAR HGB CONC 32.1 g/dl (32-36); MEAN PLATELET VOLUME 9.8 fL (7.4-10.4); NUCLEATED RED BLOOD CELL ABS 0.05 K/uL (0-0); PLATELET COUNT 188 K/uL (130-400); RED CELL DISTRIBUTION WIDTH CV 17.3 % (11.5-14.5); RED CELL DISTRIBUTION WIDTH SD 59.3 fL (36.4-46.3); WHITE BLOOD COUNT 7.88 K/uL (4.8-10.8)
[2018-02-14 07:37] LABS: INR 1.3 (0.9-1.1)
[2018-02-14 07:54] LABS: CALCIUM 8.8 mg/dl (8.5-10.1); CREATININE 1.29 mg/dl (0.60-1.20); POTASSIUM 4.5 mmol/L (3.5-5.1)
[2018-02-14] MEDS: ATORVASTATIN 10 MG TAB PO SCH (08:08)
[2018-02-14] MEDS: LACTOBACILLUS ACIDOPHILUS (FLORANEX) TAB PO SCH (08:08)
[2018-02-14] MEDS: ISOSORBIDE MONONITRATE 60 MG TABCR PO SCH (08:08)
[2018-02-14] MEDS: CHOLECALCIFEROL 1000 INTER.UNIT TAB PO SCH (08:08)
[2018-02-14] MEDS: MAGNESIUM CHLORIDE 64MG DELAYED REL TAB PO SCH (08:08)
[2018-02-14] MEDS: ASCORBIC ACID 500 MG TAB PO SCH (08:09)
[2018-02-14] MEDS: INSULIN GLARGINE SOLOSTAR 100 UNITS/ML 3 ML PEN SC SCH ×2 (08:14→21:44)
[2018-02-14] MEDS: INSULIN ASPART 100 UNITS/ML 3 ML PEN SC SCH ×4 (09:01→21:43)
[2018-02-14] MEDS: OXYCODONE HCL IR 5 MG TAB (IMMEDIATE RELEASE) PO PRN ×2 (09:39→15:54)
--- NOTE | 2018-02-14 17:21 | Nephrology Consultation ---
Nephrology Consultation Date of Consultation: February 14, 2018. Attending Physician: Dr Preston Requesting Physician: Dr Preston Reason for Consultation: worsening renal function and oliguria History of Present Illness 82 year old female admitted 02/10 after falling at home and found to have an 8.8 cm R medial thigh hematoma and therapeutic INR w/ questionable tibial plateau frx. I am asked to see her w/ concerns for worsening UOP and renal function. 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 Her creatinine on admission was 1.0 w/ K 5.5; today creatinine is 1.3; peaked at 1.4 on 02/12 and 02/13. She has a burkett in place and her UOP on 02/12 and 02/13 is in mid/high 400s; she has 150 out so far today when I saw her at 10 am. She had 40 mg po lasix daily 02/10-02/11 and NS same timeframe. She is on 2L NC for the past 48 hrs down from 5L at admission. On 02/11 and for several hours yesterday she had sustained periods of SBP in 90s; no F; no extremes in HR. Her baseline creatinine in [facility] records is 1.1-1.2 in [id number], for CKD 3. Of note she was admitted here 01/19-01/21/18 for acute HF w/ diastolic dysfunction; had R>L pleural effusions noted at that visit. She was started on lasix 40 mg bid at d/c, up from 20 mg daily. No IV contrast given for CT scans this admission. Ortho is following for questionable tibial plateau frx noted on CT not XR and for conservative mgt and f/u imaging at this time. Past Medical/Surgical History Medical Problems: (1) Anxiety Status: Acute (2) CHF exacerbation Status: Acute (3) COPD exacerbation Status: Acute (4) Fall Status: Acute (5) Headache Status: Acute (6) Hemarthrosis of right thigh Status: Acute (7) Hypoxia Status: Acute (8) Precordial chest pain Status: Acute (9) Sinusitis Status: Acute (10) Tibial plateau fracture Status: Acute as above Family History Diabetes mellitus MOTHER FH: CHF (congestive heart failure) MOTHER FH: Crohn's disease DAUGHTER Hypertension SON Pacemaker BROTHER Social History Smoking Status: Never Smoker Alcohol Use: none Drug Use: none Marital Status: Housing Status: lives with family Occupation Status: retired Allergies Coded Allergies: MERRY Inhibitors (Verified Allergy, Unknown, Unknown, 01/18/18) Adhesives (Verified Allergy, Unknown, "TAPE", 01/18/18) Albuterol (Verified Allergy, Unknown, INTOLERANT OF ALBUTEROL, 01/18/18) Amiodarone (Verified Allergy, Unknown, 01/18/18) Amoxicillin (Verified Allergy, Unknown, ., 01/18/18) Ampicillin (Verified Allergy, Unknown, Unknown, 01/18/18) Bacitracin (Verified Allergy, Unknown, 01/18/18) Replaces BACITRACIN/PO Cephalosporins (Verified Allergy, Unknown, KEFLEX, 01/18/18) Epinephrine (Verified Allergy, Unknown, UNKNOWN, 01/18/18) INFO FROM [facility] Morphine (Verified Allergy, Unknown, hallucination, 02/11/18) Penicillins (Verified Allergy, Unknown, AMPICILLIN, 01/18/18) Polymyxin B (Verified Allergy, Unknown, 01/18/18) Replaces BACITRACIN/PO Medications Current Inpatient Medications Medications (Trade) Dose Ordered Sig/Yesenia Route Start Time Stop Time Status Last Admin Dose Admin Insulin Aspart (novoLOG ASPART) SLIDING SCALE If C... ACHS SC 02/10/18 21:00 03/12/18 20:59 02/13/18 12:06 2 UNITS Glucose (Glucose 40% Gel) 15-30 GRAMS 15 GRAMS... UD PRN PO 02/10/18 19:45 03/12/18 19:44 Glucose (Glucose Chew Tab) 4-8 Tablets 4 Tabl... UD PRN PO 02/10/18 19:45 03/12/18 19:44 Dextrose (Dextrose 50% 50ML Syringe) 25-50ML OF 50% DW IV FOR... UD PRN IV 02/10/18 19:45 03/12/18 19:44 Glucagon (Glucagon Inj) 1 mg UD PRN SQ 02/10/18 19:45 03/12/18 19:44 Insulin Glargine (Lantus Solostar Pen) 10 units Q12 SC 02/11/18 09:00 03/13/18 08:59 02/14/18 08:14 10 UNITS Acetaminophen (Tylenol Tab) 1,000 mg Q8 PO 02/10/18 22:00 03/12/18 21:59 02/14/18 06:11 1,000 MG Ascorbic Acid (Vitamin C Tab) 500 mg DAILY PO 02/11/18 09:00 03/13/18 08:59 02/14/18 08:09 500 MG Atorvastatin Calcium (Lipitor Tab) 10 mg DAILY PO 02/11/18 09:00 03/13/18 08:59 02/14/18 08:08 10 MG Cholecalciferol (Vitamin D Tab) 1,000 inter.unit DAILY PO 02/11/18 09:00 03/13/18 08:59 02/14/18 08:08 1,000 INTER.UNIT Isosorbide Mononitrate (Imdur Ext Rel Tab) 60 mg DAILY PO 02/11/18 09:00 03/13/18 08:59 02/14/18 08:08 60 MG Levalbuterol (Xopenex 1.25MG/ 3ML Neb) 1.25 mg Q8 PRN INH 02/10/18 20:00 03/12/18 19:59 Levothyroxine Sodium (Synthroid Tab) 100 mcg DAILYBB PO 02/11/18 06:00 03/13/18 06:59 02/14/18 06:11 100 MCG Magnesium Chloride (Slow-Mag Tab) 64 mg DAILY PO 02/11/18 09:00 03/13/18 08:59 02/14/18 08:08 64 MG Magnesium Hydroxide (Milk Of Magnesia Susp) 30 ml UD PRN PO 02/10/18 20:00 03/12/18 19:59 02/13/18 10:35 30 ML Metoprolol Tartrate (Lopressor Tab) 25 mg DAILY PO 02/11/18 09:00 03/13/18 08:59 Future Hold 02/11/18 09:11 25 MG Nitroglycerin (Nitrostat Tab) 0.4 mg PRN UT 02/10/18 20:00 03/12/18 19:59 Lactobacillus Acidophilus (Floranex Tab) 1 tab DAILY PO 02/11/18 09:00 03/13/18 08:59 02/14/18 08:08 1 TAB Miscellaneous (Iv Fluids Completed) 1 ea PRN PRN N/A 02/10/18 20:30 02/10/19 20:29 Oxycodone HCl (Roxicodone Immediate Rel Tab) 5 mg Q4H PRN PO 02/11/18 11:00 02/25/18 10:59 02/13/18 23:54 5 MG Lorazepam (Ativan Tab) 0.5 mg HS PO 02/11/18 21:00 03/13/18 20:59 02/13/18 14:10 0.5 MG Lorazepam (Ativan Tab) 0.5 mg DAILY PRN PO 02/11/18 19:00 03/13/18 18:59 02/12/18 12:40 0.5 MG Home Meds and Scripts Medications Dose Route/Sig Max Daily Dose Days Date Category Dose Instructions Oxygen Gas 2 Liters NA CONTINOUS 02/10/18 Reported Co Q 10 (Coenzyme Q10 (Ubidecarenone)) 10 Mg Cap 1 Tab PO DAILY 02/10/18 Reported Levalbuterol HCl (Levalbuterol) 1.25 Mg/3 Ml Nebu 3 Ml INH Q8 PRN 02/10/18 Reported Nitrostat (Nitroglycerin) 0.4 Mg Tab 0.4 Mg UT PRN 02/10/18 Reported Ativan (Lorazepam) 0.5 Mg Tab 0.5-1 Tab PO BID PRN 02/10/18 Reported Lasix (Furosemide) 40 Mg Tab 40 Mg PO DAILY 02/10/18 Reported Take 1 tab by mouth daily. Plus 1 additional tab 1 day/ week. Lopressor (Metoprolol Tartrate) 50 Mg Tab 25 Mg PO DAILY 03/10/17 Reported Milk of Magnesia (Magnesium Hydroxide) 30 Ml Susp 30 Ml PO PRN 02/08/17 Reported Clindamycin Hcl 150 Mg Cap 4 Cap PO 02/08/17 Reported PRIOR TO DENTAL PROCEDURE Levothyroxine Sodium 100 Mcg Tab 100 Mcg PO DAILY 02/08/17 Reported Slow-Mag Tab (Magnesium Chloride) 64 Mg Tabcr 64 Mg PO DAILY 02/08/17 Reported Ascorbic Acid 500 Mg Tab 500 Mg PO DAILY 02/08/17 Reported Vitamin D3 (Cholecalciferol) 1,000 Unit Tab 1,000 Units PO DAILY 12/18/15 Reported Aspirin Ec (Aspirin) 81 Mg Tab 81 Mg PO 3XWK 12/18/15 Reported EVERY SATURDAY/SATURDAY/SATURDAY Probiotic (Probiotic Product) 1 Cap Cap 1 Cap PO DAILY 12/18/15 Reported Calcium 600 + D (Calcium Carbonate-Vitamin D) 1 Tab Tab 2 Tablets PO DAILY 03/12/13 Reported CALCIUM 600-200 Coumadin (Warfarin Sod) 2.5 Mg Tab 0.5 Tab PO DAILY 03/12/13 Reported PER ANTI-COAGULATION CLINIC Tylenol (Acetaminophen) 500 Mg Tab 500-1,000 Mg PO TID PRN 03/12/13 Reported PRN PAIN Multivitamin (Multivitamins) Tab 1 Tab PO DAILY 03/12/13 Reported Imdur Ext Rel (Isosorbide Mononitrate) 60 Mg Ertab 60 Mg PO DAILY 03/12/13 Reported Lipitor (Atorvastatin Calcium) 20 Mg Tab 10 Mg PO DAILY 01/23/13 Reported TAKE 1/2 TABLET DAILY. Novolin 70/30 (Insulin Human Isoph/Insulin Regular) Susp 9 Units SC QPM 01/23/13 Reported Novolin 70/30 (Insulin Human Isoph/Insulin Regular) Susp 23 Units SC QAM 01/23/13 Reported Review of Systems Constitutional: + weakness, + fatigue, No fever Eyes: No worsening of vision ENT: No hearing loss Respiratory: + shortness of breath (no change in chronic dypsnea; denies orthopnea), No cough Cardiac: + edema (on R leg), No chest pain, No palpitations Abdomen: No pain, No nausea, No vomiting, No diarrhea, No constipation Musculoskeletal: + problem reported (c/o diffuse joint pain) Female : + problem reported Neuro: + weakness, + balance problems, No memory loss Psych: No depression symptoms, No anxiety Heme: + abnormal bleeding/bruising Endo: + fatigue Skin: No rash, No itch Physical Exam Date Time Temp Pulse Resp B/P (MAP) Pulse Ox O2 Delivery O2 Flow Rate FiO2 02/14/18 07:42 36.8 84 17 113/44 (67) 90 Nasal Cannula 2.0 02/14/18 04:00 100 Nasal Cannula 2.0 02/14/18 03:41 36.7 94 19 96/66 (76) 93 Nasal Cannula 2.0 5/3/18 23:59 100 Nasal Cannula 2.0 02/13/18 23:51 37.0 108 20 124/67 (86) 100 Nasal Cannula 2.0 02/13/18 20:00 98 Room Air 2.0 02/13/18 19:55 36.5 116 20 88/63 (71) 98 Room Air 2.0 02/13/18 16:00 94 Nasal Cannula 2.0 02/13/18 15:00 36.5 103 20 107/50 (69) 94 Nasal Cannula 2.0 02/13/18 12:00 Nasal Cannula 2.0 Humidified Oxygen 02/13/18 10:34 36.5 72 20 120/58 (78) 98 Nasal Cannula 2.0 General Appearance: WD/WN, no apparent distress, + obese, + pertinent finding ( on 02NC, ) Eyes: + pertinent finding (2 black eyes; R jaw / facial bruising) ENT: hearing grossly normal Neck: supple Respiratory/Chest: lungs clear, no respiratory distress, + decreased breath sounds Cardiovascular: + irregularly irregular Abdomen: normal bowel sounds, non tender, soft, + pertinent finding (burkett w/ dark bloody urine) Extremities: + pedal edema (R leg), + slow capillary refill (BLE), + swelling ( R leg) Neurologic/Psych: alert, normal mood/affect, oriented x 3 Skin: + pertinent finding (BL heel ulcers) Diagnostics Last 24 Hours Test 02/13/18 11:37 02/13/18 16:18 02/13/18 20:45 02/14/18 03:40 Bedside Glucose 143 mg/dl 142 mg/dl 153 mg/dl Urine Random Creatinine 224.0 mg/dl Urine Random Sodium 11 mEq/L Urine Random Urea Nitrogen 922 mg/dl Test 02/14/18 07:02 02/14/18 07:24 White Blood Count 7.88 K/uL Red Blood Count 2.93 M/uL Hemoglobin 9.0 g/dL Hematocrit 28.0 % Mean Corpuscular Volume 95.6 fL Mean Corpuscular Hemoglobin 30.7 pg Mean Corpuscular Hemoglobin Concent 32.1 g/dl RDW Standard Deviation 59.3 fL RDW Coefficient of Variation 17.3 % Platelet Count 188 K/uL Mean Platelet Volume 9.8 fL Nucleated RBC Absolute Count (auto) 0.05 K/uL Nucleated Red Blood Cells % 0.7 % Prothrombin Time 13.3 SECONDS Prothromb Time International Ratio 1.3 Sodium Level 137 mmol/L Potassium Level 4.5 mmol/L Chloride Level 98 mmol/L Carbon Dioxide Level 36 mmol/L Anion Gap 3.0 mmol/L Blood Urea Nitrogen 37 mg/dl Creatinine 1.29 mg/dl Est Creatinine Clear Calc Drug Dose 48.0 ml/min Estimated GFR () 44.0 Estimated GFR (Non- 38.0 BUN/Creatinine Ratio 29.0 Random Glucose 132 mg/dl Calcium Level 8.8 mg/dl Bedside Glucose 139 mg/dl Diagnostic Radiology: cxr 02/10>> 1. Cardiomegaly and cardiac pacemaker with evidence of congestive failure and mild interstitial edema. 2. There is a small right pleural effusion. RD urine Na 11; Rd ur creat 224 on 02/14 >>>FENa 0.05% Assessment & Plan 82 year old female admitted 02/10 after fall w/ 8.8 cm R medial thigh hematoma and questionable tibial plateau frx. 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 Her creatinine on admission was 1.0; her baseline in [facility] records in 2017 and 2018 is 1.1-1.2. Today's creatinine is 1.3; peaked at 1.4 on 02/12 and 02/13. Some concerns about lower urine output though no oliguria; do note darker/more concentrated urine, some gross hematuria. Recent admission here w/ volume overload. had several pRBC this admission w/ some improvement in bp -her urine out put is low but would not consider it critical at this time; volume status difficult to assess on exam alone but does not look floridly overloaded -recheck CXR >> unless markedly worsened findings after pRBC recommend trial of gentle NS at 50 mL hourly -recheck CK to ensure has not become abnormal/elevated -check UACM -daily bmp; cont strict I/O Appreciate consultation; will follow with you. Care coordinated w/ Dr. Preston.
--- NOTE | 2018-02-14 17:42 | DIAGNOSTIC IMAGING REPORT ---
CHEST ONE VIEW PORTABLE CLINICAL HISTORY: 82 years-old Female presenting with h/o HF, dehydration but hard to assess volume status.. TECHNIQUE: Portable upright AP view of the chest was obtained. COMPARISON: 02/10/2018. FINDINGS: Left subclavian pacer with leads to the right atrium and right ventricular apex. Atherosclerosis of aortic arch. Cardiac silhouette moderately enlarged. Main pulmonary artery is also enlarged. Pulmonary vascular prominence stable to slightly decreased from prior. Persistent elevation of the right hemidiaphragm. Mildly low lung volumes as on prior exam. No large pleural effusion or pneumothorax. Osseous structures normal. IMPRESSION: 1. Cardiomegaly with stable to slight decrease in volume overload/congestive change. No rafael pulmonary edema. 2. Low lung volumes with hypoventilatory changes. Electronically signed by: Matthias Biggs M.D. 02/14/2018 5:41 PM Dictated Date/Time: 02/14/2018 5:40 PM
[2018-02-14] MEDS ORDERED: SODIUM CHLORIDE 0.9% 1000ML 1,000 ML IV SCH (18:00)
[2018-02-14] MEDS ORDERED: TRAMADOL HCL 50 MG TAB PO PRN ×2 (18:15→21:15)
--- NOTE | 2018-02-14 18:24 | Progress Note ---
Medicine Progress Note Date & Time of Visit: February 14, 2018 at 18:17. Subjective 82-year-old female with chronic atrial fibrillation on Coumadin, status post pacemaker for sick sinus syndrome, presents with a mechanical fall at home and subsequent trauma. She hit her head, right arm, right leg after her walker buckled-there was no LOC reported. She remains fatigued but was had just taken her an oxycodone 1 hour ago. 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 She reports an improvement of pain in her right thigh. She reports a sensation of having to go to the bathroom but feeling that she. She denies any dysuria. She is tolerating p.o. Objective Last 8 Hrs Date Time Temp Pulse Resp B/P (MAP) Pulse Ox O2 Delivery O2 Flow Rate FiO2 02/14/18 16:05 Room Air 02/14/18 16:04 36.4 83 16 124/60 (81) 96 Nasal Cannula 02/14/18 12:05 Room Air 02/14/18 12:00 36.6 99 16 141/63 (89) 96 Room Air Physical Exam: GEN: Morbid obesity, fatigued but responding appropriately to questions, lying supine in recliner at bedside. HEENT: Right periorbital ecchymosis-starting to notice drainage of this with increased bluish hue to inferior cheek area, normal sclerae CARDIO: reg rate, irregular rhythm, no m/g/r LUNGS: Crackles at left base, right lung is clear to auscultation. ABD: Very large pannus with multiple skin folds, soft, non-tender, non-distended , no rebound or guarding, bowel sounds were heard EXTREMITY: Right elbow dressed and wrapped with dressing that is clean dry and intact. Right upper medial thigh hematoma extending from inguinal fold to just proximal of right knee, purplish in color. 2+ pitting edema in right foot. Extremities are warm and well perfused, no paresthesias, no pallor. NEURO: CN 2-12 grossly intact, sensation intact throughout, no gross focal deficits MUSC: Generalized weakness, patient requiring maximum assistance SKIN: warm and dry and ecchymotic areas as above Laboratory Results: 02/14/18 07:02 02/14/18 07:02 Test 02/10/18 14:25 02/10/18 15:48 02/11/18 06:27 02/11/18 21:49 Immature Granulocyte % (Auto) 0.4 % White Blood Count 6.76 K/uL (4.8-10.8) Red Blood Count 3.37 M/uL (4.2-5.4) Hemoglobin 10.6 g/dL (12.0-16.0) Hematocrit 33.3 % (37-47) Mean Corpuscular Volume 98.8 fL (80-100) Mean Corpuscular Hemoglobin 31.5 pg (25-34) Mean Corpuscular Hemoglobin Concent 31.8 g/dl (32-36) Platelet Count 203 K/uL (130-400) Mean Platelet Volume 10.3 fL (7.4-10.4) Neutrophils (%) (Auto) 59.2 % Lymphocytes (%) (Auto) 17.9 % Monocytes (%) (Auto) 15.1 % Eosinophils (%) (Auto) 7.0 % Basophils (%) (Auto) 0.4 % Neutrophils # (Auto) 4.00 K/uL (1.4-6.5) Lymphocytes # (Auto) 1.21 K/uL (1.2-3.4) Monocytes # (Auto) 1.02 K/uL (0.11-0.59) Eosinophils # (Auto) 0.47 K/uL (0-0.5) Basophils # (Auto) 0.03 K/uL (0-0.2) Immature Granulocyte # (Auto) 0.03 K/uL (0.00-0.02) Activated Partial Thromboplast Time 30.7 SECONDS (21.0-31.0) Partial Thromboplastin Ratio 1.2 Creatine Kinase MB 1.9 ng/ml (0.5-3.6) Creatine Kinase MB Ratio 4.8 (0-3.0) Estimated Average Glucose 148 mg/dl Hemoglobin A1c 6.8 % (4.5-5.6) Lactic Acid Level 1.8 mmol/L (0.4-2.0) Test 02/14/18 03:40 02/14/18 07:02 02/14/18 16:26 02/14/18 17:40 Urine Random Creatinine 224.0 mg/dl Urine Random Sodium 11 mEq/L Urine Random Urea Nitrogen 922 mg/dl Red Blood Count 2.93 M/uL (4.2-5.4) Mean Corpuscular Volume 95.6 fL (80-100) Mean Corpuscular Hemoglobin 30.7 pg (25-34) Mean Corpuscular Hemoglobin Concent 32.1 g/dl (32-36) RDW Standard Deviation 59.3 fL (36.4-46.3) RDW Coefficient of Variation 17.3 % (11.5-14.5) Mean Platelet Volume 9.8 fL (7.4-10.4) Nucleated RBC Absolute Count (auto) 0.05 K/uL (0-0) Nucleated Red Blood Cells % 0.7 % Prothrombin Time 13.3 SECONDS (9.0-12.0) Prothromb Time International Ratio 1.3 (0.9-1.1) Anion Gap 3.0 mmol/L (3-11) Est Creatinine Clear Calc Drug Dose 48.0 ml/min Estimated GFR () 44.0 Estimated GFR (Non- 38.0 BUN/Creatinine Ratio 29.0 (10-20) Calcium Level 8.8 mg/dl (8.5-10.1) Bedside Glucose 188 mg/dl (70-90) Total Creatine Kinase 156 U/L (26-192) Test 02/14/18 17:56 Last 24 Hours Test 02/13/18 20:45 02/14/18 03:40 02/14/18 07:02 02/14/18 07:24 Bedside Glucose 153 mg/dl 139 mg/dl Urine Random Creatinine 224.0 mg/dl Urine Random Sodium 11 mEq/L Urine Random Urea Nitrogen 922 mg/dl White Blood Count 7.88 K/uL Red Blood Count 2.93 M/uL Hemoglobin 9.0 g/dL Hematocrit 28.0 % Mean Corpuscular Volume 95.6 fL Mean Corpuscular Hemoglobin 30.7 pg Mean Corpuscular Hemoglobin Concent 32.1 g/dl RDW Standard Deviation 59.3 fL RDW Coefficient of Variation 17.3 % Platelet Count 188 K/uL Mean Platelet Volume 9.8 fL Nucleated RBC Absolute Count (auto) 0.05 K/uL Nucleated Red Blood Cells % 0.7 % Prothrombin Time 13.3 SECONDS Prothromb Time International Ratio 1.3 Sodium Level 137 mmol/L Potassium Level 4.5 mmol/L Chloride Level 98 mmol/L Carbon Dioxide Level 36 mmol/L Anion Gap 3.0 mmol/L Blood Urea Nitrogen 37 mg/dl Creatinine 1.29 mg/dl Est Creatinine Clear Calc Drug Dose 48.0 ml/min Estimated GFR () 44.0 Estimated GFR (Non- 38.0 BUN/Creatinine Ratio 29.0 Random Glucose 132 mg/dl Calcium Level 8.8 mg/dl Test 02/14/18 11:41 02/14/18 16:26 02/14/18 17:40 02/14/18 18:13 Bedside Glucose 185 mg/dl 188 mg/dl Total Creatine Kinase 156 U/L Assessment & Plan 82-year-old female with chronic atrial fibrillation on Coumadin, status post pacemaker for sick sinus syndrome, presents with a mechanical fall at home and subsequent trauma. She hit her head, right arm, right leg after her walker buckled-there was no LOC reported. She remains fatigued but was had just taken her an oxycodone 1 hour ago. 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 She reports an improvement of pain in her right thigh. She reports a sensation of having to go to the bathroom but feeling that she cannot go despite catheter being in place. She denies any dysuria. She is tolerating p.o. 1. Status post mechanical fall with R tibial plateau fracture-multiple areas of ecchymosis along with a right elbow abrasion which is wrapped and dressed. All areas appear to be improving and draining. Right thigh hematoma appears to be improving. Orthopedics following. Pain medication as needed. 2. Anemia secondary to acute blood loss-vitamin K was given as a reversal agent for Coumadin. 2 units of blood given this admission with stable H&H. Continue to trend H&H daily. 3. Chronic diastolic heart failure-compensated, recent admission January 18 for heart failure exacerbation. Follows with Dr. Nugent and cardiology clinic. She denies any shortness of breath and reports lower extremity edema is stable from her baseline without changes. Volume status is difficult to assess secondary to body habitus and lack of movement, however, she appears to be dehydrated and will proceed with IV fluids holding Lasix. 4. AK I-appreciate nephrology recommendations. As discussed above patient appears to be more volume down. Continue with normal saline overnight holding Lasix, and watch trend on PRP in the a.m. crackles are still heard at left base ; will monitor closely. 5. Chronic hypoxic respiratory failure-patient is on 2 L nasal cannula at home. Currently saturating around baseline. Continue supplemental oxygen as needed. 6. Chronic atrial fibrillation-on Coumadin which has been held in setting of multiple areas of ecchymosis status post fall. Continue Lopressor daily. We will likely resume Coumadin on Saturday once H&H is demonstrated to be stable. 7. CAD status post PCI in 2012-stable, no chest pain. Continue metoprolol, Imdur, Lipitor. Will restart aspirin at this time. 8. Diabetes mellitus-currently controlled. A1c reflects outpatient control. Holding Novolin 70/30 while patient is in the hospital. Continue with Lantus and sliding scale NovoLog with carbohydrate coverage per protocol. 9. Hypothyroidism-continue levothyroxine per home regimen 10. Anxiety-stable, continue home dose Ativan as needed DVT prophylaxis-Coumadin currently held secondary to fall, SCDs CODE STATUS-full Disposition-transfer to [facility], patient will need rehab on discharge defer to case management for logistics. Savanna Preston DO [facility] hospitalist Consultants: Amarilis Rodgers. Current Inpatient Medications: Current Inpatient Medications Medications (Trade) Dose Ordered Sig/Yesenia Route Start Time Stop Time Status Last Admin Dose Admin Insulin Aspart (novoLOG ASPART) SLIDING SCALE If C... ACHS SC 02/10/18 21:00 03/12/18 20:59 02/14/18 18:05 2 UNITS Glucose (Glucose 40% Gel) 15-30 GRAMS 15 GRAMS... UD PRN PO 02/10/18 19:45 03/12/18 19:44 Glucose (Glucose Chew Tab) 4-8 Tablets 4 Tabl... UD PRN PO 02/10/18 19:45 03/12/18 19:44 Dextrose (Dextrose 50% 50ML Syringe) 25-50ML OF 50% DW IV FOR... UD PRN IV 02/10/18 19:45 03/12/18 19:44 Glucagon (Glucagon Inj) 1 mg UD PRN SQ 02/10/18 19:45 03/12/18 19:44 Insulin Glargine (Lantus Solostar Pen) 10 units Q12 SC 02/11/18 09:00 03/13/18 08:59 02/14/18 08:14 10 UNITS Acetaminophen (Tylenol Tab) 1,000 mg Q8 PO 02/10/18 22:00 03/12/18 21:59 02/14/18 15:04 1,000 MG Ascorbic Acid (Vitamin C Tab) 500 mg DAILY PO 02/11/18 09:00 03/13/18 08:59 02/14/18 08:09 500 MG Atorvastatin Calcium (Lipitor Tab) 10 mg DAILY PO 02/11/18 09:00 03/13/18 08:59 02/14/18 08:08 10 MG Cholecalciferol (Vitamin D Tab) 1,000 inter.unit DAILY PO 02/11/18 09:00 03/13/18 08:59 02/14/18 08:08 1,000 INTER.UNIT Isosorbide Mononitrate (Imdur Ext Rel Tab) 60 mg DAILY PO 02/11/18 09:00 03/13/18 08:59 02/14/18 08:08 60 MG Levalbuterol (Xopenex 1.25MG/ 3ML Neb) 1.25 mg Q8 PRN INH 02/10/18 20:00 03/12/18 19:59 Levothyroxine Sodium (Synthroid Tab) 100 mcg DAILYBB PO 02/11/18 06:00 03/13/18 06:59 02/14/18 06:11 100 MCG Magnesium Chloride (Slow-Mag Tab) 64 mg DAILY PO 02/11/18 09:00 03/13/18 08:59 02/14/18 08:08 64 MG Magnesium Hydroxide (Milk Of Magnesia Susp) 30 ml UD PRN PO 02/10/18 20:00 03/12/18 19:59 02/13/18 10:35 30 ML Metoprolol Tartrate (Lopressor Tab) 25 mg DAILY PO 02/11/18 09:00 03/13/18 08:59 Future Hold 02/11/18 09:11 25 MG Nitroglycerin (Nitrostat Tab) 0.4 mg PRN UT 02/10/18 20:00 03/12/18 19:59 Lactobacillus Acidophilus (Floranex Tab) 1 tab DAILY PO 5/1/18 09:00 03/13/18 08:59 02/14/18 08:08 1 TAB Miscellaneous (Iv Fluids Completed) 1 ea PRN PRN N/A 02/10/18 20:30 02/10/19 20:29 Oxycodone HCl (Roxicodone Immediate Rel Tab) 5 mg Q4H PRN PO 02/11/18 11:00 02/25/18 10:59 02/14/18 15:54 5 MG Lorazepam (Ativan Tab) 0.5 mg HS PO 02/11/18 21:00 03/13/18 20:59 02/13/18 14:10 0.5 MG Lorazepam (Ativan Tab) 0.5 mg DAILY PRN PO 02/11/18 19:00 03/13/18 18:59 02/12/18 12:40 0.5 MG Sodium Chloride 1,000 ml @ 80 mls/hr [id number] IV 02/14/18 18:00 02/15/18 18:59 02/14/18 18:07 80 MLS/HR
[2018-02-14] MEDS: LORAZEPAM 0.5 MG TAB PO SCH (21:09)
[2018-02-14] MEDS ORDERED: TRAMADOL HCL 50 MG TAB PO ONE (21:13)
[2018-02-14] MEDS ORDERED: ACETAMINOPHEN 500 MG TAB PO ONE (21:15)
[2018-02-14] MEDS ORDERED: OXYCODONE HCL IR 5 MG TAB (IMMEDIATE RELEASE) PO STA (21:29)
[2018-02-14] MEDS ORDERED: OXYCODONE HCL IR 5 MG TAB (IMMEDIATE RELEASE) ONE (21:32)
[2018-02-14] MEDS ORDERED: NITROGLYCERIN 0.4 MG SL PER TAB CHARGE SL STA (22:01)
[2018-02-14] MEDS ORDERED: OXYCODONE HCL IR 5 MG TAB (IMMEDIATE RELEASE) PO PRN (22:15)
[2018-02-14] MEDS ORDERED: LEVALBUTEROL/IPRATROPIUM NEB INH STA (22:25)
[2018-02-14] MEDS ORDERED: IPRATROPIUM BROMIDE NEB SOLN 0.02% 2.5 ML VIAL INH STA (22:28)
[2018-02-14] MEDS ORDERED: LEVALBUTEROL 1.25MG/0.5ML NEB INH STA (22:28)
[2018-02-14 22:30] LABS: BASO % 0.2 %; BASO ABS # 0.02 K/uL (0-0.2); EOS % 2.8 %; EOS ABS # 0.23 K/uL (0-0.5); HEMATOCRIT 28.7 % (37-47); IG# 0.03 K/uL (0.00-0.02); LYMPH % 10.8 %; MEAN CELL VOLUME 96.3 fL (80-100); MEAN CORPUSCULAR HEMOGLOBIN 30.2 pg (25-34); MEAN CORPUSCULAR HGB CONC 31.4 g/dl (32-36); MEAN PLATELET VOLUME 9.6 fL (7.4-10.4); NEUT % 67.8 %; NEUT ABS # 5.67 K/uL (1.4-6.5); NUCLEATED RED BLOOD CELL ABS 0.05 K/uL (0-0); PLATELET COUNT 211 K/uL (130-400); RED CELL DISTRIBUTION WIDTH CV 17.1 % (11.5-14.5); RED CELL DISTRIBUTION WIDTH SD 58.9 fL (36.4-46.3); WHITE BLOOD COUNT 8.35 K/uL (4.8-10.8)
[2018-02-14] MEDS ORDERED: METOPROLOL TARTRATE 25 MG TAB PO ONE (22:34)
[2018-02-14 22:37] LABS: PTT PATIENT 30.7 SECONDS (21.0-31.0)
[2018-02-14 22:57] LABS: ALBUMIN 2.7 gm/dl (3.4-5.0); CALCIUM 8.8 mg/dl (8.5-10.1); CREATININE 1.37 mg/dl (0.60-1.20); POTASSIUM 4.6 mmol/L (3.5-5.1); TOTAL PROTEIN 6.6 gm/dl (6.4-8.2)
[2018-02-14] MEDS ORDERED: ASPIRIN 81 MG ECTAB PO ONE (23:07)
--- NOTE | 2018-02-14 23:26 | DIAGNOSTIC IMAGING REPORT ---
CHEST ONE VIEW PORTABLE HISTORY: 82 years-old Female sob acute shortness of breath COMPARISON: Chest radiograph 02/14/2018 TECHNIQUE: Portable AP view of the chest FINDINGS: Cardiac silhouette is again enlarged. Atherosclerosis of the aorta. Left subclavian pacer appears unchanged. No pneumothorax. There are small bilateral pleural effusions slightly worsened bilateral interstitial opacities suggesting mild pulmonary edema. Lungs are hypoinflated. Hazy subsegmental bibasilar densities are noted. Degenerative changes of the shoulders and spine. IMPRESSION: 1. Cardiomegaly with mildly progressed interstitial coarsening suggesting mild pulmonary edema. 2. Small bilateral pleural effusions with bibasilar opacities. 3. Hypoinflation. The above report was generated using voice recognition software. It may contain grammatical, syntax or spelling errors. Electronically signed by: Tan Rick M.D. 02/14/2018 11:25 PM Dictated Date/Time: 02/14/2018 11:23 PM
[2018-02-14] MEDS: CIPROFLOXACIN / D5W 400 MG in PREMIXED IN D5W 200 ML IV SCH (23:27)
--- NOTE | 2018-02-14 23:33 | Progress Note ---
Internal Med Progress Note Date of Service: February 14, 2018. Provider Documentation: SUBJECTIVE: 10 PM - Patient complained of left-sided chest pain going to her left arm similar to heart attack in the past as per RN sob sx, no cough CR 120s, SBP 120s, rr 20s, O2 sats 96 on 4L as per RN Relief of chest pain with nitro as per RN SBP 90s after nitro OBJECTIVE: Vital Signs-as noted below Exam: General- anxious, obese HEENT -ecchymosis on the face, pale palp conjunctivae, dry buccal mucosa Neck-short Lungs- decreased effort Heart-tachycardic, irregular Abdomen- some distention. MT Extremities-min LE edema NE coherent, mild hearing impairment EKG as per my interpretation rate 110s, rapid AF, TWI lat leads CXR as per my interpretation increased congestion Troponin 1.26 ASSESSMENT & PLAN: ACS, hx CAD as per records Pulmonary congestion rapid AF PCU transfer Hold IV fluid, stat neb; (Lasix precluded by borderline BP for now) Facilitate home aspirin, beta-leonardo, nitrate Rx Follow cardiac markers May consider IV heparin if w/ progression of troponin elevation and Hg stable w / hx recent traumatic hematoma Cardio consult in AM (Patient known to Dr. Nugent.) Will relay to AM provider. Vital Signs: Date Time Temp Pulse Resp B/P (MAP) Pulse Ox O2 Delivery O2 Flow Rate FiO2 02/15/18 06:48 36.5 79 19 125/67 (86) 95 Nasal Cannula 2.0 Humidified Oxygen 02/15/18 04:00 99 Nasal Cannula 2.0 02/15/18 03:04 36.5 79 17 128/60 (82) 95 Nasal Cannula 2.0 152/78 (102) 02/15/18 01:45 98 111/60 (77) 02/15/18 00:15 98/60 (73) 02/15/18 00:14 111 02/14/18 23:59 94 Nasal Cannula 2.0 02/14/18 23:55 99 120/58 (78) 02/14/18 23:43 36.7 114 16 95 2.0 02/14/18 23:30 36.6 121 24 97/68 (78) 95 Nasal Cannula 2.0 02/14/18 23:06 36.7 114 16 111/72 (85) 95 Nasal Cannula 2.0 02/14/18 21:57 120 124/82 (96) 96 Nasal Cannula 4.0 02/14/18 20:55 36.5 88 100/63 (75) 93 Nasal Cannula 2.0 02/14/18 20:39 36.6 76 18 100 2.0 02/14/18 20:00 Room Air 02/14/18 19:48 36.6 76 18 126/51 (76) 100 Nasal Cannula 2.0 02/14/18 16:05 Room Air 02/14/18 16:04 36.4 83 16 124/60 (81) 96 Nasal Cannula 02/14/18 12:05 Room Air 02/14/18 12:00 36.6 99 16 141/63 (89) 96 Room Air 02/14/18 08:05 Room Air 02/14/18 07:42 36.8 84 17 113/44 (67) 90 Nasal Cannula 2.0 Lab Results: Results Past 24 Hours Test 02/14/18 11:41 02/14/18 16:26 02/14/18 17:40 02/14/18 17:56 Range/Units Bedside Glucose 185 188 70-90 mg/dl Total Creatine Kinase 156 26-192 U/L Urine Color ORANGE Urine Appearance TURBID CLEAR Urine pH 5.0 4.5-7.5 Urine Specific [place] 1.031 1.000-1.030 Urine Protein 1+ NEG Urine Glucose (UA) NEG NEG Urine Ketones NEG NEG Urine Occult Blood 3+ NEG Urine Nitrite POS NEG Urine Bilirubin 1+ NEG Urine Urobilinogen NEG NEG Urine Leukocyte Esterase LARGE NEG Urine WBC (Auto) >30 0-5 /hpf Urine RBC (Auto) >30 0-4 /hpf Urine Hyaline Casts (Auto) 1-5 0-5 /lpf Urine Epithelial Cells (Auto) >30 0-5 /lpf Urine Bacteria (Auto) 4+ NEG Urine Pathogenic Casts 0 /lpf Urine Yeast (Auto) NONE PRSENT Test 02/14/18 20:51 02/14/18 22:23 02/15/18 02:51 Range/Units Bedside Glucose 212 70-90 mg/dl White Blood Count 8.35 7.51 4.8-10.8 K/uL Red Blood Count 2.98 2.88 4.2-5.4 M/uL Hemoglobin 9.0 8.7 12.0-16.0 g/dL Hematocrit 28.7 27.7 37-47 % Mean Corpuscular Volume 96.3 96.2 80-100 fL Mean Corpuscular Hemoglobin 30.2 30.2 25-34 pg Mean Corpuscular Hemoglobin Concent 31.4 31.4 32-36 g/dl Platelet Count 211 198 130-400 K/uL Mean Platelet Volume 9.6 9.6 7.4-10.4 fL Neutrophils (%) (Auto) 67.8 71.5 % Lymphocytes (%) (Auto) 10.8 10.0 % Monocytes (%) (Auto) 18.0 16.2 % Eosinophils (%) (Auto) 2.8 1.9 % Basophils (%) (Auto) 0.2 0.1 % Neutrophils # (Auto) 5.67 5.37 1.4-6.5 K/uL Lymphocytes # (Auto) 0.90 0.75 1.2-3.4 K/uL Monocytes # (Auto) 1.50 1.22 0.11-0.59 K/uL Eosinophils # (Auto) 0.23 0.14 0-0.5 K/uL Basophils # (Auto) 0.02 0.01 0-0.2 K/uL RDW Standard Deviation 58.9 57.7 36.4-46.3 fL RDW Coefficient of Variation 17.1 16.8 11.5-14.5 % Immature Granulocyte % (Auto) 0.4 0.3 % Immature Granulocyte # (Auto) 0.03 0.02 0.00-0.02 K/uL Nucleated RBC Absolute Count (auto) 0.05 0.03 0-0 K/uL Nucleated Red Blood Cells % 0.6 0.4 % Activated Partial Thromboplast Time 30.7 29.8 21.0-31.0 SECONDS Partial Thromboplastin Ratio 1.2 1.1 Sodium Level 135 134 136-145 mmol/L Potassium Level 4.6 4.8 3.5-5.1 mmol/L Chloride Level 97 97 98-107 mmol/L Carbon Dioxide Level 36 37 21-32 mmol/L Anion Gap 3.0 0.0 3-11 mmol/L Blood Urea Nitrogen 37 38 7-18 mg/dl Creatinine 1.37 1.33 0.60-1.20 mg/dl Est Creatinine Clear Calc Drug Dose 45.2 46.6 ml/min Estimated GFR () 40.9 42.4 Estimated GFR (Non- 35.3 36.6 BUN/Creatinine Ratio 27.2 28.8 10-20 Random Glucose 187 186 70-99 mg/dl Calcium Level 8.8 8.7 8.5-10.1 mg/dl Magnesium Level 2.2 1.8-2.4 mg/dl Total Bilirubin 1.9 0.2-1 mg/dl Aspartate Amino Transf (AST/SGOT) 52 15-37 U/L Alanine Aminotransferase (ALT/SGPT) 25 12-78 U/L Alkaline Phosphatase 366 45-117 U/L Troponin I 1.260 1.240 0-0.045 ng/ml Total Protein 6.6 6.4-8.2 gm/dl Albumin 2.7 3.4-5.0 gm/dl Globulin 3.9 2.5-4.0 gm/dl Albumin/Globulin Ratio 0.7 0.9-2 Lipase 52 73-393 U/L Hypochromasia PRESENT Prothrombin Time 13.0 9.0-12.0 SECONDS Prothromb Time International Ratio 1.2 0.9-1.1
[2018-02-14] MEDS ORDERED: PROCHLORPERAZINE INJ 5 MG in SYRINGE 4 ML IV PRN (23:45)
[2018-02-15] VITALS (10 sets, daily range): BP systolic 98–152; BP diastolic 53–78; PULSE 69–98; TEMP 35.9–36.5; O2SAT 93–99
[2018-02-15] MEDS ORDERED: HYDROmorphone INJ 0.5 MG/0.5 ML SYR IV PRN
[2018-02-15] MEDS ORDERED: DIGOXIN IV 250 MCG in SYRINGE 9 ML IV ONE
[2018-02-15 03:05] LABS: BASO % 0.1 %; BASO ABS # 0.01 K/uL (0-0.2); EOS % 1.9 %; EOS ABS # 0.14 K/uL (0-0.5); HEMATOCRIT 27.7 % (37-47); HEMOGLOBIN 8.7 g/dL (12.0-16.0); IG# 0.02 K/uL (0.00-0.02); LYMPH ABS # 0.75 K/uL (1.2-3.4); MEAN CELL VOLUME 96.2 fL (80-100); MEAN CORPUSCULAR HEMOGLOBIN 30.2 pg (25-34); MEAN CORPUSCULAR HGB CONC 31.4 g/dl (32-36); MEAN PLATELET VOLUME 9.6 fL (7.4-10.4); MONO % 16.2 %; MONO ABS # 1.22 K/uL (0.11-0.59); NEUT % 71.5 %; NEUT ABS # 5.37 K/uL (1.4-6.5); NUCLEATED RED BLOOD CELL ABS 0.03 K/uL (0-0); PLATELET COUNT 198 K/uL (130-400); RED CELL DISTRIBUTION WIDTH CV 16.8 % (11.5-14.5); RED CELL DISTRIBUTION WIDTH SD 57.7 fL (36.4-46.3); WHITE BLOOD COUNT 7.51 K/uL (4.8-10.8)
[2018-02-15 03:15] LABS: INR 1.2 (0.9-1.1); PTT PATIENT 29.8 SECONDS (21.0-31.0)
[2018-02-15 03:28] LABS: CALCIUM 8.7 mg/dl (8.5-10.1); CREATININE 1.33 mg/dl (0.60-1.20); POTASSIUM 4.8 mmol/L (3.5-5.1)
[2018-02-15] MEDS ORDERED: METOPROLOL TARTRATE 25 MG TAB PO ONE (06:22)
[2018-02-15] MEDS: LEVOTHYROXINE 100 MCG TAB PO SCH (07:12)
[2018-02-15] MEDS: ACETAMINOPHEN 500 MG TAB PO SCH ×3 (07:13→21:11)
[2018-02-15] MEDS: CIPROFLOXACIN / D5W 400 MG in PREMIXED IN D5W 200 ML IV SCH ×2 (08:51→21:07)
[2018-02-15] MEDS: ATORVASTATIN 10 MG TAB PO SCH (08:51)
[2018-02-15] MEDS: CHOLECALCIFEROL 1000 INTER.UNIT TAB PO SCH (08:51)
[2018-02-15] MEDS: ISOSORBIDE MONONITRATE 60 MG TABCR PO SCH (08:51)
[2018-02-15] MEDS: LACTOBACILLUS ACIDOPHILUS (FLORANEX) TAB PO SCH (08:52)
[2018-02-15] MEDS: MAGNESIUM CHLORIDE 64MG DELAYED REL TAB PO SCH (08:52)
[2018-02-15] MEDS ORDERED: ASPIRIN 81 MG ECTAB PO SCH (09:00)
[2018-02-15] MEDS ORDERED: METOPROLOL TARTRATE 25 MG TAB PO SCH (09:00)
[2018-02-15] MEDS: LORAZEPAM 0.5 MG TAB PO PRN (09:02)
[2018-02-15] MEDS: INSULIN ASPART 100 UNITS/ML 3 ML PEN SC SCH ×4 (09:06→21:18)
[2018-02-15] MEDS: INSULIN GLARGINE SOLOSTAR 100 UNITS/ML 3 ML PEN SC SCH ×2 (09:06→21:18)
[2018-02-15] MEDS ORDERED: FUROSEMIDE INJ 20 MG in SYRINGE 0 ML IV ONE (10:45)
--- NOTE | 2018-02-15 11:05 | ECHOCARDIOGRAM REPORT ---
*NOTICE TO RECEIVING CONSTITUTION PARTY AGENCY This information is strictly Confidential and protected under [place] law. [place] law prohibits you from making any further disclosure of this information unless further disclosure is expressly permitted by the written consent of the person to whom it pertains or is authorized by law. A general authorization for the release of medical or other information is not sufficient for this purpose. Hospital accepts no responsibility if the information is made available to any other person, INCLUDING THE PATIENT. Interpretation Summary * Name: CHUCKIE KING Study Date: 02/15/2018 08:50 AM BP: 125/67 mmHg * Patient Location: 208 HR: 79 * : 1935 (M/d/yyyy) Gender: Female Height: 66 in * Age: 82 yrs Ethnicity: [place] Weight: 325 lb * Ordering Physician: SABRINA. Ivanna DUNAWAY DO * Performed By: Marlee Amezquita RDCS * * Reason For Study: CHEST PAIN * BSA: 2.5 m2 * -- Conclusions -- * The study was technically limited. * There were technical limitations due to patient'sbody habitus * The left ventricle is normal in size. * There is moderate concentric left ventricular hypertrophy. * No regional wall motion abnormalities noted. * Ejection Fraction = 55-60%. * Valve assessments not performed. Please refer to recent study of 01/20/2018 Procedure Details * The study was technically limited. * There were technical limitations due to patient'sbody habitus * A contrast injection of Definity was performed to improve assessment of LV function. * Contrast was injected into an intravenous site in the left arm. * One vial of Definity ultrasound contrast was diluted in normal saline to a total volume of 10 ml. A total of '2' ml of solution was administered during imaging. * Lot # [id number] of Definity utilized for procedure. * Expiration date 12/02. * The attending nurse who injected the contrast agent was KALEY PATEL RN. Left Ventricle * The left ventricle is normal in size. * There is moderate concentric left ventricular hypertrophy. * Ejection Fraction = 55-60%. * No regional wall motion abnormalities noted. MMode 2D Measurements and Calculations IVSd 1.7 cm IVSs 2.1 cm LVIDd 4.4 cm LVIDs 3.0 cm LVPWd 0.89 cm LVPWs 1.7 cm IVS/LVPW 1.9 FS 30.7 % EDV(Teich) 85.5 ml ESV(Teich) 35.4 ml EF(Teich) 58.6 % EDV(cubed) 82.5 ml ESV(cubed) 27.4 ml EF(cubed) 66.8 % % IVS thick 19.7 % % LVPW thick 96.9 % LV mass(C)d 213.7 grams LV mass(C)dI 86.9 grams/m\S\2 LV mass(C)s 243.3 grams LV mass(C)sI 99.0 grams/m\S\2 SV(Teich) 50.1 ml SI(Teich) 20.4 ml/m\S\2 SV(cubed) 55.1 ml SI(cubed) 22.4 ml/m\S\2 LA dimension 4.7 cm LVAd ap4 22.3 cm\S\2 LVLd ap4 6.7 cm EDV(MOD-sp4) 64.9 ml EDV(sp4-el) 63.2 ml LVAs ap4 13.2 cm\S\2 LVLs ap4 6.0 cm ESV(MOD-sp4) 25.0 ml ESV(sp4-el) 24.7 ml EF(MOD-sp4) 61.6 % EF(sp4-el) 60.9 % SV(MOD-sp4) 40.0 ml SI(MOD-sp4) 16.3 ml/m\S\2 SV(sp4-el) 38.4 ml SI(sp4-el) 15.6 ml/m\S\2
[2018-02-15] MEDS ORDERED: NURSING DECISION MEDICATION ORDER SCH (11:15)
--- NOTE | 2018-02-15 13:22 | CARDIOLOGY CONSULTATION ---
DATE OF CONSULTATION: 02/15/2018 REFERRING PHYSICIANS: Jorge Otero MD and Savanna Preston DO PRIMARY CARE PHYSICIAN: Jose Antonio Donnelly DO INDICATIONS: Heart failure, elevated troponin. HISTORY OF PRESENT ILLNESS: The patient is a complex 82-year-old female well known to me from both inpatient and outpatient evaluations. Her past medical history is notable for atherosclerotic coronary disease dating back to anteroapical myocardial infarction in 1995 with acute intervention to left anterior descending, diagonal and three vessel disease, demonstrated by cardiac catheterization in 2012, diffuse, ultimately undergoing the LAD and circumflex stenting. She has chronic class 2 angina pectoris. Past paroxysmal and now chronic atrial fibrillation with tachybrady syndrome, status post dual-chamber pacemaker insertion with most recent generator exchange in 02/2011. She has underlying history of borderline severe aortic stenosis, morbid obesity, past right heart failure, type 2 diabetes mellitus, obstructive sleep apnea, chronic kidney disease, hypertension, dyslipidemia. The patient was recently hospitalized and treated for decompensated diastolic heart failure in early January. For full details, refer to the patient's complete consultation on chart. She represents this admission after a mechanical fall, slipped and fell while reaching for a walker with substantial injuries including facial contusion, right-sided contusion, and large thigh hematoma. The patient also experienced a right tibial fracture in association with injury. The patient since admission has required 2 unit blood transfusion due to blood loss since admission diuretics have been held; usual medications continued other than anticoagulation, though with plans to resume anticoagulation shortly. Last evening, the patient was noted to be more tachycardic with chest pressure, received sublingual nitroglycerin x1. Enzymes were ordered which demonstrated persistent troponin elevation at 1.2 in 2 serial testings. EKGs do not reflect acute ST segment changes though chronic conduction changes are present. Intermittent ventricular pacing. She is now comfortable this morning. She denies any chest pains or dizziness. Notes orthopnea. Has chronic edema with large thigh hematoma and edema of the right leg. Chest x-ray done last night demonstrates increased intravascular markings. ALLERGIES: MULTIPLE AND INCLUDE MERRY INHIBITORS, ADHESIVES, ALBUTEROL, AMIODARONE, AMOXICILLIN, AMPICILLIN, BACITRACIN WITH CEPHALOSPORIN, EPINEPHRINE, MORPHINE, AND POLYMYXIN B. For past surgical, family, and social history, please refer to recent admissions and consultations. PHYSICAL EXAMINATION: VITAL SIGNS: Heart rate 79, blood pressure is 125/67. HEENT: Notable for ecchymosis, right periorbital. NECK: Thick. There is no distinct jugular venous distention. LUNGS: Reveal diminished breath sounds diffusely. CARDIOVASCULAR: Irregular, irregular. There is no S3 gallop audible. There is a grade 2/6 systolic ejection murmur. There is no diastolic murmur. ABDOMEN: Soft with moderate distention. EXTREMITIES: Reveal large hematoma in the right thigh and leg with diffuse lower extremity edema. DATA: Last echocardiogram demonstrated on 01/18/2018, moderate aortic valve stenosis, low normal LV systolic function. Current laboratory studies and EKGs are notable for hemoglobin of 8.7, white cell count 7.5. Sodium 134, potassium 4.8, chloride 97, bicarbonate 37, BUN 38, creatinine 1.3. Troponins as noted drawn due to dyspnea last night revealed serial testing at 1.2 and 1.2. Albumin level is 2.7. INR is fully reversed at 1.2. Chest x-ray reveals diffuse interstitial edema. IMPRESSION: Complex 82-year-old female with underlying history of ischemic heart disease, persistent atrial fibrillation, past tachybrady syndrome with pacemaker insertion, presented this admission after a mechanical fall. She has had difficulties with past diastolic heart failure, on presentation. Diuretics were held due to acute injury. Exam suggest volume overload currently, likely precipitating symptoms. Troponins are more likely elevated due to patient's recent injury though echocardiogram will be reviewed. PLAN: Continue usual medications as already ordered, though give a dose of furosemide at 20 mg IV and resume oral dosing at 40 mg daily. We will follow closely in the hospital.
[2018-02-15] MEDS ORDERED: SODIUM CHLORIDE 0.9% 1000ML 1,000 ML IV SCH (14:45)
--- NOTE | 2018-02-15 14:52 | Progress Note ---
Medicine Progress Note Date & Time of Visit: February 15, 2018 at 10:37. Subjective 82-year-old female with chronic atrial fibrillation on Coumadin, status post pacemaker for sick sinus syndrome, presents with a mechanical fall at home and subsequent trauma. She hit her head, right arm, right leg after her walker buckled-there was no LOC reported. She has been healing well and when she was transferred to the med floor last night developed L sided chest pain that radiated to the L shoulder. This was her index angina and she was transferred back to telemetry overnight. CP resolved with nitro per overnight physician. Cardiology was consulted-plan below. She is alert and appropriate this morning with her daughter at the bedside. She denies any pain and states that the oxycodone helps her more with the pain than tramadol. We discussed her UTI and her various allergies. She is not sure what allergy she had to cephalosporins ( Keflex) in the past. She is eating well. Objective Last 8 Hrs Date Time Temp Pulse Resp B/P (MAP) Pulse Ox O2 Delivery O2 Flow Rate FiO2 02/15/18 06:48 36.5 79 19 125/67 (86) 95 Nasal Cannula 2.0 Humidified Oxygen 02/15/18 04:00 99 Nasal Cannula 2.0 02/15/18 03:04 36.5 79 17 128/60 (82) 95 Nasal Cannula 2.0 152/78 (102) Physical Exam: GEN: Morbid obesity, alert and appropriate HEENT: Right periorbital ecchymosis-starting to notice drainage of this with increased bluish hue to inferior cheek area, normal sclerae CARDIO: reg rate, irregular rhythm, no m/g/r LUNGS: clear to auscultation bilaterally ABD: Very large pannus with multiple skin folds, soft, non-tender, non-distended , no rebound or guarding, bowel sounds were heard EXTREMITY: Right elbow dressed and wrapped with dressing that is clean dry and intact. Right upper medial thigh hematoma extending from inguinal fold to just proximal of right knee, in various stages of healing. 2+ pitting edema in right foot. Extremities are warm and well perfused, no paresthesias, no pallor. NEURO: CN 2-12 grossly intact, sensation intact throughout, no gross focal deficits MUSC: Generalized weakness, patient requiring maximum assistance for transfers SKIN: warm and dry and ecchymotic areas as above Laboratory Results: 02/15/18 02:51 Red Blood Count 2.88, Mean Corpuscular Volume 96.2, Mean Corpuscular Hemoglobin 30.2, Mean Corpuscular Hemoglobin Concent 31.4, Mean Platelet Volume 9.6, Neutrophils (%) (Auto) 71.5, Lymphocytes (%) (Auto) 10.0, Monocytes (%) (Auto) 16.2, Eosinophils (%) (Auto) 1.9, Basophils (%) (Auto) 0.1, Neutrophils # (Auto ) 5.37, Lymphocytes # (Auto) 0.75, Monocytes # (Auto) 1.22, Eosinophils # (Auto ) 0.14, Basophils # (Auto) 0.01 02/15/18 02:51 Test 02/10/18 15:48 02/11/18 06:27 02/11/18 21:49 02/14/18 03:40 Creatine Kinase MB 1.9 ng/ml (0.5-3.6) Creatine Kinase MB Ratio 4.8 (0-3.0) Estimated Average Glucose 148 mg/dl Hemoglobin A1c 6.8 % (4.5-5.6) Lactic Acid Level 1.8 mmol/L (0.4-2.0) Urine Random Creatinine 224.0 mg/dl Urine Random Sodium 11 mEq/L Urine Random Urea Nitrogen 922 mg/dl Test 02/14/18 17:40 02/14/18 17:56 02/14/18 22:23 02/15/18 02:51 Total Creatine Kinase 156 U/L (26-192) Urine Color ORANGE Urine Appearance TURBID (CLEAR) Urine pH 5.0 (4.5-7.5) Urine Specific [place] 1.031 (1.000-1.030) Urine Protein 1+ (NEG) Urine Glucose (UA) NEG (NEG) Urine Ketones NEG (NEG) Urine Occult Blood 3+ (NEG) Urine Nitrite POS (NEG) Urine Bilirubin 1+ (NEG) Urine Urobilinogen NEG (NEG) Urine Leukocyte Esterase LARGE (NEG) Urine WBC (Auto) >30 /hpf (0-5) Urine RBC (Auto) >30 /hpf (0-4) Urine Hyaline Casts (Auto) 1-5 /lpf (0-5) Urine Epithelial Cells (Auto) >30 /lpf (0-5) Urine Bacteria (Auto) 4+ (NEG) Urine Pathogenic Casts /lpf (0) Urine Yeast (Auto) (NONE PRSENT) Magnesium Level 2.2 mg/dl (1.8-2.4) Total Bilirubin 1.9 mg/dl (0.2-1) Aspartate Amino Transf (AST/SGOT) 52 U/L (15-37) Alanine Aminotransferase (ALT/SGPT) 25 U/L (12-78) Alkaline Phosphatase 366 U/L (45-117) Total Protein 6.6 gm/dl (6.4-8.2) Albumin 2.7 gm/dl (3.4-5.0) Globulin 3.9 gm/dl (2.5-4.0) Albumin/Globulin Ratio 0.7 (0.9-2) Lipase 52 U/L (73-393) White Blood Count 7.51 K/uL (4.8-10.8) Red Blood Count 2.88 M/uL (4.2-5.4) Hemoglobin 8.7 g/dL (12.0-16.0) Hematocrit 27.7 % (37-47) Mean Corpuscular Volume 96.2 fL (80-100) Mean Corpuscular Hemoglobin 30.2 pg (25-34) Mean Corpuscular Hemoglobin Concent 31.4 g/dl (32-36) Platelet Count 198 K/uL (130-400) Mean Platelet Volume 9.6 fL (7.4-10.4) Neutrophils (%) (Auto) 71.5 % Lymphocytes (%) (Auto) 10.0 % Monocytes (%) (Auto) 16.2 % Eosinophils (%) (Auto) 1.9 % Basophils (%) (Auto) 0.1 % Neutrophils # (Auto) 5.37 K/uL (1.4-6.5) Lymphocytes # (Auto) 0.75 K/uL (1.2-3.4) Monocytes # (Auto) 1.22 K/uL (0.11-0.59) Eosinophils # (Auto) 0.14 K/uL (0-0.5) Basophils # (Auto) 0.01 K/uL (0-0.2) RDW Standard Deviation 57.7 fL (36.4-46.3) RDW Coefficient of Variation 16.8 % (11.5-14.5) Immature Granulocyte % (Auto) 0.3 % Immature Granulocyte # (Auto) 0.02 K/uL (0.00-0.02) Nucleated RBC Absolute Count (auto) 0.03 K/uL (0-0) Nucleated Red Blood Cells % 0.4 % Hypochromasia PRESENT Prothrombin Time 13.0 SECONDS (9.0-12.0) Prothromb Time International Ratio 1.2 (0.9-1.1) Activated Partial Thromboplast Time 29.8 SECONDS (21.0-31.0) Partial Thromboplastin Ratio 1.1 Anion Gap 0.0 mmol/L (3-11) Est Creatinine Clear Calc Drug Dose 46.6 ml/min Estimated GFR () 42.4 Estimated GFR (Non- 36.6 BUN/Creatinine Ratio 28.8 (10-20) Calcium Level 8.7 mg/dl (8.5-10.1) Test 02/15/18 09:55 02/15/18 11:22 Troponin I 1.540 ng/ml (0-0.045) Bedside Glucose 211 mg/dl (70-90) Date/Time Source Procedure Growth Status 02/14/18 00:00 Urine,Catheterized Urine Culture - Preliminary Gram Negative Bacilli Resulted Last 24 Hours Test 02/14/18 11:41 02/14/18 16:26 02/14/18 17:40 02/14/18 17:56 Bedside Glucose 185 mg/dl 188 mg/dl Total Creatine Kinase 156 U/L Urine Color ORANGE Urine Appearance TURBID Urine pH 5.0 Urine Specific [place] 1.031 Urine Protein 1+ Urine Glucose (UA) NEG Urine Ketones NEG Urine Occult Blood 3+ Urine Nitrite POS Urine Bilirubin 1+ Urine Urobilinogen NEG Urine Leukocyte Esterase LARGE Urine WBC (Auto) >30 /hpf Urine RBC (Auto) >30 /hpf Urine Hyaline Casts (Auto) 1-5 /lpf Urine Epithelial Cells (Auto) >30 /lpf Urine Bacteria (Auto) 4+ Urine Pathogenic Casts /lpf Urine Yeast (Auto) Test 02/14/18 20:51 02/14/18 22:23 02/15/18 02:51 02/15/18 07:26 Bedside Glucose 212 mg/dl 173 mg/dl White Blood Count 8.35 K/uL 7.51 K/uL Red Blood Count 2.98 M/uL 2.88 M/uL Hemoglobin 9.0 g/dL 8.7 g/dL Hematocrit 28.7 % 27.7 % Mean Corpuscular Volume 96.3 fL 96.2 fL Mean Corpuscular Hemoglobin 30.2 pg 30.2 pg Mean Corpuscular Hemoglobin Concent 31.4 g/dl 31.4 g/dl Platelet Count 211 K/uL 198 K/uL Mean Platelet Volume 9.6 fL 9.6 fL Neutrophils (%) (Auto) 67.8 % 71.5 % Lymphocytes (%) (Auto) 10.8 % 10.0 % Monocytes (%) (Auto) 18.0 % 16.2 % Eosinophils (%) (Auto) 2.8 % 1.9 % Basophils (%) (Auto) 0.2 % 0.1 % Neutrophils # (Auto) 5.67 K/uL 5.37 K/uL Lymphocytes # (Auto) 0.90 K/uL 0.75 K/uL Monocytes # (Auto) 1.50 K/uL 1.22 K/uL Eosinophils # (Auto) 0.23 K/uL 0.14 K/uL Basophils # (Auto) 0.02 K/uL 0.01 K/uL RDW Standard Deviation 58.9 fL 57.7 fL RDW Coefficient of Variation 17.1 % 16.8 % Immature Granulocyte % (Auto) 0.4 % 0.3 % Immature Granulocyte # (Auto) 0.03 K/uL 0.02 K/uL Nucleated RBC Absolute Count (auto) 0.05 K/uL 0.03 K/uL Nucleated Red Blood Cells % 0.6 % 0.4 % Activated Partial Thromboplast Time 30.7 SECONDS 29.8 SECONDS Partial Thromboplastin Ratio 1.2 1.1 Sodium Level 135 mmol/L 134 mmol/L Potassium Level 4.6 mmol/L 4.8 mmol/L Chloride Level 97 mmol/L 97 mmol/L Carbon Dioxide Level 36 mmol/L 37 mmol/L Anion Gap 3.0 mmol/L 0.0 mmol/L Blood Urea Nitrogen 37 mg/dl 38 mg/dl Creatinine 1.37 mg/dl 1.33 mg/dl Est Creatinine Clear Calc Drug Dose 45.2 ml/min 46.6 ml/min Estimated GFR () 40.9 42.4 Estimated GFR (Non- 35.3 36.6 BUN/Creatinine Ratio 27.2 28.8 Random Glucose 187 mg/dl 186 mg/dl Calcium Level 8.8 mg/dl 8.7 mg/dl Magnesium Level 2.2 mg/dl Total Bilirubin 1.9 mg/dl Aspartate Amino Transf (AST/SGOT) 52 U/L Alanine Aminotransferase (ALT/SGPT) 25 U/L Alkaline Phosphatase 366 U/L Troponin I 1.260 ng/ml 1.240 ng/ml Total Protein 6.6 gm/dl Albumin 2.7 gm/dl Globulin 3.9 gm/dl Albumin/Globulin Ratio 0.7 Lipase 52 U/L Hypochromasia PRESENT Prothrombin Time 13.0 SECONDS Prothromb Time International Ratio 1.2 Test 02/15/18 09:55 Assessment & Plan 82-year-old female with chronic atrial fibrillation on Coumadin, status post pacemaker for sick sinus syndrome, presents with a mechanical fall at home and subsequent trauma. She hit her head, right arm, right leg after her walker buckled-there was no LOC reported. She has been healing well and when she was transferred to the med floor last night developed L sided chest pain that radiated to the L shoulder. This was her index angina and she was transferred back to telemetry overnight. CP resolved with nitro per overnight physician. Cardiology was consulted-plan below. She is alert and appropriate this morning with her daughter at the bedside. She denies any pain and states that the oxycodone helps her more with the pain than tramadol. We discussed her UTI and her various allergies. She is not sure what allergy she had to cephalosporins ( Keflex) in the past. She is eating well. 1. Status post mechanical fall with R tibial plateau fracture-multiple areas of ecchymosis along with a right elbow abrasion which is wrapped and dressed. All areas continue to improve and drain. Right thigh hematoma continues to improve.. Orthopedics following-NWB x 2 weeks, then follow-up as outpatient. Pain medication as needed. 2. Anemia secondary to acute blood loss-vitamin K was given as a reversal agent for Coumadin. 2 units of blood given this admission with stable H&H. Continue to trend H&H daily. Plan to restart her coumadin on Saturday. 3. Acute cystitis-poss CAUTI as no baseline UA was performed. Cipro given empirically in setting of multiple allergies. Cannot easily remove Lynn as she is morbidly obese and it is very difficult to move her at this time. Will adjust antibiotic based on culture results. 4. Chronic diastolic heart failure-compensated, recent admission January 18 for heart failure exacerbation. Follows with Dr. Nugent and cardiology clinic. She denies any shortness of breath and reports lower extremity edema is stable from her baseline without changes. Volume status is difficult to assess secondary to body habitus and lack of movement. CXR overnight suggestive of increased pulmonary edema consistent with volume overload. Per Cardiology, given Lasix 40mg IV once now and will resume her daily Lasix. 5. CKD Stage III-appreciate nephrology recommendations. As above continue with Lasix. Continued to encourage incentive spirometry. Monitor PRP in am. 6. Chronic hypoxic respiratory failure-patient is on 2 L nasal cannula at home. Currently saturating around baseline. Continue supplemental oxygen as needed. 7. Chronic atrial fibrillation-on Coumadin which has been held in setting of multiple areas of ecchymosis status post fall. Continue Lopressor daily. We will likely resume Coumadin on Saturday once H&H is demonstrated to be stable. 8. CAD status post PCI in 2012-stable, chest pain overnight resolved with nitro. EKG changes in I, AVL discussed with Cardiology. Elevated troponin without much initial rise in value. Continue metoprolol, Imdur, Lipitor, ASA. Echo pending to rule out new wall motion abnormalities. 9. Diabetes mellitus-currently controlled. A1c reflects outpatient control. Holding Novolin 70/30 while patient is in the hospital. Continue with Lantus and sliding scale NovoLog with carbohydrate coverage per protocol. 10. Hypothyroidism-continue levothyroxine per home regimen 11. Anxiety-stable, continue home dose Ativan as needed 12. Morbid obesity DVT prophylaxis-Coumadin currently held secondary to fall, SCDs CODE STATUS-full Disposition-transfer to [facility] likely tomorrow, patient will need rehab on discharge defer to case management for logistics. Savanna Preston DO [facility] hospitalist Consultants: Amarilis Rodgers. Current Inpatient Medications: Current Inpatient Medications Medications (Trade) Dose Ordered Sig/Yesenia Route Start Time Stop Time Status Last Admin Dose Admin Insulin Aspart (novoLOG ASPART) SLIDING SCALE If C... ACHS SC 02/10/18 21:00 03/12/18 20:59 02/15/18 09:06 1 UNITS Glucose (Glucose 40% Gel) 15-30 GRAMS 15 GRAMS... UD PRN PO 02/10/18 19:45 03/12/18 19:44 Glucose (Glucose Chew Tab) 4-8 Tablets 4 Tabl... UD PRN PO 02/10/18 19:45 03/12/18 19:44 Dextrose (Dextrose 50% 50ML Syringe) 25-50ML OF 50% DW IV FOR... UD PRN IV 02/10/18 19:45 03/12/18 19:44 Glucagon (Glucagon Inj) 1 mg UD PRN SQ 02/10/18 19:45 03/12/18 19:44 Insulin Glargine (Lantus Solostar Pen) 10 units Q12 SC 02/11/18 09:00 03/13/18 08:59 02/15/18 09:06 10 UNITS Atorvastatin Calcium (Lipitor Tab) 10 mg DAILY PO 02/11/18 09:00 03/13/18 08:59 02/15/18 08:51 10 MG Cholecalciferol (Vitamin D Tab) 1,000 inter.unit DAILY PO 02/11/18 09:00 03/13/18 08:59 02/15/18 08:51 1,000 INTER.UNIT Isosorbide Mononitrate (Imdur Ext Rel Tab) 60 mg DAILY PO 02/11/18 09:00 03/13/18 08:59 02/15/18 08:51 60 MG Levalbuterol (Xopenex 1.25MG/ 3ML Neb) 1.25 mg Q8 PRN INH 02/10/18 20:00 03/12/18 19:59 Levothyroxine Sodium (Synthroid Tab) 100 mcg DAILYBB PO 02/11/18 06:00 03/13/18 06:59 02/15/18 07:12 100 MCG Magnesium Chloride (Slow-Mag Tab) 64 mg DAILY PO 02/11/18 09:00 03/13/18 08:59 02/15/18 08:52 64 MG Magnesium Hydroxide (Milk Of Magnesia Susp) 30 ml UD PRN PO 02/10/18 20:00 03/12/18 19:59 02/13/18 10:35 30 ML Nitroglycerin (Nitrostat Tab) 0.4 mg PRN UT 02/10/18 20:00 03/12/18 19:59 Lactobacillus Acidophilus (Floranex Tab) 1 tab DAILY PO 02/11/18 09:00 03/13/18 08:59 02/15/18 08:52 1 TAB Lorazepam (Ativan Tab) 0.5 mg DAILY PRN PO 02/11/18 19:00 03/13/18 18:59 02/15/18 09:02 0.5 MG Acetaminophen (Tylenol Tab) 1,000 mg Q8 PO 02/15/18 06:00 03/12/18 21:59 02/15/18 07:13 1,000 MG Lorazepam (Ativan Tab) 0.5 mg HS PO 02/15/18 21:00 03/13/18 20:59 Ciprofloxacin/ Dextrose 400 mg/ Prmx 200 ml @ 100 mls/hr Q12 IV 02/14/18 22:45 02/24/18 22:44 02/15/18 08:51 100 MLS/HR Aspirin (Ecotrin Tab) 81 mg DAILY PO 02/16/18 09:00 03/17/18 08:59 Prochlorperazine Edisylate 5 mg/ Syringe 5 ml @ 5 mls/min Q6H PRN IV 02/14/18 23:45 03/16/18 23:44 Oxycodone HCl (Roxicodone Immediate Rel Tab) 5 mg Q4H PRN PO 02/15/18 00:00 03/01/18 00:00 Hydromorphone HCl (Dilaudid Inj) 0.5 mg Q3H PRN IV 02/15/18 00:00 03/01/18 00:00 Metoprolol Tartrate (Lopressor Tab) 12.5 mg BID PO 02/15/18 21:00 03/17/18 08:59 Furosemide 20 mg/ Syringe 2 ml @ 4 mls/min 1045 ONCE IV 02/15/18 10:45 02/15/18 10:46 Furosemide (Lasix Tab) 40 mg QAM PO 02/16/18 09:00 03/18/18 08:59 UNV
[2018-02-15] MEDS ORDERED: BISACODYL 10 MG SUPP PR PRN (15:45)
[2018-02-15] MEDS ORDERED: BISACODYL 10 MG SUPP ONE (15:52)
[2018-02-15] MEDS: ONDANSETRON INJ 2 MG/ML 2 ML VIAL IV PRN (17:18)
[2018-02-15] MEDS ORDERED: LORAZEPAM 0.5 MG TAB PO STA (18:07)
[2018-02-15] MEDS: LORAZEPAM 0.5 MG TAB PO SCH (21:00)
[2018-02-15] MEDS: EUCERIN CR 120 GM JAR EXT SCH (21:07)
[2018-02-15] MEDS: METOPROLOL TARTRATE 25 MG TAB PO SCH (21:14)
[2018-02-16] MEDS: OXYCODONE HCL IR 5 MG TAB (IMMEDIATE RELEASE) PO PRN ×2 (03:55→21:00)
[2018-02-16 04:13] VITALS: BP 91/60; PULSE 66; TEMP 35.6; O2SAT 97
[2018-02-16 05:55] LABS: HEMOGLOBIN 9.1 g/dL (12.0-16.0); MEAN CELL VOLUME 97.3 fL (80-100); MEAN CORPUSCULAR HEMOGLOBIN 30.5 pg (25-34); MEAN CORPUSCULAR HGB CONC 31.4 g/dl (32-36); MEAN PLATELET VOLUME 9.6 fL (7.4-10.4); NUCLEATED RED BLOOD CELL ABS 0.04 K/uL (0-0); PLATELET COUNT 207 K/uL (130-400); RED CELL DISTRIBUTION WIDTH CV 16.7 % (11.5-14.5); RED CELL DISTRIBUTION WIDTH SD 56.9 fL (36.4-46.3); WHITE BLOOD COUNT 6.31 K/uL (4.8-10.8)
[2018-02-16] MEDS: LEVOTHYROXINE 100 MCG TAB PO SCH (06:00)
[2018-02-16] MEDS: ACETAMINOPHEN 500 MG TAB PO SCH ×3 (06:04→21:01)
[2018-02-16 06:23] LABS: CALCIUM 8.7 mg/dl (8.5-10.1); CREATININE 1.26 mg/dl (0.60-1.20); POTASSIUM 4.5 mmol/L (3.5-5.1)
[2018-02-16 08:00] VITALS: BP 108/43; PULSE 65; TEMP 36.3; O2SAT 100
[2018-02-16] MEDS: ATORVASTATIN 10 MG TAB PO SCH (09:05)
[2018-02-16] MEDS: CIPROFLOXACIN 500 MG TAB PO SCH ×2 (09:05→21:01)
[2018-02-16] MEDS: ISOSORBIDE MONONITRATE 60 MG TABCR PO SCH (09:06)
[2018-02-16] MEDS: LACTOBACILLUS ACIDOPHILUS (FLORANEX) TAB PO SCH (09:06)
[2018-02-16] MEDS: METOPROLOL TARTRATE 25 MG TAB PO SCH ×2 (09:06→21:00)
[2018-02-16] MEDS: ASPIRIN 81 MG ECTAB PO SCH (09:07)
[2018-02-16] MEDS: FUROSEMIDE 40 MG TAB PO SCH (09:07)
[2018-02-16] MEDS: CHOLECALCIFEROL 1000 INTER.UNIT TAB PO SCH (09:07)
[2018-02-16] MEDS: MAGNESIUM CHLORIDE 64MG DELAYED REL TAB PO SCH (09:07)
[2018-02-16] MEDS: INSULIN ASPART 100 UNITS/ML 3 ML PEN SC SCH ×4 (09:08→21:09)
[2018-02-16] MEDS: INSULIN GLARGINE SOLOSTAR 100 UNITS/ML 3 ML PEN SC SCH ×2 (09:09→21:10)
[2018-02-16] MEDS: EUCERIN CR 120 GM JAR EXT SCH ×2 (09:12→21:00)
[2018-02-16] MEDS ORDERED: FUROSEMIDE INJ 40 MG in SYRINGE 0 ML IV SCH (10:30)
--- NOTE | 2018-02-16 10:39 | PROGRESS NOTE ---
DATE: 02/16/2018 The patient seen and examined. Chart, medications, telemetry reviewed. SUBJECTIVE: The patient is tired, "sedated" this morning. Denies any chest pain or discomfort. She was out of bed to chair yesterday, fatigued here this morning. OBJECTIVE: VITAL SIGNS: Heart rate 65, blood pressure is 108/43, O2 saturation is 97% on 2 L nasal cannula. I's and O's reflect minimal response to the IV diuretics yesterday. NECK: Thick. There is no distinct jugular venous distention. HEENT: Face with extensive ecchymosis. LUNGS: Revealed diminished breath sounds diffusely. CARDIOVASCULAR EXAMINATION: Irregular with intermittent ventricular pacing. ABDOMEN: Soft. EXTREMITIES: Reveal extensive ecchymosis of the right thigh, 1-2+ pitting edema. LABORATORY DATA: Sodium is 135, potassium is 4.5, chloride is 96, bicarb is 37, BUN is 33, creatinine is 1.26. IMPRESSION AND PLAN: This is an 82-year-old female admitted after a mechanical fall and substantial injuries, mild volume overload after multiple therapies. Oral furosemide is restarted. We will give additional 40 mg IV furosemide today. No signs of acute myocardial injury or ischemia currently despite mild elevation in troponins. The patient appropriately intermittently pacing on rhythm.
[2018-02-16 11:20] VITALS: BP 99/57; PULSE 69; TEMP 36.5; O2SAT 95
--- NOTE | 2018-02-16 15:27 | Progress Note ---
Medicine Progress Note Date & Time of Visit: February 16, 2018 at 13:56. Subjective 82-year-old female with chronic atrial fibrillation on Coumadin, status post pacemaker for sick sinus syndrome, presents with a mechanical fall at home and subsequent trauma. She hit her head, right arm, right leg after her walker buckled-there was no LOC reported. She denies any chest pain overnight, also denies SOB and appears comfortable reporting no pain. She is reporting some nausea, however, which seemed to begin this afternoon. We discussed her code status and she clarified that she is a full code but doesn't want any life- prolonging measures if there is no hope to return to her lifestyle. Objective Last 8 Hrs Date Time Temp Pulse Resp B/P (MAP) Pulse Ox O2 Delivery O2 Flow Rate FiO2 02/16/18 11:20 36.5 69 18 99/57 (71) 95 Nasal Cannula 3.0 Humidified Oxygen 02/16/18 08:00 36.3 65 16 108/43 (64) 100 Nasal Cannula 3.0 Physical Exam: GEN: Morbid obesity, alert and appropriate HEENT: Right periorbital ecchymosis-starting to notice drainage of this with increased bluish hue to inferior cheek area, normal sclerae CARDIO: reg rate, irregular rhythm, no m/g/r LUNGS: clear to auscultation bilaterally ABD: Very large pannus with multiple skin folds, soft, non-tender, non-distended , no rebound or guarding, bowel sounds were heard EXTREMITY: Right elbow dressed and wrapped with dressing that is clean dry and intact. Right upper medial thigh hematoma extending from inguinal fold to just proximal of right knee, in various stages of healing. 2+ pitting edema in right foot. Extremities are warm and well perfused, no paresthesias, no pallor. NEURO: CN 2-12 grossly intact, sensation intact throughout, no gross focal deficits MUSC: Generalized weakness, patient requiring maximum assistance for transfers SKIN: warm and dry and ecchymotic areas as above Laboratory Results: 02/16/18 05:28 02/16/18 05:28 Test 02/10/18 15:48 02/11/18 06:27 02/11/18 21:49 02/14/18 03:40 Creatine Kinase MB 1.9 ng/ml (0.5-3.6) Creatine Kinase MB Ratio 4.8 (0-3.0) Estimated Average Glucose 148 mg/dl Hemoglobin A1c 6.8 % (4.5-5.6) Lactic Acid Level 1.8 mmol/L (0.4-2.0) Urine Random Creatinine 224.0 mg/dl Urine Random Sodium 11 mEq/L Urine Random Urea Nitrogen 922 mg/dl Test 02/14/18 17:40 02/14/18 17:56 02/14/18 22:23 02/15/18 02:51 Total Creatine Kinase 156 U/L (26-192) Urine Color ORANGE Urine Appearance TURBID (CLEAR) Urine pH 5.0 (4.5-7.5) Urine Specific Hayes 1.031 (1.000-1.030) Urine Protein 1+ (NEG) Urine Glucose (UA) NEG (NEG) Urine Ketones NEG (NEG) Urine Occult Blood 3+ (NEG) Urine Nitrite POS (NEG) Urine Bilirubin 1+ (NEG) Urine Urobilinogen NEG (NEG) Urine Leukocyte Esterase LARGE (NEG) Urine WBC (Auto) >30 /hpf (0-5) Urine RBC (Auto) >30 /hpf (0-4) Urine Hyaline Casts (Auto) 1-5 /lpf (0-5) Urine Epithelial Cells (Auto) >30 /lpf (0-5) Urine Bacteria (Auto) 4+ (NEG) Urine Pathogenic Casts /lpf (0) Urine Yeast (Auto) (NONE PRSENT) Magnesium Level 2.2 mg/dl (1.8-2.4) Total Bilirubin 1.9 mg/dl (0.2-1) Aspartate Amino Transf (AST/SGOT) 52 U/L (15-37) Alanine Aminotransferase (ALT/SGPT) 25 U/L (12-78) Alkaline Phosphatase 366 U/L (45-117) Total Protein 6.6 gm/dl (6.4-8.2) Albumin 2.7 gm/dl (3.4-5.0) Globulin 3.9 gm/dl (2.5-4.0) Albumin/Globulin Ratio 0.7 (0.9-2) Lipase 52 U/L (73-393) Immature Granulocyte % (Auto) 0.3 % White Blood Count 7.51 K/uL (4.8-10.8) Red Blood Count 2.88 M/uL (4.2-5.4) Hemoglobin 8.7 g/dL (12.0-16.0) Hematocrit 27.7 % (37-47) Mean Corpuscular Volume 96.2 fL (80-100) Mean Corpuscular Hemoglobin 30.2 pg (25-34) Mean Corpuscular Hemoglobin Concent 31.4 g/dl (32-36) Platelet Count 198 K/uL (130-400) Mean Platelet Volume 9.6 fL (7.4-10.4) Neutrophils (%) (Auto) 71.5 % Lymphocytes (%) (Auto) 10.0 % Monocytes (%) (Auto) 16.2 % Eosinophils (%) (Auto) 1.9 % Basophils (%) (Auto) 0.1 % Neutrophils # (Auto) 5.37 K/uL (1.4-6.5) Lymphocytes # (Auto) 0.75 K/uL (1.2-3.4) Monocytes # (Auto) 1.22 K/uL (0.11-0.59) Eosinophils # (Auto) 0.14 K/uL (0-0.5) Basophils # (Auto) 0.01 K/uL (0-0.2) Immature Granulocyte # (Auto) 0.02 K/uL (0.00-0.02) Hypochromasia PRESENT Prothrombin Time 13.0 SECONDS (9.0-12.0) Prothromb Time International Ratio 1.2 (0.9-1.1) Activated Partial Thromboplast Time 29.8 SECONDS (21.0-31.0) Partial Thromboplastin Ratio 1.1 Test 02/15/18 09:55 02/16/18 05:28 02/16/18 11:30 Troponin I 1.540 ng/ml (0-0.045) Red Blood Count 2.98 M/uL (4.2-5.4) Mean Corpuscular Volume 97.3 fL (80-100) Mean Corpuscular Hemoglobin 30.5 pg (25-34) Mean Corpuscular Hemoglobin Concent 31.4 g/dl (32-36) RDW Standard Deviation 56.9 fL (36.4-46.3) RDW Coefficient of Variation 16.7 % (11.5-14.5) Mean Platelet Volume 9.6 fL (7.4-10.4) Nucleated RBC Absolute Count (auto) 0.04 K/uL (0-0) Nucleated Red Blood Cells % 0.6 % Anion Gap 2.0 mmol/L (3-11) Est Creatinine Clear Calc Drug Dose 49.7 ml/min Estimated GFR () 45.3 Estimated GFR (Non- 39.1 BUN/Creatinine Ratio 26.3 (10-20) Calcium Level 8.7 mg/dl (8.5-10.1) Bedside Glucose 200 mg/dl (70-90) Date/Time Source Procedure Growth Status 02/14/18 00:00 Urine,Catheterized Urine Culture - Preliminary Escherichia Coli Enterococcus Species Resulted Last 24 Hours Test 02/15/18 16:14 02/15/18 20:24 02/16/18 05:28 02/16/18 07:28 Bedside Glucose 226 mg/dl 229 mg/dl 193 mg/dl White Blood Count 6.31 K/uL Red Blood Count 2.98 M/uL Hemoglobin 9.1 g/dL Hematocrit 29.0 % Mean Corpuscular Volume 97.3 fL Mean Corpuscular Hemoglobin 30.5 pg Mean Corpuscular Hemoglobin Concent 31.4 g/dl RDW Standard Deviation 56.9 fL RDW Coefficient of Variation 16.7 % Platelet Count 207 K/uL Mean Platelet Volume 9.6 fL Nucleated RBC Absolute Count (auto) 0.04 K/uL Nucleated Red Blood Cells % 0.6 % Sodium Level 135 mmol/L Potassium Level 4.5 mmol/L Chloride Level 96 mmol/L Carbon Dioxide Level 37 mmol/L Anion Gap 2.0 mmol/L Blood Urea Nitrogen 33 mg/dl Creatinine 1.26 mg/dl Est Creatinine Clear Calc Drug Dose 49.7 ml/min Estimated GFR () 45.3 Estimated GFR (Non- 39.1 BUN/Creatinine Ratio 26.3 Random Glucose 193 mg/dl Calcium Level 8.7 mg/dl Test 02/16/18 11:30 Bedside Glucose 200 mg/dl Assessment & Plan 82-year-old female with chronic atrial fibrillation on Coumadin, status post pacemaker for sick sinus syndrome, presents with a mechanical fall at home and subsequent trauma. She hit her head, right arm, right leg after her walker buckled-there was no LOC reported. She denies any chest pain overnight, also denies SOB and appears comfortable reporting no pain. She is reporting some nausea, however, which seemed to begin this afternoon. We discussed her code status and she clarified that she is a full code but doesn't want any life- prolonging measures if there is no hope to return to her lifestyle. 1. Status post mechanical fall with R tibial plateau fracture-multiple areas of ecchymosis along with a right elbow abrasion which is wrapped and dressed. All areas continue to improve and drain. Right thigh hematoma continues to improve. Orthopedics following-NWB x 2 weeks, then follow-up as outpatient. Pain medication as needed. 2. Anemia secondary to acute blood loss-vitamin K was given as a reversal agent for Coumadin. 2 units of blood given this admission with stable H&H. Continue to trend H&H daily which is currently stable. Plan to restart her coumadin on Saturday. 3. Acute cystitis-poss CAUTI as no baseline UA was performed. Cipro given empirically in setting of multiple allergies. Cannot easily remove Lynn as she is morbidly obese and it is very difficult to move her at this time. Will cont with Cipro based on culture sensitivities. 4. Chronic diastolic heart failure-diuretics were held on admission in setting of severe ecchymosis and internal bleeding. As a result she was slightly volume up and responded well to IV Lasix yesterday, and today. This is her typical daily dose just given in IV form. Cont with PO Lasix per home regimen in am. Elevated troponin this admission not indicative of myocardial injury and patient does have evidence of LVH on echo. 5. CKD Stage III-UOP has improved since Lasix restarted. Cont to monitor. 6. Chronic hypoxic respiratory failure-patient is on 2 L nasal cannula at home. Currently saturating around baseline. Continue supplemental oxygen as needed. 7. Chronic atrial fibrillation-no events on telemetry overnight. On Coumadin which has been held in setting of multiple areas of ecchymosis status post fall. Continue Lopressor daily. We will likely resume Coumadin on Saturday once H&H is demonstrated to be stable. 8. CAD status post PCI in 2012-stable. Elevated troponin not indicative of myocardial injury as above. Continue metoprolol, Imdur, Lipitor, ASA. No new wall motion abnormalities on echo. 9. Diabetes mellitus-currently controlled. A1c reflects outpatient control. Holding Novolin 70/30 while patient is in the hospital. Continue with Lantus and sliding scale NovoLog with carbohydrate coverage per protocol. 10. Hypothyroidism-continue levothyroxine per home regimen 11. Anxiety-stable, continue home dose Ativan as needed 12. Morbid obesity DVT prophylaxis-Coumadin currently held secondary to fall, SCDs CODE STATUS-full Disposition-transfer to [facility] likely tomorrow, patient will need rehab on discharge defer to case management for logistics. Savanna Preston DO [facility] hospitalist Consultants: Amarilis ChiuJulia Current Inpatient Medications: Current Inpatient Medications Medications (Trade) Dose Ordered Sig/Yesenia Route Start Time Stop Time Status Last Admin Dose Admin Insulin Aspart (novoLOG ASPART) SLIDING SCALE If C... ACHS SC 02/10/18 21:00 03/12/18 20:59 02/16/18 13:24 4 UNITS Glucose (Glucose 40% Gel) 15-30 GRAMS 15 GRAMS... UD PRN PO 02/10/18 19:45 03/12/18 19:44 Glucose (Glucose Chew Tab) 4-8 Tablets 4 Tabl... UD PRN PO 02/10/18 19:45 03/12/18 19:44 Dextrose (Dextrose 50% 50ML Syringe) 25-50ML OF 50% DW IV FOR... UD PRN IV 02/10/18 19:45 03/12/18 19:44 Glucagon (Glucagon Inj) 1 mg UD PRN SQ 02/10/18 19:45 03/12/18 19:44 Insulin Glargine (Lantus Solostar Pen) 10 units Q12 SC 02/11/18 09:00 03/13/18 08:59 02/16/18 09:09 10 UNITS Atorvastatin Calcium (Lipitor Tab) 10 mg DAILY PO 02/11/18 09:00 03/13/18 08:59 02/16/18 09:05 10 MG Cholecalciferol (Vitamin D Tab) 1,000 inter.unit DAILY PO 02/11/18 09:00 03/13/18 08:59 02/16/18 09:07 1,000 INTER.UNIT Levothyroxine Sodium (Synthroid Tab) 100 mcg DAILYBB PO 02/11/18 06:00 03/13/18 06:59 02/16/18 06:00 100 MCG Magnesium Chloride (Slow-Mag Tab) 64 mg DAILY PO 02/11/18 09:00 03/13/18 08:59 02/16/18 09:07 64 MG Magnesium Hydroxide (Milk Of Magnesia Susp) 30 ml UD PRN PO 02/10/18 20:00 03/12/18 19:59 02/13/18 10:35 30 ML Nitroglycerin (Nitrostat Tab) 0.4 mg PRN UT 02/10/18 20:00 03/12/18 19:59 Lactobacillus Acidophilus (Floranex Tab) 1 tab DAILY PO 02/11/18 09:00 03/13/18 08:59 02/16/18 09:06 1 TAB Lorazepam (Ativan Tab) 0.5 mg DAILY PRN PO 02/11/18 19:00 03/13/18 18:59 02/15/18 09:02 0.5 MG Acetaminophen (Tylenol Tab) 1,000 mg Q8 PO 02/15/18 06:00 03/12/18 21:59 02/16/18 13:25 1,000 MG Lorazepam (Ativan Tab) 0.5 mg HS PO 02/15/18 21:00 03/13/18 20:59 Aspirin (Ecotrin Tab) 81 mg DAILY PO 02/16/18 09:00 03/17/18 08:59 02/16/18 09:07 81 MG Prochlorperazine Edisylate 5 mg/ Syringe 5 ml @ 5 mls/min Q6H PRN IV 02/14/18 23:45 03/16/18 23:44 Oxycodone HCl (Roxicodone Immediate Rel Tab) 5 mg Q4H PRN PO 02/15/18 00:00 03/01/18 00:00 02/16/18 03:55 5 MG Hydromorphone HCl (Dilaudid Inj) 0.5 mg Q3H PRN IV 02/15/18 00:00 03/01/18 00:00 02/15/18 18:05 0.5 MG Metoprolol Tartrate (Lopressor Tab) 12.5 mg BID PO 02/15/18 21:00 03/17/18 08:59 02/16/18 09:06 12.5 MG Furosemide (Lasix Tab) 40 mg QAM PO 02/16/18 09:00 03/18/18 08:59 02/16/18 09:07 40 MG Multi-Ingredient Ointment (Eucerin Unscented Cr) 1 appln BID EXT 02/15/18 21:00 03/17/18 20:59 02/16/18 09:12 1 APPLN Bisacodyl (Dulcolax Supp) 10 mg DAILY PRN FL 02/15/18 15:45 03/17/18 15:44 Ondansetron HCl (Zofran Inj) 4 mg Q8H PRN IV 02/15/18 17:00 03/17/18 16:59 02/15/18 17:18 4 MG Ciprofloxacin (Cipro Tab) 500 mg BID PO 02/16/18 09:00 02/21/18 09:01 02/16/18 09:05 500 MG Isosorbide Mononitrate (Imdur Ext Rel Tab) 30 mg DAILY PO 02/17/18 09:00 03/13/18 08:59
[2018-02-16] MEDS: LORAZEPAM 0.5 MG TAB PO PRN (15:45)
[2018-02-16 16:48] VITALS: BP 93/33; PULSE 66; TEMP 36.3; O2SAT 91
[2018-02-16 19:52] VITALS: BP 96/45; PULSE 73; TEMP 36.3; O2SAT 94
[2018-02-16] MEDS: LORAZEPAM 0.5 MG TAB PO SCH (21:00)
[2018-02-16 23:39] VITALS: BP 91/60; PULSE 71; TEMP 36.5; O2SAT 99
[2018-02-17] MEDS: OXYCODONE HCL IR 5 MG TAB (IMMEDIATE RELEASE) PO PRN ×3 (01:41→21:16)
[2018-02-17 04:40] VITALS: BP 101/59; PULSE 61; TEMP 36.4; O2SAT 100
[2018-02-17] MEDS: LEVOTHYROXINE 100 MCG TAB PO SCH (05:55)
[2018-02-17] MEDS: ONDANSETRON INJ 2 MG/ML 2 ML VIAL IV PRN (05:55)
[2018-02-17] MEDS: ACETAMINOPHEN 500 MG TAB PO SCH ×3 (05:56→21:17)
[2018-02-17 07:20] VITALS: BP 97/53; PULSE 61; TEMP 36.4; O2SAT 98
[2018-02-17] MEDS: EUCERIN CR 120 GM JAR EXT SCH ×2 (09:49→21:18)
[2018-02-17] MEDS: MAGNESIUM CHLORIDE 64MG DELAYED REL TAB PO SCH (09:51)
[2018-02-17] MEDS: CHOLECALCIFEROL 1000 INTER.UNIT TAB PO SCH (09:51)
[2018-02-17] MEDS: ATORVASTATIN 10 MG TAB PO SCH (09:51)
[2018-02-17] MEDS: LACTOBACILLUS ACIDOPHILUS (FLORANEX) TAB PO SCH (09:52)
[2018-02-17] MEDS: ISOSORBIDE MONONITRATE 30 MG TABCR PO SCH (09:52)
[2018-02-17] MEDS: CIPROFLOXACIN 500 MG TAB PO SCH ×2 (09:52→21:16)
[2018-02-17] MEDS: ASPIRIN 81 MG ECTAB PO SCH (09:52)
[2018-02-17] MEDS: METOPROLOL TARTRATE 25 MG TAB PO SCH ×2 (09:53→21:18)
[2018-02-17] MEDS: INSULIN ASPART 100 UNITS/ML 3 ML PEN SC SCH ×4 (09:55→21:27)
[2018-02-17] MEDS: INSULIN GLARGINE SOLOSTAR 100 UNITS/ML 3 ML PEN SC SCH ×2 (09:56→21:35)
[2018-02-17 10:07] LABS: CALCIUM 8.6 mg/dl (8.5-10.1); CREATININE 1.58 mg/dl (0.60-1.20); POTASSIUM 4.6 mmol/L (3.5-5.1)
[2018-02-17 11:27] VITALS: BP 111/58; PULSE 68; TEMP 36.4; O2SAT 100
--- NOTE | 2018-02-17 12:55 | Cardiology Follow-Up ---
Subjective Subjective Date of Service: February 17, 2018. Pt evaluation today including: conversation w/ patient, physical exam, chart review, lab review, review of studies, review of inpatient medication list Additional Details: Pt seen and examined, states that she is feeling relatively well, much better compared to yesterday. Breathing is reportedly back to baseline. No recurrence of sob. Denies palpitations, lightheadedness or dizziness. Tele reviewed: ventricular pacing with underlying atrial fibrillation Problem List Medical Problems: (1) Anxiety Status: Acute (2) CHF exacerbation Status: Acute (3) COPD exacerbation Status: Acute (4) Fall Status: Acute (5) Headache Status: Acute (6) Hemarthrosis of right thigh Status: Acute (7) Hypoxia Status: Acute (8) Precordial chest pain Status: Acute (9) Sinusitis Status: Acute (10) Tibial plateau fracture Status: Acute Review of Systems Constitutional: + weakness, + fatigue, No fever Eyes: No worsening of vision Respiratory: No see HPI, No cough, No sputum, No wheezing, No shortness of breath, No dyspnea on exertion, No dyspnea at rest, No hemoptysis, No problem reported Cardiac: + edema (on R leg), No see HPI, No chest pain, No orthopnea, No PND, No claudication, No palpitations, No problem reported Musculoskeletal: + problem reported (c/o diffuse joint pain) Female : + problem reported Neurologic: + weakness, + balance problems, No memory loss Psychiatric: No depression symptoms, No anxiety Heme: + abnormal bleeding/bruising Endo: + fatigue Objective Vital Signs Last Vital Signs Documentation Date Time Temp Pulse Resp B/P (MAP) Pulse Ox O2 Delivery O2 Flow Rate FiO2 02/17/18 11:27 36.4 68 20 111/58 (75) 100 Nasal Cannula 2.0 Physical Exam: General Appearance: WD/WN, no apparent distress, + obese, + pertinent finding ( diffuse areas of ecchymosis) Eyes: bilateral eyes normal inspection, bilateral eyes PERRL, bilateral eyes EOMI ENT: normal ENT inspection, hearing grossly normal, pharynx normal Neck: supple, no adenopathy, thyroid normal, no JVD Respiratory/Chest: chest non-tender, lungs clear, normal breath sounds, no respiratory distress, no accessory muscle use Cardiovascular: no JVD, no murmur, + irregularly irregular Abdomen: normal bowel sounds, non tender, soft, no organomegaly Extremities: normal range of motion, + pedal edema Neurologic/Psychiatric: steel 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 s/p mechanical fall no pain but still with ecchymosis coumadin was reversed and held will restart today and follow 2. acute decompensated diastolic dysfunction does not examine as volume overloaded currently no need for further IV diuresis at this time. would cont outpatient furosemide 40mg daily 3. persistent afib rates controlled to restart coumadin today
[2018-02-17] MEDS: FUROSEMIDE 40 MG TAB PO SCH (13:49)
--- NOTE | 2018-02-17 14:51 | Progress Note ---
Medicine Progress Note Date & Time of Visit: February 17, 2018 at 14:24. Subjective 82-year-old female with chronic atrial fibrillation on Coumadin, status post pacemaker for sick sinus syndrome, presents with a mechanical fall at home and subsequent trauma. She hit her head, right arm, right leg after her walker buckled-there was no LOC reported. Today, she is lying supine with eyes closed (this is how I find her every day) and she is shaking her head saying that she is not doing well. She cannot readily identify why, but appears to have some shortness of breath on occasion (no drop in saturation). She denies any chest pain. At one point she told the nurse she felt like she couldn't move her arms very well on her own volition, even though she able to move on her own without issue. Recreation Facility Attendant strength is intact. She began feeling like this shortly after lunch today. She states that she is not sure how much longer she can keep going. We discussed a palliative care consult to help [facility] defining goals of care. Telemetry review overnight was unremarkable with atrial fibrillation at a controlled rate. She has not moved today. Daughter is at the bedside. Objective Last 8 Hrs Date Time Temp Pulse Resp B/P (MAP) Pulse Ox O2 Delivery O2 Flow Rate FiO2 02/17/18 11:27 36.4 68 20 111/58 (75) 100 Nasal Cannula 2.0 02/17/18 09:00 Room Air 02/17/18 07:20 36.4 61 19 97/53 (68) 98 Nasal Cannula 2.0 Physical Exam: GEN: Morbid obesity, alert and appropriate when verbally prompted, however, frequently falling asleep. Ill-appearing. HEENT: Right periorbital ecchymosis-starting to notice drainage of this with increased bluish hue to inferior cheek area, normal sclerae CARDIO: reg rate, irregular rhythm, no m/g/r LUNGS: clear to auscultation bilaterally ABD: Very large pannus with multiple skin folds, soft, non-tender, non-distended , no rebound or guarding, bowel sounds were heard EXTREMITY: Right elbow dressed and wrapped with dressing that is clean dry and intact. Right upper medial thigh hematoma extending from inguinal fold to just proximal of right knee, in various stages of healing. 2+ pitting edema in right foot. Extremities are warm and well perfused, no paresthesias, no pallor. NEURO: CN 2-12 grossly intact, bilateral mate chief strength is intact, difficulty moving r knee, but generalized weakness sensation intact throughout, no gross focal deficits MUSC: Generalized weakness, patient requiring maximum assistance for transfers SKIN: warm and dry and ecchymotic areas as above Laboratory Results: 02/16/18 05:28 02/17/18 09:03 Test 02/10/18 15:48 02/11/18 06:27 02/11/18 21:49 02/14/18 03:40 Creatine Kinase MB 1.9 ng/ml (0.5-3.6) Creatine Kinase MB Ratio 4.8 (0-3.0) Estimated Average Glucose 148 mg/dl Hemoglobin A1c 6.8 % (4.5-5.6) Lactic Acid Level 1.8 mmol/L (0.4-2.0) Urine Random Creatinine 224.0 mg/dl Urine Random Sodium 11 mEq/L Urine Random Urea Nitrogen 922 mg/dl Test 02/14/18 17:40 02/14/18 17:56 02/14/18 22:23 02/15/18 02:51 Total Creatine Kinase 156 U/L (26-192) Urine Color ORANGE Urine Appearance TURBID (CLEAR) Urine pH 5.0 (4.5-7.5) Urine Specific [place] 1.031 (1.000-1.030) Urine Protein 1+ (NEG) Urine Glucose (UA) NEG (NEG) Urine Ketones NEG (NEG) Urine Occult Blood 3+ (NEG) Urine Nitrite POS (NEG) Urine Bilirubin 1+ (NEG) Urine Urobilinogen NEG (NEG) Urine Leukocyte Esterase LARGE (NEG) Urine WBC (Auto) >30 /hpf (0-5) Urine RBC (Auto) >30 /hpf (0-4) Urine Hyaline Casts (Auto) 1-5 /lpf (0-5) Urine Epithelial Cells (Auto) >30 /lpf (0-5) Urine Bacteria (Auto) 4+ (NEG) Urine Pathogenic Casts /lpf (0) Urine Yeast (Auto) (NONE PRSENT) Magnesium Level 2.2 mg/dl (1.8-2.4) Total Bilirubin 1.9 mg/dl (0.2-1) Aspartate Amino Transf (AST/SGOT) 52 U/L (15-37) Alanine Aminotransferase (ALT/SGPT) 25 U/L (12-78) Alkaline Phosphatase 366 U/L (45-117) Total Protein 6.6 gm/dl (6.4-8.2) Albumin 2.7 gm/dl (3.4-5.0) Globulin 3.9 gm/dl (2.5-4.0) Albumin/Globulin Ratio 0.7 (0.9-2) Lipase 52 U/L (73-393) Immature Granulocyte % (Auto) 0.3 % White Blood Count 7.51 K/uL (4.8-10.8) Red Blood Count 2.88 M/uL (4.2-5.4) Hemoglobin 8.7 g/dL (12.0-16.0) Hematocrit 27.7 % (37-47) Mean Corpuscular Volume 96.2 fL (80-100) Mean Corpuscular Hemoglobin 30.2 pg (25-34) Mean Corpuscular Hemoglobin Concent 31.4 g/dl (32-36) Platelet Count 198 K/uL (130-400) Mean Platelet Volume 9.6 fL (7.4-10.4) Neutrophils (%) (Auto) 71.5 % Lymphocytes (%) (Auto) 10.0 % Monocytes (%) (Auto) 16.2 % Eosinophils (%) (Auto) 1.9 % Basophils (%) (Auto) 0.1 % Neutrophils # (Auto) 5.37 K/uL (1.4-6.5) Lymphocytes # (Auto) 0.75 K/uL (1.2-3.4) Monocytes # (Auto) 1.22 K/uL (0.11-0.59) Eosinophils # (Auto) 0.14 K/uL (0-0.5) Basophils # (Auto) 0.01 K/uL (0-0.2) Immature Granulocyte # (Auto) 0.02 K/uL (0.00-0.02) Hypochromasia PRESENT Prothrombin Time 13.0 SECONDS (9.0-12.0) Prothromb Time International Ratio 1.2 (0.9-1.1) Activated Partial Thromboplast Time 29.8 SECONDS (21.0-31.0) Partial Thromboplastin Ratio 1.1 Test 02/15/18 09:55 02/16/18 05:28 02/17/18 09:03 02/17/18 11:31 Troponin I 1.540 ng/ml (0-0.045) Red Blood Count 2.98 M/uL (4.2-5.4) Mean Corpuscular Volume 97.3 fL (80-100) Mean Corpuscular Hemoglobin 30.5 pg (25-34) Mean Corpuscular Hemoglobin Concent 31.4 g/dl (32-36) RDW Standard Deviation 56.9 fL (36.4-46.3) RDW Coefficient of Variation 16.7 % (11.5-14.5) Mean Platelet Volume 9.6 fL (7.4-10.4) Nucleated RBC Absolute Count (auto) 0.04 K/uL (0-0) Nucleated Red Blood Cells % 0.6 % Anion Gap 2.0 mmol/L (3-11) Est Creatinine Clear Calc Drug Dose 39.5 ml/min Estimated GFR () 34.5 Estimated GFR (Non- 29.7 BUN/Creatinine Ratio 22.2 (10-20) Calcium Level 8.6 mg/dl (8.5-10.1) Bedside Glucose 202 mg/dl (70-90) Date/Time Source Procedure Growth Status 02/14/18 00:00 Urine,Catheterized Urine Culture - Final Escherichia Coli Enterococcus Faecalis Complete Last 24 Hours Test 02/16/18 16:27 02/16/18 20:21 02/17/18 06:59 02/17/18 09:03 Bedside Glucose 205 mg/dl 194 mg/dl 150 mg/dl Sodium Level 134 mmol/L Potassium Level 4.6 mmol/L Chloride Level 96 mmol/L Carbon Dioxide Level 36 mmol/L Anion Gap 2.0 mmol/L Blood Urea Nitrogen 35 mg/dl Creatinine 1.58 mg/dl Est Creatinine Clear Calc Drug Dose 39.5 ml/min Estimated GFR () 34.5 Estimated GFR (Non- 29.7 BUN/Creatinine Ratio 22.2 Random Glucose 146 mg/dl Calcium Level 8.6 mg/dl Test 02/17/18 11:31 Bedside Glucose 202 mg/dl Assessment & Plan 82-year-old female with chronic atrial fibrillation on Coumadin, status post pacemaker for sick sinus syndrome, presents with a mechanical fall at home and subsequent trauma. She hit her head, right arm, right leg after her walker buckled-there was no LOC reported. Today, she is lying supine with eyes closed (this is how I find her every day) and she is shaking her head saying that she is not doing well. She cannot readily identify why, but appears to have some shortness of breath on occasion (no drop in saturation). She denies any chest pain. At one point she told the nurse she felt like she couldn't move her arms very well on her own volition, even though she able to move on her own without issue. Recreation Facility Attendant strength is intact. She began feeling like this shortly after lunch today. She states that she is not sure how much longer she can keep going. We discussed a palliative care consult to help [facility] defining goals of care. Telemetry review overnight was unremarkable with atrial fibrillation at a controlled rate. She has not moved today. Daughter is at the bedside. 1. Status post mechanical fall with R tibial plateau fracture-multiple areas of ecchymosis along with a right elbow abrasion which is wrapped and dressed. All areas continue to improve and drain. Right thigh hematoma continues to improve. Orthopedics following-NWB x 2 weeks, then follow-up as outpatient. Pain medication as needed. Plan to transfer to rehab after patient is able to move a little bit better and this anxiety is more under control. 2. Anxiety- this appears to be causing her subjective somatic symptoms which are transient. Her lungs are clear, she is hemodynamically stable, although volume status is difficult to determine in her, she appears to be compensated. Maribel has a significant lack of motivation to move very much at all despite several days of hospitalization. She expressed concern over being afraid to have a BM because the nurses would have to use a lift to help her and she wouldn 't be able to help them out that much. I am increasing her frequency of PRN Ativan and made it clear to her that she would need to ask for this. Cont scheduled nightly Ativan. 3. Anemia secondary to acute blood loss-vitamin K was given as a reversal agent for Coumadin. 2 units of blood given this admission with stable H&H. Continue to trend H&H daily which is currently stable. Restarting coumadin today. 4. Acute cystitis-poss CAUTI as no baseline UA was performed. Cipro given empirically in setting of multiple allergies. Cannot easily remove Lynn as she is morbidly obese and it is very difficult to move her at this time. Will cont with Cipro based on culture sensitivities. 5. Chronic diastolic heart failure-diuretics were held on admission in setting of severe ecchymosis and internal bleeding. As a result she was slightly volume up and responded well to IV Lasix. Cont with PO Lasix per home regimen in am. Elevated troponin this admission not indicative of myocardial injury and patient does have evidence of LVH on echo. 7. CKD Stage III-UOP has improved since Lasix restarted. Cont to monitor. Creatinine is up slightly today, poss 2/2 recent diuretics. 8. Chronic hypoxic respiratory failure-patient is on 2 L nasal cannula at home. Currently saturating around baseline. Continue supplemental oxygen as needed. 9. Chronic atrial fibrillation-no events on telemetry overnight. On Coumadin which has been held in setting of multiple areas of ecchymosis status post fall. Continue Lopressor daily. Resume coumadin today. 10. CAD status post PCI in 2012-stable. Elevated troponin not indicative of myocardial injury as above. Continue metoprolol, Imdur, Lipitor, ASA. No new wall motion abnormalities on echo. 11. Diabetes mellitus-currently controlled. A1c reflects outpatient control. Holding Novolin 70/30 while patient is in the hospital. Continue with Lantus and sliding scale NovoLog with carbohydrate coverage per protocol. 12. Hypothyroidism-continue levothyroxine per home regimen 13. Morbid obesity DVT prophylaxis-coumadin restarted CODE STATUS-full Disposition-she is stable enough for transfer to telemetry, however, as before, there is a concern that she will develop acute symptoms as she is not currently feeling very well, and will then be sent right back to telemetry. Will keep her here for now. Palliative care consult as above. Would like to get her to rehab [facility], however, patient is not willing to move hardly at all. I feel she won't be able to go anywhere until her anxiety is more under control and she is feeling better from an emotional and spiritual standpoint. DO [facility] Hospitalist Consultants: Amarilis Rose-Raffi Ricardo Current Inpatient Medications: Current Inpatient Medications Medications (Trade) Dose Ordered Sig/Yesenia Route Start Time Stop Time Status Last Admin Dose Admin Insulin Aspart (novoLOG ASPART) SLIDING SCALE If C... ACHS SC 02/10/18 21:00 03/12/18 20:59 02/17/18 13:51 2 UNITS Glucose (Glucose 40% Gel) 15-30 GRAMS 15 GRAMS... UD PRN PO 02/10/18 19:45 03/12/18 19:44 Glucose (Glucose Chew Tab) 4-8 Tablets 4 Tabl... UD PRN PO 02/10/18 19:45 03/12/18 19:44 Dextrose (Dextrose 50% 50ML Syringe) 25-50ML OF 50% DW IV FOR... UD PRN IV 02/10/18 19:45 03/12/18 19:44 Glucagon (Glucagon Inj) 1 mg UD PRN SQ 02/10/18 19:45 03/12/18 19:44 Insulin Glargine (Lantus Solostar Pen) 10 units Q12 SC 02/11/18 09:00 03/13/18 08:59 02/17/18 09:56 10 UNITS Atorvastatin Calcium (Lipitor Tab) 10 mg DAILY PO 02/11/18 09:00 03/13/18 08:59 02/17/18 09:51 10 MG Cholecalciferol (Vitamin D Tab) 1,000 inter.unit DAILY PO 02/11/18 09:00 03/13/18 08:59 02/17/18 09:51 1,000 INTER.UNIT Levothyroxine Sodium (Synthroid Tab) 100 mcg DAILYBB PO 02/11/18 06:00 03/13/18 06:59 02/17/18 05:55 100 MCG Magnesium Chloride (Slow-Mag Tab) 64 mg DAILY PO 02/11/18 09:00 03/13/18 08:59 02/17/18 09:51 64 MG Magnesium Hydroxide (Milk Of Magnesia Susp) 30 ml UD PRN PO 02/10/18 20:00 03/12/18 19:59 02/13/18 10:35 30 ML Nitroglycerin (Nitrostat Tab) 0.4 mg PRN UT 02/10/18 20:00 03/12/18 19:59 Lactobacillus Acidophilus (Floranex Tab) 1 tab DAILY PO 02/11/18 09:00 03/13/18 08:59 02/17/18 09:52 1 TAB Lorazepam (Ativan Tab) 0.5 mg DAILY PRN PO 02/11/18 19:00 03/13/18 18:59 02/16/18 15:45 0.5 MG Acetaminophen (Tylenol Tab) 1,000 mg Q8 PO 02/15/18 06:00 03/12/18 21:59 02/17/18 13:52 1,000 MG Lorazepam (Ativan Tab) 0.5 mg HS PO 02/15/18 21:00 03/13/18 20:59 02/16/18 21:00 0.5 MG Aspirin (Ecotrin Tab) 81 mg DAILY PO 02/16/18 09:00 03/17/18 08:59 02/17/18 09:52 81 MG Prochlorperazine Edisylate 5 mg/ Syringe 5 ml @ 5 mls/min Q6H PRN IV 02/14/18 23:45 03/16/18 23:44 02/16/18 15:12 5 MLS/MIN Oxycodone HCl (Roxicodone Immediate Rel Tab) 5 mg Q4H PRN PO 02/15/18 00:00 03/01/18 00:00 02/17/18 06:04 5 MG Hydromorphone HCl (Dilaudid Inj) 0.5 mg Q3H PRN IV 02/15/18 00:00 03/01/18 00:00 02/15/18 18:05 0.5 MG Metoprolol Tartrate (Lopressor Tab) 12.5 mg BID PO 02/15/18 21:00 03/17/18 08:59 02/16/18 09:06 12.5 MG Furosemide (Lasix Tab) 40 mg QAM PO 02/16/18 09:00 03/18/18 08:59 02/17/18 13:49 40 MG Multi-Ingredient Ointment (Eucerin Unscented Cr) 1 appln BID EXT 02/15/18 21:00 03/17/18 20:59 02/17/18 09:49 1 APPLN Bisacodyl (Dulcolax Supp) 10 mg DAILY PRN CO 02/15/18 15:45 03/17/18 15:44 Ondansetron HCl (Zofran Inj) 4 mg Q8H PRN IV 02/15/18 17:00 03/17/18 16:59 02/17/18 05:55 4 MG Ciprofloxacin (Cipro Tab) 500 mg BID PO 02/16/18 09:00 02/21/18 09:01 02/17/18 09:52 500 MG Isosorbide Mononitrate (Imdur Ext Rel Tab) 30 mg DAILY PO 02/17/18 09:00 03/13/18 08:59 Warfarin Sodium (Coumadin Tab) 1.25 mg DAILY@16 PO 02/17/18 16:00 03/19/18 15:59
[2018-02-17 15:58] VITALS: BP 110/56; PULSE 64; TEMP 36.5; O2SAT 99
[2018-02-17] MEDS: WARFARIN SOD 1.25 MG TAB PO SCH (16:15)
[2018-02-17] MEDS: LORAZEPAM 0.5 MG TAB PO PRN (18:05)
[2018-02-17 20:02] VITALS: BP 112/45; PULSE 70; TEMP 36.5; O2SAT 94
[2018-02-17] MEDS: LORAZEPAM 0.5 MG TAB PO SCH (21:16)
[2018-02-17 23:09] VITALS: BP 104/49; PULSE 65; TEMP 36; O2SAT 93
[2018-02-18] VITALS (9 sets, daily range): BP systolic 91–113; BP diastolic 26–76; PULSE 63–72; TEMP 36.2–36.6; O2SAT 91–100
[2018-02-18] MEDS: OXYCODONE HCL IR 5 MG TAB (IMMEDIATE RELEASE) PO PRN (02:37)
[2018-02-18] MEDS: ONDANSETRON INJ 2 MG/ML 2 ML VIAL IV PRN (02:39)
[2018-02-18] MEDS: LEVOTHYROXINE 100 MCG TAB PO SCH (05:33)
[2018-02-18] MEDS: ACETAMINOPHEN 500 MG TAB PO SCH ×3 (05:33→20:36)
[2018-02-18] MEDS: LORAZEPAM 0.5 MG TAB PO PRN ×3 (05:33→23:46)
[2018-02-18 06:49] LABS: HEMOGLOBIN 9.6 g/dL (12.0-16.0); MEAN CELL VOLUME 97.2 fL (80-100); MEAN CORPUSCULAR HEMOGLOBIN 30.1 pg (25-34); MEAN PLATELET VOLUME 9.3 fL (7.4-10.4); NUCLEATED RED BLOOD CELL ABS 0.13 K/uL (0-0); PLATELET COUNT 239 K/uL (130-400); RED CELL DISTRIBUTION WIDTH CV 16.7 % (11.5-14.5); RED CELL DISTRIBUTION WIDTH SD 56.3 fL (36.4-46.3); WHITE BLOOD COUNT 6.52 K/uL (4.8-10.8)
[2018-02-18 06:58] LABS: INR 1.3 (0.9-1.1)
[2018-02-18] MEDS: INSULIN ASPART 100 UNITS/ML 3 ML PEN SC SCH ×4 (08:03→20:40)
[2018-02-18] MEDS: INSULIN GLARGINE SOLOSTAR 100 UNITS/ML 3 ML PEN SC SCH ×2 (08:03→20:40)
[2018-02-18] MEDS: EUCERIN CR 120 GM JAR EXT SCH ×2 (09:43→20:37)
[2018-02-18] MEDS: ATORVASTATIN 10 MG TAB PO SCH (09:43)
[2018-02-18] MEDS: CHOLECALCIFEROL 1000 INTER.UNIT TAB PO SCH (09:43)
[2018-02-18] MEDS: ASPIRIN 81 MG ECTAB PO SCH (09:44)
[2018-02-18] MEDS: LACTOBACILLUS ACIDOPHILUS (FLORANEX) TAB PO SCH (09:44)
[2018-02-18] MEDS: MAGNESIUM CHLORIDE 64MG DELAYED REL TAB PO SCH (09:44)
[2018-02-18] MEDS: METOPROLOL TARTRATE 25 MG TAB PO SCH ×2 (09:44→20:36)
[2018-02-18] MEDS: ISOSORBIDE MONONITRATE 30 MG TABCR PO SCH (09:44)
[2018-02-18] MEDS: CIPROFLOXACIN 500 MG TAB PO SCH ×2 (09:44→20:35)
[2018-02-18] MEDS: FUROSEMIDE 40 MG TAB PO SCH (09:45)
[2018-02-18 10:14] LABS: CALCIUM 8.7 mg/dl (8.5-10.1); CREATININE 1.59 mg/dl (0.60-1.20); POTASSIUM 4.5 mmol/L (3.5-5.1)
--- NOTE | 2018-02-18 14:37 | Palliative Care Consultation ---
Consultation Date of Consultation: February 18, 2018. Requesting Physician: Dr. Preston Attending Physician: Dr. Preston Reason for Consultation: Goals of Care History of Present Illness This is an 82-year-old female who presented to the [facility] ED post mechanical fall at home for which she suffered trauma to her face , right arm, and right leg. Additional PMH includes: chronic atrial fibrillation on Coumadin , COPD for which she wears nasal O2 24/7 for the past year.The patient typically lives at home with her of 67 years. There are 5 adult children , for which 3 are local. The patient has a large right hematoma and a possible tib fracture that was discovered on CT. The patient has been frustrated and anxious over the recent events that have occurred and is nervous about not returning home. I had a lengthy conversation with the patients 3 children, Matthew , Annabelle, and Madeleine, who stated that it would not be safe with her at home. Her continues to live at home, but does have early stages of dementia, so does not understand the complexity of the medical situation. They have an eventual goal of her returning home, but realize it would not be in her best interest, which I agreed. When discussing GOALS OF CARE with the patient and her children, everyone agrees that she would not want to have CPR or be on a breathing tube. We all agreed to change her CODE STATUS to DNR/DNI. We discussed the need for a SNIF for rehab and continued PT/OT, which she agreed. It appears that the patient has a poor tolerance, thus far, for PT as they noted. A POLST form was filled out and signed by the patient - family was present when we filled it out. Case management is following for discharge planning to a SNF. Social History Smoking Status: Never Smoker History of Alcohol Use: No Drug Use: none Marital Status: Housing Status: lives with significant other Occupation Status: retired Review of Systems General: Pt. states she is uncomfortable HEENT: Pt. denies visual changes, MARTINEZ, dizziness CV: Pt denies CP, palpitations, (+) edema B/L LE Resp: Pt denies SOB - on 3LNC GI: Pt denies abdominal pain, N/V/D : Pt has a burkett catheter - denies dysuria Skin: Pt denies any new rashes - is ecchymosis post fall Allergies Coded Allergies: MERRY Inhibitors (Verified Allergy, Unknown, Unknown, 01/18/18) Adhesives (Verified Allergy, Unknown, "TAPE", 01/18/18) Albuterol (Verified Allergy, Unknown, INTOLERANT OF ALBUTEROL, 01/18/18) Amiodarone (Verified Allergy, Unknown, 01/18/18) Amoxicillin (Verified Allergy, Unknown, ., 01/18/18) Ampicillin (Verified Allergy, Unknown, Unknown, 01/18/18) Bacitracin (Verified Allergy, Unknown, 01/18/18) Replaces BACITRACIN/PO Cephalosporins (Verified Allergy, Unknown, KEFLEX, 01/18/18) Epinephrine (Verified Allergy, Unknown, UNKNOWN, 01/18/18) INFO FROM G Morphine (Verified Allergy, Unknown, hallucination, 02/11/18) Penicillins (Verified Allergy, Unknown, AMPICILLIN, 01/18/18) Polymyxin B (Verified Allergy, Unknown, 01/18/18) Replaces BACITRACIN/PO Medications Current Inpatient Medications Medications (Trade) Dose Ordered Sig/Yesenia Route Start Time Stop Time Status Last Admin Dose Admin Insulin Aspart (novoLOG ASPART) SLIDING SCALE If C... ACHS SC 02/10/18 21:00 03/12/18 20:59 02/18/18 11:56 6 UNITS Glucose (Glucose 40% Gel) 15-30 GRAMS 15 GRAMS... UD PRN PO 02/10/18 19:45 03/12/18 19:44 Glucose (Glucose Chew Tab) 4-8 Tablets 4 Tabl... UD PRN PO 02/10/18 19:45 03/12/18 19:44 Dextrose (Dextrose 50% 50ML Syringe) 25-50ML OF 50% DW IV FOR... UD PRN IV 02/10/18 19:45 03/12/18 19:44 Glucagon (Glucagon Inj) 1 mg UD PRN SQ 02/10/18 19:45 03/12/18 19:44 Atorvastatin Calcium (Lipitor Tab) 10 mg DAILY PO 02/11/18 09:00 03/13/18 08:59 02/18/18 09:43 10 MG Cholecalciferol (Vitamin D Tab) 1,000 inter.unit DAILY PO 02/11/18 09:00 5/31/18 08:59 02/18/18 09:43 1,000 INTER.UNIT Levothyroxine Sodium (Synthroid Tab) 100 mcg DAILYBB PO 02/11/18 06:00 03/13/18 06:59 02/18/18 05:33 100 MCG Magnesium Chloride (Slow-Mag Tab) 64 mg DAILY PO 02/11/18 09:00 03/13/18 08:59 02/18/18 09:44 64 MG Magnesium Hydroxide (Milk Of Magnesia Susp) 30 ml UD PRN PO 02/10/18 20:00 03/12/18 19:59 02/13/18 10:35 30 ML Nitroglycerin (Nitrostat Tab) 0.4 mg PRN UT 02/10/18 20:00 03/12/18 19:59 Lactobacillus Acidophilus (Floranex Tab) 1 tab DAILY PO 02/11/18 09:00 03/13/18 08:59 02/18/18 09:44 1 TAB Acetaminophen (Tylenol Tab) 1,000 mg Q8 PO 02/15/18 06:00 03/12/18 21:59 02/18/18 13:30 1,000 MG Lorazepam (Ativan Tab) 0.5 mg HS PO 02/15/18 21:00 03/13/18 20:59 02/17/18 21:16 0.5 MG Aspirin (Ecotrin Tab) 81 mg DAILY PO 02/16/18 09:00 03/17/18 08:59 02/18/18 09:44 81 MG Prochlorperazine Edisylate 5 mg/ Syringe 5 ml @ 5 mls/min Q6H PRN IV 02/14/18 23:45 03/16/18 23:44 02/16/18 15:12 5 MLS/MIN Oxycodone HCl (Roxicodone Immediate Rel Tab) 5 mg Q4H PRN PO 02/15/18 00:00 03/01/18 00:00 02/18/18 02:37 5 MG Hydromorphone HCl (Dilaudid Inj) 0.5 mg Q3H PRN IV 02/15/18 00:00 03/01/18 00:00 02/15/18 18:05 0.5 MG Metoprolol Tartrate (Lopressor Tab) 12.5 mg BID PO 5/5/18 21:00 03/17/18 08:59 02/18/18 09:44 12.5 MG Furosemide (Lasix Tab) 40 mg QAM PO 02/16/18 09:00 03/18/18 08:59 02/18/18 09:45 40 MG Multi-Ingredient Ointment (Eucerin Unscented Cr) 1 appln BID EXT 02/15/18 21:00 03/17/18 20:59 02/18/18 09:43 1 APPLN Bisacodyl (Dulcolax Supp) 10 mg DAILY PRN ND 02/15/18 15:45 03/17/18 15:44 Ondansetron HCl (Zofran Inj) 4 mg Q8H PRN IV 02/15/18 17:00 03/17/18 16:59 02/18/18 02:39 4 MG Ciprofloxacin (Cipro Tab) 500 mg BID PO 02/16/18 09:00 02/21/18 09:01 02/18/18 09:44 500 MG Isosorbide Mononitrate (Imdur Ext Rel Tab) 30 mg DAILY PO 02/17/18 09:00 03/13/18 08:59 02/18/18 09:44 30 MG Warfarin Sodium (Coumadin Tab) 1.25 mg DAILY@16 PO 02/17/18 16:00 03/19/18 15:59 02/17/18 16:15 1.25 MG Lorazepam (Ativan Tab) 0.5 mg Q8H PRN PO 02/17/18 14:30 03/13/18 18:59 02/18/18 13:30 0.5 MG Insulin Glargine (Lantus Solostar Pen) 15 units Q12 SC 02/18/18 21:00 03/13/18 08:59 Enteral Nutritional Formula (Boost Glucose Control) 1 can BIDM PO 02/18/18 16:45 03/20/18 16:44 UNV Physical Exam Date Time Temp Pulse Resp B/P (MAP) Pulse Ox O2 Delivery O2 Flow Rate FiO2 02/18/18 12:00 94 Nasal Cannula 2.0 02/18/18 11:48 36.6 67 18 105/59 (74) 94 02/18/18 08:00 Nasal Cannula 2.0 02/18/18 07:00 36.5 63 11 91/44 (60) 100 Nasal Cannula 2.0 02/18/18 04:00 Nasal Cannula 2.0 Humidified Oxygen 02/18/18 02:43 36.5 71 18 106/76 (86) 91 Nasal Cannula 2.0 02/17/18 23:59 Nasal Cannula 2.0 Humidified Oxygen 02/17/18 23:09 36.0 65 23 104/49 (67) 93 Nasal Cannula 2.0 02/17/18 20:02 36.5 70 19 112/45 (67) 94 Nasal Cannula 2.0 02/17/18 20:00 Nasal Cannula 2.0 Humidified Oxygen 02/17/18 16:00 Room Air 02/17/18 15:58 36.5 64 27 110/56 (74) 99 Nasal Cannula 3.0 General Appearance: no apparent distress Neck: no JVD Respiratory: chest non-tender, lungs clear, normal breath sounds, no respiratory distress, no accessory muscle use Cardiovascular: regular rate, rhythm, no gallop, no JVD, no murmur Abdomen: normal bowel sounds, non tender, soft Musculoskeletal: pertinent finding (patient able to move her legs, but has +3 edema R>L ) Neurologic/Psychiatric: oriented x 3 (pt closes her eyes with discussion, but is appropriate with answering questions. She closes her eyes to listen) Skin: + pertinent finding (ecchymosis on right side of face, right thigh, and left elbow. Multiple skin tears noted.) Laboratory Results Last 24 Hours Test 02/17/18 16:13 02/17/18 20:14 02/18/18 06:22 02/18/18 06:56 Bedside Glucose 163 mg/dl 200 mg/dl 171 mg/dl White Blood Count 6.52 K/uL Red Blood Count 3.19 M/uL Hemoglobin 9.6 g/dL Hematocrit 31.0 % Mean Corpuscular Volume 97.2 fL Mean Corpuscular Hemoglobin 30.1 pg Mean Corpuscular Hemoglobin Concent 31.0 g/dl RDW Standard Deviation 56.3 fL RDW Coefficient of Variation 16.7 % Platelet Count 239 K/uL Mean Platelet Volume 9.3 fL Nucleated RBC Absolute Count (auto) 0.13 K/uL Nucleated Red Blood Cells % 1.9 % Prothrombin Time 14.0 SECONDS Prothromb Time International Ratio 1.3 Sodium Level 134 mmol/L Potassium Level 4.5 mmol/L Chloride Level 95 mmol/L Carbon Dioxide Level 34 mmol/L Anion Gap 5.0 mmol/L Blood Urea Nitrogen 36 mg/dl Creatinine 1.59 mg/dl Est Creatinine Clear Calc Drug Dose 39.2 ml/min Estimated GFR () 34.2 Estimated GFR (Non- 29.5 BUN/Creatinine Ratio 22.3 Random Glucose 158 mg/dl Calcium Level 8.7 mg/dl Test 02/18/18 11:29 Bedside Glucose 207 mg/dl Assessment & Plan Palliative Performance Scale: 40 % Palliative Care Encounter Goals of Care Afib Trauma s/p mechanical fall anxiety Palliative Care Recommendations: -CODE STATUS discussed with patient and family - patient to be DNR/DNI -POLST form filled out with family present and signed by the patient -When medically stable, transition to [facility] (family choice) for SNIF - await PT/OT recommendations -D/C heart monitor and transfer to medical or . Counseling and Coordination Total time spent 70 minutes with > 50% of that time spent assessing patient, discussing GOALS OF CARE with family at the bedside and filling out a POLST form with the patient.
[2018-02-18] MEDS: BOOST GLUCOSE CONTROL PO SCH (16:48)
[2018-02-18] MEDS: WARFARIN SOD 1.25 MG TAB PO SCH (16:49)
[2018-02-18] MEDS: LORAZEPAM 0.5 MG TAB PO SCH (20:42)
--- NOTE | 2018-02-18 22:29 | Progress Note ---
Medicine Progress Note Date & Time of Visit: February 18, 2018 at 16:00. Subjective Sitting in the bedside recliner 82-year-old female with chronic atrial fibrillation on Coumadin, status post pacemaker for sick sinus syndrome, presents with a mechanical fall at home and subsequent trauma. She hit her head , right arm, right leg after her walker buckled-there was no LOC reported. Today, she is lying sitting in the bedside recliner. She is reporting some nausea with lunch that has resolved and is otherwise feeling somewhat improved today. She did have a discussion with palliative care and is now a DO NOT RESUSCITATE in family members who are not present at bedside have discussed that she will go to [facility] for continued rehabilitation status post fall. She denies any pain at this time she says her anxiety is only controlled with the increased amount of Ativan being given to her now. Objective Last 8 Hrs Date Time Temp Pulse Resp B/P (MAP) Pulse Ox O2 Delivery O2 Flow Rate FiO2 02/18/18 12:00 94 Nasal Cannula 2.0 02/18/18 11:48 36.6 67 18 105/59 (74) 94 Physical Exam: GEN: Morbid obesity, alert and appropriate when verbally prompted, however, frequently falling asleep. Ill-appearing. HEENT: Right periorbital ecchymosis-improved, normal sclerae CARDIO: reg rate, irregular rhythm, no m/g/r LUNGS: clear to auscultation bilaterally ABD: Very large pannus with multiple skin folds, soft, non-tender, non-distended , no rebound or guarding, bowel sounds were heard EXTREMITY: Right elbow dressed and wrapped with dressing that is clean dry and intact. Right upper medial thigh hematoma extending from inguinal fold to just proximal of right knee, in various stages of healing. 2+ pitting edema in right foot. Extremities are warm and well perfused, no paresthesias, no pallor. NEURO: CN 2-12 grossly intact, bilateral harness builder strength is intact, difficulty moving r knee, but generalized weakness sensation intact throughout, no gross focal deficits MUSC: Generalized weakness, patient requiring maximum assistance for transfers SKIN: warm and dry and ecchymotic areas as above Laboratory Results: 02/18/18 06:22 02/18/18 06:22 Test 02/10/18 15:48 02/11/18 06:27 02/11/18 21:49 02/14/18 03:40 Creatine Kinase MB 1.9 ng/ml (0.5-3.6) Creatine Kinase MB Ratio 4.8 (0-3.0) Estimated Average Glucose 148 mg/dl Hemoglobin A1c 6.8 % (4.5-5.6) Lactic Acid Level 1.8 mmol/L (0.4-2.0) Urine Random Creatinine 224.0 mg/dl Urine Random Sodium 11 mEq/L Urine Random Urea Nitrogen 922 mg/dl Test 02/14/18 17:40 02/14/18 17:56 02/14/18 22:23 02/15/18 02:51 Total Creatine Kinase 156 U/L (26-192) Urine Color ORANGE Urine Appearance TURBID (CLEAR) Urine pH 5.0 (4.5-7.5) Urine Specific [place] 1.031 (1.000-1.030) Urine Protein 1+ (NEG) Urine Glucose (UA) NEG (NEG) Urine Ketones NEG (NEG) Urine Occult Blood 3+ (NEG) Urine Nitrite POS (NEG) Urine Bilirubin 1+ (NEG) Urine Urobilinogen NEG (NEG) Urine Leukocyte Esterase LARGE (NEG) Urine WBC (Auto) >30 /hpf (0-5) Urine RBC (Auto) >30 /hpf (0-4) Urine Hyaline Casts (Auto) 1-5 /lpf (0-5) Urine Epithelial Cells (Auto) >30 /lpf (0-5) Urine Bacteria (Auto) 4+ (NEG) Urine Pathogenic Casts /lpf (0) Urine Yeast (Auto) (NONE PRSENT) Magnesium Level 2.2 mg/dl (1.8-2.4) Total Bilirubin 1.9 mg/dl (0.2-1) Aspartate Amino Transf (AST/SGOT) 52 U/L (15-37) Alanine Aminotransferase (ALT/SGPT) 25 U/L (12-78) Alkaline Phosphatase 366 U/L (45-117) Total Protein 6.6 gm/dl (6.4-8.2) Albumin 2.7 gm/dl (3.4-5.0) Globulin 3.9 gm/dl (2.5-4.0) Albumin/Globulin Ratio 0.7 (0.9-2) Lipase 52 U/L (73-393) Immature Granulocyte % (Auto) 0.3 % White Blood Count 7.51 K/uL (4.8-10.8) Red Blood Count 2.88 M/uL (4.2-5.4) Hemoglobin 8.7 g/dL (12.0-16.0) Hematocrit 27.7 % (37-47) Mean Corpuscular Volume 96.2 fL (80-100) Mean Corpuscular Hemoglobin 30.2 pg (25-34) Mean Corpuscular Hemoglobin Concent 31.4 g/dl (32-36) Platelet Count 198 K/uL (130-400) Mean Platelet Volume 9.6 fL (7.4-10.4) Neutrophils (%) (Auto) 71.5 % Lymphocytes (%) (Auto) 10.0 % Monocytes (%) (Auto) 16.2 % Eosinophils (%) (Auto) 1.9 % Basophils (%) (Auto) 0.1 % Neutrophils # (Auto) 5.37 K/uL (1.4-6.5) Lymphocytes # (Auto) 0.75 K/uL (1.2-3.4) Monocytes # (Auto) 1.22 K/uL (0.11-0.59) Eosinophils # (Auto) 0.14 K/uL (0-0.5) Basophils # (Auto) 0.01 K/uL (0-0.2) Immature Granulocyte # (Auto) 0.02 K/uL (0.00-0.02) Hypochromasia PRESENT Activated Partial Thromboplast Time 29.8 SECONDS (21.0-31.0) Partial Thromboplastin Ratio 1.1 Test 02/15/18 09:55 02/18/18 06:22 02/18/18 20:20 Troponin I 1.540 ng/ml (0-0.045) Red Blood Count 3.19 M/uL (4.2-5.4) Mean Corpuscular Volume 97.2 fL (80-100) Mean Corpuscular Hemoglobin 30.1 pg (25-34) Mean Corpuscular Hemoglobin Concent 31.0 g/dl (32-36) RDW Standard Deviation 56.3 fL (36.4-46.3) RDW Coefficient of Variation 16.7 % (11.5-14.5) Mean Platelet Volume 9.3 fL (7.4-10.4) Nucleated RBC Absolute Count (auto) 0.13 K/uL (0-0) Nucleated Red Blood Cells % 1.9 % Prothrombin Time 14.0 SECONDS (9.0-12.0) Prothromb Time International Ratio 1.3 (0.9-1.1) Anion Gap 5.0 mmol/L (3-11) Est Creatinine Clear Calc Drug Dose 39.2 ml/min Estimated GFR () 34.2 Estimated GFR (Non- 29.5 BUN/Creatinine Ratio 22.3 (10-20) Calcium Level 8.7 mg/dl (8.5-10.1) Bedside Glucose 164 mg/dl (70-90) Date/Time Source Procedure Growth Status 02/14/18 00:00 Urine,Catheterized Urine Culture - Final Escherichia Coli Enterococcus Faecalis Complete Last 24 Hours Test 02/17/18 16:13 02/17/18 20:14 02/18/18 06:22 02/18/18 06:56 Bedside Glucose 163 mg/dl 200 mg/dl 171 mg/dl White Blood Count 6.52 K/uL Red Blood Count 3.19 M/uL Hemoglobin 9.6 g/dL Hematocrit 31.0 % Mean Corpuscular Volume 97.2 fL Mean Corpuscular Hemoglobin 30.1 pg Mean Corpuscular Hemoglobin Concent 31.0 g/dl RDW Standard Deviation 56.3 fL RDW Coefficient of Variation 16.7 % Platelet Count 239 K/uL Mean Platelet Volume 9.3 fL Nucleated RBC Absolute Count (auto) 0.13 K/uL Nucleated Red Blood Cells % 1.9 % Prothrombin Time 14.0 SECONDS Prothromb Time International Ratio 1.3 Sodium Level 134 mmol/L Potassium Level 4.5 mmol/L Chloride Level 95 mmol/L Carbon Dioxide Level 34 mmol/L Anion Gap 5.0 mmol/L Blood Urea Nitrogen 36 mg/dl Creatinine 1.59 mg/dl Est Creatinine Clear Calc Drug Dose 39.2 ml/min Estimated GFR () 34.2 Estimated GFR (Non- 29.5 BUN/Creatinine Ratio 22.3 Random Glucose 158 mg/dl Calcium Level 8.7 mg/dl Test 02/18/18 11:29 Bedside Glucose 207 mg/dl Assessment & Plan Sitting in the bedside recliner 82-year-old female with chronic atrial fibrillation on Coumadin, status post pacemaker for sick sinus syndrome, presents with a mechanical fall at home and subsequent trauma. She hit her head , right arm, right leg after her walker buckled-there was no LOC reported. Today, she is lying sitting in the bedside recliner. She is reporting some nausea with lunch that has resolved and is otherwise feeling somewhat improved today. She did have a discussion with palliative care and is now a DO NOT RESUSCITATE in family members who are not present at bedside have discussed that she will go to [facility] for continued rehabilitation status post fall. She denies any pain at this time she says her anxiety is only controlled with the increased amount of Ativan being given to her now. 1. Status post mechanical fall with R tibial plateau fracture-multiple areas of ecchymosis along with a right elbow abrasion which is wrapped and dressed. All areas continue to improve and drain. Right thigh hematoma continues to improve. Orthopedics following-NWB x 2 weeks, then follow-up as outpatient. Pain medication as needed. Plan to disposition to [facility] once authorization comes through. 2. Anxiety-severe and increased. Patient is doing well on increased amount of Ativan given throughout the day. As she begins to heal from this process she will need to consider a different long-term medication with her primary care doctor. For now continue Ativan as needed. 3. Anemia secondary to acute blood loss-vitamin K was given as a reversal agent for Coumadin. 2 units of blood given this admission with stable H&H. Continue to trend H&H daily which is currently stable. Coumadin restarted and patient doing well. No signs of bleeding and no decrease in H&H 4. Acute cystitis-poss CAUTI as no baseline UA was performed. Continue Cipro for now. If patient is going out tomorrow will plan to remove Lynn and ensure spontaneous urination. It is not ideal to have Lynn in place however she is morbidly obese with decreased movement in general and if she has urine close to her thigh wound this may exacerbate the wound. Continue Lynn for now. 5. Chronic diastolic heart failure-diuretics were held on admission in setting of severe ecchymosis and internal bleeding. As a result she was slightly volume up and responded well to IV Lasix. Cont with PO Lasix per home regimen in am. Elevated troponin this admission not indicative of myocardial injury and patient does have evidence of LVH on echo. 6. CKD Stage III-UOP has improved since Lasix restarted. Cont to monitor. Creatinine is stable but slightly increased from baseline possibly secondary to recent diuretics. Continue to trend. Continue daily p.o. Lasix per home regimen. 7. Chronic hypoxic respiratory failure-patient is on 2 L nasal cannula at home. Currently saturating around baseline. Continue supplemental oxygen as needed. 8. Chronic atrial fibrillation-no events on telemetry overnight. Cont coumadin and rate control. 10. CAD status post PCI in 2013-stable. Elevated troponin not indicative of myocardial injury as above. Continue metoprolol, Imdur, Lipitor, ASA. No new wall motion abnormalities on echo. 11. Diabetes mellitus-currently elevated so control was increased. A1c reflects outpatient control. Holding Novolin 70/30 while patient is in the hospital. Continue with Lantus and sliding scale NovoLog with carbohydrate coverage per protocol. 12. Hypothyroidism-continue levothyroxine per home regimen 13. Morbid obesity DVT prophylaxis-coumadin CODE STATUS-full Disposition-transfer to med/surg, plan for discharge when insurance auth comes through. Savanna Preston DO [facility] Hospitalist Consultants: Amarilis Rose-Raffi Nephmayra-Dumont Current Inpatient Medications: Current Inpatient Medications Medications (Trade) Dose Ordered Sig/Yesenia Route Start Time Stop Time Status Last Admin Dose Admin Insulin Aspart (novoLOG ASPART) SLIDING SCALE If C... ACHS SC 02/10/18 21:00 03/12/18 20:59 02/18/18 11:56 6 UNITS Glucose (Glucose 40% Gel) 15-30 GRAMS 15 GRAMS... UD PRN PO 02/10/18 19:45 03/12/18 19:44 Glucose (Glucose Chew Tab) 4-8 Tablets 4 Tabl... UD PRN PO 02/10/18 19:45 03/12/18 19:44 Dextrose (Dextrose 50% 50ML Syringe) 25-50ML OF 50% DW IV FOR... UD PRN IV 02/10/18 19:45 03/12/18 19:44 Glucagon (Glucagon Inj) 1 mg UD PRN SQ 02/10/18 19:45 03/12/18 19:44 Atorvastatin Calcium (Lipitor Tab) 10 mg DAILY PO 02/11/18 09:00 03/13/18 08:59 02/18/18 09:43 10 MG Cholecalciferol (Vitamin D Tab) 1,000 inter.unit DAILY PO 02/11/18 09:00 03/13/18 08:59 02/18/18 09:43 1,000 INTER.UNIT Levothyroxine Sodium (Synthroid Tab) 100 mcg DAILYBB PO 02/11/18 06:00 03/13/18 06:59 02/18/18 05:33 100 MCG Magnesium Chloride (Slow-Mag Tab) 64 mg DAILY PO 02/11/18 09:00 03/13/18 08:59 02/18/18 09:44 64 MG Magnesium Hydroxide (Milk Of Magnesia Susp) 30 ml UD PRN PO 02/10/18 20:00 03/12/18 19:59 02/13/18 10:35 30 ML Nitroglycerin (Nitrostat Tab) 0.4 mg PRN UT 02/10/18 20:00 03/12/18 19:59 Lactobacillus Acidophilus (Floranex Tab) 1 tab DAILY PO 02/11/18 09:00 03/13/18 08:59 02/18/18 09:44 1 TAB Acetaminophen (Tylenol Tab) 1,000 mg Q8 PO 02/15/18 06:00 03/12/18 21:59 02/18/18 13:30 1,000 MG Lorazepam (Ativan Tab) 0.5 mg HS PO 02/15/18 21:00 03/13/18 20:59 02/17/18 21:16 0.5 MG Aspirin (Ecotrin Tab) 81 mg DAILY PO 02/16/18 09:00 03/17/18 08:59 02/18/18 09:44 81 MG Prochlorperazine Edisylate 5 mg/ Syringe 5 ml @ 5 mls/min Q6H PRN IV 02/14/18 23:45 03/16/18 23:44 02/16/18 15:12 5 MLS/MIN Oxycodone HCl (Roxicodone Immediate Rel Tab) 5 mg Q4H PRN PO 02/15/18 00:00 03/01/18 00:00 02/18/18 02:37 5 MG Hydromorphone HCl (Dilaudid Inj) 0.5 mg Q3H PRN IV 02/15/18 00:00 03/01/18 00:00 02/15/18 18:05 0.5 MG Metoprolol Tartrate (Lopressor Tab) 12.5 mg BID PO 02/15/18 21:00 03/17/18 08:59 02/18/18 09:44 12.5 MG Furosemide (Lasix Tab) 40 mg QAM PO 02/16/18 09:00 03/18/18 08:59 02/18/18 09:45 40 MG Multi-Ingredient Ointment (Eucerin Unscented Cr) 1 appln BID EXT 02/15/18 21:00 03/17/18 20:59 02/18/18 09:43 1 APPLN Bisacodyl (Dulcolax Supp) 10 mg DAILY PRN LA 02/15/18 15:45 03/17/18 15:44 Ondansetron HCl (Zofran Inj) 4 mg Q8H PRN IV 02/15/18 17:00 03/17/18 16:59 02/18/18 02:39 4 MG Ciprofloxacin (Cipro Tab) 500 mg BID PO 02/16/18 09:00 02/21/18 09:01 02/18/18 09:44 500 MG Isosorbide Mononitrate (Imdur Ext Rel Tab) 30 mg DAILY PO 02/17/18 09:00 03/13/18 08:59 02/18/18 09:44 30 MG Warfarin Sodium (Coumadin Tab) 1.25 mg DAILY@16 PO 02/17/18 16:00 03/19/18 15:59 02/17/18 16:15 1.25 MG Lorazepam (Ativan Tab) 0.5 mg Q8H PRN PO 02/17/18 14:30 03/13/18 18:59 02/18/18 13:30 0.5 MG Insulin Glargine (Lantus Solostar Pen) 15 units Q12 SC 02/18/18 21:00 03/13/18 08:59 Enteral Nutritional Formula (Boost Glucose Control) 1 can BIDM PO 02/18/18 16:45 03/20/18 16:44
[2018-02-19] MEDS: ACETAMINOPHEN 500 MG TAB PO SCH ×3 (06:30→21:38)
[2018-02-19] MEDS: LEVOTHYROXINE 100 MCG TAB PO SCH (06:31)
[2018-02-19 08:24] VITALS: BP 109/65; PULSE 62; TEMP 36.4; O2SAT 95
[2018-02-19] MEDS: BOOST GLUCOSE CONTROL PO SCH ×2 (08:30→17:45)
[2018-02-19 08:35] LABS: HEMATOCRIT 29.2 % (37-47); HEMOGLOBIN 9.4 g/dL (12.0-16.0); MEAN CELL VOLUME 95.7 fL (80-100); MEAN CORPUSCULAR HEMOGLOBIN 30.8 pg (25-34); MEAN CORPUSCULAR HGB CONC 32.2 g/dl (32-36); MEAN PLATELET VOLUME 8.9 fL (7.4-10.4); NUCLEATED RED BLOOD CELL ABS 0.11 K/uL (0-0); PLATELET COUNT 232 K/uL (130-400); RED CELL DISTRIBUTION WIDTH CV 16.7 % (11.5-14.5); RED CELL DISTRIBUTION WIDTH SD 56.8 fL (36.4-46.3); WHITE BLOOD COUNT 7.05 K/uL (4.8-10.8)
[2018-02-19] MEDS: CHOLECALCIFEROL 1000 INTER.UNIT TAB PO SCH (08:37)
[2018-02-19] MEDS: LACTOBACILLUS ACIDOPHILUS (FLORANEX) TAB PO SCH (08:37)
[2018-02-19] MEDS: ATORVASTATIN 10 MG TAB PO SCH (08:37)
[2018-02-19] MEDS: MAGNESIUM CHLORIDE 64MG DELAYED REL TAB PO SCH (08:38)
[2018-02-19] MEDS: FUROSEMIDE 40 MG TAB PO SCH (08:38)
[2018-02-19] MEDS: ISOSORBIDE MONONITRATE 30 MG TABCR PO SCH (08:38)
[2018-02-19] MEDS: METOPROLOL TARTRATE 25 MG TAB PO SCH ×2 (08:39→21:32)
[2018-02-19] MEDS: CIPROFLOXACIN 500 MG TAB PO SCH ×2 (08:39→21:31)
[2018-02-19] MEDS: ASPIRIN 81 MG ECTAB PO SCH (08:40)
[2018-02-19 08:45] LABS: INR 1.4 (0.9-1.1)
[2018-02-19] MEDS: INSULIN GLARGINE SOLOSTAR 100 UNITS/ML 3 ML PEN SC SCH ×2 (08:56→21:37)
[2018-02-19 09:10] LABS: CALCIUM 8.9 mg/dl (8.5-10.1); CREATININE 1.65 mg/dl (0.60-1.20); POTASSIUM 4.6 mmol/L (3.5-5.1)
[2018-02-19] MEDS: INSULIN ASPART 100 UNITS/ML 3 ML PEN SC SCH ×4 (10:20→21:36)
[2018-02-19] MEDS: EUCERIN CR 120 GM JAR EXT SCH ×2 (10:22→21:31)
[2018-02-19] MEDS ORDERED: ACETAMINOPHEN 500 MG TAB ONE (13:30)
[2018-02-19] MEDS ORDERED: LPR25 PO (15:21)
[2018-02-19] MEDS ORDERED: LSX40 PO (15:21)
[2018-02-19] MEDS ORDERED: CPR500 PO (15:21)
[2018-02-19] MEDS ORDERED: NUTR-7 PO (15:21)
--- NOTE | 2018-02-19 15:32 | Discharge Instructions ---
Discharge Instructions Date of Service February 19, 2018. Admission Reason for Admission: Fall, Hemarthrosis Of R Thigh, Tibial Plateau [facility] Discharge Discharge Diagnosis / Problem: Fall, R thigh hematoma, afib on coumadin, tibial plateau fracture Discharge Goals Goal(s): Improve function, Increase independence, Improve disease control, Prevent Disease Progression Activity Recommendations Activity Limitations: per Instructions/Follow-up section . Instructions / Follow-Up Instructions / Follow-Up Please take all medications as instructed. Please continue antibiotic until course is complete. You Lasix has been rduced to Saturday, Sat, and Saturday dosing. You will need repeat non-fasting blood work in one week to check kidney function and electrolytes (BASIC METABOLIC PANEL). It is recommended that you see a Funeral Service Manager at [facility] to establish care. This can be done as an outpatient with a referral through your primary care physician's office. It is recommended that you follow-up with your primary care physician within one week of discharge from the receiving facility. Please have your INR checked within 2-3 days, and then regularly for close monitoring of coumadin levels. Goal INR is 2-3. It was a pleasure taking care of you! Call if you have any questions or problems. You can reach a [facility] hospitalist on duty at [facility] 24 hours a day by calling [phone]. Take care of yourself. Savanna Preston DO [facility] Hospitalist Current Hospital Diet Patient's current hospital diet: Diabetes Type 1 Diet, AHA Diet (Heart Healthy) Discharge Diet Recommended Diet: AHA Diet (Heart Healthy), Diabetes Type 1 Diet Procedures Procedures Performed: Echocardiogram Pending Studies Studies pending at discharge: no Laboratory Results Hemoglobin A1c Test 02/11/18 06:27 Range/Units Estimated Average Glucose 148 mg/dl Hemoglobin A1c 6.8 H 4.5-5.6 % Medical Emergencies . Who to Call and When: Medical Emergencies: If at any time you feel your situation is an emergency, please call 911 immediately. . Non-Emergent Contact Non-Emergency issues call your: Primary Care Provider . . "Provider Documentation" section prepared by Savanna Preston. .
[2018-02-19] MEDS: WARFARIN SOD 1.25 MG TAB PO SCH (15:58)
[2018-02-19] MEDS: LORAZEPAM 0.5 MG TAB PO PRN (15:59)
[2018-02-19 16:00] VITALS: O2SAT 95
[2018-02-19 16:10] VITALS: BP 92/63; PULSE 58; O2SAT 98
[2018-02-19 21:27] VITALS: BP 141/55; PULSE 66
[2018-02-19] MEDS: LORAZEPAM 0.5 MG TAB PO SCH (21:30)
[2018-02-19 23:39] VITALS: BP 97/63; PULSE 61; O2SAT 98
[2018-02-20] VITALS (8 sets, daily range): BP systolic 125; BP diastolic 61; PULSE 83; TEMP 34.9–36.4; O2SAT 95
--- NOTE | 2018-02-20 04:57 | Progress Note ---
Medicine Progress Note Date & Time of Visit: February 19, 2018 at 17:36. Subjective 82-year-old female with chronic atrial fibrillation on Coumadin, status post pacemaker for sick sinus syndrome, presents with a mechanical fall at home and subsequent trauma. She hit her head, right arm, right leg after her walker buckled-there was no LOC reported. She is eating dinner and denies any pain or other symptoms at this time. Daughter is at bedside with her. Pt reports that her anxiety is controlled at this time. Denies nausea. We briefly discussed discharge plans. Objective Last 8 Hrs Date Time Temp Pulse Resp B/P (MAP) Pulse Ox O2 Delivery O2 Flow Rate FiO2 02/19/18 16:10 58 16 92/63 (73) 98 Nasal Cannula 2.0 02/19/18 14:13 Nasal Cannula 2.0 Physical Exam: GEN: Morbid obesity (limits the exam), alert and appropriate HEENT: Right periorbital ecchymosis-resolving, normal sclerae CARDIO: reg rate, irregular rhythm, no m/g/r LUNGS: clear to auscultation bilaterally, difficult to examine as patient is refusing to move very much and is very obese. ABD: Very large pannus with multiple skin folds, soft, non-tender, non-distended , no rebound or guarding, bowel sounds were heard EXTREMITY: Right elbow dressed and wrapped with dressing that is clean dry and intact. Right upper medial thigh hematoma extending from inguinal fold to just proximal of right knee, in various stages of healing. 2+ pitting edema in right foot, seems improved. Extremities are warm and well perfused, no paresthesias, no pallor. NEURO: CN 2-12 grossly intact, bilateral food and nutrition teacher strength is intact, difficulty moving r knee, but generalized weakness sensation intact throughout, no gross focal deficits MUSC: Generalized weakness, patient requiring maximum assistance for transfers SKIN: warm and dry and ecchymotic areas as above Laboratory Results: 02/19/18 08:21 Test 02/10/18 15:48 02/11/18 06:27 02/11/18 21:49 02/14/18 03:40 Creatine Kinase MB 1.9 ng/ml (0.5-3.6) Creatine Kinase MB Ratio 4.8 (0-3.0) Estimated Average Glucose 148 mg/dl Hemoglobin A1c 6.8 % (4.5-5.6) Lactic Acid Level 1.8 mmol/L (0.4-2.0) Urine Random Creatinine 224.0 mg/dl Urine Random Sodium 11 mEq/L Urine Random Urea Nitrogen 922 mg/dl Test 02/14/18 17:40 02/14/18 17:56 02/14/18 22:23 02/15/18 02:51 Total Creatine Kinase 156 U/L (26-192) Urine Color ORANGE Urine Appearance TURBID (CLEAR) Urine pH 5.0 (4.5-7.5) Urine Specific Paradis 1.031 (1.000-1.030) Urine Protein 1+ (NEG) Urine Glucose (UA) NEG (NEG) Urine Ketones NEG (NEG) Urine Occult Blood 3+ (NEG) Urine Nitrite POS (NEG) Urine Bilirubin 1+ (NEG) Urine Urobilinogen NEG (NEG) Urine Leukocyte Esterase LARGE (NEG) Urine WBC (Auto) >30 /hpf (0-5) Urine RBC (Auto) >30 /hpf (0-4) Urine Hyaline Casts (Auto) 1-5 /lpf (0-5) Urine Epithelial Cells (Auto) >30 /lpf (0-5) Urine Bacteria (Auto) 4+ (NEG) Urine Pathogenic Casts /lpf (0) Urine Yeast (Auto) (NONE PRSENT) Total Bilirubin 1.9 mg/dl (0.2-1) Aspartate Amino Transf (AST/SGOT) 52 U/L (15-37) Alanine Aminotransferase (ALT/SGPT) 25 U/L (12-78) Alkaline Phosphatase 366 U/L (45-117) Total Protein 6.6 gm/dl (6.4-8.2) Albumin 2.7 gm/dl (3.4-5.0) Globulin 3.9 gm/dl (2.5-4.0) Albumin/Globulin Ratio 0.7 (0.9-2) Lipase 52 U/L (73-393) Immature Granulocyte % (Auto) 0.3 % White Blood Count 7.51 K/uL (4.8-10.8) Red Blood Count 2.88 M/uL (4.2-5.4) Hemoglobin 8.7 g/dL (12.0-16.0) Hematocrit 27.7 % (37-47) Mean Corpuscular Volume 96.2 fL (80-100) Mean Corpuscular Hemoglobin 30.2 pg (25-34) Mean Corpuscular Hemoglobin Concent 31.4 g/dl (32-36) Platelet Count 198 K/uL (130-400) Mean Platelet Volume 9.6 fL (7.4-10.4) Neutrophils (%) (Auto) 71.5 % Lymphocytes (%) (Auto) 10.0 % Monocytes (%) (Auto) 16.2 % Eosinophils (%) (Auto) 1.9 % Basophils (%) (Auto) 0.1 % Neutrophils # (Auto) 5.37 K/uL (1.4-6.5) Lymphocytes # (Auto) 0.75 K/uL (1.2-3.4) Monocytes # (Auto) 1.22 K/uL (0.11-0.59) Eosinophils # (Auto) 0.14 K/uL (0-0.5) Basophils # (Auto) 0.01 K/uL (0-0.2) Immature Granulocyte # (Auto) 0.02 K/uL (0.00-0.02) Hypochromasia PRESENT Activated Partial Thromboplast Time 29.8 SECONDS (21.0-31.0) Partial Thromboplastin Ratio 1.1 Test 02/15/18 09:55 02/19/18 08:21 02/19/18 20:49 02/20/18 04:44 Troponin I 1.540 ng/ml (0-0.045) Red Blood Count 3.05 M/uL (4.2-5.4) Mean Corpuscular Volume 95.7 fL (80-100) Mean Corpuscular Hemoglobin 30.8 pg (25-34) Mean Corpuscular Hemoglobin Concent 32.2 g/dl (32-36) RDW Standard Deviation 56.8 fL (36.4-46.3) RDW Coefficient of Variation 16.7 % (11.5-14.5) Mean Platelet Volume 8.9 fL (7.4-10.4) Nucleated RBC Absolute Count (auto) 0.11 K/uL (0-0) Nucleated Red Blood Cells % 1.5 % Est Creatinine Clear Calc Drug Dose 37.8 ml/min Magnesium Level 2.2 mg/dl (1.8-2.4) Bedside Glucose 162 mg/dl (70-90) Date/Time Source Procedure Growth Status 02/14/18 00:00 Urine,Catheterized Urine Culture - Final Escherichia Coli Enterococcus Faecalis Complete Last 24 Hours Test 02/18/18 20:20 02/19/18 08:07 02/19/18 08:21 Bedside Glucose 164 mg/dl 150 mg/dl White Blood Count 7.05 K/uL Red Blood Count 3.05 M/uL Hemoglobin 9.4 g/dL Hematocrit 29.2 % Mean Corpuscular Volume 95.7 fL Mean Corpuscular Hemoglobin 30.8 pg Mean Corpuscular Hemoglobin Concent 32.2 g/dl RDW Standard Deviation 56.8 fL RDW Coefficient of Variation 16.7 % Platelet Count 232 K/uL Mean Platelet Volume 8.9 fL Nucleated RBC Absolute Count (auto) 0.11 K/uL Nucleated Red Blood Cells % 1.5 % Prothrombin Time 14.6 SECONDS Prothromb Time International Ratio 1.4 Sodium Level 134 mmol/L Potassium Level 4.6 mmol/L Chloride Level 96 mmol/L Carbon Dioxide Level 35 mmol/L Anion Gap 3.0 mmol/L Blood Urea Nitrogen 39 mg/dl Creatinine 1.65 mg/dl Est Creatinine Clear Calc Drug Dose 37.8 ml/min Estimated GFR () 32.7 Estimated GFR (Non- 28.2 BUN/Creatinine Ratio 23.8 Random Glucose 141 mg/dl Calcium Level 8.9 mg/dl Magnesium Level 2.2 mg/dl Assessment & Plan 82-year-old female with chronic atrial fibrillation on Coumadin, status post pacemaker for sick sinus syndrome, presents with a mechanical fall at home and subsequent trauma. She hit her head, right arm, right leg after her walker buckled-there was no LOC reported. She is eating dinner and denies any pain or other symptoms at this time. Daughter is at bedside with her. Pt reports that her anxiety is controlled at this time. Denies nausea. We briefly discussed discharge plans. 1. Status post mechanical fall with R tibial plateau fracture-multiple areas of ecchymosis along with a right elbow abrasion which is wrapped and dressed. All areas continue to improve and drain. Right thigh hematoma continues to improve. Orthopedics following-NWB x 2 weeks, then follow-up as outpatient. Pain medication as needed. Plan to disposition to [facility] in am. 2. Anxiety-severe and increased. Patient is doing well on increased amount of Ativan given throughout the day. As she begins to heal from this process she will need to consider a different long-term medication with her primary care doctor. For now continue Ativan as needed. 3. Anemia secondary to acute blood loss-vitamin K was given as a reversal agent for Coumadin. 2 units of blood given this admission with stable H&H. Continue to trend H&H daily which is currently stable. Coumadin restarted and patient doing well. No signs of bleeding and no decrease in H&H 4. Acute cystitis-poss CAUTI as no baseline UA was performed. Cont Cipro. Lynn removed with successful spontaneous urination. Pt was able to ambulate to bedside commode with assistance. 5. Chronic diastolic heart failure-diuretics were held on admission in setting of severe ecchymosis and internal bleeding. As a result she was slightly volume up and responded well to IV Lasix. Cont with PO Lasix per home regimen in am. Elevated troponin this admission not indicative of myocardial injury and patient does have evidence of LVH on echo. Creat was seen to rise slightly but remain stable over the past 3 days. Changed Lasix regimen to MWF and will request repeat PRP on discharge to facility in one week. 6. CKD Stage III-UOP has improved since Lasix restarted. Cont to monitor. Creatinine is stable but slightly increased from baseline possibly secondary to recent diuretics. Continue to trend. Lasix as above. 7. Chronic hypoxic respiratory failure-patient is on 2 L nasal cannula at home. Currently saturating around baseline. Continue supplemental oxygen as needed. 8. Chronic atrial fibrillation- Cont coumadin and rate control. 10. CAD status post PCI in 2012-stable. Elevated troponin not indicative of myocardial injury as above. Continue metoprolol, Imdur, Lipitor, ASA. No new wall motion abnormalities on echo. 11. Diabetes mellitus-at goal, cont inusulin sliding scale with carbohydrate coverage and Lantus while in the hospital. 12. Hypothyroidism-continue levothyroxine per home regimen 13. Morbid obesity DVT prophylaxis-coumadin CODE STATUS-full Disposition-transfer to med/surg, plan for discharge when insurance auth comes through. Savanna Preston DO [facility] Hospitalist Consultants: [facility]ar[facility] Current Inpatient Medications: Current Inpatient Medications Medications (Trade) Dose Ordered Sig/Yesenia Route Start Time Stop Time Status Last Admin Dose Admin Insulin Aspart (novoLOG ASPART) SLIDING SCALE If C... ACHS SC 02/10/18 21:00 03/12/18 20:59 02/19/18 13:25 3 UNITS Glucose (Glucose 40% Gel) 15-30 GRAMS 15 GRAMS... UD PRN PO 02/10/18 19:45 03/12/18 19:44 Glucose (Glucose Chew Tab) 4-8 Tablets 4 Tabl... UD PRN PO 02/10/18 19:45 03/12/18 19:44 Dextrose (Dextrose 50% 50ML Syringe) 25-50ML OF 50% DW IV FOR... UD PRN IV 02/10/18 19:45 03/12/18 19:44 Glucagon (Glucagon Inj) 1 mg UD PRN SQ 02/10/18 19:45 03/12/18 19:44 Atorvastatin Calcium (Lipitor Tab) 10 mg DAILY PO 02/11/18 09:00 03/13/18 08:59 02/19/18 08:37 10 MG Cholecalciferol (Vitamin D Tab) 1,000 inter.unit DAILY PO 02/11/18 09:00 03/13/18 08:59 02/19/18 08:37 1,000 INTER.UNIT Levothyroxine Sodium (Synthroid Tab) 100 mcg DAILYBB PO 02/11/18 06:00 03/13/18 06:59 02/19/18 06:31 100 MCG Magnesium Chloride (Slow-Mag Tab) 64 mg DAILY PO 02/11/18 09:00 03/13/18 08:59 02/19/18 08:38 64 MG Magnesium Hydroxide (Milk Of Magnesia Susp) 30 ml UD PRN PO 02/10/18 20:00 03/12/18 19:59 02/13/18 10:35 30 ML Nitroglycerin (Nitrostat Tab) 0.4 mg PRN UT 02/10/18 20:00 03/12/18 19:59 Lactobacillus Acidophilus (Floranex Tab) 1 tab DAILY PO 02/11/18 09:00 03/13/18 08:59 02/19/18 08:37 1 TAB Acetaminophen (Tylenol Tab) 1,000 mg Q8 PO 02/15/18 06:00 03/12/18 21:59 5/9/18 13:31 500 MG Lorazepam (Ativan Tab) 0.5 mg HS PO 02/15/18 21:00 03/13/18 20:59 02/18/18 20:42 0.5 MG Aspirin (Ecotrin Tab) 81 mg DAILY PO 02/16/18 09:00 03/17/18 08:59 02/19/18 08:40 81 MG Prochlorperazine Edisylate 5 mg/ Syringe 5 ml @ 5 mls/min Q6H PRN IV 02/14/18 23:45 03/16/18 23:44 02/16/18 15:12 5 MLS/MIN Oxycodone HCl (Roxicodone Immediate Rel Tab) 5 mg Q4H PRN PO 02/15/18 00:00 03/01/18 00:00 02/18/18 02:37 5 MG Hydromorphone HCl (Dilaudid Inj) 0.5 mg Q3H PRN IV 02/15/18 00:00 03/01/18 00:00 02/15/18 18:05 0.5 MG Metoprolol Tartrate (Lopressor Tab) 12.5 mg BID PO 02/15/18 21:00 03/17/18 08:59 02/19/18 08:39 12.5 MG Furosemide (Lasix Tab) 40 mg QAM PO 02/16/18 09:00 03/18/18 08:59 Future Hold 02/19/18 08:38 40 MG Multi-Ingredient Ointment (Eucerin Unscented Cr) 1 appln BID EXT 02/15/18 21:00 03/17/18 20:59 02/19/18 10:22 1 APPLN Bisacodyl (Dulcolax Supp) 10 mg DAILY PRN ND 02/15/18 15:45 03/17/18 15:44 Ondansetron HCl (Zofran Inj) 4 mg Q8H PRN IV 02/15/18 17:00 03/17/18 16:59 02/18/18 02:39 4 MG Ciprofloxacin (Cipro Tab) 500 mg BID PO 02/16/18 09:00 02/21/18 09:01 02/19/18 08:39 500 MG Isosorbide Mononitrate (Imdur Ext Rel Tab) 30 mg DAILY PO 02/17/18 09:00 03/13/18 08:59 02/19/18 08:38 30 MG Warfarin Sodium (Coumadin Tab) 1.25 mg DAILY@16 PO 02/17/18 16:00 03/19/18 15:59 02/19/18 15:58 1.25 MG Lorazepam (Ativan Tab) 0.5 mg Q8H PRN PO 02/17/18 14:30 03/13/18 18:59 02/19/18 15:59 0.5 MG Insulin Glargine (Lantus Solostar Pen) 15 units Q12 SC 02/18/18 21:00 03/13/18 08:59 02/19/18 08:56 15 UNITS Enteral Nutritional Formula (Boost Glucose Control) 1 can BIDM PO 02/18/18 16:45 03/20/18 16:44 02/18/18 16:48 1 CAN
[2018-02-20] MEDS: ACETAMINOPHEN 500 MG TAB PO SCH (05:41)
[2018-02-20] MEDS: LEVOTHYROXINE 100 MCG TAB PO SCH (05:41)
[2018-02-20] MEDS: ONDANSETRON INJ 2 MG/ML 2 ML VIAL IV PRN (07:44)
[2018-02-20] MEDS: BOOST GLUCOSE CONTROL PO SCH (08:30)
[2018-02-20 09:11] LABS: INR 1.4 (0.9-1.1)
[2018-02-20] MEDS: EUCERIN CR 120 GM JAR EXT SCH (09:29)
[2018-02-20] MEDS: ATORVASTATIN 10 MG TAB PO SCH (09:29)
[2018-02-20] MEDS: LACTOBACILLUS ACIDOPHILUS (FLORANEX) TAB PO SCH (09:30)
[2018-02-20] MEDS: CHOLECALCIFEROL 1000 INTER.UNIT TAB PO SCH (09:30)
[2018-02-20] MEDS: ISOSORBIDE MONONITRATE 30 MG TABCR PO SCH (09:30)
[2018-02-20] MEDS: METOPROLOL TARTRATE 25 MG TAB PO SCH (09:31)
[2018-02-20] MEDS: CIPROFLOXACIN 500 MG TAB PO SCH (09:31)
[2018-02-20 09:32] LABS: CALCIUM 8.6 mg/dl (8.5-10.1); CREATININE 1.62 mg/dl (0.60-1.20); POTASSIUM 4.6 mmol/L (3.5-5.1)
[2018-02-20] MEDS: ASPIRIN 81 MG ECTAB PO SCH (09:32)
[2018-02-20] MEDS: MAGNESIUM CHLORIDE 64MG DELAYED REL TAB PO SCH (09:32)
[2018-02-20] MEDS: INSULIN GLARGINE SOLOSTAR 100 UNITS/ML 3 ML PEN SC SCH (09:37)
[2018-02-20] MEDS: INSULIN ASPART 100 UNITS/ML 3 ML PEN SC SCH (09:50)
[2018-02-20] MEDS ORDERED: CMD2 PO (09:50)
[2018-02-20] MEDS ORDERED: CPR500 PO (09:51)
--- NOTE | 2018-02-20 09:57 | Discharge Summary ---
Discharge Summary Date of Service February 20, 2018. Discharge Summary Admission Date: February 11, 2018 at 11:49 Discharge Date: February 19, 2018 [facility]charge Disposition: [facility] facility Principal Diagnosis: Status post mechanical fall with right tibial plateau fracture Severe anxiety Acute blood loss anemia Acute cystitis Chronic diastolic heart failure CKD stage III Chronic hypoxic respiratory failure on supplemental oxygen Chronic atrial fibrillation CAD status post PCI in 2012 Diabetes mellitus type 2 Hypothyroidism Morbid obesity Procedures: echo Vaccinations: none Consultations: Ortho-Dr. Win Rodgers [facility] Pending Studies/Follow-Up: see instructions below. Medication Reconciliation New Medications: Warfarin Sod (Coumadin) 2 Mg Tab 2 MG PO DAILY for 30 Days, #30 TAB Ciprofloxacin (Ciprofloxacin HCl) 500 Mg Tab 500 MG PO BID for 3 Days, #6 TAB Furosemide (Furosemide) 40 Mg Tab 40 MG PO MWF for 30 Days, #30 TAB Metoprolol Tartrate (Lopressor) 25 Mg Tab 12.5 MG PO BID for 30 Days, #60 TAB Nutritional Supplements (Boost) 1 Liq Liq 1 CAN PO BIDM for 30 Days, #60 CAN Continued Medications: Acetaminophen (Tylenol) 500 Mg Tab 500-1000 MG PO TID PRN for Pain, TAB PRN PAIN Ascorbic Acid (Ascorbic Acid) 500 Mg Tab 500 MG PO DAILY, TAB Aspirin (Aspirin Ec) 81 Mg Tab 81 MG PO 3XWK EVERY SATURDAY/SATURDAY/SATURDAY Atorvastatin (Lipitor) 20 Mg Tab 10 MG PO DAILY, TAB TAKE 1/2 TABLET DAILY. Calcium Carbonate-Vitamin D (Calcium 600 + D) 1 Tab Tab 2 TABLETS PO DAILY CALCIUM 600-200 Cholecalciferol (Vitamin D3) 1,000 Unit Tab 1000 UNITS PO DAILY Clindamycin Hcl (Clindamycin Hcl) 150 Mg Cap 4 CAP PO PRIOR TO DENTAL PROCEDURE Coenzyme Q10 (Ubidecarenone) (Co Q 10) 10 Mg Cap 1 TAB PO DAILY Home O2 Therapy (Oxygen) Gas 2 LITERS NA CONTINOUS Insulin Isophan/Regular (Novolin 70/30) Susp 23 UNITS SC QAM, BTL Insulin Isophan/Regular (Novolin 70/30) Susp 9 UNITS SC QPM, BTL Isosorbide Mononitrate Ext Rel (Imdur Ext Rel) 60 Mg Ertab 60 MG PO DAILY, TAB Levalbuterol (Levalbuterol HCl) 1.25 Mg/3 Ml Nebu 3 ML INH Q8 PRN for Shortness of Breath Levothyroxine Sodium (Levothyroxine Sodium) 100 Mcg Tab 100 MCG PO DAILY, TAB Lorazepam (Ativan) 0.5 Mg Tab 0.5-1 TAB PO BID PRN for Anxiety, TAB Magnesium Chloride (Slow-Mag Tab) 64 Mg Tabcr 64 MG PO DAILY, TAB Magnesium Hydroxide (Milk of Magnesia) 30 Ml Susp 30 ML PO PRN for Constipation Multivitamin (Multivitamin) Tab 1 TAB PO DAILY, TAB Nitroglycerin (Nitrostat) 0.4 Mg Tab 0.4 MG UT PRN, BTL Probiotic Product (Probiotic) 1 Cap Cap 1 CAP PO DAILY Discontinued Medications: Furosemide (Lasix) 40 Mg Tab 40 MG PO DAILY, TAB Take 1 tab by mouth daily. Plus 1 additional tab 1 day/week. Metoprolol Tartrate (Lopressor) (Lopressor) 50 Mg Tab 25 MG PO DAILY, TAB Warfarin Sod (Coumadin) 2.5 Mg Tab 0.5 TAB PO DAILY, TAB PER ANTI-COAGULATION CLINIC Admission Information HPI (per Admitting provider): Patient is an 82-year-old female with a PMH of chronic atrial fibrillation (on Coumadin), tachybradycardia syndrome (s/p pacemaker), CAD (s/p stents in 2012), DM I, chronic diastolic CHF, HTN, chronic hypoxic respiratory failure (2L home O2), ambulatory dysfunction and other medical problems listed below who presents after a fall today around noon. Patient was getting out of bed and leaned forward towards walker, losing her balance and falling onto her right side. Endorses hitting right side of head on hardwood floor. No LOC. Was unable to get up from floor but called for and EMS was called. States that she is experiencing pain on her right side of head, neck, right arm and right leg. Patient lives at home with 89-year-old . Is able to ambulate short distances with walker or wheelchair. Was recently admitted January 18 for CHF exacerbation and was discharged home with home health and outpatient PT. In the ED, CT head ruled out any acute bleeding but right periorbital and supraorbital scalp contusion present. Lower extremity CT with presence of large right thigh hematoma and subtle tibial plateau fracture. An addendum was added by radiologist that mentioned a questionable cortical irregularity involving the region of the right femoral neck. If pain localizes to the right hip a short -term CT follow-up could be considered. R humerus x-ray, R knee x-ray, R hip x- ray without acute fracture. Cervical spine CT without acute findings. Physical Exam (per Admitting): General Appearance: + mild distress, + obese (morbid) Head: normocephalic, + evidence of trama (Periorbital and supraorbital contusion, non-tender ) Eyes: normal inspection, PERRL, EOMI, sclerae normal ENT: normal ENT inspection, hearing grossly normal, pharynx normal Neck: supple, thyroid normal, trachea midline Respiratory/Chest: chest non-tender, no respiratory distress, no accessory muscle use, + crackles (bibasilar), + pertinent finding (Normal O2 saturation with 2L NC ) Cardiovascular: no murmur, normal peripheral pulses, + irregularly irregular , + pertinent finding (Trace BLE edema ) Abdomen/GI: non tender, soft, no organomegaly Back: normal inspection Extremities/Musculoskelatal: normal inspection, no calf tenderness, + pertinent finding (R knee and R thigh TTP. Large hematoma present on medial aspect of thigh. ) Neurologic/Psych: manager cash II-XII nml as tested, no motor/sensory deficits ( chronic ambulatory dysfunction ), alert, normal mood/affect, oriented x 3 Skin: warm/dry, + pertinent finding (R elbow with skin tear with steristrips , bilateral forearms with bruising) Hospital Course 82-year-old female with chronic atrial fibrillation on Coumadin, status post pacemaker for sick sinus syndrome, presents with a mechanical fall at home and subsequent trauma. She hit her head, right arm, right leg after her walker buckled-there was no LOC reported. It took her several days to heal and start to recover from her injuries and significant ecchymosis. She is elderly and deconditioned and appears to have uncontrolled anxiety which we battled over this time. She was treated for a UTI, but required continuation of the Lynn catheter for a few more days because of limited mobility. Prior to discharge her Lynn was removed and she was able to ambulate to the bathhroom with minimal assistance. Physical exam on day of discharge revealed a morbidly obese woman with ecchymosis in various stages of healing who appeared improved from a physical standpoint with clear lungs to auscultation. She was tolerating PO and mentating at baseline. She was discharged in stabe condition to SNF for further rehabilitation efforts. 1. Status post mechanical fall with R tibial plateau fracture-multiple areas of ecchymosis along with a right elbow abrasion which is wrapped and dressed. All areas continue to improve and drain. Right thigh hematoma continues to improve. Orthopedics following-NWB x 2 weeks, then follow-up as outpatient. Pain medication as needed. Plan to disposition to [facility] in am. 2. Anxiety-severe and increased. Patient is doing well on increased amount of Ativan given throughout the day. As she begins to heal from this process she will need to consider a different long-term medication with her primary care doctor as dependence on benzos is not ideal. For now continue Ativan as needed. 3. Anemia secondary to acute blood loss-vitamin K was given as a reversal agent for Coumadin early in admission. 2 units of blood given this admission with stable H&H. Coumadin restarted and patient doing well. No signs of bleeding and no decrease in H&H 4. Acute cystitis-poss CAUTI as no baseline UA was performed. Cont Cipro. Lynn removed with successful spontaneous urination. Pt was able to ambulate to bedside commode with assistance. 5. Chronic diastolic heart failure-diuretics were held on admission in setting of severe ecchymosis and internal bleeding. As a result she was slightly volume up and responded well to IV Lasix. Cont with PO Lasix per home regimen in am. Elevated troponin this admission not indicative of myocardial injury and patient does have evidence of LVH on echo. Creat was seen to rise slightly but remain stable over the past 3 days. Changed Lasix regimen to [facility] and will request repeat PRP on discharge to facility in one week. 6. CKD Stage III-UOP has improved since Lasix restarted. Cont to monitor. Creatinine is stable but slightly increased from baseline possibly secondary to recent diuretics. Continue to trend. Lasix as above. 7. Chronic hypoxic respiratory failure-patient is on 2 L nasal cannula at home. Currently saturating around baseline. Continue supplemental oxygen as needed. 8. Chronic atrial fibrillation- Cont coumadin and rate control. 10. CAD status post PCI in 2012-stable. Elevated troponin not indicative of myocardial injury as above. Continue metoprolol, Imdur, Lipitor, ASA. No new wall motion abnormalities on echo. 11. Diabetes mellitus-at goal, cont inusulin sliding scale with carbohydrate coverage and Lantus while in the hospital. 12. Hypothyroidism-continue levothyroxine per home regimen 13. Morbid obesity DVT prophylaxis-coumadin CODE STATUS-full Disposition-transfer to [facility] [place] Total time spent on discharge = This includes examination of the patient, discharge planning, medication reconciliation, and communication with other providers. Discharge Instructions [facility] [address] [place] [address] Discharge Medical Patient Name: Alesia Galan Unit Number: [id number] Date of : 1935 Patient Status: Admitted Inpatient Attending Doctor: Savanna Preston DO DI: Medical v5 Discharge Instructions Date of Service February 19, 2018. Admission Reason for Admission: Fall, Hemarthrosis Of R Thigh, Tibial Plateau Frac Discharge Discharge Diagnosis / Problem: Fall, R thigh hematoma, afib on coumadin, tibial plateau fracture Discharge Goals Goal(s): Improve function, Increase independence, Improve disease control, Prevent Disease Progression Activity Recommendations Activity Limitations: per Instructions/Follow-up section . Instructions / Follow-Up Instructions / Follow-Up Please take all medications as instructed. Please continue antibiotic until course is complete. You Lasix has been rduced to Saturday, Sat, and Saturday dosing. You will need repeat non-fasting blood work in one week to check kidney function and electrolytes (BASIC METABOLIC PANEL). It is recommended that you see a Conveyor Belt Repairer at [facility] to establish care. This can be done as an outpatient with a referral through your primary care physician's office. It is recommended that you follow-up with your primary care physician within one week of discharge from the receiving facility. Please have your INR checked within 2-3 days, and then regularly for close monitoring of coumadin levels. Goal INR is 2-3. It was a pleasure taking care of you! Call if you have any questions or problems. You can reach a [facility] hospitalist on duty at [facility] 24 hours a day by calling [phone]. Take care of yourself. DO [facility] Hospitalist Current Hospital Diet Patient's current hospital diet: Diabetes Type 1 Diet, AHA Diet (Heart Healthy) Discharge Diet Recommended Diet: AHA Diet (Heart Healthy), Diabetes Type 1 Diet Procedures Procedures Performed: Echocardiogram Pending Studies Studies pending at discharge: no Laboratory Results Hemoglobin A1c Test 02/11/18 06:27 Range/Units Estimated Average Glucose 148 mg/dl Hemoglobin A1c 6.8 H 4.5-5.6 % Medical Emergencies . Who to Call and When: Medical Emergencies: If at any time you feel your situation is an emergency, please call 911 immediately. . Non-Emergent Contact Non-Emergency issues call your: Primary Care Provider . . "Provider Documentation" section prepared by Savanna Preston. . Additional Copies To [facility] [place]; Jose Antonio Donnelly D.O.
[2018-02-20] MEDS: LORAZEPAM 0.5 MG TAB PO PRN (11:35)
[2018-02-20] MEDS ORDERED: WARFARIN SOD 2 MG TAB PO SCH (16:00)
--- NOTE | 2018-02-24 06:38 | EDITING REQUIRED CODING QUERY ---
CODING QUERY To promote full compliance with coding requirements relating to patient care, provider participation is requested in all cases of information technology intern uncertainty. Please assist us with the question(s) below: Please clarify the meaning of JEMIMA. JEMIMA is not a valid abbreviation. Thank you. ( x ) Acute Kidney Injury ( ) Acute Kidney Insufficiency ( ) Other (Specify): Principal Diagnosis: "_that condition established after study, to be chiefly responsible for occasioning the admission of the patient to the hospital for care." Co-Existing Principal Diagnosis: "_when two or more diagnoses equally meet the criteria for principal diagnosis as determined by the circumstances of admission, diagnostic work up, and/or therapy provided, and the Alphabetic Index, Tabular List, or another coding guideline does not provide sequencing direction, any one of the diagnoses may be sequenced first." "When the physician has documented what appears to be a current diagnosis in the body of the record, but has not included the diagnosis in the final diagnostic statement, the physician should be asked whether the diagnosis should be added." ([facility] 2 QTR90. p3-4)
--- NOTE | 2018-02-26 06:14 | EDITING REQUIRED CODING QUERY ---
CODING QUERY To promote full compliance with coding requirements relating to patient care, provider participation is requested in all cases of carpenter foreman uncertainty. Please assist us with the question(s) below: Coding Question(s): Patient was admitted with a secondary diagnosis of compensated chronic diastolic CHF. Then on 02/15/18 the documentation was updated to "CXR overnight suggestive of increased pulmonary edema consistent with volume overload. Per Cardiology, given Lasix 40mg IV once now and will resume her daily Lasix." Please indicate below if this suggests any sort of change in the patient's CHF status. Physician's Response(s): Yes, the patient did have acute decompensated diastolic dysfunction at one point, corrected with IV dieresis.. Thank you Madeleine Gonzalez Principal Diagnosis: "_that condition established after study, to be chiefly responsible for occasioning the admission of the patient to the hospital for care." Co-Existing Principal Diagnosis: "_when two or more diagnoses equally meet the criteria for principal diagnosis as determined by the circumstances of admission, diagnostic work up, and/or therapy provided, and the Alphabetic Index, Tabular List, or another coding guideline does not provide sequencing direction, any one of the diagnoses may be sequenced first." "When the physician has documented what appears to be a current diagnosis in the body of the record, but has not included the diagnosis in the final diagnostic statement, the physician should be asked whether the diagnosis should be added." (Source Coding Clinic 2 QTR90. p3-4)
== END 2018-02-20 11:35 | DRG 562 ==
LOC: EDBD 14:11 → C.EDA 14:12 → C.MSN 19:37 → ENRESERV 20:03 → OBSVTOIN 02-11 11:49 → ENRESERV 02-12 12:39 → C.2E 02-12 14:11 → EDBEDREQSVC 02-14 18:55 → ENRESERV 02-14 19:34 → C.MSN 02-14 20:49 → ENRESERV 02-14 23:11 → C.2E 02-14 23:24 → EDBEDREQSVC 02-18 19:15 → CANRESERV 02-18 19:56 → ENRESERV 02-18 19:56 → C.MSW 02-18 22:14
PROVIDERS: ADMIT Internal Medicine; ATTEND Hospitalist
DX: S82.144A Nondisplaced bicondylar fracture of right tibia, initial encounter for closed fracture (principal); I50.33 Acute on chronic diastolic (congestive) heart failure; D62 Acute posthemorrhagic anemia; I13.0 Hypertensive heart and chronic kidney disease with heart failure and stage 1 through stage 4 chronic kidney disease, or unspecified chronic kidney disease; J96.11 Chronic respiratory failure with hypoxia; Z68.43 Body mass index [BMI] 50.0-59.9, adult; N17.9 Acute kidney failure, unspecified; T83.518A Infection and inflammatory reaction due to other urinary catheter, initial encounter; N30.00 Acute cystitis without hematuria; S70.11XA Contusion of right thigh, initial encounter; S00.11XA Contusion of right eyelid and periocular area, initial encounter; S00.83XA Contusion of other part of head, initial encounter; R93.7 Abnormal findings on diagnostic imaging of other parts of musculoskeletal system; S50.311A Abrasion of right elbow, initial encounter; W06.XXXA Fall from bed, initial encounter; R34 Anuria and oliguria; I95.9 Hypotension, unspecified; G47.33 Obstructive sleep apnea (adult) (pediatric); I48.2 Chronic atrial fibrillation; I25.118 Atherosclerotic heart disease of native coronary artery with other forms of angina pectoris; E10.22 Type 1 diabetes mellitus with diabetic chronic kidney disease; N18.3 Chronic kidney disease, stage 3 (moderate); E03.9 Hypothyroidism, unspecified; F41.9 Anxiety disorder, unspecified; R26.9 Unspecified abnormalities of gait and mobility; E78.5 Hyperlipidemia, unspecified; E66.01 Morbid (severe) obesity due to excess calories; Z66 Do not resuscitate; Z99.81 Dependence on supplemental oxygen; I25.2 Old myocardial infarction; Z86.79 Personal history of other diseases of the circulatory system; Z95.0 Presence of cardiac pacemaker; Z95.5 Presence of coronary angioplasty implant and graft; Z79.01 Long term (current) use of anticoagulants; Z79.4 Long term (current) use of insulin; Z79.82 Long term (current) use of aspirin; Z79.899 Other long term (current) drug therapy; Z88.0 Allergy status to penicillin; Z88.1 Allergy status to other antibiotic agents; Z88.5 Allergy status to narcotic agent; Z88.8 Allergy status to other drugs, medicaments and biological substances; Z91.048 Other nonmedicinal substance allergy status; Z82.49 Family history of ischemic heart disease and other diseases of the circulatory system; Z83.3 Family history of diabetes mellitus; Z83.79 Family history of other diseases of the digestive system

== ENCOUNTER → 2018-02-24 | Outpatient (CLI) | payer OTHER ==
[~2018-02-24] MED LIST changes: +ACET-1256 PO; +ACET-1311 PO; +ATOR10TA82 PO; -CMD/25 PO; +CMD2 PO; +COEN10CA5 PO; -COEN1CAP17 PO; +CPR500 PO; +FRS/40 PO; +HYDR-5688 PO; +INSU100I SC; +LORA-741 PO; +LPR25 PO; +METO25TA56 PO; -METO50TA16 PO; +NUTR-7 PO; +NYSCR30 TOP; +ONDA-170 PO; +OXGN; -PANT40TA PO; +SODIENE PR; +TRAM-10 PO; +WARF2TAB PO; +XPNINS125 INH
[2018-02-24 08:42] LABS: BASO % 0.2 %; BASO ABS # 0.01 K/uL (0-0.2); EOS % 2.6 %; EOS ABS # 0.17 K/uL (0-0.5); HEMATOCRIT 32.4 % (37-47); IG# 0.03 K/uL (0.00-0.02); LYMPH % 9.8 %; LYMPH ABS # 0.64 K/uL (1.2-3.4); MEAN CELL VOLUME 96.7 fL (80-100); MEAN CORPUSCULAR HEMOGLOBIN 29.9 pg (25-34); MEAN CORPUSCULAR HGB CONC 30.9 g/dl (32-36); MEAN PLATELET VOLUME 9.2 fL (7.4-10.4); MONO % 16.1 %; MONO ABS # 1.05 K/uL (0.11-0.59); NEUT % 70.8 %; NEUT ABS # 4.64 K/uL (1.4-6.5); NUCLEATED RED BLOOD CELL ABS 0.07 K/uL (0-0); PLATELET COUNT 233 K/uL (130-400); RED CELL DISTRIBUTION WIDTH CV 17.8 % (11.5-14.5); RED CELL DISTRIBUTION WIDTH SD 61.1 fL (36.4-46.3); WHITE BLOOD COUNT 6.54 K/uL (4.8-10.8)
[2018-02-24 08:48] LABS: INR 1.8 (0.9-1.1)
[2018-02-24 09:10] LABS: ALBUMIN 2.8 gm/dl (3.4-5.0); ALKALINE PHOSPHATASE 370 U/L (45-117); ALT/SGPT 30 U/L (12-78); AST/SGOT 43 U/L (15-37); BLOOD UREA NITROGEN 39 mg/dl (7-18); CALCIUM 9.3 mg/dl (8.5-10.1); CARBON DIOXIDE 34 mmol/L (21-32); CREATININE 1.55 mg/dl (0.60-1.20); GLUCOSE 53 mg/dl (70-99); SODIUM 134 mmol/L (136-145); TOTAL PROTEIN 6.4 gm/dl (6.4-8.2)
== END ==
LOC: C.LABCC 07:49
PROVIDERS: ATTEND Internal Medicine
DX: D64.9 Anemia, unspecified (principal); N18.9 Chronic kidney disease, unspecified; I48.91 Unspecified atrial fibrillation

== ENCOUNTER 2018-02-25 22:46 | Inpatient (IN) | payer OTHER ==
[2018-02-24 04:00] VITALS: BP 83/56; PULSE 62; TEMP 34; O2SAT 95; BMI 53.8
[~2018-02-25] VITALS: Ht 167.6 cm; Wt 150.0 kg
[~2018-02-25 22:46] MED LIST changes: -ACET-1256 PO; -ACET-1311 PO; -ATOR10TA82 PO; -FRS/40 PO; -HYDR-5688 PO; -INSU100I SC; -METO25TA56 PO; -NYSCR30 TOP; -ONDA-170 PO; -SODIENE PR; -TRAM-10 PO; -WARF2TAB PO
[2018-02-25] MEDS ORDERED: NALOXONE HCL 0.4 MG/1 ML VIAL/CARP ONE ×2 (23:04→23:10)
[2018-02-25] MEDS ORDERED: ONDANSETRON INJ 2 MG/ML 2 ML VIAL ONE (23:06)
--- NOTE | 2018-02-25 23:08 | EMERGENCY ROOM VISIT NOTE ---
History Report prepared by Ibis: Burton Beatty Under the Supervision of: Dr. Alistair Harley M.D. First contact with patient: 22:52 Chief Complaint: SYNCOPE Stated Complaint: SYNCOPE, AMS, HYPOXIA History of Present Illness The patient is a 82 year old female who presents to the Emergency Room with complaints of a resolved syncope that occurred prior to arrival. Per nursing, the patient fell two weeks ago and came into the ED. She reports the patient was found to have a right tibia fracture and was admitted for a week and a half. The patient is accompanied by her daughter who states that the patient was put on Oxycodone and was hallucinating and screaming. The patient's daughter states the patient has been lethargic, confused, and disoriented for over a week. She reports that the physician told her that it was due to the patient's Oxycodone use. Her daughter states the patient also has had a decreased appetite and fluid intake. She also notes the patient has been nauseous and unable to have a bowel movement. She states the patient was put into [facility] a couple of days ago. Her daughter reports she saw the patient this morning and the patient was still lethargic. She states the patient was able to interact slightly and was alert. Per nursing, the patient had ten minutes of unresponsiveness at the group home and was then brought into the ED via EMS. The patient's daughter states the staff was not able to get a blood pressure or pulse for those ten minutes. She states the patient is currently not her normal self. The patient's daughter states the patient was recently diagnosed with a UTI and took her last antibiotic two days ago. She states the patient is constantly on oxygen for CHF. 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 A total of ten systems were reviewed and were otherwise negative. 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 (16) Venous insufficiency Surgical Problems: (1) History of cholecystectomy (2) History of hysterectomy (3) S/P coronary artery stent placement (4) S/p dual chamber pacemaker insertion Family History Diabetes mellitus MOTHER FH: CHF (congestive heart failure) MOTHER FH: Crohn's disease DAUGHTER Hypertension SON Pacemaker BROTHER Social History Smoking Status: Unknown if Ever Smoked Alcohol Use: none Drug Use: none Marital Status: Housing Status: lives with family Occupation Status: retired Current/Historical Medications Scheduled Acetaminophen (Tylenol), 1,000 MG PO BID Ascorbic Acid (Ascorbic Acid), 500 MG PO DAILY Aspirin (Aspirin Ec), 81 MG PO 3XWK Atorvastatin (Lipitor), 10 MG PO HS Calcium Carbonate-Vitamin D (Calcium 600 + D), 2 TABLETS PO DAILY Cholecalciferol (Vitamin D3), 1,000 UNITS PO DAILY Clindamycin Hcl (Clindamycin Hcl), 600 MG PO DIRECTED Coenzyme Q10 (Ubidecarenone) (Co Q 10), 1 TAB PO DAILY Furosemide (Lasix), 40 MG PO 3XWK Home O2 Therapy (Oxygen), 2 LITERS NA CONTINOUS Insulin Isophan/Regular (Novolin 70/30), 23 UNITS SC QAM Insulin Isophan/Regular (Novolin 70/30), 9 UNITS SC QPM Insulin Lispro (Human) (Humalog), Unknown Dose SC DIRECTED Isosorbide Mononitrate Ext Rel (Imdur Ext Rel), 60 MG PO DAILY Levothyroxine Sodium (Levothyroxine Sodium), 100 MCG PO DAILY Magnesium Chloride (Slow-Mag Tab), 64 MG PO DAILY Metoprolol Tartrate (Lopressor) (Lopressor), 12.5 MG PO BID Multivitamin (Multivitamin), 1 TAB PO DAILY Nitroglycerin (Nitrostat), 0.4 MG UT PRN Nystatin (Nystatin Cream), 1 APPLN TOP BID Probiotic Product (Probiotic), 1 CAP PO DAILY Warfarin Sodium (Coumadin), 2 MG PO HS Scheduled PRN Acetaminophen (Tylenol), 500-1,000 MG PO Q6 PRN for Pain Acetaminophen (Tylenol), 650 MG PO Q6H PRN for Pain or Fever Hydrocodone/Acetaminophen 5MG/325MG (Hundred 5MG/325MG), 2 TABLETS PO Q6H PRN for SEVERE PAIN Levalbuterol (Levalbuterol HCl), 3 ML INH Q8 PRN for Shortness of Breath Lorazepam (Ativan), 0.5-1 TAB PO BID PRN for Anxiety Magnesium Hydroxide (Milk of Magnesia), 30 ML PO for Constipation Ondansetron Hcl (Zofran), 8 MG PO Q8 PRN for Nausea or Vomiting Sodium Phosphate/Biphosphate (Fleet Enema), 1 EA DC DAILY PRN for NO BM IN 3 DAYS. Tramadol (Ultram), 50-100 MG PO Q8H PRN for MOD/SEVERE PAIN Allergies Coded Allergies: MERRY Inhibitors (Verified Allergy, Unknown, Unknown, 02/26/18) Adhesives (Verified Allergy, Unknown, "TAPE", 02/26/18) Albuterol (Verified Allergy, Unknown, INTOLERANT OF ALBUTEROL, 02/26/18) Amiodarone (Verified Allergy, Unknown, 02/26/18) Amoxicillin (Verified Allergy, Unknown, ., 02/26/18) Ampicillin (Verified Allergy, Unknown, Unknown, 02/26/18) Bacitracin (Verified Allergy, Unknown, 02/26/18) Replaces BACITRACIN/PO Cephalosporins (Verified Allergy, Unknown, KEFLEX, 02/26/18) Epinephrine (Verified Allergy, Unknown, UNKNOWN, 02/26/18) INFO FROM [facility] Morphine (Verified Allergy, Unknown, hallucination, 02/26/18) Penicillins (Verified Allergy, Unknown, AMPICILLIN, 02/26/18) Polymyxin B (Verified Allergy, Unknown, 02/26/18) Replaces BACITRACIN/PO Physical Exam Vital Signs Date Time Temp Pulse Resp B/P (MAP) Pulse Ox O2 Delivery O2 Flow Rate FiO2 02/26/18 02:30 66 18 117/80 92 Nasal Cannula 6.0 02/26/18 02:27 33.4 68 20 73/42 96 Nasal Cannula 6.0 02/26/18 02:06 64 02/26/18 01:45 75 20 80/50 94 02/26/18 01:30 71 20 113/49 95 02/26/18 01:20 66 16 93/43 97 Nasal Cannula 6.0 02/26/18 01:05 33.2 64 20 69/40 94 02/26/18 00:30 71 20 87/54 95 02/26/18 00:26 66 16 74/41 96 Nasal Cannula 6.0 02/26/18 00:05 62 16 88/46 95 02/25/18 23:55 67 16 69/32 95 Room Air 02/25/18 23:32 63 16 82/50 97 02/25/18 22:57 79 02/25/18 22:50 Nasal Cannula 6.0 02/25/18 22:48 33.9 71 16 125/35 100 Nasal Cannula 6.0 02/24/18 04:00 34.0 62 22 83/56 95 Nasal Cannula 6.0 Physical Exam GENERAL: Chronically ill appearing, arousable to loud voice, follows commands. HENT: Normocephalic. Resolving old right facial ecchymosis. Dry mucous membranes. Oropharynx otherwise unremarkable. EYES: Normal conjunctiva. Sclera non-icteric. Pinpoint pupils. NECK: Supple. No nuchal rigidity. FROM. No JVD. RESPIRATORY: Diminished breath sounds throughout. CARDIAC: Regular rate, normal rhythm. Extremities warm and well perfused. Pulses equal. ABDOMEN: Obese. Soft, non-distended. No tenderness to palpation. No rebound or guarding. No masses. RECTAL: Deferred. MUSCULOSKELETAL: Chest examination reveals no tenderness. The back is symmetrical on inspection without obvious abnormality. There is no CVA tenderness to palpation. No joint edema. LOWER EXTREMITIES: Calves are equal size bilaterally and non-tender. 3+ edema. Resolving RLE ecchymosis. NEURO: Normal sensorium. No sensory or motor deficits noted. SKIN: No rash or jaundice noted. Medical Decision & Procedures ER Provider Diagnostic Interpretation: Radiology results as stated below per my review and radiologist interpretation: CT HEAD: No ICH, mass effect or edema. No evidence of acute cortical stroke. Periventricular small vessel ischemic change. Visualized sinuses and mastoid air cells are clear. Radiologist: Chinedu Ragland MD. CHEST X-RAY: Cardiomegaly. Venous congestion. Left upper lobe infiltrate. Laboratory Results Test 02/25/18 23:26 02/25/18 23:27 02/25/18 23:45 02/26/18 01:53 Venous Blood pH 7.30 (7.36-7.41) Venous Blood Partial Pressure CO2 66 mmHg (38.0-50.0) Venous Blood Partial Pressure O2 35 mmHg Venous Blood HCO3 32 mmol/L Venous Blood Oxygen Saturation < 60.0 % Venous Blood Base Excess 4.0 mEq/L Magnesium Level 2.5 mg/dl (1.8-2.4) Total Bilirubin 5.3 mg/dl (0.2-1) Direct Bilirubin 3.0 mg/dl (0-0.2) Aspartate Amino Transf (AST/SGOT) 61 U/L (15-37) Alanine Aminotransferase (ALT/SGPT) 37 U/L (12-78) Alkaline Phosphatase 435 U/L (45-117) Pro-B-Type Natriuretic Peptide 4326 pg/ml (0-1800) Total Protein 6.8 gm/dl (6.4-8.2) Albumin 2.7 gm/dl (3.4-5.0) Lipase 71 U/L (73-393) Procalcitonin 0.22 ng/ml (0-0.5) Urine Color ORANGE Urine Appearance CLOUDY (CLEAR) Urine pH (4.5-7.5) Urine Specific Henderson 1.022 (1.000-1.030) Urine Protein POS (NEG) Urine Glucose (UA) (NEG) Urine Ketones (NEG) Urine Occult Blood (NEG) Urine Nitrite (NEG) Urine Bilirubin (NEG) Urine Urobilinogen (NEG) Urine Leukocyte Esterase (NEG) Urine RBC 5-10 /hpf (0-4) Urine WBC 10-30 /hpf (0-5) Urine Epithelial Cells >30 /lpf (0-5) Urine Bacteria 4+ (NEG) Total Creatine Kinase 75 U/L (26-192) Thyroid Stimulating Hormone (TSH) 2.690 uIu/ml (0.300-4.500) Laboratory results reviewed by me Medications Administered Medications (Trade) Dose Ordered Sig/Yesenia Route Start Time Stop Time Status Last Admin Dose Admin Naloxone HCl (Narcan Inj) 0.4 mg STK-MED ONCE .ROUTE 02/25/18 23:04 02/26/18 00:35 DC 02/25/18 23:05 0.4 MG Ondansetron HCl (Zofran Inj) 4 mg STK-MED ONCE .ROUTE 02/25/18 23:06 02/25/18 23:07 DC 02/25/18 23:07 4 MG Naloxone HCl (Narcan Inj) 0.4 mg STK-MED ONCE .ROUTE 02/25/18 23:10 02/25/18 23:11 DC 02/25/18 23:15 0.4 MG Sodium Chloride 250 ml @ 999 mls/hr Q16M STAT IV 02/25/18 23:40 02/25/18 23:55 DC 02/25/18 23:40 999 MLS/HR Sodium Chloride 1,000 ml @ 250 mls/hr Q4H STAT IV 02/26/18 00:16 02/26/18 04:08 DC 02/26/18 00:00 250 MLS/HR Vancomycin HCl 1500 mg/Sodium Chloride 530 ml @ 200 mls/hr ONE STAT IV 02/26/18 00:37 02/26/18 03:15 DC 02/26/18 01:27 200 MLS/HR Cefepime HCl 1000 mg/Dextrose 111 ml @ 200 mls/hr NOW STAT IV 02/26/18 00:37 02/26/18 01:10 DC 02/26/18 00:50 200 MLS/HR Calcium Gluconate (Calcium Gluconate 10%) 2,000 mg NOW STAT IV 02/26/18 00:37 02/26/18 00:40 DC 02/26/18 00:51 2,000 MG Sodium Chloride 500 ml @ 999 mls/hr Q31M STAT IV 02/26/18 01:18 02/26/18 01:48 DC 02/26/18 01:10 999 MLS/HR Dexamethasone Sodium Phosphate (Decadron Inj) 4 mg NOW STAT IV 02/26/18 01:39 02/26/18 01:40 DC 02/26/18 01:41 4 MG Norepinephrine Bitartrate 8 mg/ Dextrose 508 ml @ 0 mls/hr Q0M STAT IV 02/26/18 01:56 02/26/18 01:59 DC 02/26/18 02:26 54.4 MLS/HR Procedure Central Venous Catheter Indication: Sepsis/renal failure Catheter type: Trialysis HD catheter Location: [facility] Verbal consent was obtained after the risks and benefits were explained, including but not limited to pneumothorax, hemothorax, vessel injury, bleeding, scarring, infection, pain, and bone/joint/nerve damage. At this time, the risks of the procedure are less than the risks of NOT performing the procedure. A time out was taken and the correct patient and site identified. The patient was placed in the supine-trendelenberg position and the skin was prepped in the standard fashion with chlorhexidine and full sterile drapes applied. The proper landmarks were identified with ultrasound, anesthetized with 1% lidocaine without epinephrine, and the needle was inserted through the skin in the standard fashion. The needle was carefully advanced into blood vessel lumen under ultrasound guidance. The guidewire was placed uneventfully. The vessel is dilated x 2 and the catheter was placed. It was sutured into position. There was good blood return from all ports. The patient tolerated the procedure well and there were no complications. Post procedure x-ray was normal. ECG Per My Interpretation Indication: weakness Rate (beats per minute): 82 Rhythm: other (V paced) Findings: no acute ischemic change, no ectopy, other (Normal axis) ED Course 2256: The patient was evaluated in room A09B. A complete history and physical exam was performed. 2324: I reevaluated the patient and she is more awake after Narcan. 0028: I reevaluated the patient and updated her family on her results. I discussed the treatment plan, which they agree to. The patient will be further evaluated. 0044: I discussed the patient's [facility] the patient's condition and agrees to accept the patient. The patient will be further evaluated. 0112: I reevaluated the patient and she is hypotensive. I discussed the patients case with Dr. Otero and he believes the patient should be sent to the ICU. 0129: I discussed the patients case with Dr. Reynolds, [facility] [employer]. He understands the patients condition and agrees to accept the patient. The patient will be further evaluated. Medical Decision I reviewed the patient's past medical history, medications, and the nursing notes as described above. Differential Diagnosis: metabolic, infection, hypo/hyperglycemia, electrolyte abnormalities, cardiac sources, intracerebral event, toxicologic, neurologic, as well as others were entertained. The patient is an 82-year-old woman with a complicated past medical history of CKD, CHF, BERTO, afib on coumadin, diabetes who [facility] for unresponsiveness in the setting of being admitted there for a tibial plateau fracture receiving narcotics per hpi. On arrival the patient is arousable to loud voice and has pinpoint pupils. She was given 0.4 mg of Narcan 2 with good effect and increased alertness. Moving all extremities equally. However, she remains at her recent confused baseline since her injury per her family. On arrival the patient was hypothermic to 34.0 Celsius, systolic blood pressure 120. However, during the patient's evaluation she would become hypotensive with systolic blood pressure to the 60s will be fluid responsive to IV fluid boluses. However, given the patient's history of CHF, decision was made to place the patient on Levophed and place a central line after continued hypotension despite 1 L. Labs concerning for critical illness with lactate of 3.8, pH of 7.3, potassium 6.0, creatinine of 2.3 increased from 1.5 yesterday, BNP elevated at 4000 increased from 1999 and January. INR 3.1. Chest x-ray with evidence of venous congestion and question of a left upper lobe infiltrate. UA is dirty however possibly consistent with infection. Troponin elevated at 0.2 likely demand in the setting of the patient 's critical illness. EKG demonstrates a V-paced rhythm. Patient was covered with broad-spectrum antibiotics. Initially the patient was going to be placed on a Narcan drip however she subsequently maintained her alertness and even was agitated and therefore this was deferred. Case was [facility] Rincon[facility], who will admit the patient to the ICU. Case was additionally discussed with Dr. Root, ICU cut out marker who accepts the patient for admission and given the patient's tenuous fluid status with renal failure agrees with central line and further we agree to place a HD catheter ( Trialysis catheter) in the event her renal function continues to decline and requires dialysis. While the patient's INR is 3.1, her platelets are wnl and thus given the patient's critical illness, benefits of catheter placement outweigh risk. Consent obtained from daughter. HD catheter placed per procedure note. Of note, patient's BP subsequently improved prior to initiation of levophed and so levophed on stand-by if patient develops further hypotension. Medication Reconcilliation Current Medication List: was personally reviewed by me Blood Pressure Screening Patient's blood pressure: Normal blood pressure Consults Time Called: 38 Consulting Physician: Dr. Otero [facility] Returned Call: 0044 I discussed the patient's case [facility] understands the patient's condition and agrees to accept the patient. The patient will be further evaluated. Additional Consults: Time Called: 0115 Consulted Physician: Dr. Reynolds, [facility] [employer] Returned Call: 012 Additional Comments: I discussed the patients case with Dr. Reynolds [facility]. He understands the patients condition and agrees to accept the patient. The patient will be further evaluated. Impression Primary Impression: Narcotic overdose Additional Impressions: Sepsis Pneumonia Hyperkalemia Acute on chronic renal failure Critical Care I have personally spent greater than 120 minutes of critical care time in the direct management of this patient. This includes bedside care, interpretation of diagnostic studies, and testing, discussion with consultants, patient, and family members, and other required patient management activities. This 120 minutes is in excess of all separately billable procedures. Scribe Attestation The scribe's documentation has been prepared under my direction and personally reviewed by me in its entirety. I confirm that the note above accurately reflects all work, treatment, procedures, and medical decision making performed by me. Departure Information Dispostion Being Evaluated By Hospitalist Referrals SharonEliot (PCP) Patient Instructions My [facility] Problem Qualifiers
[2018-02-25 23:36] LABS: BASO % 0.1 %; BASO ABS # 0.01 K/uL (0-0.2); EOS % 0.8 %; EOS ABS # 0.06 K/uL (0-0.5); HEMATOCRIT 32.4 % (37-47); HEMOGLOBIN 10.5 g/dL (12.0-16.0); IG# 0.03 K/uL (0.00-0.02); LYMPH % 6.1 %; LYMPH ABS # 0.44 K/uL (1.2-3.4); MEAN CELL VOLUME 95.3 fL (80-100); MEAN CORPUSCULAR HEMOGLOBIN 30.9 pg (25-34); MEAN CORPUSCULAR HGB CONC 32.4 g/dl (32-36); MEAN PLATELET VOLUME 9.4 fL (7.4-10.4); MONO % 11.4 %; MONO ABS # 0.82 K/uL (0.11-0.59); NEUT % 81.2 %; NEUT ABS # 5.81 K/uL (1.4-6.5); NUCLEATED RED BLOOD CELL ABS 0.08 K/uL (0-0); PLATELET COUNT 226 K/uL (130-400); RED CELL DISTRIBUTION WIDTH CV 17.8 % (11.5-14.5); RED CELL DISTRIBUTION WIDTH SD 59.8 fL (36.4-46.3); WHITE BLOOD COUNT 7.17 K/uL (4.8-10.8)
[2018-02-25] MEDS ORDERED: SODIUM CHLORIDE 0.9% 250ML 250 ML IV STA (23:40)
[2018-02-25 23:51] LABS: INR 3.1 (0.9-1.1)
[2018-02-26] VITALS (37 sets, daily range): BP systolic 65–127; BP diastolic 33–83; PULSE 60–101; TEMP 34–36.6; O2SAT 86–98; Ht 167.6 cm; Wt 150.0 kg
[2018-02-26] LABS: ALBUMIN 2.7 gm/dl (3.4-5.0); CALCIUM 9.4 mg/dl (8.5-10.1); CREATININE 2.36 mg/dl (0.60-1.20)
[2018-02-26 00:11] LABS: TOTAL PROTEIN 6.8 gm/dl (6.4-8.2)
[2018-02-26] MEDS ORDERED: SODIUM CHLORIDE 0.9% 1000ML 1,000 ML IV STA (00:16)
[2018-02-26] MEDS ORDERED: NALOXONE HCL INJ 5 MG in SODIUM CHLORIDE 0.9% 100ML 100 ML IV SCH (00:16)
[2018-02-26] MEDS ORDERED: NALOXONE HCL 0.4 MG/1 ML VIAL/CARP IV ONE (00:30)
[2018-02-26] MEDS ORDERED: WARF2TAB PO (00:34)
[2018-02-26] MEDS ORDERED: ACET-1311 PO (00:34)
[2018-02-26] MEDS ORDERED: METO25TA56 PO (00:34)
[2018-02-26] MEDS ORDERED: ACET-1256 PO (00:34)
[2018-02-26] MEDS ORDERED: TRAM-10 PO (00:34)
[2018-02-26] MEDS ORDERED: ATOR10TA82 PO (00:34)
[2018-02-26] MEDS ORDERED: HYDR-5688 PO (00:34)
[2018-02-26] MEDS ORDERED: FRS/40 PO (00:34)
[2018-02-26] MEDS ORDERED: INSU100I SC (00:34)
[2018-02-26] MEDS ORDERED: SODIENE PR (00:34)
[2018-02-26] MEDS ORDERED: NYSCR30 TOP (00:34)
[2018-02-26] MEDS ORDERED: ONDA-170 PO (00:34)
[2018-02-26] MEDS ORDERED: CALCIUM GLUCONATE 10% 10 ML VIAL IV STA (00:37)
[2018-02-26] MEDS ORDERED: CEFEPIME IV 1,000 MG in DEXTROSE 5% 100ML 100 ML IV STA (00:37)
[2018-02-26] MEDS ORDERED: VANCOMYCIN IV 1,500 MG in SODIUM CHLORIDE 0.9% 500ML 500 ML IV STA (00:37)
[2018-02-26] MEDS ORDERED: VANCOMYCIN CONSULT ACTIVE PRN ×2 (00:45→04:15)
[2018-02-26] MEDS ORDERED: SODIUM CHLORIDE 0.9% 500ML 500 ML IV STA (01:18)
[2018-02-26] MEDS ORDERED: DEXAMETHASONE INJ 4 MG in SYRINGE 0 ML IV ONE (01:30)
[2018-02-26] MEDS ORDERED: DEXAMETHASONE SOD INJ 4 MG/ML VIAL ONE (01:39)
[2018-02-26] MEDS ORDERED: DEXAMETHASONE SOD INJ 4 MG/ML VIAL IV STA (01:39)
[2018-02-26] MEDS ORDERED: NOREPINEPHRINE BIT INJ 8 MG in DEXTROSE 5% 500ML 500 ML IV STA (01:56)
[2018-02-26 02:22] LABS: CALCIUM 9.6 mg/dl (8.5-10.1); CREATININE 2.31 mg/dl (0.60-1.20); POTASSIUM 5.8 mmol/L (3.5-5.1)
--- NOTE | 2018-02-26 03:22 | Progress Note ---
Progress Note Post Crystalloid Evaluation Date: February 26, 2018 Time: 03:15 Subjective Patient obtunded Physical Exam Vital Signs: Vital Signs Date Time Temp Pulse Resp B/P (MAP) Pulse Ox O2 Delivery O2 Flow Rate FiO2 02/26/18 03:03 74 18 116/95 96 Nasal Cannula 6.0 02/26/18 02:27 33.4 Lungs: + decreased breath sounds Heart: + systolic murmur Peripheral Pulse: Weak Skin: Pale, Mottled Assessment & Plan Septic shock secondary to HCAP rule out intraabdominal source poss adrenal insufficiency w/ note of hyponatremia, hyperkalemia ICU to facilitate pressor therapy CS, Vancomycin and Imipenem. CT abdomen pelvis Follow lactic acid. Gentle IV hydration Decadron 1 dose for poss adrenal insufficency
[2018-02-26] MEDS ORDERED: IMIPENEM/CILASTATIN IV 500 MG in DEXTROSE 5% 100ML 100 ML IV STA (03:26)
[2018-02-26] MEDS ORDERED: BISACODYL 10 MG SUPP PR STA (03:26)
[2018-02-26] MEDS ORDERED: INSULIN ASPART 100 UNITS/ML 3 ML PEN SC ONE (03:26)
[2018-02-26] MEDS ORDERED: LEVALBUTEROL/IPRATROPIUM NEB INH STA (03:26)
[2018-02-26] MEDS ORDERED: NOREPINEPHRINE BIT INJ 8 MG in DEXTROSE 5% 500ML 500 ML IV PRN (03:26)
[2018-02-26] MEDS ORDERED: NITROGLYCERIN 0.4 MG SL PER TAB CHARGE SL PRN (03:30)
[2018-02-26] MEDS ORDERED: TRAMADOL HCL 50 MG TAB PO PRN (03:30)
[2018-02-26] MEDS ORDERED: GLUCOSE 40% GEL 15 GM TUBE PO PRN (03:30)
[2018-02-26] MEDS ORDERED: GLUCAGON FOR INJ 1 MG VIAL SQ PRN (03:30)
[2018-02-26] MEDS ORDERED: ICU PROTOCOL FOR HYPERGLYCEMIA PRN (03:30)
[2018-02-26] MEDS ORDERED: CARBOHYDRATES FOR HYPOGLYCEMIA PO PRN (03:30)
[2018-02-26] MEDS ORDERED: PROCHLORPERAZINE INJ 5 MG in SYRINGE 4 ML IV PRN (03:30)
[2018-02-26] MEDS ORDERED: DEXTROSE 50% 50 ML SYR IV PRN (03:30)
[2018-02-26] MEDS ORDERED: GLUCOSE 10 TABS/TUBE PO PRN (03:30)
[2018-02-26] MEDS ORDERED: HYDROmorphone INJ 0.5 MG/0.5 ML SYR IV PRN (03:30)
[2018-02-26] MEDS ORDERED: LEVALBUTEROL/IPRATROPIUM NEB INH PRN (03:30)
[2018-02-26] MEDS ORDERED: ACETAMINOPHEN 325 MG TAB PO PRN (03:30)
[2018-02-26] MEDS ORDERED: LEVALBUTEROL 1.25MG/0.5ML NEB INH STA (04:05)
[2018-02-26] MEDS ORDERED: IPRATROPIUM BROMIDE NEB SOLN 0.02% 2.5 ML VIAL INH STA (04:05)
[2018-02-26] MEDS ORDERED: IMIPENEM/CILASTATIN CONSULT ACTIVE PRN (04:07)
[2018-02-26] MEDS ORDERED: LEVALBUTEROL 1.25MG/0.5ML NEB INH PRN (04:15)
[2018-02-26] MEDS ORDERED: IPRATROPIUM BROMIDE NEB SOLN 0.02% 2.5 ML VIAL INH PRN (04:15)
[2018-02-26 05:20] LABS: BASO % 0.1 %; BASO ABS # 0.01 K/uL (0-0.2); EOS % 0.2 %; EOS ABS # 0.02 K/uL (0-0.5); HEMATOCRIT 34.2 % (37-47); HEMOGLOBIN 10.9 g/dL (12.0-16.0); IG# 0.04 K/uL (0.00-0.02); LYMPH % 1.8 %; LYMPH ABS # 0.19 K/uL (1.2-3.4); MEAN CELL VOLUME 95.8 fL (80-100); MEAN CORPUSCULAR HEMOGLOBIN 30.5 pg (25-34); MEAN CORPUSCULAR HGB CONC 31.9 g/dl (32-36); MEAN PLATELET VOLUME 9.5 fL (7.4-10.4); MONO % 4.8 %; NEUT % 92.7 %; NEUT ABS # 9.64 K/uL (1.4-6.5); NUCLEATED RED BLOOD CELL ABS 0.19 K/uL (0-0); PLATELET COUNT 264 K/uL (130-400); RED CELL DISTRIBUTION WIDTH SD 60.5 fL (36.4-46.3)
[2018-02-26 05:33] LABS: INR 3.7 (0.9-1.1)
[2018-02-26 05:45] LABS: CALCIUM 9.6 mg/dl (8.5-10.1); CREATININE 2.49 mg/dl (0.60-1.20); POTASSIUM 6.4 mmol/L (3.5-5.1)
[2018-02-26] MEDS ORDERED: SODIUM POLYST. SULF SUSP 15G/60ML PO STA (06:09)
[2018-02-26] MEDS ORDERED: INSULIN HUMAN REGULAR PER UNIT 10 UNITS in SYRINGE 9.9 ML IV STA (06:11)
[2018-02-26] MEDS ORDERED: DEXTROSE 50% 50 ML SYR IV ONE (06:15)
[2018-02-26] MEDS ORDERED: CALCIUM GLUCONATE 10% 1,000 MG in SODIUM CHLORIDE 0.9% 50ML 50 ML IV ONE (06:15)
[2018-02-26] MEDS: SODIUM CHLORIDE 0.9% 1000ML 1,000 ML IV SCH ×2 (06:33→22:40)
[2018-02-26] MEDS: IMIPENEM-CILASTATIN 200 MG in DEXTROSE 5% 100ML 100 ML IV SCH ×3 (06:33→18:00)
[2018-02-26] MEDS ORDERED: SODIUM POLYST. SULF SUSP 15G/60ML PR ONE (06:45)
[2018-02-26] MEDS: IPRATROPIUM BROMIDE NEB SOLN 0.02% 2.5 ML VIAL INH SCH ×3 (06:57→21:00)
[2018-02-26] MEDS: LEVALBUTEROL 1.25MG/0.5ML NEB INH SCH ×3 (06:57→21:00)
[2018-02-26] MEDS ORDERED: SODIUM BICARB 8.4% INJ 50 MEQ/50 ML SYR IV STA (07:00)
[2018-02-26] MEDS ORDERED: SODIUM BICARB 8.4% INJ 50 MEQ/50 ML SYR IV ONE (07:05)
--- NOTE | 2018-02-26 07:17 | DIAGNOSTIC IMAGING REPORT ---
SINGLE VIEW CHEST CLINICAL HISTORY: Fever. Sepsis. FINDINGS: An AP, portable, upright chest radiograph is compared to study dated 02/14/2018. The examination is severely degraded by portable technique, large body habitus, apical lordotic positioning, and patient rotation. A 2-lead cardiac pacemaker is unchanged in position. The heart is enlarged and there is atherosclerotic calcification of the thoracic aorta. There is pulmonary vascular congestion. There are low lung volumes. There are small pleural effusions with bibasilar consolidation. No pneumothorax is seen. The skeletal structures are osteopenic. The bony thorax is grossly intact. IMPRESSION: 1. Cardiomegaly and cardiac pacemaker with evidence of mild congestive failure. 2. There are small pleural effusions with bibasilar consolidation. This likely represents atelectasis. Correlate clinically for evidence of superimposed pneumonia. Electronically signed by: Irving Abdi M.D. 02/26/2018 7:15 AM Dictated Date/Time: 02/26/2018 7:14 AM
--- NOTE | 2018-02-26 07:24 | DIAGNOSTIC IMAGING REPORT ---
SINGLE VIEW CHEST CLINICAL HISTORY: Fever. Sepsis. FINDINGS: An AP, portable, upright chest radiograph is compared to study dated 02/25/2018. The examination is severely degraded by portable technique, large body habitus, apical lordotic positioning, and patient rotation. A 2-lead cardiac pacemaker is unchanged in position. The heart is enlarged and there is atherosclerotic calcification of the thoracic aorta. There is pulmonary vascular congestion. There are low lung volumes. There are small pleural effusions with bibasilar consolidation. No pneumothorax is seen. The skeletal structures are osteopenic. The bony thorax is grossly intact. IMPRESSION: 1. Cardiomegaly and cardiac pacemaker with evidence of mild congestive failure. This has not significantly changed from yesterday. 2. There are small pleural effusions with bibasilar consolidation. This likely represents atelectasis. Correlate clinically for evidence of superimposed pneumonia. Electronically signed by: Irving Abdi M.D. 02/26/2018 7:22 AM Dictated Date/Time: 02/26/2018 7:22 AM
--- NOTE | 2018-02-26 07:24 | DIAGNOSTIC IMAGING REPORT ---
HEAD WITHOUT CONTRAST (CT) CLINICAL HISTORY: 82 years-old Female presenting with Altered mental status, hypoxia. TECHNIQUE: Multidetector CT imaging of the head was performed without the use of intravenous contrast. IV contrast: None. A dose lowering technique was used consistent with the principles of ALARA (as low as reasonably achievable). COMPARISON: 02/10/2018. CT DOSE (mGy.cm): The estimated cumulative dose is 709.48 mGy.cm. FINDINGS: Animation Artist topogram: Unremarkable. Ventricles and sulci normal in size. Periventricular and subcortical white matter hypoattenuation, nonspecific but likely indicative of chronic small vessel ischemic change. No mass effect or midline shift. No hemorrhage or acute territorial infarct. No extra-axial fluid collection. Minimal mucosal thickening in the right frontal sinus and right anterior ethmoid air cells. Calvarium intact. IMPRESSION: 1. Chronic small vessel ischemic change. No acute intracranial abnormality. Electronically signed by: Matthias Biggs M.D. 02/26/2018 7:23 AM Dictated Date/Time: 02/26/2018 6:55 AM
[2018-02-26 07:41] LABS: CALCIUM 10.1 mg/dl (8.5-10.1); CREATININE 2.41 mg/dl (0.60-1.20); POTASSIUM 5.7 mmol/L (3.5-5.1)
[2018-02-26] MEDS: INSULIN ASPART 100 UNITS/ML 3 ML PEN SC SCH ×4 (07:55→21:00)
--- NOTE | 2018-02-26 08:26 | DIAGNOSTIC IMAGING REPORT ---
CT SCAN OF THE CHEST WITHOUT IV CONTRAST CLINICAL HISTORY: Hypoxia. COMPARISON STUDY: Chest x-ray dated 02/26/2018. Chest CT dated 12/25/2009. TECHNIQUE: CT scan of the thorax was performed from the thoracic inlet to the upper abdomen. Images are reviewed in the axial, sagittal, and coronal planes. IV contrast was not administered for this examination. A dose lowering technique was utilized adhering to the principles of ALARA. The examination is significantly compromised by streak artifact from the patient's arms which could not be elevated above the abdomen, large body habitus, and motion artifact. CT DOSE: 3562.75 mGy.cm FINDINGS: Thyroid: Atrophic. Thoracic aorta: There is atherosclerotic calcification of the thoracic aorta, which is normal in caliber and demonstrates standard 3-vessel arch anatomy. A right internal jugular central venous catheter is in place. Heart: The heart is enlarged and without pericardial effusion. A pacemaker is present in the left upper chest. The main pulmonary arteries appear dilated suggesting pulmonary artery hypertension. The coronary arteries and aortic valve leaflets are densely calcified. Lungs and pleural spaces: There are moderate pleural effusions with associated consolidation. Foci of atelectasis/scarring are present in the upper lobes. The trachea and central airways appear clear. Mediastinum: There is no mediastinal lymphadenopathy. Veda: Not well assessed without IV contrast. Axillae: There is no axillary lymphadenopathy. Upper abdomen: Partially visualized upper abdominal viscera is within normal limits. Skeletal structures: The skeletal structures are osteopenic. Degenerative change is noted throughout the thoracic spine. No lytic or blastic bony lesions are seen. 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 IMPRESSION: 1. Significantly streak and motion compromised examination. 2. Moderate pleural effusions with associated consolidation. This likely represents atelectasis. Clinical correlation will be required. 3. Cardiomegaly. 4. Additional findings as above. Electronically signed by: Irving Abdi M.D. 02/26/2018 8:25 AM Dictated Date/Time: 02/26/2018 8:20 AM
--- NOTE | 2018-02-26 08:34 | DIAGNOSTIC IMAGING REPORT ---
ABD/PELVIS NO IV OR ORAL CONT CLINICAL HISTORY: 82 years-old Female presenting with abd pain, constipation, low O2 sat. TECHNIQUE: Multidetector CT of the abdomen and pelvis was performed without the use of intravenous contrast. IV contrast: None. A dose lowering technique was used consistent with the principles of ALARA (as low as reasonably achievable). COMPARISON: None. CT DOSE (mGy.cm): The estimated cumulative dose is 3562.75. FINDINGS: Image quality is degraded by patient body habitus and positioning of the arms at the sides. Electrical Cad Technician topogram: Left subclavian pacer with leads to the right atrium and right ventricular apex. Numerous external leads overlie the chest. A temperature probe projects over the pelvis. Lung bases: Dependent and peribronchovascular consolidation with lower lobe volume loss, likely passive atelectasis. Bandlike opacities in the lingula and right middle lobe. Mosaic attenuation suggest small airways disease. Partially visualized pacer leads. Multichamber enlargement of the heart. Aortic valve, coronary artery, and mitral annular calcification. Moderate bilateral pleural effusions. No pericardial effusion. Liver: Normal morphology. Normal density. Biliary: No gross biliary ductal dilatation allowing for noncontrast technique. Gallbladder surgically absent. Pancreas: Moderate parenchymal atrophy. Parenchymal coarse calcification may be present in the pancreatic head, which may imply a history of chronic pancreatitis. Spleen: Normal noncontrast appearance. Adrenal glands: Normal noncontrast appearance. Kidneys and ureters: Normal noncontrast appearance. No nephrolithiasis. No hydronephrosis. Normal ureters. Bladder: A Lynn catheter decompresses the urinary bladder. Pelvic organs: Uterus surgically absent. No adnexal masses. Bowel: Large stool burden in the rectum. A temperature probe is also present in the rectum. No bowel obstruction. Peritoneal cavity: Trace free fluid in the abdomen and pelvis. No free intraperitoneal gas. Lymph nodes: No gross lymphadenopathy allowing for noncontrast technique. Vasculature: Atherosclerosis of the normal caliber abdominal aorta. Abdominal wall: Extensive body wall edema. Large pannus. Musculoskeletal: Degenerative changes of the spine. IMPRESSION: 1. Evidence of volume overload with small volume ascites, moderate bilateral pleural effusions, and extensive body wall edema. 2. Cardiomegaly. 3. Large stool burden in the rectum. Consider disimpaction. 4. No other evidence of acute intra-abdominal pathology. 5. Bibasilar atelectasis. Electronically signed by: Matthias Biggs M.D. 02/26/2018 8:33 AM Dictated Date/Time: 02/26/2018 6:53 AM
[2018-02-26] MEDS ORDERED: ACETAMINOPHEN IV 1000MG/100ML IV PRN (09:00)
[2018-02-26] MEDS ORDERED: LEVALBUTEROL/IPRATROPIUM NEB INH SCH (09:00)
[2018-02-26] MEDS ORDERED: LACTOBACILLUS ACIDOPHILUS (FLORANEX) TAB PO SCH (09:00)
[2018-02-26] MEDS ORDERED: ASPIRIN 81 MG ECTAB PO SCH (09:00)
[2018-02-26] MEDS ORDERED: MULTIVITAMIN TAB PO SCH (09:00)
--- NOTE | 2018-02-26 09:05 | HISTORY & PHYSICAL EXAMINATION ---
DATE OF ADMISSION: 02/26/2018 PRIMARY CARE DOCTOR: Jose Antonio Donnelly DO. Patient currently undergoing rehab at [facility]. CHIEF COMPLAINT: Altered mental status as per records. HISTORY OF PRESENT ILLNESS: History obtained from patient's family and records. Unable to obtain history from patient secondary to obtunded state. Medical history significant for chronic respiratory failure, on home O2, BERTO as per records, chronic diastolic heart failure (EF 55%-60%), sick sinus syndrome status post PPM on Coumadin, skin cancer as per records, chronic anemia (baseline hemoglobin of 10), DM2, insulin requiring, chronic renal insufficiency (baseline creatinine of 1.5-1.6), past tobacco abuse. Recent confinement from February 11-2017 for right tibial fracture secondary to mechanical fall. During confinement, episodic confusion noted. UTI sp Cipro rx. During confinement, the patient developed volume overload, troponin elevation. Patient subsequently discharged to [facility] for rehab. As per family, episodic disorientation at [facility], appetite poor, constipated for a few days, increasing abdominal pain as per records. Patient was restless, confused. Unable to participate with therapy as per daughter because she can barely keep her head up. Episodic agitation. Dry cough, patient known to be at risk for aspiration as per family. Around 8:00 p.m. last night, the patient was witnessed to slump over, weak pulse , agonal respirations noted. Patient was noted to be cool. O2 saturations 90%. Patient woke up with painful stimuli. At the Emergency Room, SBP 70s. Patient noted to be more awake after being given Narcan. Received IVF bolus, IV Vancomycin and Cefepime for sepsis. Patient persistently hypotensive. Levophed started at the ER. Central line placed in the ER. MEDICAL HISTORY: As above. A 2D echo from February 2018 showed EF of 55%-60%, LVH, no regional wall abnormalities. SURGICAL HISTORY: She has had cholecystectomy, hysterectomy, pacemaker placement, hemorrhoid surgery, breast lumpectomy, lipoma. MEDICATIONS: Home medications include Tylenol, ascorbic acid, aspirin, Lipitor, cholecalciferol, calcium, clindamycin, coenzyme Q, Lasix, home O2, [place], Novolin, Humalog, Imdur ER, levothyroxine, Ativan, levalbuterol, Slow-Mag, milk of magnesium, Lopressor, multivitamins, nystatin, Nitrostat, Zofran, probiotic, Fleet enema, tramadol, Coumadin. ALLERGIES: ALLERGIC TO ADHESIVES, AMOXICILLIN, BACITRACIN, MORPHINE, POLYMYXIN, AMIODARONE, ALBUTEROL, CEPHALEXIN, PENICILLIN FAMILY HISTORY: Could not be obtained. PERSONAL/SOCIAL HISTORY: Past tobacco abuse. Homemaker in her younger years. REVIEW OF SYSTEMS: Could not be obtained. PHYSICAL EXAMINATION: VITAL SIGNS: Blood pressure noted to be 69/50, later 87/54, pulse rate noted to be 76, RR 16, temperature 33.9, saturations 96% on 6 L. GENERAL: Noted to be obtunded. Obese. SKIN: Pallor, cool. HEENT: Ecchymosis, right face. Pale palpebral conjunctivae. No ptosis. Dry mucosa. Nasal cannula in place. NECK: Short, supple. CHEST: Decreased effort. No tenderness. HEART: Regular rate and rhythm, systolic murmur. ABDOMEN: Some distention, no overt tenderness. EXTREMITIES: Minimal LE edema, no tenderness. Ecchymosis, right lower extremity. NEUROLOGIC: Obtunded. No facial asymmetry. Gait and stance not assessed. LABORATORY DATA: Hemoglobin was noted to be 10.5, WBC 7, platelets 226. Sodium 132, potassium 6, CO2 of 32, BUN 49, creatinine 2.36, glucose 118. Lactic acid 2.8. Troponin 0.213. INR 3.1 ABG shows pH 7.35, PCO2 of 49, PO2 of 75, 96% on [address] of head initial read no acute pathology. Chest x-ray, as per my interpretation, atelectasis, congestion, possible infiltrate, L greater R. UA: WBC 10-30. Hemoglobin A1c in February 2018 was 6.8. ASSESSMENT AND PLAN: 1. septic shock secondary to HCAP rule out intraabdominal source ? Partially treated UTI (E. coli, Enterococcus on urine CS sp Cipro) poss adrenal insufficiency w/ note of hyponatremia, hyperkalemia 2. Acute on chronic respiratory failure secondary to HCAP possible aspiration 3. Syncope likely secondary to low BP/orthostasis 4. chronic diastolic heart failure Equivocal volume status Congestion noted on CXR, patient intravascularly dry 5. acute renal failure on chronic renal insufficiency, hyponatremia, hyperkalemia secondary to illness 6. SSS sp PPM, paced rhythm, INR slightly supratherapeutic 7. CAD as per records 8. Encephalopathy/delirium secondary to illness, medications (? Cipro, narcotic Rx) 9. DM2, on insulin, well controlled as of recent inpatient hemoglobin A1c. 10. Past tobacco abuse. PLAN: ICU to facilitate pressor therapy CS, Vancomycin and Imipenem. Monitor creatinine response to gentle IV hydration. Follow lactic acid. CT of chest RE SOB CT of abdomen and pelvis RE abdominal pain bowel regimen. Appropriate to hold home antihypertensives for now given hypotension. Decadron 1 dose for poss adrenal insufficency Nephrology consult. ARF on CRI. (Patient known to [facility].) Family agreeable to temporary dialysis if necessary. ISS BG goal 140-180. DVT prophylaxis, Coumadin INR goal between 2 and 3 if no bleeding on CT abdomen pelvis DNR as per the patient's previous wishes. Patient's daughter/POA requesting for updates from providers. Miss Annabelle Whitman thru [phone]. Total critical care time was at 60 minutes. MTDD
[2018-02-26] MEDS ORDERED: AZITHROMYCIN 500 MG / D5W 250 ML IV SCH ×2 (10:00)
--- NOTE | 2018-02-26 10:04 | DIAGNOSTIC IMAGING REPORT ---
R KNEE 3 VIEWS CLINICAL HISTORY: Fracture, on conventional x-ray COMPARISON: 02/10/2018 DISCUSSION: There are moderate osteoarthritic changes with medial joint space narrowing. There is dorsal patellar spurring. The tibial plateau fracture described the prior CT scan is not visible on conventional radiographic imaging. IMPRESSION: 1. Osteoarthritic changes 2. The previously reported tibial plateau fracture is not visualized on conventional radiographic imaging. Electronically signed by: Jc Lacy M.D. 02/26/2018 10:02 AM Dictated Date/Time: 02/26/2018 10:00 AM
--- NOTE | 2018-02-26 10:07 | DIAGNOSTIC IMAGING REPORT ---
RIGHT TIBIA AND FIBULA 2 VIEWS CLINICAL HISTORY: Tibial plateau fracture questioned by CT. FINDINGS: AP and crosstable lateral portable views of the right tibia and fibula are correlated with knee radiographs and CT dated 02/10/2018. The skeletal structures are osteopenic. No tibial or fibular fracture is identified. Within the and ankle joints are grossly maintained noting degenerative change. Soft tissue edema is present throughout the right lower extremity. Dermal calcifications are noted, and there is atherosclerotic calcification of the regional arteries. IMPRESSION: 1. Osteopenia with no radiographic evidence of right tibial or fibular fracture. 2. Soft tissue edema is noted throughout the right lower extremity. 3. Extensive dermal calcifications are noted in the calf. Electronically signed by: Irving Abdi M.D. 02/26/2018 10:05 AM Dictated Date/Time: 02/26/2018 10:02 AM
[2018-02-26] MEDS ORDERED: LEVOTHYROXINE SODIUM INJ 75 MCG in SYRINGE 0 ML IV SCH (11:00)
[2018-02-26] MEDS ORDERED: PANTOprazole INJ 40 MG in SYRINGE 0 ML IV SCH (11:00)
--- NOTE | 2018-02-26 11:04 | NEPHROLOGY CONSULTATION ---
DATE OF CONSULTATION: 02/26/2018 ATTENDING OF RECORD: Dr. Medina. REASON FOR CONSULTATION: JEMIMA with hyperkalemia. HISTORY OF PRESENT ILLNESS: This is an 82-year-old female who was recently in the hospital from 01/19/2018 to 01/21/2018, for congestive heart failure who has significant history of atrial fibrillation requiring a pacemaker, CKD stage 3, diabetes, diastolic heart failure. The patient presented last night with what appears to be a septic shock with low blood pressures requiring pressors. Creatinine baseline is around 1.2-1.5 and presents with a creatinine of 2.36, it is now 2.41. Potassium was elevated at 6 and is currently 5.7. Bicarbonate was 32 and trending down, it is now 27. The patient is hypothermic with temperature of 34 requiring a Yesica Hugger. She is confused and lethargic. Decided to do temporary dialysis given her significant lactic acidosis with septic shock and starting her on the machine currently. The patient also was recently in the hospital from 02/10/2018 to 02/20/2018, with a creatinine around 1.5-1.6. My partner, Va Dumont, did see the patient once for oliguria, however, was urinating better on the end of the admission. REVIEW OF SYSTEMS: Unobtainable. CURRENT MEDICATIONS: Lipitor 10 mg at night, aspirin 81 mg 3 days a week, multivitamin daily, insulin, normal saline at 60 mL an hour, imipenem 200 mg IV q. 6, Levophed drip. PAST MEDICAL HISTORY: AFib with pacer, diastolic heart failure, COPD, CKD stage 3, creatinine of 1.5 baseline, history of skin cancer, hypothyroidism, obstructive sleep apnea, diabetes. PAST SURGICAL HISTORY: Hysterectomy, cholecystectomy, stent placement to the heart, pacemaker. FAMILY HISTORY: Significant for diabetes and heart failure. SOCIAL HISTORY: No smoking, no alcohol, no drugs. She is and lives with significant other. PHYSICAL EXAMINATION: VITAL SIGNS: Temperature 34.1 on a Yesica Hugger, blood pressure 100/55 on pressors, pulse in the 70s, respiratory rate 16, pulse ox 94% on 6 liters nasal cannula. GENERAL: Patient is lethargic, minimally responsive. EYES: No scleral icterus. ENT: Positive significant bruising along the right side of face. NECK: Supple. PULMONARY: Decreased breath sounds with poor inspiratory effort. CARDIAC: Distant heart sounds. ABDOMEN: Hypoactive bowel sounds. EXTREMITIES: +3 edema. NEUROLOGICALLY: Confused. DERM: Multiple bruises from previous falls. LABORATORIES: White count is 10, H and H 10 and 34, platelet count is 264. Sodium is 131, potassium 5.7, chloride is 93, bicarbonate is 27, BUN is 48, creatinine is 2.41, glucose 195. Lactic acid 5.6, calcium is 10.1. Troponin 0.210. Blood gas, VBG shows pH of 7.27, pCO2 of 63, pO2 of 40 and bicarbonate of 28. Urine shows positive protein, 5-10 rbc's, 10-30 wbc's. Urine tox screen is positive for opiates. Abdominal pelvis CT done, results pending. Chest x-ray, cardiomegaly with pacemaker with evidence of mild CHF, small pleural effusions. ASSESSMENT AND PLAN: Acute kidney injury in the setting of significant ATN and septic shock, on pressor, hypothermic requiring a Yesica Hugger. Hyperkalemic with worsening lactic acidosis with a mild elevation in the troponin. Given her constellation of symptoms after discussing it with critical care, we decided to initiate dialysis, dialyze her for 3 hours on a 2K bath with fluid removal as tolerated, trying to optimize hyperkalemia, help correct the lactic acidosis while they continue with broad-spectrum antibiotics trying to stabilize this unfortunate patient with multiple comorbidities. Overall, poor prognosis. Would continue the antibiotics. Dialysis as needed and follow electrolytes accordingly. I appreciate consultation. MERYL
--- NOTE | 2018-02-26 11:22 | Medical Consult ---
Consultation Date of Consultation: February 26, 2018. Attending Physician: Malik Medina M.D. Reason for Consultation: Severe sepsis, imipenem use, PCN allergy History of Present Illness History obtained from medical records and medical staff as patient unable to provide adequate history. 82-year-old female with history of diabetes mellitus, atrial fibrillation, hyperlipidemia, hypertension, obstructive sleep apnea, chronic kidney disease, who was admitted to the hospital with 1+ week of increasing weakness and worsening mental status, and then was found yesterday slumped over in chair with hypoxemia and hypotension Patient had been previously hospitalized after suffering a fall with a tibial plateau fracture, and had been receiving narcotic analgesics after her discharge. She was found to have evidence severe sepsis with acute kidney injury and has been started empirically on vancomycin and imipenem. Cultures are pending. Past Medical/Surgical History Medical Problems: (1) Acute on chronic renal failure Status: Acute (2) Anxiety Status: Acute (3) CHF exacerbation Status: Acute (4) COPD exacerbation Status: Acute (5) Fall Status: Acute (6) Headache Status: Acute (7) Hemarthrosis of right thigh Status: Acute (8) Hyperkalemia Status: Acute (9) Hypoxia Status: Acute (10) Narcotic overdose Status: Acute (11) Pneumonia Status: Acute (12) Precordial chest pain Status: Acute (13) Sepsis Status: Acute (14) Sinusitis Status: Acute (15) Tibial plateau fracture Status: Acute Medical Problems: (1) Benign hypertension (2) CAD (coronary artery disease) (3) Chronic atrial fibrillation (4) Chronic kidney disease stage 3 (5) Depression (6) Diabetes (7) Diabetic neuropathy (8) Dyslipidemia (9) Ecchymosis (10) Epistaxis (11) History of basal cell carcinoma (12) Hypotension (13) Hypothyroidism (14) Obstructive sleep apnea syndrome (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 (16) Venous insufficiency Surgical Problems: (1) History of cholecystectomy (2) History of hysterectomy (3) S/P coronary artery stent placement (4) S/p dual chamber pacemaker insertion Family History Diabetes mellitus MOTHER FH: CHF (congestive heart failure) MOTHER FH: Crohn's disease DAUGHTER Hypertension SON Pacemaker BROTHER Social History Smoking Status: Unknown if Ever Smoked Drug Use: none Marital Status: Housing Status: lives with family Occupation Status: retired Allergies Coded Allergies: MERRY Inhibitors (Verified Allergy, Unknown, Unknown, 5/16/18) Adhesives (Verified Allergy, Unknown, "TAPE", 02/26/18) Albuterol (Verified Allergy, Unknown, INTOLERANT OF ALBUTEROL, 02/26/18) Amiodarone (Verified Allergy, Unknown, 02/26/18) Amoxicillin (Verified Allergy, Unknown, ., 02/26/18) Ampicillin (Verified Allergy, Unknown, Unknown, 02/26/18) Bacitracin (Verified Allergy, Unknown, 02/26/18) Replaces BACITRACIN/PO Cephalosporins (Verified Allergy, Unknown, KEFLEX, 02/26/18) Epinephrine (Verified Allergy, Unknown, UNKNOWN, 02/26/18) INFO FROM [facility] Morphine (Verified Allergy, Unknown, hallucination, 02/26/18) Penicillins (Verified Allergy, Unknown, AMPICILLIN, 02/26/18) Polymyxin B (Verified Allergy, Unknown, 02/26/18) Replaces BACITRACIN/PO Current Inpatient Medications Current Inpatient Medications Medications (Trade) Dose Ordered Sig/Yesenia Route Start Time Stop Time Status Last Admin Dose Admin Sodium Chloride 1,000 ml @ 60 mls/hr [id number] IV 02/26/18 06:00 03/28/18 05:59 02/26/18 06:33 60 MLS/HR Acetaminophen (Tylenol Tab) 650 mg Q4H PRN PO 02/26/18 03:30 03/28/18 03:29 Nitroglycerin (Nitrostat Tab) 0.4 mg UD PRN SL 02/26/18 03:30 03/28/18 03:29 Norepinephrine Bitartrate 8 mg/ Dextrose 508 ml @ 0 mls/hr Q0M PRN IV 02/26/18 03:26 03/28/18 03:25 Miscellaneous Information (Icu Protocol For Hyperglycemia) 1 ea PRN PRN N/A 02/26/18 03:30 02/28/18 03:29 Prochlorperazine Edisylate 5 mg/ Syringe 5 ml @ 5 mls/min Q6H PRN IV 02/26/18 03:30 03/28/18 03:29 Imipenem/ Cilastatin Sodium (Consult) 1 ea DAILY PRN N/A 02/26/18 04:07 03/28/18 04:06 Aspirin (Ecotrin Tab) 81 mg SuWeSa@0900 PO 02/26/18 09:00 03/28/18 08:59 Atorvastatin Calcium (Lipitor Tab) 10 mg HS PO 02/26/18 21:00 03/28/18 20:59 Multivitamins (Multivitamin Tab) 1 tab DAILY PO 02/26/18 09:00 03/28/18 08:59 Lactobacillus Acidophilus (Floranex Tab) 1 tab DAILY PO 02/26/18 09:00 03/28/18 08:59 Insulin Aspart (novoLOG ASPART) SLIDING SCALE If C... ACHS SC 02/26/18 06:45 03/28/18 06:59 Glucose (Glucose 40% Gel) 15-30 GRAMS 15 GRAMS... UD PRN PO 02/26/18 03:30 03/28/18 03:29 Glucose (Glucose Chew Tab) 4-8 Tablets 4 Tabl... UD PRN PO 02/26/18 03:30 03/28/18 03:29 Dextrose (Dextrose 50% 50ML Syringe) 25-50ML 25ML FOR ... UD PRN IV 02/26/18 03:30 03/28/18 03:29 Glucagon (Glucagon Inj) 1 mg UD PRN SQ 02/26/18 03:30 03/28/18 03:29 Carbohydrates (Carbohydrates For Hypoglycemia) 15-30 GRAMS 15 grams if BSG 54-69... UD PRN PO 02/26/18 03:30 03/28/18 03:29 Ipratropium [place] (Atrovent 0.02% 0.5MG/2.5ML Neb) 0.5 mg Q4H PRN INH 02/26/18 04:15 03/28/18 04:14 Levalbuterol (Xopenex 1.25MG/ 0.5ML Neb) 1.25 mg Q4H PRN INH 02/26/18 04:15 03/28/18 04:14 Miscellaneous Information (Consult) 1 ea UD PRN N/A 02/26/18 04:15 03/28/18 04:14 Imipenem/ Cilastatin Sodium 200 mg/Dextrose 108 ml @ 108 mls/hr Q6H IV 02/26/18 06:00 03/05/18 05:59 02/26/18 06:33 108 MLS/HR Ipratropium [place] (Atrovent 0.02% 0.5MG/2.5ML Neb) 0.5 mg Q6R INH 02/26/18 09:00 03/28/18 08:59 02/26/18 06:57 0.5 MG Levalbuterol (Xopenex 1.25MG/ 0.5ML Neb) 1.25 mg Q6R INH 02/26/18 09:00 03/28/18 08:59 02/26/18 06:57 1.25 MG Fentanyl Citrate (Fentanyl Inj) 50 mcg Q2H PRN IV 02/26/18 09:00 03/12/18 08:59 Acetaminophen 100 ml @ 400 mls/hr Q8H PRN IV 02/26/18 09:00 03/28/18 08:59 Azithromycin 500 mg/Dextrose 255 ml @ 127.5 mls/ hr Q24H IV 02/26/18 10:00 03/05/18 09:59 02/26/18 10:12 127.5 MLS/HR Pantoprazole Sodium 40 mg/ Syringe 10 ml @ 5 mls/min DAILY@11 IV 02/26/18 11:00 03/28/18 10:59 02/26/18 10:13 5 MLS/MIN Levothyroxine Sodium 75 mcg/ Syringe 3.75 ml @ 1.875 mls/ min DAILY@09 IV 02/26/18 11:00 03/28/18 10:59 02/26/18 10:13 1.875 MLS/MIN Review of Systems Not obtainable because of patient"s mental status Physical Exam Date Time Temp Pulse Resp B/P (MAP) Pulse Ox O2 Delivery O2 Flow Rate FiO2 02/26/18 11:00 79 117/51 02/26/18 10:45 72 118/57 02/26/18 10:30 66 117/54 02/26/18 10:15 67 112/56 02/26/18 10:00 76 120/83 02/26/18 10:00 35.0 68 16 120/83 (95) 95 Nasal Cannula 6.0 02/26/18 09:45 62 120/72 02/26/18 09:30 78 100/65 02/26/18 09:15 75 105/65 5/16/18 09:00 34.1 65 16 107/58 (74) 96 Nasal Cannula 6.0 02/26/18 09:00 70 107/58 02/26/18 08:55 34.1 82 119/69 (86) 02/26/18 08:45 67 106/64 02/26/18 08:30 79 122/67 02/26/18 08:00 34.1 72 16 120/64 94 02/26/18 08:00 Nasal Cannula 6.0 02/26/18 06:58 72 16 94 Nasal Cannula 6.0 02/26/18 06:50 34.1 65 16 100/55 (70) 02/26/18 06:45 34.1 60 17 67/59 (62) 95 Nasal Cannula 6.0 02/26/18 06:30 34.1 63 21 124/48 (73) 95 Nasal Cannula 6.0 02/26/18 06:15 34.0 86 17 127/64 (85) 86 Nasal Cannula 6.0 02/26/18 05:30 34.0 62 18 118/58 (78) 98 Nasal Cannula 6.0 02/26/18 05:27 71 16 97 Nasal Cannula 6.0 02/26/18 05:15 34.0 86 17 127/64 (85) 86 Nasal Cannula 6.0 02/26/18 05:00 34.0 62 13 111/52 (71) 96 Nasal Cannula 6.0 02/26/18 04:40 34.0 62 17 90/57 (68) 95 Nasal Cannula 6.0 02/26/18 03:35 67 20 130/74 99 02/26/18 03:30 64 16 120/64 98 Nasal Cannula 6.0 02/26/18 03:15 62 16 112/62 99 Nasal Cannula 6.0 02/26/18 03:03 74 18 116/95 96 Nasal Cannula 6.0 02/26/18 03:00 76 16 116/95 98 Nasal Cannula 6.0 02/26/18 02:30 66 18 117/80 92 Nasal Cannula 6.0 02/26/18 02:27 33.4 68 20 73/42 96 Nasal Cannula 6.0 02/26/18 02:06 64 02/26/18 01:45 75 20 80/50 94 02/26/18 01:30 71 20 113/49 95 02/26/18 01:20 66 16 93/43 97 Nasal Cannula 6.0 02/26/18 01:05 33.2 64 20 69/40 94 02/26/18 00:30 71 20 87/54 95 02/26/18 00:26 66 16 74/41 96 Nasal Cannula 6.0 02/26/18 00:05 62 16 88/46 95 02/25/18 23:55 67 16 69/32 95 Room Air 02/25/18 23:32 63 16 82/50 97 02/25/18 22:57 79 02/25/18 22:50 Nasal Cannula 6.0 02/25/18 22:48 33.9 71 16 125/35 100 Nasal Cannula 6.0 General Appearance: WD/WN, + pertinent finding (lethargic) Head: normocephalic, atraumatic Eyes: normal inspection, EOMI, sclerae normal ENT: normal ENT inspection, pharynx normal Neck: supple, no adenopathy, thyroid normal, trachea midline Respiratory/Chest: lungs clear, no respiratory distress, + decreased breath sounds Cardiovascular: regular rate, rhythm, no gallop, no murmur Abdomen/GI: normal bowel sounds, non tender, soft, no organomegaly Back: normal inspection, no CVA tenderness Extremities/Musculoskelatal: no calf tenderness, non-tender Neurologic/Psych: + disoriented, + pertinent finding (lethargic) Skin: normal color, no rash, + pertinent finding (multiple bruises) Lymphatic: no adenopathy Laboratory Results Date/Time Source Procedure Growth Status 02/25/18 23:36 Blood Blood Culture Pending Received 02/25/18 23:26 Blood Blood Culture Pending Received 02/26/18 05:15 Nasal MRSA DNA Surveillance Screen - Final Specimen Negative for MRSA by DNA Probe Complete 02/25/18 23:45 Urine,Catheterized Urine Culture Pending Received Last 24 Hours Test 02/25/18 23:26 02/25/18 23:27 02/25/18 23:45 02/26/18 01:53 White Blood Count 7.17 K/uL Red Blood Count 3.40 M/uL Hemoglobin 10.5 g/dL Hematocrit 32.4 % Mean Corpuscular Volume 95.3 fL Mean Corpuscular Hemoglobin 30.9 pg Mean Corpuscular Hemoglobin Concent 32.4 g/dl Platelet Count 226 K/uL Mean Platelet Volume 9.4 fL Neutrophils (%) (Auto) 81.2 % Lymphocytes (%) (Auto) 6.1 % Monocytes (%) (Auto) 11.4 % Eosinophils (%) (Auto) 0.8 % Basophils (%) (Auto) 0.1 % Neutrophils # (Auto) 5.81 K/uL Lymphocytes # (Auto) 0.44 K/uL Monocytes # (Auto) 0.82 K/uL Eosinophils # (Auto) 0.06 K/uL Basophils # (Auto) 0.01 K/uL RDW Standard Deviation 59.8 fL RDW Coefficient of Variation 17.8 % Immature Granulocyte % (Auto) 0.4 % Immature Granulocyte # (Auto) 0.03 K/uL Nucleated RBC Absolute Count (auto) 0.08 K/uL Nucleated Red Blood Cells % 1.1 % Prothrombin Time 31.8 SECONDS Prothromb Time International Ratio 3.1 Venous Blood pH 7.30 Venous Blood Partial Pressure CO2 66 mmHg Venous Blood Partial Pressure O2 35 mmHg Venous Blood HCO3 32 mmol/L Venous Blood Oxygen Saturation < 60.0 % Venous Blood Base Excess 4.0 mEq/L Sodium Level 132 mmol/L 132 mmol/L Potassium Level 6.0 mmol/L 5.8 mmol/L Chloride Level 93 mmol/L 94 mmol/L Carbon Dioxide Level 32 mmol/L 33 mmol/L Anion Gap 7.0 mmol/L 5.0 mmol/L Blood Urea Nitrogen 49 mg/dl 48 mg/dl Creatinine 2.36 mg/dl 2.31 mg/dl Est Creatinine Clear Calc Drug Dose 26.2 ml/min 26.8 ml/min Estimated GFR () 21.2 21.8 Estimated GFR (Non- 18.3 18.8 BUN/Creatinine Ratio 20.6 20.9 Random Glucose 118 mg/dl 109 mg/dl Lactic Acid Level 3.8 mmol/L 4.3 mmol/L Calcium Level 9.4 mg/dl 9.6 mg/dl Magnesium Level 2.5 mg/dl Total Bilirubin 5.3 mg/dl Direct Bilirubin 3.0 mg/dl Aspartate Amino Transf (AST/SGOT) 61 U/L Alanine Aminotransferase (ALT/SGPT) 37 U/L Alkaline Phosphatase 435 U/L Troponin I 0.213 ng/ml 0.224 ng/ml Pro-B-Type Natriuretic Peptide 4326 pg/ml Total Protein 6.8 gm/dl Albumin 2.7 gm/dl Lipase 71 U/L Procalcitonin 0.22 ng/ml Urine Color ORANGE Urine Appearance CLOUDY Urine pH Urine Specific [place] 1.022 Urine Protein POS Urine Glucose (UA) Urine Ketones Urine Occult Blood Urine Nitrite Urine Bilirubin Urine Urobilinogen Urine Leukocyte Esterase Urine RBC 5-10 /hpf Urine WBC 10-30 /hpf Urine Epithelial Cells >30 /lpf Urine Bacteria 4+ Total Creatine Kinase 75 U/L Thyroid Stimulating Hormone (TSH) 2.690 uIu/ml Test 02/26/18 04:57 02/26/18 05:00 02/26/18 05:32 02/26/18 06:47 White Blood Count 10.40 K/uL Red Blood Count 3.57 M/uL Hemoglobin 10.9 g/dL Hematocrit 34.2 % Mean Corpuscular Volume 95.8 fL Mean Corpuscular Hemoglobin 30.5 pg Mean Corpuscular Hemoglobin Concent 31.9 g/dl Platelet Count 264 K/uL Mean Platelet Volume 9.5 fL Neutrophils (%) (Auto) 92.7 % Lymphocytes (%) (Auto) 1.8 % Monocytes (%) (Auto) 4.8 % Eosinophils (%) (Auto) 0.2 % Basophils (%) (Auto) 0.1 % Neutrophils # (Auto) 9.64 K/uL Lymphocytes # (Auto) 0.19 K/uL Monocytes # (Auto) 0.50 K/uL Eosinophils # (Auto) 0.02 K/uL Basophils # (Auto) 0.01 K/uL RDW Standard Deviation 60.5 fL RDW Coefficient of Variation 18.0 % Immature Granulocyte % (Auto) 0.4 % Immature Granulocyte # (Auto) 0.04 K/uL Nucleated RBC Absolute Count (auto) 0.19 K/uL Nucleated Red Blood Cells % 1.8 % Prothrombin Time 37.5 SECONDS Prothromb Time International Ratio 3.7 Sodium Level 130 mmol/L Potassium Level 6.4 mmol/L Chloride Level 94 mmol/L Carbon Dioxide Level 28 mmol/L Anion Gap 8.0 mmol/L Blood Urea Nitrogen 48 mg/dl Creatinine 2.49 mg/dl Est Creatinine Clear Calc Drug Dose 24.8 ml/min Estimated GFR () 19.9 Estimated GFR (Non- 17.2 BUN/Creatinine Ratio 19.3 Random Glucose 118 mg/dl Lactic Acid Level 5.4 mmol/L Calcium Level 9.6 mg/dl Ammonia 29.0 umol/L Troponin I 0.210 ng/ml Blood Gas Sample Site R Radial Bedside Blood Gas pH (LAB) 7.35 Bedside Blood Gas pCO2 (LAB) 49 mmHg Bedside Blood Gas pO2 (LAB) 75 mmHg Bedside Blood Gas HCO3 (LAB) 28 meq/L Bedside Blood Gas Total CO2 30 mEq/l Bedside Blood Gas Base Excess (LAB) 2.0 meq/L Bedside Blood Gas O2 Saturation 96.0 % Freddy Test Pass Oxygen Delivery Device Cannula Bedside Glucose (other) 116 mg/dl Urine Opiates Screen POS Urine Methadone, Qualitative NEG Urine Barbiturates NEG Urine Phencyclidine (PCP) Level NEG Ur Amphetamine/Methamphetamine NEG MDMA (Ecstasy) Screen NEG Urine Benzodiazepines Screen NEG Urine Cocaine Metabolite NEG Urine Marijuana (THC) NEG Test 02/26/18 07:09 02/26/18 07:53 02/26/18 08:22 Venous Blood pH 7.27 Venous Blood Partial Pressure CO2 63 mmHg Venous Blood Partial Pressure O2 40 mmHg Venous Blood HCO3 28 mmol/L Venous Blood Oxygen Saturation 64.1 % Venous Blood Base Excess 0.6 mEq/L Sodium Level 131 mmol/L Potassium Level 5.7 mmol/L Chloride Level 93 mmol/L Carbon Dioxide Level 27 mmol/L Anion Gap 11.0 mmol/L Blood Urea Nitrogen 48 mg/dl Creatinine 2.41 mg/dl Est Creatinine Clear Calc Drug Dose 25.7 ml/min Estimated GFR () 20.7 Estimated GFR (Non- 17.8 BUN/Creatinine Ratio 20.0 Random Glucose 195 mg/dl Lactic Acid Level 5.6 mmol/L Calcium Level 10.1 mg/dl Bedside Glucose (other) 172 mg/dl Hepatitis B Surface Antigen NEG Hepatitis B Surface Antibody NEG Patient Name: CHCUKIE KING Unit Number: [id number] Dictated: 02/26/18819 Transcribed: 02/26/18819 EV Printed Date/Time: [~ rep prt dt]/[~ rep prt tm] [~ rep ct labl] - [~ rep ct ivnm] [facility] [place] [place] [address] Dictated: 02/26/18819 Transcribed: 02/26/18819 EV Printed Date/Time: [~ rep prt dt]/[~ rep prt tm] [~ rep ct labl] - [~ rep ct ivnm] CT SCAN OF THE CHEST WITHOUT IV CONTRAST CLINICAL HISTORY: Hypoxia. COMPARISON STUDY: Chest x-ray dated 02/26/2018. Chest CT dated 12/25/2009. TECHNIQUE: CT scan of the thorax was performed from the thoracic inlet to the upper abdomen. Images are reviewed in the axial, sagittal, and coronal planes. IV contrast was not administered for this examination. A dose lowering technique was utilized adhering to the principles of ALARA. The examination is significantly compromised by streak artifact from the patient's arms which could not be elevated above the abdomen, large body habitus, and motion artifact. CT DOSE: 3562.75 mGy.cm FINDINGS: Thyroid: Atrophic. Thoracic aorta: There is atherosclerotic calcification of the thoracic aorta, which is normal in caliber and demonstrates standard 3-vessel arch anatomy. A right internal jugular central venous catheter is in place. Heart: The heart is enlarged and without pericardial effusion. A pacemaker is present in the left upper chest. The main pulmonary arteries appear dilated suggesting pulmonary artery hypertension. The coronary arteries and aortic valve leaflets are densely calcified. Lungs and pleural spaces: There are moderate pleural effusions with associated consolidation. Foci of atelectasis/scarring are present in the upper lobes. The trachea and central airways appear clear. Mediastinum: There is no mediastinal lymphadenopathy. Veda: Not well assessed without IV contrast. Axillae: There is no axillary lymphadenopathy. Upper abdomen: Partially visualized upper abdominal viscera is within normal limits. Skeletal structures: The skeletal structures are osteopenic. Degenerative change is noted throughout the thoracic spine. No lytic or blastic bony lesions are seen. 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 IMPRESSION: 1. Significantly streak and motion compromised examination. 2. Moderate pleural effusions with associated consolidation. This likely represents atelectasis. Clinical correlation will be required. 3. Cardiomegaly. 4. Additional findings as above. Electronically signed by: Irving Abdi M.D. 02/26/2018 8:25 AM Dictated Date/Time: 02/26/2018 8:20 AM The status of this report is Signed. Draft = Not yet reviewed or approved by Radiologist. Signed = Reviewed and approved by Radiologist. <AttendingPhy>Malik Medina M.D.</AttendingPhy> <FamilyPhy>[facility]</ FamilyPhy> <PrimaryPhy>Jose Antonio Donnelly D.O.</PrimaryPhy> <UnitNumber>[id number] </UnitNumber> <VisitNumber>[id number]</VisitNumber> <PatientName>CHUCKIE KING</PatientName> <DateOfBirth>1935</DateOfBirth> <Location>C.MSICU< /Location> <ServiceDate>02/25/18</ServiceDate> <MNE>ESINDI</MNE> <OrderingPhy> Jorge Otero M.D.</OrderingPhy> <OrderingPhyMNE>f rep ord dr nichols</ OrderingPhyMNE> <DictatingPhyMNE>f rep dict dr nichols</DictatingPhyMNE> <CCListMNE> f rep ct mne</CCListMNE> <AdmittingPhyMNE>f pt admit dr nichols</AdmittingPhyMNE> < AttendingPhyMNE>f pt attend dr nichols</AttendingPhyMNE> <ConsultingPhyMNE>f pt consult dr nichols</ConsultingPhyMNE> <FamilyPhyMNE>f pt fam dr nichols</FamilyPhyMNE> <OtherPhyMNE>f pt other dr nichols</OtherPhyMNE> < PrimaryPhyMNE>f pt prim care dr nichols</PrimaryPhyMNE> <ReferringPhyMNE>f pt referring dr nichols</ReferringPhyMNE> Patient Name: CHUCKIE KING Unit Number: [id number] Dictated: 02/26/18652 Transcribed: 02/26/18658 PBS Printed Date/Time: [~ rep prt dt]/[~ rep prt tm] [~ rep ct labl] - [~ rep ct ivnm] [facility] [place] [address] Dictated: 02/26/18652 Transcribed: 02/26/18658 PBS Printed Date/Time: [~ rep prt dt]/[~ rep prt tm] [~ rep ct labl] - [~ rep ct ivnm] ABD/PELVIS NO IV OR ORAL CONT CLINICAL HISTORY: 82 years-old Female presenting with abd pain, constipation, low O2 sat. TECHNIQUE: Multidetector CT of the abdomen and pelvis was performed without the use of intravenous contrast. IV contrast: None. A dose lowering technique was used consistent with the principles of ALARA (as low as reasonably achievable). COMPARISON: None. CT DOSE (mGy.cm): The estimated cumulative dose is 3562.75. FINDINGS: Image quality is degraded by patient body habitus and positioning of the arms at the sides. [employer] Liaison topogram: Left subclavian pacer with leads to the right atrium and right ventricular apex. Numerous external leads overlie the chest. A temperature probe projects over the pelvis. Lung bases: Dependent and peribronchovascular consolidation with lower lobe volume loss, likely passive atelectasis. Bandlike opacities in the lingula and right middle lobe. Mosaic attenuation suggest small airways disease. Partially visualized pacer leads. Multichamber enlargement of the heart. Aortic valve, coronary artery, and mitral annular calcification. Moderate bilateral pleural effusions. No pericardial effusion. Liver: Normal morphology. Normal density. Biliary: No gross biliary ductal dilatation allowing for noncontrast technique. Gallbladder surgically absent. Pancreas: Moderate parenchymal atrophy. Parenchymal coarse calcification may be present in the pancreatic head, which may imply a history of chronic pancreatitis. Spleen: Normal noncontrast appearance. Adrenal glands: Normal noncontrast appearance. Kidneys and ureters: Normal noncontrast appearance. No nephrolithiasis. No hydronephrosis. Normal ureters. Bladder: A Lynn catheter decompresses the urinary bladder. Pelvic organs: Uterus surgically absent. No adnexal masses. Bowel: Large stool burden in the rectum. A temperature probe is also present in the rectum. No bowel obstruction. Peritoneal cavity: Trace free fluid in the abdomen and pelvis. No free intraperitoneal gas. Lymph nodes: No gross lymphadenopathy allowing for noncontrast technique. Vasculature: Atherosclerosis of the normal caliber abdominal aorta. Abdominal wall: Extensive body wall edema. Large pannus. Musculoskeletal: Degenerative changes of the spine. IMPRESSION: 1. Evidence of volume overload with small volume ascites, moderate bilateral pleural effusions, and extensive body wall edema. 2. Cardiomegaly. 3. Large stool burden in the rectum. Consider disimpaction. 4. No other evidence of acute intra-abdominal pathology. 5. Bibasilar atelectasis. Electronically signed by: Matthias Biggs M.D. 02/26/2018 8:33 AM Dictated Date/Time: 02/26/2018 6:53 AM The status of this report is Signed. Draft = Not yet reviewed or approved by Radiologist. Signed = Reviewed and approved by Radiologist. <AttendingPhy>Malik Medina M.D.</AttendingPhy> <FamilyPhy>[facility]</ FamilyPhy> <PrimaryPhy>Jose Antonio Donnelly D.O.</PrimaryPhy> <UnitNumber>[id number] </UnitNumber> <VisitNumber>[id number]</VisitNumber> <PatientName>CHUCKIE KING</PatientName> <DateOfBirth>1935</DateOfBirth> <Location>C.MSICU< /Location> <ServiceDate>02/25/18</ServiceDate> <MNE>ESINDI</MNE> <OrderingPhy> Jorge Otero M.D.</OrderingPhy> <OrderingPhyMNE>f rep ord dr nichols</ OrderingPhyMNE> <DictatingPhyMNE>f rep dict dr nichols</DictatingPhyMNE> <CCListMNE> f rep ct mne</CCListMNE> <AdmittingPhyMNE>f pt admit dr nichols</AdmittingPhyMNE> < AttendingPhyMNE>f pt attend dr nichols</AttendingPhyMNE> <ConsultingPhyMNE>f pt consult dr nichols</ConsultingPhyMNE> <FamilyPhyMNE>f pt fam dr nichols</FamilyPhyMNE> <OtherPhyMNE>f pt other dr nichols</OtherPhyMNE> < PrimaryPhyMNE>f pt prim care dr nichols</PrimaryPhyMNE> <ReferringPhyMNE>f pt referring dr nichols</ReferringPhyMNE> Assessment & Plan Clinical picture of severe sepsis, however would have expected elevated procalcitonin. Will treat with imipenem pending further culture results. Will follow.
--- NOTE | 2018-02-26 12:11 | Critical Care Consultation ---
Critical Care Consultation Date of Consultation: February 26, 2018. Attending Physician: Malik Medina M.D. Reason for Consultation: hypotension in the setting of sepsis History of Present Illness 82 yo female presents to [facility] from [facility] with 1.5 weeks of progressively worsening altered mental status. The patient is s/p fall and right tibial plateau fracture, discharged on 02/20 to [facility] for rehab. She was admitted after being found hypotensive, hypothermic, hypokalemic in the setting of JEMIMA and suspected sepsis of unknown source.Initial therapies included; right IJ placement, fluid resuscitation, Levophed administration and dose of Narcan for suspected opioid toxicity. The patient was also started on broad spectrum antibiotic coverage. History was compiled from chart review--including review of admission notes, previous admissions, lab and test results. Past Medical/Surgical History CAD, CA, s/p stent LAD (1995), CKD3, chronic afib on coumadin, BERTO, HLD, hypothyroidism Family History Diabetes mellitus MOTHER FH: CHF (congestive heart failure) MOTHER FH: Crohn's disease DAUGHTER Hypertension SON Pacemaker BROTHER Social History Smoking Status: Unknown if Ever Smoked Drug Use: none Marital Status: Housing Status: lives with family Occupation Status: retired Allergies Coded Allergies: MERRY Inhibitors (Verified Allergy, Unknown, Unknown, 02/26/18) Adhesives (Verified Allergy, Unknown, "TAPE", 02/26/18) Albuterol (Verified Allergy, Unknown, INTOLERANT OF ALBUTEROL, 02/26/18) Amiodarone (Verified Allergy, Unknown, 02/26/18) Amoxicillin (Verified Allergy, Unknown, ., 02/26/18) Ampicillin (Verified Allergy, Unknown, Unknown, 02/26/18) Bacitracin (Verified Allergy, Unknown, 02/26/18) Replaces BACITRACIN/PO Cephalosporins (Verified Allergy, Unknown, KEFLEX, 02/26/18) Epinephrine (Verified Allergy, Unknown, UNKNOWN, 02/26/18) INFO FROM [facility] Morphine (Verified Allergy, Unknown, hallucination, 02/26/18) Penicillins (Verified Allergy, Unknown, AMPICILLIN, 02/26/18) Polymyxin B (Verified Allergy, Unknown, 02/26/18) Replaces BACITRACIN/PO Home Medications Scheduled Acetaminophen (Tylenol), 1,000 MG PO BID Ascorbic Acid (Ascorbic Acid), 500 MG PO DAILY Aspirin (Aspirin Ec), 81 MG PO 3XWK Atorvastatin (Lipitor), 10 MG PO HS Calcium Carbonate-Vitamin D (Calcium 600 + D), 2 TABLETS PO DAILY Cholecalciferol (Vitamin D3), 1,000 UNITS PO DAILY Clindamycin Hcl (Clindamycin Hcl), 600 MG PO DIRECTED Coenzyme Q10 (Ubidecarenone) (Co Q 10), 1 TAB PO DAILY Furosemide (Lasix), 40 MG PO 3XWK Home O2 Therapy (Oxygen), 2 LITERS NA CONTINOUS Insulin Isophan/Regular (Novolin 70/30), 23 UNITS SC QAM Insulin Isophan/Regular (Novolin 70/30), 9 UNITS SC QPM Insulin Lispro (Human) (Humalog), Unknown Dose SC DIRECTED Isosorbide Mononitrate Ext Rel (Imdur Ext Rel), 60 MG PO DAILY Levothyroxine Sodium (Levothyroxine Sodium), 100 MCG PO DAILY Magnesium Chloride (Slow-Mag Tab), 64 MG PO DAILY Metoprolol Tartrate (Lopressor) (Lopressor), 12.5 MG PO BID Multivitamin (Multivitamin), 1 TAB PO DAILY Nitroglycerin (Nitrostat), 0.4 MG UT PRN Nystatin (Nystatin Cream), 1 APPLN TOP BID Probiotic Product (Probiotic), 1 CAP PO DAILY Warfarin Sodium (Coumadin), 2 MG PO HS Scheduled PRN Acetaminophen (Tylenol), 500-1,000 MG PO Q6 PRN for Pain Acetaminophen (Tylenol), 650 MG PO Q6H PRN for Pain or Fever Hydrocodone/Acetaminophen 5MG/325MG (Gervais 5MG/325MG), 2 TABLETS PO Q6H PRN for SEVERE PAIN Levalbuterol (Levalbuterol HCl), 3 ML INH Q8 PRN for Shortness of Breath Lorazepam (Ativan), 0.5-1 TAB PO BID PRN for Anxiety Magnesium Hydroxide (Milk of Magnesia), 30 ML PO for Constipation Ondansetron Hcl (Zofran), 8 MG PO Q8 PRN for Nausea or Vomiting Sodium Phosphate/Biphosphate (Fleet Enema), 1 EA MO DAILY PRN for NO BM IN 3 DAYS. Tramadol (Ultram), 50-100 MG PO Q8H PRN for MOD/SEVERE PAIN Current Inpatient Medications Current Inpatient Medications Medications (Trade) Dose Ordered Sig/Yesenia Route Start Time Stop Time Status Last Admin Dose Admin Sodium Chloride 1,000 ml @ 60 mls/hr [id number] IV 02/26/18 06:00 03/28/18 05:59 02/26/18 06:33 60 MLS/HR Acetaminophen (Tylenol Tab) 650 mg Q4H PRN PO 02/26/18 03:30 03/28/18 03:29 Nitroglycerin (Nitrostat Tab) 0.4 mg UD PRN SL 02/26/18 03:30 03/28/18 03:29 Norepinephrine Bitartrate 8 mg/ Dextrose 508 ml @ 0 mls/hr Q0M PRN IV 02/26/18 03:26 03/28/18 03:25 Miscellaneous Information (Icu Protocol For Hyperglycemia) 1 ea PRN PRN N/A 02/26/18 03:30 02/28/18 03:29 Prochlorperazine Edisylate 5 mg/ Syringe 5 ml @ 5 mls/min Q6H PRN IV 02/26/18 03:30 03/28/18 03:29 Imipenem/ Cilastatin Sodium (Consult) 1 ea DAILY PRN N/A 02/26/18 04:07 03/28/18 04:06 Aspirin (Ecotrin Tab) 81 mg SuWeSa@0900 PO 02/26/18 09:00 03/28/18 08:59 Atorvastatin Calcium (Lipitor Tab) 10 mg HS PO 02/26/18 21:00 03/28/18 20:59 Multivitamins (Multivitamin Tab) 1 tab DAILY PO 02/26/18 09:00 03/28/18 08:59 Lactobacillus Acidophilus (Floranex Tab) 1 tab DAILY PO 02/26/18 09:00 03/28/18 08:59 Insulin Aspart (novoLOG ASPART) SLIDING SCALE If C... ACHS SC 02/26/18 06:45 03/28/18 06:59 Glucose (Glucose 40% Gel) 15-30 GRAMS 15 GRAMS... UD PRN PO 02/26/18 03:30 03/28/18 03:29 Glucose (Glucose Chew Tab) 4-8 Tablets 4 Tabl... UD PRN PO 02/26/18 03:30 03/28/18 03:29 Dextrose (Dextrose 50% 50ML Syringe) 25-50ML 25ML FOR ... UD PRN IV 02/26/18 03:30 03/28/18 03:29 Glucagon (Glucagon Inj) 1 mg UD PRN SQ 02/26/18 03:30 03/28/18 03:29 Carbohydrates (Carbohydrates For Hypoglycemia) 15-30 GRAMS 15 grams if BSG 54-69... UD PRN PO 02/26/18 03:30 03/28/18 03:29 Ipratropium [place] (Atrovent 0.02% 0.5MG/2.5ML Neb) 0.5 mg Q4H PRN INH 02/26/18 04:15 03/28/18 04:14 Levalbuterol (Xopenex 1.25MG/ 0.5ML Neb) 1.25 mg Q4H PRN INH 02/26/18 04:15 03/28/18 04:14 Miscellaneous Information (Consult) 1 ea UD PRN N/A 02/26/18 04:15 03/28/18 04:14 Imipenem/ Cilastatin Sodium 200 mg/Dextrose 108 ml @ 108 mls/hr Q6H IV 02/26/18 06:00 03/05/18 05:59 02/26/18 06:33 108 MLS/HR Ipratropium [place] (Atrovent 0.02% 0.5MG/2.5ML Neb) 0.5 mg Q6R INH 02/26/18 09:00 03/28/18 08:59 02/26/18 06:57 0.5 MG Levalbuterol (Xopenex 1.25MG/ 0.5ML Neb) 1.25 mg Q6R INH 02/26/18 09:00 03/28/18 08:59 02/26/18 06:57 1.25 MG Fentanyl Citrate (Fentanyl Inj) 50 mcg Q2H PRN IV 02/26/18 09:00 03/12/18 08:59 Acetaminophen 100 ml @ 400 mls/hr Q8H PRN IV 02/26/18 09:00 03/28/18 08:59 Azithromycin 500 mg/Dextrose 255 ml @ 127.5 mls/ hr Q24H IV 02/26/18 10:00 03/05/18 09:59 02/26/18 10:12 127.5 MLS/HR Pantoprazole Sodium 40 mg/ Syringe 10 ml @ 5 mls/min DAILY@11 IV 02/26/18 11:00 03/28/18 10:59 02/26/18 10:13 5 MLS/MIN Levothyroxine Sodium 75 mcg/ Syringe 3.75 ml @ 1.875 mls/ min DAILY@09 IV 02/26/18 11:00 03/28/18 10:59 02/26/18 10:13 1.875 MLS/MIN Review of Systems Patient is obtunded, unable to obtain ROS Physical Exam Date Time Temp Pulse Resp B/P (MAP) Pulse Ox O2 Delivery O2 Flow Rate FiO2 02/26/18 10:45 72 118/57 02/26/18 10:30 66 117/54 02/26/18 10:15 67 112/56 02/26/18 10:00 76 120/83 02/26/18 10:00 35.0 68 16 120/83 (95) 95 Nasal Cannula 6.0 02/26/18 09:45 62 120/72 02/26/18 09:30 78 100/65 02/26/18 09:15 75 105/65 02/26/18 09:00 34.1 65 16 107/58 (74) 96 Nasal Cannula 6.0 02/26/18 09:00 70 107/58 02/26/18 08:55 34.1 82 119/69 (86) 02/26/18 08:45 67 106/64 02/26/18 08:30 79 122/67 02/26/18 08:00 34.1 72 16 120/64 94 02/26/18 08:00 Nasal Cannula 6.0 02/26/18 06:58 72 16 94 Nasal Cannula 6.0 02/26/18 06:50 34.1 65 16 100/55 (70) 02/26/18 06:45 34.1 60 17 67/59 (62) 95 Nasal Cannula 6.0 02/26/18 06:30 34.1 63 21 124/48 (73) 95 Nasal Cannula 6.0 02/26/18 06:15 34.0 86 17 127/64 (85) 86 Nasal Cannula 6.0 02/26/18 05:30 34.0 62 18 118/58 (78) 98 Nasal Cannula 6.0 02/26/18 05:27 71 16 97 Nasal Cannula 6.0 02/26/18 05:15 34.0 86 17 127/64 (85) 86 Nasal Cannula 6.0 02/26/18 05:00 34.0 62 13 111/52 (71) 96 Nasal Cannula 6.0 02/26/18 04:40 34.0 62 17 90/57 (68) 95 Nasal Cannula 6.0 02/26/18 03:35 67 20 130/74 99 02/26/18 03:30 64 16 120/64 98 Nasal Cannula 6.0 02/26/18 03:15 62 16 112/62 99 Nasal Cannula 6.0 02/26/18 03:03 74 18 116/95 96 Nasal Cannula 6.0 02/26/18 03:00 76 16 116/95 98 Nasal Cannula 6.0 02/26/18 02:30 66 18 117/80 92 Nasal Cannula 6.0 02/26/18 02:27 33.4 68 20 73/42 96 Nasal Cannula 6.0 02/26/18 02:06 64 02/26/18 01:45 75 20 80/50 94 02/26/18 01:30 71 20 113/49 95 02/26/18 01:20 66 16 93/43 97 Nasal Cannula 6.0 02/26/18 01:05 33.2 64 20 69/40 94 02/26/18 00:30 71 20 87/54 95 02/26/18 00:26 66 16 74/41 96 Nasal Cannula 6.0 02/26/18 00:05 62 16 88/46 95 02/25/18 23:55 67 16 69/32 95 Room Air 02/25/18 23:32 63 16 82/50 97 02/25/18 22:57 79 02/25/18 22:50 Nasal Cannula 6.0 02/25/18 22:48 33.9 71 16 125/35 100 Nasal Cannula 6.0 General Appearance: moderate distress Head: normocephalic, atraumatic Respiratory: clear to auscultation, no respiratory distress, no tenderness Cardiovasular: regular rate/rhythm, normal S1S2, no murmur Abdomen: non tender, no rebound, no masses, no guarding Laboratory Results Last 24 Hours Test 02/25/18 23:26 02/25/18 23:27 02/25/18 23:45 02/26/18 01:53 White Blood Count 7.17 K/uL Red Blood Count 3.40 M/uL Hemoglobin 10.5 g/dL Hematocrit 32.4 % Mean Corpuscular Volume 95.3 fL Mean Corpuscular Hemoglobin 30.9 pg Mean Corpuscular Hemoglobin Concent 32.4 g/dl Platelet Count 226 K/uL Mean Platelet Volume 9.4 fL Neutrophils (%) (Auto) 81.2 % Lymphocytes (%) (Auto) 6.1 % Monocytes (%) (Auto) 11.4 % Eosinophils (%) (Auto) 0.8 % Basophils (%) (Auto) 0.1 % Neutrophils # (Auto) 5.81 K/uL Lymphocytes # (Auto) 0.44 K/uL Monocytes # (Auto) 0.82 K/uL Eosinophils # (Auto) 0.06 K/uL Basophils # (Auto) 0.01 K/uL RDW Standard Deviation 59.8 fL RDW Coefficient of Variation 17.8 % Immature Granulocyte % (Auto) 0.4 % Immature Granulocyte # (Auto) 0.03 K/uL Nucleated RBC Absolute Count (auto) 0.08 K/uL Nucleated Red Blood Cells % 1.1 % Prothrombin Time 31.8 SECONDS Prothromb Time International Ratio 3.1 Venous Blood pH 7.30 Venous Blood Partial Pressure CO2 66 mmHg Venous Blood Partial Pressure O2 35 mmHg Venous Blood HCO3 32 mmol/L Venous Blood Oxygen Saturation < 60.0 % Venous Blood Base Excess 4.0 mEq/L Sodium Level 132 mmol/L 132 mmol/L Potassium Level 6.0 mmol/L 5.8 mmol/L Chloride Level 93 mmol/L 94 mmol/L Carbon Dioxide Level 32 mmol/L 33 mmol/L Anion Gap 7.0 mmol/L 5.0 mmol/L Blood Urea Nitrogen 49 mg/dl 48 mg/dl Creatinine 2.36 mg/dl 2.31 mg/dl Est Creatinine Clear Calc Drug Dose 26.2 ml/min 26.8 ml/min Estimated GFR () 21.2 21.8 Estimated GFR (Non- 18.3 18.8 BUN/Creatinine Ratio 20.6 20.9 Random Glucose 118 mg/dl 109 mg/dl Lactic Acid Level 3.8 mmol/L 4.3 mmol/L Calcium Level 9.4 mg/dl 9.6 mg/dl Magnesium Level 2.5 mg/dl Total Bilirubin 5.3 mg/dl Direct Bilirubin 3.0 mg/dl Aspartate Amino Transf (AST/SGOT) 61 U/L Alanine Aminotransferase (ALT/SGPT) 37 U/L Alkaline Phosphatase 435 U/L Troponin I 0.213 ng/ml 0.224 ng/ml Pro-B-Type Natriuretic Peptide 4326 pg/ml Total Protein 6.8 gm/dl Albumin 2.7 gm/dl Lipase 71 U/L Procalcitonin 0.22 ng/ml Urine Color ORANGE Urine Appearance CLOUDY Urine pH Urine Specific [place] 1.022 Urine Protein POS Urine Glucose (UA) Urine Ketones Urine Occult Blood Urine Nitrite Urine Bilirubin Urine Urobilinogen Urine Leukocyte Esterase Urine RBC 5-10 /hpf Urine WBC 10-30 /hpf Urine Epithelial Cells >30 /lpf Urine Bacteria 4+ Total Creatine Kinase 75 U/L Thyroid Stimulating Hormone (TSH) 2.690 uIu/ml Test 02/26/18 04:57 02/26/18 05:00 02/26/18 05:32 02/26/18 06:47 White Blood Count 10.40 K/uL Red Blood Count 3.57 M/uL Hemoglobin 10.9 g/dL Hematocrit 34.2 % Mean Corpuscular Volume 95.8 fL Mean Corpuscular Hemoglobin 30.5 pg Mean Corpuscular Hemoglobin Concent 31.9 g/dl Platelet Count 264 K/uL Mean Platelet Volume 9.5 fL Neutrophils (%) (Auto) 92.7 % Lymphocytes (%) (Auto) 1.8 % Monocytes (%) (Auto) 4.8 % Eosinophils (%) (Auto) 0.2 % Basophils (%) (Auto) 0.1 % Neutrophils # (Auto) 9.64 K/uL Lymphocytes # (Auto) 0.19 K/uL Monocytes # (Auto) 0.50 K/uL Eosinophils # (Auto) 0.02 K/uL Basophils # (Auto) 0.01 K/uL RDW Standard Deviation 60.5 fL RDW Coefficient of Variation 18.0 % Immature Granulocyte % (Auto) 0.4 % Immature Granulocyte # (Auto) 0.04 K/uL Nucleated RBC Absolute Count (auto) 0.19 K/uL Nucleated Red Blood Cells % 1.8 % Prothrombin Time 37.5 SECONDS Prothromb Time International Ratio 3.7 Sodium Level 130 mmol/L Potassium Level 6.4 mmol/L Chloride Level 94 mmol/L Carbon Dioxide Level 28 mmol/L Anion Gap 8.0 mmol/L Blood Urea Nitrogen 48 mg/dl Creatinine 2.49 mg/dl Est Creatinine Clear Calc Drug Dose 24.8 ml/min Estimated GFR () 19.9 Estimated GFR (Non- 17.2 BUN/Creatinine Ratio 19.3 Random Glucose 118 mg/dl Lactic Acid Level 5.4 mmol/L Calcium Level 9.6 mg/dl Ammonia 29.0 umol/L Troponin I 0.210 ng/ml Blood Gas Sample Site R Radial Bedside Blood Gas pH (LAB) 7.35 Bedside Blood Gas pCO2 (LAB) 49 mmHg Bedside Blood Gas pO2 (LAB) 75 mmHg Bedside Blood Gas HCO3 (LAB) 28 meq/L Bedside Blood Gas Total CO2 30 mEq/l Bedside Blood Gas Base Excess (LAB) 2.0 meq/L Bedside Blood Gas O2 Saturation 96.0 % Freddy Test Pass Oxygen Delivery Device Cannula Bedside Glucose (other) 116 mg/dl Urine Opiates Screen POS Urine Methadone, Qualitative NEG Urine Barbiturates NEG Urine Phencyclidine (PCP) Level NEG Ur Amphetamine/Methamphetamine NEG MDMA (Ecstasy) Screen NEG Urine Benzodiazepines Screen NEG Urine Cocaine Metabolite NEG Urine Marijuana (THC) NEG Test 02/26/18 07:09 02/26/18 07:53 02/26/18 08:22 Venous Blood pH 7.27 Venous Blood Partial Pressure CO2 63 mmHg Venous Blood Partial Pressure O2 40 mmHg Venous Blood HCO3 28 mmol/L Venous Blood Oxygen Saturation 64.1 % Venous Blood Base Excess 0.6 mEq/L Sodium Level 131 mmol/L Potassium Level 5.7 mmol/L Chloride Level 93 mmol/L Carbon Dioxide Level 27 mmol/L Anion Gap 11.0 mmol/L Blood Urea Nitrogen 48 mg/dl Creatinine 2.41 mg/dl Est Creatinine Clear Calc Drug Dose 25.7 ml/min Estimated GFR () 20.7 Estimated GFR (Non- 17.8 BUN/Creatinine Ratio 20.0 Random Glucose 195 mg/dl Lactic Acid Level 5.6 mmol/L Calcium Level 10.1 mg/dl Bedside Glucose (other) 172 mg/dl Hepatitis B Surface Antigen NEG Hepatitis B Surface Antibody NEG Assessment & Plan 82 yo female presents to [facility] from [facility] with 1.5 weeks of progressively worsening mental status. The patient is s/p fall and right tibial plateau fracture, discharged on 02/20 to [facility] for rehab. She was admitted after being found hypotensive, hypothermic, hypokalemic in the setting of JEMIMA and with suspected sepsis of unknown source.Initial therapies included; right IJ placement, fluid resuscitation, Levophed administration and dose of Narcan for suspected opioid toxicity. The patient was also started on broad spectrum antibiotic coverage. PMH; CAD, CA, s/p stent LAD (1995), CKD3, chronic afib on Coumadin, BERTO, HLD, hypothyroidism Plan; Continue abx/pressors, dialysis, ortho consult, right knee/tibial xrays Neuro -Acute encephalopathy--likely acute on chronic, multifactorial vascular/ metabolic/toxic--CT of head head demonstrated chronic ischemia, metabolic in the setting of sepsis, accumulation of narcotic in the setting of JEMIMA -Holding home tramadol and Dilaudid -Fentanyl, IV Tylenol for pain -Head CT--no acute pathology Cardio -History of CAD, CA, HLD, afib on Coumadin -Patient was hypotensive on admission -Started on Levophed--pressures and HR stable. -Elevated trop in the setting of JEMIMA--repeat q 8hrsx2 (after dialysis is completed) -ECHO--EF of 55-60%, LVH, but with normal LV function -BNP 4,000--CXR indicate volume overload--holding furosemide until pressures recover -Continue atorvastatin, ASA -Holding home Imdur, metoprolol, furosemide until pressures recover Pulm -Acute on Chronic hypercarbic respiratory failure--possible PNA secondary to aspiration or HCAP--cont. Vanc/imipenem/azithromycin -History of obstructive sleep apnea -95% on 6 L O2 -Continue Atrovent/Xopenex -Will recheck VBG this morning following GI -NPO -Continue ulcer ppx-IV ppi -Elevated AST/ALP--possibly shock liver -Will continue to follow LFT's Renal/lytes -Hyponatremic and hyperkalemia in the setting JEMIMA, Cr 2.49, K 6.4, Na 130-- baseline Cr 1.5 -Patient is likely intravascularly depleted in the setting of CKD 3--JEMIMA likely prerenal in etiology -Patient has RIJ catheter in place--will be receiving hemodialysis today -Renally dosed abx -Follow up BMP for signs of recovery Endo -H/o DM--cont. Lantus/NovoLog -H/o hypothyroidism--75 mcg of Levothyroxine ID -Lactic acid trending up, 5.4--will repeat q6 x3 following dialysis -Procal is negative -Vanc/imipenem/azithromycin--broad coverage for pulm and urinary sources -UA demonstrated--positive bacteria and WBC--previous urine cultures grew enterococci species -CXR demonstrated--bibasilar opacities--possible PNA vs atelectasis -Ucx and Bcx and blood cultures pending Ortho -Ortho consulted -Tibial and knee xray--unremarkable, previous plateau fracture is not visualized Heme -INR 3.7--holding Coumadin -Checking INR tomorrow -Hgb 10.9--will obtain consent for blood, type and cross DVT ppx/lines -No DVT ppx at this time--holding Coumadin in the setting of supratherapeutic INR -Lynn intact, RIJ catheter in place -NS 60 mls/hr Resident Physician Supervision Note: Dr. Mahajan was resident physician during care of patient. I separately evaluated patient and did history and exam. I discussed the case with the resident and generally agree with the findings and plan. Patient is critically ill due to hyperkalemia and acute encephalopathy Patient was discussed on multidisciplinary rounds I reviewed the patient's labs from presentation until my arrival at approximately 630. Patient was still in the process of receiving medical treatment for hyperkalemia, however I feel the patient is at significant risk for arrhythmia secondary to hyperkalemia, I immediately discussed the case with Dr. Forbes of nephrology. Patient will be receiving 2 A bicarb, she is finishing her calcium infusion, she will receive emergent hemodialysis this morning I did not have the initial H&P to review the discussion regarding CODE STATUS, bedside nurse conveyed that family was comfortable with proceeding with hemodialysis, the patient was not to be resuscitated in event of cardiac arrest. Was unclear is whether the patient would be willing to undergo intubation to facilitate hemodialysis as the patient appears to be acutely encephalopathic and is pulling at tubes and will likely require physical restraint to safely perform hemodialysis. I contacted the patient's daughter initially left a message to return my phone call, I was able to get in touch with the patient's son who confirmed the patient would not want intubation under any circumstances, he was comfortable with proceeding with emergent hemodialysis, however would be against her long-term goals to require long-term hemodialysis. Other problems are with later when additional family members arrived we discussed the totality of the patient's current diagnoses as well as prognosis. Patient does have a who unfortunately has dementia which reportedly limits some of his decision-making capacity. The majority of the children are in agreement that the patient would not want further escalation of care and would desire to stop treatments however we will continue with this round of hemodialysis and continue with vasoactive medication for hemodynamic support until additional family members arrive via airplane at approximately 5 PM this evening. I discussed that we will not escalate care, continue the current antibiotics and fluids and will likely proceed with terminal weaning after arrival additionally family members and will air on the side of patient comfort in the meantime should she require morphine for pain which may lower the patient 's blood pressure further. I have personally spent 80 minutes of critical care time in the direct management of this patient. This is a life/limb threatening event. This includes time spent evaluating patient, direct bedside care, chart review, placing orders, interpretation of diagnostic studies, discussion with consultants, patient, and/or family members regarding treatment decisions, as well as other required patient management activities. This time is exclusive of all separately billable procedures, and teaching time and separate from and in addition to any other critical care service time. Documented By: Farhat Reynolds DO
--- NOTE | 2018-02-26 12:19 | Pharmacy Progress Note ---
Pharmacy Abx Dose Short Note Date of Service February 26, 2018. Assessment & Plan Assessment * 82 year old female admitted for confusion, lethargy, syncope, hypotension and hypothermia - concern for sepsis from urinary or pulmonary source; concern for excessive opiates given response to Narcan. * Empiric VANCOMYCIN and PRIMAXIN ordered overnight. * JEMIMA present on admission along w/ hyperkalemia. Pt reported to have decreased PO intake and lethargy for ~ 1 wk prior to admit * Currently on Norepi @0.08mcg/kg/min, MAPs > 65 * Pt does have risk factors for resistant organism: recent hospitalization, recent ABX exposure, long-term * UA suggestive of contamination (>30 epis) also it appears this was a cath specimen...would want to be sure specimen was not obtained from a cath that had been in place > 24 hours. Likewise, would not wish to culture a urine specimen from a cath that has been in place long enough to become colonized. * BLCX's pending. MRSA nasal swab was negative. Plan Vancomycin * Only given 1500mg (~10.3mg/kg) loading dose overnight. This was not an adequate loading dose. * Pt is now receiving HD treatment. * Will need to check random vancomycin level s/p HD to determine what f/u dose should be. * Goal trough level for sepsis/pulm infxn: 15-20mcg/mL Primaxin * eCrCl 15-30cc/min or possibly less; 200mg IV Q 6 hours recommended for intermittent HD or those w/ eCrCl at this level Pharmacy will continue to follow and will adjust dose/frequency as necessary. Thank you.
[2018-02-26 13:21] LABS: CREATININE 1.76 mg/dl (0.60-1.20)
[2018-02-26 13:22] LABS: CALCIUM 8.4 mg/dl (8.5-10.1)
--- NOTE | 2018-02-26 13:53 | Progress Note ---
Internal Med Progress Note Date of Service: February 26, 2018. Provider Documentation: SUBJECTIVE: The patient was seen and examined in ICU She was admitted with the change in mental status with the hypotension and sepsis She remains generally very weak and lethargic Not been communicating well She does not have any acute pain OBJECTIVE: Vital Signs-as noted below Exam: General-no acute distress at rest but very drowsy and weak Eyes-closed ENT-normal Neck-supple Lungs-decreased breath sounds both sides with bibasilar crackles Heart-regular Abdomen-distended, soft, nontender Extremities-1+ edema bilaterally Neuro-noncommunicating well Very weak and lethargic Difficult to have full neuro examination Lab data as noted below. ASSESSMENT & PLAN: Septic shock Likely secondary to HCAP Rule out intraabdominal source Poss adrenal insufficiency w/ note of hyponatremia, hyperkalemia Received 1 dose of Decadron Started on Pressors and Antibiotic-Imipenem Remains critical Appreciate ID input Acute on chronic respiratory failure secondary to HCAP Possible aspiration Does not require Intubation yet Appreciate Wet Washer Machine input Chronic diastolic heart failure Equivocal volume status Congestion noted on CXR, patient intravascularly dry Acute renal failure on chronic renal insufficiency, hyponatremia, hyperkalemia secondary to illness Appreciate Nephrology input Having HD now Recent Right Tibial Platue Fracture X-ray did not show any fracture Ortho consulted SSS sp PPM, paced rhythm, INR slightly supratherapeutic Will monitor INR DM2, on insulin, well controlled as of recent inpatient hemoglobin A1c. ISS BG goal 140-180. SSI DVT prophylaxis, Coumadin INR goal between 2 and 3 if no bleeding on CT abdomen pelvis DNR as per the patient's previous wishes. Vital Signs: Date Time Temp Pulse Resp B/P (MAP) Pulse Ox O2 Delivery O2 Flow Rate FiO2 02/26/18 12:00 Nasal Cannula 6.0 02/26/18 12:00 35.2 76 20 120/60 (80) 93 Nasal Cannula 6.0 02/26/18 11:45 35.6 71 116/80 (92) 02/26/18 11:15 65 110/55 02/26/18 11:00 79 117/51 02/26/18 10:45 72 118/57 02/26/18 10:30 66 117/54 02/26/18 10:15 67 112/56 02/26/18 10:00 76 120/83 02/26/18 10:00 35.0 68 16 120/83 (95) 95 Nasal Cannula 6.0 02/26/18 09:45 62 120/72 02/26/18 09:30 78 100/65 02/26/18 09:15 75 105/65 02/26/18 09:00 34.1 65 16 107/58 (74) 96 Nasal Cannula 6.0 02/26/18 09:00 70 107/58 02/26/18 08:55 34.1 82 119/69 (86) 02/26/18 08:45 67 106/64 02/26/18 08:30 79 122/67 02/26/18 08:00 34.1 72 16 120/64 94 02/26/18 08:00 Nasal Cannula 6.0 02/26/18 06:58 72 16 94 Nasal Cannula 6.0 02/26/18 06:50 34.1 65 16 100/55 (70) 02/26/18 06:45 34.1 60 17 67/59 (62) 95 Nasal Cannula 6.0 02/26/18 06:30 34.1 63 21 124/48 (73) 95 Nasal Cannula 6.0 02/26/18 06:15 34.0 86 17 127/64 (85) 86 Nasal Cannula 6.0 02/26/18 05:30 34.0 62 18 118/58 (78) 98 Nasal Cannula 6.0 02/26/18 05:27 71 16 97 Nasal Cannula 6.0 02/26/18 05:15 34.0 86 17 127/64 (85) 86 Nasal Cannula 6.0 02/26/18 05:00 34.0 62 13 111/52 (71) 96 Nasal Cannula 6.0 02/26/18 04:40 34.0 62 17 90/57 (68) 95 Nasal Cannula 6.0 02/26/18 03:35 67 20 130/74 99 02/26/18 03:30 64 16 120/64 98 Nasal Cannula 6.0 02/26/18 03:15 62 16 112/62 99 Nasal Cannula 6.0 02/26/18 03:03 74 18 116/95 96 Nasal Cannula 6.0 02/26/18 03:00 76 16 116/95 98 Nasal Cannula 6.0 02/26/18 02:30 66 18 117/80 92 Nasal Cannula 6.0 02/26/18 02:27 33.4 68 20 73/42 96 Nasal Cannula 6.0 02/26/18 02:06 64 02/26/18 01:45 75 20 80/50 94 02/26/18 01:30 71 20 113/49 95 02/26/18 01:20 66 16 93/43 97 Nasal Cannula 6.0 02/26/18 01:05 33.2 64 20 69/40 94 02/26/18 00:30 71 20 87/54 95 02/26/18 00:26 66 16 74/41 96 Nasal Cannula 6.0 02/26/18 00:05 62 16 88/46 95 02/25/18 23:55 67 16 69/32 95 Room Air 02/25/18 23:32 63 16 82/50 97 02/25/18 22:57 79 02/25/18 22:50 Nasal Cannula 6.0 02/25/18 22:48 33.9 71 16 125/35 100 Nasal Cannula 6.0 Lab Results: Results Past 24 Hours Test 02/25/18 23:26 02/25/18 23:27 02/25/18 23:45 02/26/18 01:53 Range/Units White Blood Count 7.17 4.8-10.8 K/uL Red Blood Count 3.40 4.2-5.4 M/uL Hemoglobin 10.5 12.0-16.0 g/dL Hematocrit 32.4 37-47 % Mean Corpuscular Volume 95.3 80-100 fL Mean Corpuscular Hemoglobin 30.9 25-34 pg Mean Corpuscular Hemoglobin Concent 32.4 32-36 g/dl Platelet Count 226 130-400 K/uL Mean Platelet Volume 9.4 7.4-10.4 fL Neutrophils (%) (Auto) 81.2 % Lymphocytes (%) (Auto) 6.1 % Monocytes (%) (Auto) 11.4 % Eosinophils (%) (Auto) 0.8 % Basophils (%) (Auto) 0.1 % Neutrophils # (Auto) 5.81 1.4-6.5 K/uL Lymphocytes # (Auto) 0.44 1.2-3.4 K/uL Monocytes # (Auto) 0.82 0.11-0.59 K/uL Eosinophils # (Auto) 0.06 0-0.5 K/uL Basophils # (Auto) 0.01 0-0.2 K/uL RDW Standard Deviation 59.8 36.4-46.3 fL RDW Coefficient of Variation 17.8 11.5-14.5 % Immature Granulocyte % (Auto) 0.4 % Immature Granulocyte # (Auto) 0.03 0.00-0.02 K/uL Nucleated RBC Absolute Count (auto) 0.08 0-0 K/uL Nucleated Red Blood Cells % 1.1 % Prothrombin Time 31.8 9.0-12.0 SECONDS Prothromb Time International Ratio 3.1 0.9-1.1 Venous Blood pH 7.30 7.36-7.41 Venous Blood Partial Pressure CO2 66 38.0-50.0 mmHg Venous Blood Partial Pressure O2 35 mmHg Venous Blood HCO3 32 mmol/L Venous Blood Oxygen Saturation < 60.0 % Venous Blood Base Excess 4.0 mEq/L Sodium Level 132 132 136-145 mmol/L Potassium Level 6.0 5.8 3.5-5.1 mmol/L Chloride Level 93 94 98-107 mmol/L Carbon Dioxide Level 32 33 21-32 mmol/L Anion Gap 7.0 5.0 3-11 mmol/L Blood Urea Nitrogen 49 48 7-18 mg/dl Creatinine 2.36 2.31 0.60-1.20 mg/dl Est Creatinine Clear Calc Drug Dose 26.2 26.8 ml/min Estimated GFR () 21.2 21.8 Estimated GFR (Non- 18.3 18.8 BUN/Creatinine Ratio 20.6 20.9 10-20 Random Glucose 118 109 70-99 mg/dl Lactic Acid Level 3.8 4.3 0.4-2.0 mmol/L Calcium Level 9.4 9.6 8.5-10.1 mg/dl Magnesium Level 2.5 1.8-2.4 mg/dl Total Bilirubin 5.3 0.2-1 mg/dl Direct Bilirubin 3.0 0-0.2 mg/dl Aspartate Amino Transf (AST/SGOT) 61 15-37 U/L Alanine Aminotransferase (ALT/SGPT) 37 12-78 U/L Alkaline Phosphatase 435 45-117 U/L Troponin I 0.213 0.224 0-0.045 ng/ml Pro-B-Type Natriuretic Peptide 4326 0-1800 pg/ml Total Protein 6.8 6.4-8.2 gm/dl Albumin 2.7 3.4-5.0 gm/dl Lipase 71 73-393 U/L Procalcitonin 0.22 0-0.5 ng/ml Urine Color ORANGE Urine Appearance CLOUDY CLEAR Urine pH 4.5-7.5 Urine Specific [place] 1.022 1.000-1.030 Urine Protein POS NEG Urine Glucose (UA) NEG Urine Ketones NEG Urine Occult Blood NEG Urine Nitrite NEG Urine Bilirubin NEG Urine Urobilinogen NEG Urine Leukocyte Esterase NEG Urine RBC 5-10 0-4 /hpf Urine WBC 10-30 0-5 /hpf Urine Epithelial Cells >30 0-5 /lpf Urine Bacteria 4+ NEG Total Creatine Kinase 75 26-192 U/L Thyroid Stimulating Hormone (TSH) 2.690 0.300-4.500 uIu/ml Test 02/26/18 04:57 02/26/18 05:00 02/26/18 05:32 02/26/18 06:47 Range/Units White Blood Count 10.40 4.8-10.8 K/uL Red Blood Count 3.57 4.2-5.4 M/uL Hemoglobin 10.9 12.0-16.0 g/dL Hematocrit 34.2 37-47 % Mean Corpuscular Volume 95.8 80-100 fL Mean Corpuscular Hemoglobin 30.5 25-34 pg Mean Corpuscular Hemoglobin Concent 31.9 32-36 g/dl Platelet Count 264 130-400 K/uL Mean Platelet Volume 9.5 7.4-10.4 fL Neutrophils (%) (Auto) 92.7 % Lymphocytes (%) (Auto) 1.8 % Monocytes (%) (Auto) 4.8 % Eosinophils (%) (Auto) 0.2 % Basophils (%) (Auto) 0.1 % Neutrophils # (Auto) 9.64 1.4-6.5 K/uL Lymphocytes # (Auto) 0.19 1.2-3.4 K/uL Monocytes # (Auto) 0.50 0.11-0.59 K/uL Eosinophils # (Auto) 0.02 0-0.5 K/uL Basophils # (Auto) 0.01 0-0.2 K/uL RDW Standard Deviation 60.5 36.4-46.3 fL RDW Coefficient of Variation 18.0 11.5-14.5 % Immature Granulocyte % (Auto) 0.4 % Immature Granulocyte # (Auto) 0.04 0.00-0.02 K/uL Nucleated RBC Absolute Count (auto) 0.19 0-0 K/uL Nucleated Red Blood Cells % 1.8 % Prothrombin Time 37.5 9.0-12.0 SECONDS Prothromb Time International Ratio 3.7 0.9-1.1 Sodium Level 130 136-145 mmol/L Potassium Level 6.4 3.5-5.1 mmol/L Chloride Level 94 98-107 mmol/L Carbon Dioxide Level 28 21-32 mmol/L Anion Gap 8.0 3-11 mmol/L Blood Urea Nitrogen 48 7-18 mg/dl Creatinine 2.49 0.60-1.20 mg/dl Est Creatinine Clear Calc Drug Dose 24.8 ml/min Estimated GFR () 19.9 Estimated GFR (Non- 17.2 BUN/Creatinine Ratio 19.3 10-20 Random Glucose 118 70-99 mg/dl Lactic Acid Level 5.4 0.4-2.0 mmol/L Calcium Level 9.6 8.5-10.1 mg/dl Ammonia 29.0 11-32 umol/L Troponin I 0.210 0-0.045 ng/ml Blood Gas Sample Site R Radial Bedside Blood Gas pH (LAB) 7.35 7.35-7.45 Bedside Blood Gas pCO2 (LAB) 49 35-46 mmHg Bedside Blood Gas pO2 (LAB) 75 80-95 mmHg Bedside Blood Gas HCO3 (LAB) 28 19-24 meq/L Bedside Blood Gas Total CO2 30 24-31 mEq/l Bedside Blood Gas Base Excess (LAB) 2.0 -9-1.8 meq/L Bedside Blood Gas O2 Saturation 96.0 90-95 % Freddy Test Pass Oxygen Delivery Device Cannula Bedside Glucose (other) 116 70-99 mg/dl Urine Opiates Screen POS NEG Urine Methadone, Qualitative NEG NEG Urine Barbiturates NEG NEG Urine Phencyclidine (PCP) Level NEG NEG Ur Amphetamine/Methamphetamine NEG NEG MDMA (Ecstasy) Screen NEG NEG Urine Benzodiazepines Screen NEG NEG Urine Cocaine Metabolite NEG NEG Urine Marijuana (THC) NEG NEG Test 02/26/18 07:09 02/26/18 07:53 02/26/18 08:22 02/26/18 12:39 Range/Units Venous Blood pH 7.27 7.36-7.41 Venous Blood Partial Pressure CO2 63 38.0-50.0 mmHg Venous Blood Partial Pressure O2 40 mmHg Venous Blood HCO3 28 mmol/L Venous Blood Oxygen Saturation 64.1 % Venous Blood Base Excess 0.6 mEq/L Sodium Level 131 132 136-145 mmol/L Potassium Level 5.7 5.0 3.5-5.1 mmol/L Chloride Level 93 95 98-107 mmol/L Carbon Dioxide Level 27 28 21-32 mmol/L Anion Gap 11.0 9.0 3-11 mmol/L Blood Urea Nitrogen 48 32 7-18 mg/dl Creatinine 2.41 1.76 0.60-1.20 mg/dl Est Creatinine Clear Calc Drug Dose 25.7 35.9 ml/min Estimated GFR () 20.7 30.2 Estimated GFR (Non- 17.8 26.1 BUN/Creatinine Ratio 20.0 18.4 10-20 Random Glucose 195 150 70-99 mg/dl Lactic Acid Level 5.6 3.3 0.4-2.0 mmol/L Calcium Level 10.1 8.4 8.5-10.1 mg/dl Bedside Glucose (other) 172 70-99 mg/dl Hepatitis B Surface Antigen NEG NEG Hepatitis B Surface Antibody NEG Troponin I 0.212 0-0.045 ng/ml Microbiology Results 02/25/18 Blood Culture, Received Pending 02/25/18 Blood Culture, Received Pending 02/26/18 MRSA DNA Surveillance Screen - Final, Complete Specimen Negative for MRSA by DNA Probe 02/25/18 Urine Culture, Received Pending
--- NOTE | 2018-02-26 14:35 | ECHOCARDIOGRAM REPORT ---
*NOTICE TO RECEIVING [employer]Y This information is strictly Confidential and protected under [place] law. [place] law prohibits you from making any further disclosure of this information unless further disclosure is expressly permitted by the written consent of the person to whom it pertains or is authorized by law. A general authorization for the release of medical or other information is not sufficient for this purpose. Hospital accepts no responsibility if the information is made available to any other person, INCLUDING THE PATIENT. Interpretation Summary * Normal bi-ventricular function * All chambers of normal size and function * Grossly normal valvular structure and function. * -- Conclusions -- * This is a limited echocardiogram to evaluate LV function. * Normal bi-ventricular function Procedure Details * A contrast injection of Definity was performed to improve assessment of LV function. * Contrast was injected into an intravenous site in the right arm. * One vial of Definity ultrasound contrast was diluted in normal saline to a total volume of 10 ml. A total of '3' ml of solution was administered during imaging. * Lot # [id number] of Definity utilized for procedure. * Expiration date JAN 30. * The attending nurse who injected the contrast agent was NIGEL TAPIA RN. Left Ventricle * Ejection Fraction = 60-65%. MMode 2D Measurements and Calculations LVAd ap4 19.2 cm\S\2 LVLd ap4 6.1 cm EDV(MOD-sp4) 50.3 ml EDV(sp4-el) 51.7 ml LVAs ap4 11.7 cm\S\2 LVLs ap4 5.6 cm ESV(MOD-sp4) 20.7 ml ESV(sp4-el) 20.6 ml EF(MOD-sp4) 58.8 % EF(sp4-el) 60.1 % LVAd ap2 27.5 cm\S\2 LVLd ap2 7.0 cm EDV(MOD-sp2) 87.7 ml EDV(sp2-el) 91.8 ml LVAs ap2 15.4 cm\S\2 LVLs ap2 5.8 cm ESV(MOD-sp2) 33.4 ml ESV(sp2-el) 34.7 ml EF(MOD-sp2) 62.0 % EF(sp2-el) 62.2 % LVLd %diff 13.4 % EDV(MOD-bp) 72.6 ml LVLs %diff 3.5 % ESV(MOD-bp) 26.5 ml EF(MOD-bp) 63.6 % SV(MOD-sp4) 29.6 ml SI(MOD-sp4) 11.9 ml/m\S\2 SV(MOD-sp2) 54.3 ml SI(MOD-sp2) 21.9 ml/m\S\2 SV(MOD-bp) 46.1 ml SI(MOD-bp) 18.6 ml/m\S\2 SV(sp4-el) 31.0 ml SI(sp4-el) 12.5 ml/m\S\2 SV(sp2-el) 57.1 ml SI(sp2-el) 23.0 ml/m\S\2 Doppler Measurements and Calculations TR max krystal 323.9 cm/sec
[2018-02-26] MEDS: FENTANYL CITRATE INJ 50 MCG/1 ML 2 ML VIAL IV PRN ×2 (18:19→19:35)
[2018-02-26] MEDS ORDERED: MoRPHine SULF/NSS 250MG/250ML 250 ML IV PRN (19:45)
[2018-02-26] MEDS ORDERED: FENTANYL CITRATE INJ 50 MCG/1 ML 2 ML VIAL IV ONE (20:30)
[2018-02-26] MEDS ORDERED: FENTANYL 1250MCG/250ML NSS 250 ML IV PRN (20:30)
[2018-02-26] MEDS ORDERED: ATORVASTATIN 10 MG TAB PO SCH (21:00)
--- NOTE | 2018-02-26 21:23 | Critical Care Progress Note ---
Critical Care Progress Note Date of Service February 26, 2018. Critical Care Progress Note At this point, after conversation with family per my attending physician and per my independent evaluation of the patient and discussions with family, the patient is comfort measures only. Family is requesting pain medication. They declined morphine or Dilaudid as she has had significant paradoxical reactions in the past and was to avoid this if at all possible. Patient was treated with as needed doses of fentanyl, however I feel this will likely be insufficient for continued care. After conversation with family discussing end-of-life measures, they are requesting further medications. She will be provided a fentanyl drip for comfort. Family is comfortable with this decision and seeks to make patient's comfort the top priority at this point.
[2018-02-27] VITALS (10 sets, daily range): BP systolic 30–75; BP diastolic 29–54; PULSE 67–86; TEMP 35.6–35.9
[2018-02-27] MEDS: IPRATROPIUM BROMIDE NEB SOLN 0.02% 2.5 ML VIAL INH SCH ×2 (03:00→08:12)
[2018-02-27] MEDS: LEVALBUTEROL 1.25MG/0.5ML NEB INH SCH ×2 (03:00→08:12)
[2018-02-27 04:11] LABS: HEPATITIS B CORE IGM TC51854R NON-REACTIVE (NON-REACTIVE)
[2018-02-27] MEDS: IMIPENEM-CILASTATIN 200 MG in DEXTROSE 5% 100ML 100 ML IV SCH ×3 (06:00)
[2018-02-27] MEDS: INSULIN ASPART 100 UNITS/ML 3 ML PEN SC SCH (06:04)
--- NOTE | 2018-02-27 06:44 | Death Pronouncement Note ---
Pronouncement Note Date & Time of February 27, 2018. 0636 Pronouncement At time of pronouncement the patients pupils were fixed and dilated, there was no spontaneous respiratory effort, no palpable pulse, no audible heart tones, and no response to pain or voice. Time of : 0636
== END 2018-02-27 10:00 | disposition expired | DRG 871 ==
LOC: EDBD 22:46 → C.EDA 22:49 → C.MSICU 02-26 02:32 → ENRESERV 02-26 02:53
PROVIDERS: ADMIT Internal Medicine; ATTEND Internal Medicine
PROC: 05HM33Z Insertion of Infusion Device into Right Internal Jugular Vein, Percutaneous Approach (ICD-10-PCS; principal; 2018-02-25)
DX: A41.9 Sepsis, unspecified organism (principal); J18.9 Pneumonia, unspecified organism; N17.0 Acute kidney failure with tubular necrosis; J96.21 Acute and chronic respiratory failure with hypoxia; J96.22 Acute and chronic respiratory failure with hypercapnia; G93.40 Encephalopathy, unspecified; R65.21 Severe sepsis with septic shock; N39.0 Urinary tract infection, site not specified; E87.1 Hypo-osmolality and hyponatremia; E27.40 Unspecified adrenocortical insufficiency; I50.32 Chronic diastolic (congestive) heart failure; J44.0 Chronic obstructive pulmonary disease with (acute) lower respiratory infection; I13.0 Hypertensive heart and chronic kidney disease with heart failure and stage 1 through stage 4 chronic kidney disease, or unspecified chronic kidney disease; Y95 Nosocomial condition; E87.5 Hyperkalemia; T40.2X5A Adverse effect of other opioids, initial encounter; S82.141D Displaced bicondylar fracture of right tibia, subsequent encounter for closed fracture with routine healing; X58.XXXD Exposure to other specified factors, subsequent encounter; W19.XXXS Unspecified fall, sequela; R55 Syncope and collapse; R79.1 Abnormal coagulation profile; I95.9 Hypotension, unspecified; R68.0 Hypothermia, not associated with low environmental temperature; I48.91 Unspecified atrial fibrillation; I25.10 Atherosclerotic heart disease of native coronary artery without angina pectoris; E11.22 Type 2 diabetes mellitus with diabetic chronic kidney disease; N18.3 Chronic kidney disease, stage 3 (moderate); E03.9 Hypothyroidism, unspecified; D64.9 Anemia, unspecified; G47.33 Obstructive sleep apnea (adult) (pediatric); I25.2 Old myocardial infarction; Z66 Do not resuscitate; Z51.5 Encounter for palliative care; Z99.81 Dependence on supplemental oxygen; Z95.0 Presence of cardiac pacemaker; Z95.5 Presence of coronary angioplasty implant and graft; Z87.891 Personal history of nicotine dependence; Z79.01 Long term (current) use of anticoagulants; Z79.4 Long term (current) use of insulin; Z79.82 Long term (current) use of aspirin; Z79.899 Other long term (current) drug therapy; Z88.0 Allergy status to penicillin; Z88.1 Allergy status to other antibiotic agents; Z88.5 Allergy status to narcotic agent; Z88.8 Allergy status to other drugs, medicaments and biological substances; Z91.048 Other nonmedicinal substance allergy status